=== PATIENT | female | born 1995 | race Caucasian/White ===

== ENCOUNTER 2017-11-12 21:55 | Emergency (ER) | payer OTHER, SELFPAY ==
--- NOTE | 2017-11-12 00:10 | DI.RAD_ITS ---
SYMPTOM/DIAGNOSIS: CHEST PRESSURE, CHEST PAIN PORTABLE AP CHEST: The heart is normal in size. The lungs are clear. The mediastinal structures and pleura appear intact. CONCLUSION: Normal chest.
[2017-11-12 22:01] VITALS: BP 168/101; PULSE 98; RESP 18; TEMP 36.7; O2SAT 98
[2017-11-12] MEDS: Normal Saline 1,000 ML 1000 ML IV (22:09)
[2017-11-12 22:27] LABS: Abs Immature Grans 0.07 k/cumm (0.0-0.09); Absolute Basophil Count 0.05 k/cumm (0.0-0.2); Absolute Lymphocyte Count 2.74 k/cumm (1.2-3.4); Absolute Monocyte Count 0.53 k/cumm (0.11-0.7); Absolute Neutrophil Count 4.97 k/cumm (1.2-6.7); Basophils % 0.5; Eosinophils % 9.7; HCT 37.1 % (36.0-46.0); HGB 11.4 g/dL (12.0-15.5); Immature Grans % 0.8; Lymphocytes % 29.6; Mean Corp. HGB Concentration 30.7 g/dL (32.0-36.0); Mean Corpuscular Hemoglobin 24.7 pg (27.0-33.0); Mean Corpuscular Volume 80.5 fL (80-95); Mean Platelet Volume 11.5 fL (8.0-11.0); Monocytes % 5.7; Neutrophils % 53.7; Platelet Count 212 x1000/uL (130-400); RBC 4.61 m/cumm (4.00-5.20); RBC Distribution Width 17.7 % (11.7-14.6); White Blood Cell Count 9.26 k/cumm (4.4-10.8)
[2017-11-12 23:21] LABS: ALT 30 U/L (12-78); AST 29 U/L (15-37); Albumin 3.5 g/dL (3.4-5.0); Alkaline Phosphatase 71 U/L (46-116); Anion Gap 10.9 mmol/L (3-11); BUN 13 mg/dL (7-18); Bilirubin, Total 0.2 mg/dL (0.2-1.0); CO2 26.1 mmol/L (21.0-32.0); CREATININE 0.96 mg/dL (0.55-1.02); Calcium 8.7 mg/dL (8.5-10.1); Chloride 101 mmol/L (98-107); Glucose 88 mg/dL (70-100); Potassium 3.9 mmol/L (3.5-5.1); Sodium 138 mmol/L (136-145); Total Protein 7.6 g/dL (6.4-8.2)
[2017-11-12 23:23] LABS: Troponin I < 0.02 ng/mL (0.00-0.06)
[2017-11-12 23:45] LABS: D-Dimer 302 ng/mlFEU (<500)
--- NOTE | 2017-11-12 23:47 | W.ED.GENAD ---
Discharge Plan Disposition Patient Disposition: HOME Condition: Good Discharge Details Chief Complaint: Chest Pain Clinical Impression: Chest pain Primary Care Provider: Radha Etienne ED Provider: Sanjay Felix Home Meds and New Rx's Prescriptions: No Action albuterol sulfate 8.5 GM HFA aerosol inhaler 1 - 2 puff Inhalation Q4H PRN Qty: 1 RF: 1 ibuprofen 800 MG tablet 400 - 800 mg PO TID PRNQty: 40 RF: 0 fluticasone-salmeterol [Advair Diskus] 1 EACH blister with device 1 puff Inhalation BID Qty: 1 RF: 12 ranitidine HCl 150 MG capsule 150 mg PO HS Qty: 90 RF: 3 drospirenone-ethinyl estradiol [Ros (28)] 1 EACH tablet 1 tab-cap PO DAILY Qty: 3 RF: 3 Discharge Instructions Instructions: Chest Pain (ED) Additional Instructions: Please take Tylenol and Motrin for any pain. Please follow-up with your transit mechanic as soon as possible for reassessment. If you notice any worsening of your symptoms, or any new symptoms such as vomiting, diarrhea, fever, chills, shortness of breath, chest pain, numbness, weakness, or fainting , please return immediately to the emergency department for reevaluation. Please follow up with your primary care provider as soon as possible for reassessment and reevaluation. As always, it was a pleasure participating in your medical care today. Referrals: Radha Etienne, SOFTWARE ENGINEER MOBILE [Primary Care Provider] - Medical Decision Making This is a 22-year-old female with a past medical history of supraventricular tachycardia, and cardiac ablation, who presents today for a heaviness on her chest. It improves when she sits upright, it worsens when she lays down flat. She has no associated cough, fever or chills. She denies any pleuritic chest pain. Vital signs are normal. Differential includes potential pulmonary etiology, pulmonary embolism, musculoskeletal etiology. Pericarditis is high in the differential with her symptomatology. Laboratory workup demonstrates no elevated WBC. Normal d-dimer level, normal electrolytes, normal troponin. TSH is also normal. EKG shows no acute abnormality. We are pending chest x-ray results at this time. We have given the patient Toradol, 1 L of normal saline, and will reassess. Differential at this time is highest for pericarditis versus musculoskeletal etiology. EKG 22: 03 Rate 87, intervals normal, sinus rhythm, no ST elevations or depressions. Inverted T wave in lead III. Questionable Q wave in lead III. No broad terminal S wave in lead I.no signs of right heart strain on EKG 12:43 AM chest x-ray has returned negative per virtual radiology. Laboratory workup is benign. Symptoms are improved with Toradol. Feel her symptoms most likely musculoskeletal in origin and etiology. Recommended home NSAID use, and close follow-up with her PCP. We discussed red flags for which to return I have extensively reviewed the treatment plan and discharge instructions with the patient. I have addressed all patient concerns at this time. The patient was made aware of what symptoms to monitor for that would warrant a return to the emergency department. Discussed the plan with the patient, they demonstrate verbal understanding and agreement with our assessment and plan at this time. HPI General Date/Time Provider Initiated Documentation: 11/12/17 22:08. HPI Narrative: This is a 22-year-old female with past medical history of SVT with cardiac ablation 4 years ago, asthma, and oral contraceptive. She presents today with complaint of 2 days of heaviness on her chest. She states that she feels like there is a heavy weight on her chest, there is no pleuritic chest pain, she does not have any pain that radiates to her arms or neck. She states that the symptoms are slightly improved when she sits upright and leans forward, worsened when she lays back. She has not had symptoms like this before. She does admit to a sensation of occasional palpitations, but no persistent palpitations. She denies any new foods, trauma to her chest, cough, wheezes, fevers tearing sensation in her chest, or chills. Denies PE risk factors such as recent long car rides, immobilization, recent surgery, prior history of DVT or PE, family history of PE or DVT, morbid obesity, exogenous estrogen and smoking, hemoptysis, history of cancer. She denies any IV or illicit drug use. She denies any pertinent family history. Related Data Home Medications Medication Instructions Recorded Confirmed albuterol sulfate 1 - 2 puff INHALATION Q4H PRN #1 03/10/14 11/12/17 inhaler ibuprofen 400 - 800 mg PO TID PRN #40 tab-cap 12/06/15 11/12/17 fluticasone-salmeterol [Advair 1 puff INHALATION BID #1 disk 05/16/17 11/12/17 Diskus] ranitidine HCl 150 mg PO HS #90 tab-cap 05/16/17 11/12/17 drospirenone-ethinyl estradiol 1 tab-cap PO DAILY #3 pack 08/28/17 11/12/17 [Ros (28)] Previous Rx's Medication Instructions Recorded fluticasone-salmeterol [Advair 1 puff INHALATION BID #1 disk 05/16/17 Diskus] ranitidine HCl 150 mg PO HS #90 tab-cap 05/16/17 drospirenone-ethinyl estradiol 1 tab-cap PO DAILY #3 pack 08/28/17 [Ros (28)] Allergies Allergy/AdvReac Type Severity Reaction Status Date / Time amoxicillin [Amoxicillin] Allergy Unknown Unverified 11/12/17 22:46 blueberry [Blueberry] Allergy urticaria Unverified 11/12/17 22:46 codeine phosphate AdvReac Severe vomiting Unverified 11/12/17 22:46 [From Tylenol-Codeine #3] shellfish food Allergy Unknown vomiting Uncoded 11/12/17 22:46 General Stated Complaint: Chest Pain LONA: 3 Review of Systems Review of Systems 10 point review of systems was performed, pertinent positives and negatives are noted in the history of present illness. PFSH Family History Brother Crohn's disease Mother No problems noted. Father No problems noted. 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 3.ENT: Atraumatic external nose and ears. Moist MM. Neck: Symmetric, trachea midline, No thyromegaly. 4.CVS: +S1/S2, No murmurs or gallops. Peripheral pulses 2+ and equal in all extremities. Brisk capillary refill in all extremities. 5.RESP: Unlabored respiratory effort. Clear to auscultation bilaterally. No wheezes rales or rhonchi 6.GI: Soft, Nontender/Nondistended, No hepatosplenomegaly. No guarding or rebound. 7.MSK: Normocephalic/Atraumatic, Extremities w/o deformity or ttp No cyanosis or clubbing, Normal movement of all extremities 8.Skin: Warm, Dry. No rashes or lesions. 9.Neuro: department administrator II-XII grossly intact. Sensation grossly intact, no focal neurologic deficits. 10.Psych: (AAO) x3. Appropriate mood and affect Course Vital Signs Temperature 36.7 C 11/12/17 22:01 Pulse 98 H 11/12/17 22:01 Respiratory Rate 18 11/12/17 22:01 Blood Pressure 168/101 H 11/12/17 22:01 Pulse Oximetry 98 11/12/17 22:01 Temperature 36.7 C 11/12/17 22:01 Temperature Source Temporal Artery Scan 11/12/17 22:01 Pulse 98 H 11/12/17 22:01 Respiratory Rate 18 11/12/17 22:01 Respiratory Effort 11/12/17 22:45 Respiratory Depth Normal 11/12/17 22:45 Respiratory Pattern Normal 11/12/17 22:45 Blood Pressure 168/101 H 11/12/17 22:01 Blood Pressure Position Sitting 11/12/17 22:01 Pulse Oximetry 98 11/12/17 22:01 Oxygen Delivery Method Room Air 11/12/17 22:01 Oxygen Flow Rate 0 11/12/17 22:01 Lab/Test Results Lab/Test Results: Laboratory Tests Range/Units 11/12/17 11/12/17 11/12/17 22:23 22:23 22:23 WBC (4.4-10.8) k/cumm 9.26 RBC (4.00-5.20) m/cumm 4.61 Hgb (12.0-15.5) g/dL 11.4 L Hct (36.0-46.0) % 37.1 MCV (80-95) fL 80.5 MCH (27.0-33.0) pg 24.7 L MCHC (32.0-36.0) g/dL 30.7 L RDW (11.7-14.6) % 17.7 H Plt Count (130-400) x1000/uL 212 MPV (8.0-11.0) fL 11.5 H Immature Gran % 0.8 Neutrophils % 53.7 Lymphocytes % 29.6 Monocytes % 5.7 Eosinophils % 9.7 Basophils % 0.5 Absolute Neutrophils (1.2-6.7) k/cumm 4.97 Absolute Lymphocytes (1.2-3.4) k/cumm 2.74 Absolute Monocytes (0.11-0.7) k/cumm 0.53 Absolute Eosinophils (0.0-0.7) k/cumm 0.90 H Absolute Basophils (0.0-0.2) k/cumm 0.05 D-Dimer Cancelled Sodium Cancelled Potassium Cancelled Chloride Cancelled Carbon Dioxide Cancelled Anion Gap Cancelled BUN Cancelled Creatinine Cancelled Estimated GFR/1.73 m2 Cancelled Glucose Cancelled Calcium Cancelled Total Bilirubin Cancelled AST Cancelled ALT Cancelled Alkaline Phosphatase Cancelled Troponin I Cancelled Total Protein Cancelled Albumin Cancelled TSH Cancelled Range/Units 11/12/17 11/12/17 22:50 22:50 WBC (4.4-10.8) k/cumm RBC (4.00-5.20) m/cumm Hgb (12.0-15.5) g/dL Hct (36.0-46.0) % MCV (80-95) fL MCH (27.0-33.0) pg MCHC (32.0-36.0) g/dL RDW (11.7-14.6) % Plt Count (130-400) x1000/uL MPV (8.0-11.0) fL Immature Gran % Neutrophils % Lymphocytes % Monocytes % Eosinophils % Basophils % Absolute Neutrophils (1.2-6.7) k/cumm Absolute Lymphocytes (1.2-3.4) k/cumm Absolute Monocytes (0.11-0.7) k/cumm Absolute Eosinophils (0.0-0.7) k/cumm Absolute Basophils (0.0-0.2) k/cumm D-Dimer 302 Sodium 138 Potassium 3.9 Chloride 101 Carbon Dioxide 26.1 Anion Gap 10.9 BUN 13 Creatinine 0.96 Estimated GFR/1.73 m2 >= 60.00 Glucose 88 Calcium 8.7 Total Bilirubin 0.2 AST 29 ALT 30 Alkaline Phosphatase 71 Troponin I < 0.02 Total Protein 7.6 Albumin 3.5 TSH 2.30 POC- Test(urine) Negative
--- NOTE | 2017-11-13 00:02 | ED.GENADUL_ITS ---
Discharge Plan Disposition Patient Disposition: HOME Condition: Good Discharge Details Chief Complaint: Chest Pain Clinical Impression: Chest pain Primary Care Provider: Radha Etienne ED Provider: Sanjay Felix Home Meds and New Rx's Prescriptions: No Action albuterol sulfate 8.5 GM HFA aerosol inhaler 1 - 2 puff Inhalation Q4H PRN Qty: 1 RF: 1 ibuprofen 800 MG tablet 400 - 800 mg PO TID PRNQty: 40 RF: 0 fluticasone-salmeterol [Advair Diskus] 1 EACH blister with device 1 puff Inhalation BID Qty: 1 RF: 12 ranitidine HCl 150 MG capsule 150 mg PO HS Qty: 90 RF: 3 drospirenone-ethinyl estradiol [Ros (28)] 1 EACH tablet 1 tab-cap PO DAILY Qty: 3 RF: 3 Discharge Instructions Instructions: Chest Pain (ED) Additional Instructions: Please take Tylenol and Motrin for any pain. Please follow-up with your powerhouse engineer as soon as possible for reassessment. If you notice any worsening of your symptoms, or any new symptoms such as vomiting, diarrhea, fever, chills , shortness of breath, chest pain, numbness, weakness, or fainting , please return immediately to the emergency department for reevaluation. Please follow up with your primary care provider as soon as possible for reassessment and reevaluation. As always, it was a pleasure participating in your medical care today. Referrals: Radha Etienne, WHEELCHAIR RENTAL CLERK [Primary Care Provider] - Medical Decision Making This is a 22-year-old female with a past medical history of supraventricular tachycardia, and cardiac ablation, who presents today for a heaviness on her chest. It improves when she sits upright, it worsens when she lays down flat. She has no associated cough, fever or chills. She denies any pleuritic chest pain. Vital signs are normal. Differential includes potential pulmonary etiology, pulmonary embolism, musculoskeletal etiology. Pericarditis is high in the differential with her symptomatology. Laboratory workup demonstrates no elevated WBC. Normal d-dimer level, normal electrolytes, normal troponin. TSH is also normal. EKG shows no acute abnormality. We are pending chest x-ray results at this time. We have given the patient Toradol, 1 L of normal saline, and will reassess. Differential at this time is highest for pericarditis versus musculoskeletal etiology. EKG 22: 03 Rate 87, intervals normal, sinus rhythm, no ST elevations or depressions. Inverted T wave in lead III. Questionable Q wave in lead III. No broad terminal S wave in lead I.no signs of right heart strain on EKG 12:43 AM chest x-ray has returned negative per virtual radiology. Laboratory workup is benign. Symptoms are improved with Toradol. Feel her symptoms most likely musculoskeletal in origin and etiology. Recommended home NSAID use, and close follow-up with her PCP. We discussed red flags for which to return I have extensively reviewed the treatment plan and discharge instructions with the patient. I have addressed all patient concerns at this time. The patient was made aware of what symptoms to monitor for that would warrant a return to the emergency department. Discussed the plan with the patient, they demonstrate verbal understanding and agreement with our assessment and plan at this time. HPI General Date/Time Provider Initiated Documentation: 11/12/17 22:08 . HPI Narrative: This is a 22-year-old female with past medical history of SVT with cardiac ablation 4 years ago, asthma, and oral contraceptive. She presents today with complaint of 2 days of heaviness on her chest. She states that she feels like there is a heavy weight on her chest, there is no pleuritic chest pain, she does not have any pain that radiates to her arms or neck. She states that the symptoms are slightly improved when she sits upright and leans forward, worsened when she lays back. She has not had symptoms like this before. She does admit to a sensation of occasional palpitations, but no persistent palpitations. She denies any new foods, trauma to her chest, cough, wheezes, fevers tearing sensation in her chest, or chills. Denies PE risk factors such as recent long car rides, immobilization, recent surgery, prior history of DVT or PE, family history of PE or DVT, morbid obesity, exogenous estrogen and smoking, hemoptysis, history of cancer. She denies any IV or illicit drug use. She denies any pertinent family history. Related Data Home Medications Medication Instructions Recorded Confirmed albuterol sulfate 1 - 2 puff INHALATION Q4H PRN #1 03/10/14 11/12/17 inhaler ibuprofen 400 - 800 mg PO TID PRN #40 tab-cap 12/06/15 11/12/17 fluticasone-salmeterol [Advair 1 puff INHALATION BID #1 disk 05/16/17 11/12/17 Diskus] ranitidine HCl 150 mg PO HS #90 tab-cap 05/16/17 11/12/17 drospirenone-ethinyl estradiol 1 tab-cap PO DAILY #3 pack 08/28/17 11/12/17 [Ros (28)] Previous Rx's Medication Instructions Recorded fluticasone-salmeterol [Advair 1 puff INHALATION BID #1 disk 05/16/17 Diskus] ranitidine HCl 150 mg PO HS #90 tab-cap 05/16/17 drospirenone-ethinyl estradiol 1 tab-cap PO DAILY #3 pack 08/28/17 [Ros (28)] Allergies Allergy/AdvReac Type Severity Reaction Status Date / Time amoxicillin [Amoxicillin] Allergy Unknown Unverified 11/12/17 22:46 blueberry [Blueberry] Allergy urticaria Unverified 11/12/17 22:46 codeine phosphate AdvReac Severe vomiting Unverified 11/12/17 22:46 [From Tylenol-Codeine #3] shellfish food Allergy Unknown vomiting Uncoded 11/12/17 22:46 General Stated Complaint: Chest Pain LONA: 3 Review of Systems Review of Systems 10 point review of systems was performed, pertinent positives and negatives are noted in the history of present illness. PFSH Family History Brother Crohn's disease Mother No problems noted. Father No problems noted. 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 3.ENT: Atraumatic external nose and ears. Moist MM. Neck: Symmetric, trachea midline, No thyromegaly. 4.CVS: +S1/S2, No murmurs or gallops. Peripheral pulses 2+ and equal in all extremities. Brisk capillary refill in all extremities. 5.RESP: Unlabored respiratory effort. Clear to auscultation bilaterally. No wheezes rales or rhonchi 6.GI: Soft, Nontender/Nondistended, No hepatosplenomegaly. No guarding or rebound. 7.MSK: Normocephalic/Atraumatic, Extremities w/o deformity or ttp No cyanosis or clubbing, Normal movement of all extremities 8.Skin: Warm, Dry. No rashes or lesions. 9.Neuro: healthcare corporate account director II-XII grossly intact. Sensation grossly intact, no focal neurologic deficits. 10.Psych: (AAO) x3. Appropriate mood and affect Course Vital Signs Temperature 36.7 C 11/12/17 22:01 Pulse 98 H 11/12/17 22:01 Respiratory Rate 18 11/12/17 22:01 Blood Pressure 168/101 H 11/12/17 22:01 Pulse Oximetry 98 11/12/17 22:01 Temperature 36.7 C 11/12/17 22:01 Temperature Source Temporal Artery Scan 11/12/17 22:01 Pulse 98 H 11/12/17 22:01 Respiratory Rate 18 11/12/17 22:01 Respiratory Effort 11/12/17 22:45 Respiratory Depth Normal 11/12/17 22:45 Respiratory Pattern Normal 11/12/17 22:45 Blood Pressure 168/101 H 11/12/17 22:01 Blood Pressure Position Sitting 11/12/17 22:01 Pulse Oximetry 98 11/12/17 22:01 Oxygen Delivery Method Room Air 11/12/17 22:01 Oxygen Flow Rate 0 11/12/17 22:01 Lab/Test Results Lab/Test Results: Laboratory Tests Range/Units 11/12/17 11/12/17 11/12/17 22:23 22:23 22:23 WBC (4.4-10.8) k/cumm 9.26 RBC (4.00-5.20) m/cumm 4.61 Hgb (12.0-15.5) g/dL 11.4 L Hct (36.0-46.0) % 37.1 MCV (80-95) fL 80.5 MCH (27.0-33.0) pg 24.7 L MCHC (32.0-36.0) g/dL 30.7 L RDW (11.7-14.6) % 17.7 H Plt Count (130-400) x1000/uL 212 MPV (8.0-11.0) fL 11.5 H Immature Gran % 0.8 Neutrophils % 53.7 Lymphocytes % 29.6 Monocytes % 5.7 Eosinophils % 9.7 Basophils % 0.5 Absolute Neutrophils (1.2-6.7) k/cumm 4.97 Absolute Lymphocytes (1.2-3.4) k/cumm 2.74 Absolute Monocytes (0.11-0.7) k/cumm 0.53 Absolute Eosinophils (0.0-0.7) k/cumm 0.90 H Absolute Basophils (0.0-0.2) k/cumm 0.05 D-Dimer Cancelled Sodium Cancelled Potassium Cancelled Chloride Cancelled Carbon Dioxide Cancelled Anion Gap Cancelled BUN Cancelled Creatinine Cancelled Estimated GFR/1.73 m2 Cancelled Glucose Cancelled Calcium Cancelled Total Bilirubin Cancelled AST Cancelled ALT Cancelled Alkaline Phosphatase Cancelled Troponin I Cancelled Total Protein Cancelled Albumin Cancelled TSH Cancelled Range/Units 11/12/17 11/12/17 22:50 22:50 WBC (4.4-10.8) k/cumm RBC (4.00-5.20) m/cumm Hgb (12.0-15.5) g/dL Hct (36.0-46.0) % MCV (80-95) fL MCH (27.0-33.0) pg MCHC (32.0-36.0) g/dL RDW (11.7-14.6) % Plt Count (130-400) x1000/uL MPV (8.0-11.0) fL Immature Gran % Neutrophils % Lymphocytes % Monocytes % Eosinophils % Basophils % Absolute Neutrophils (1.2-6.7) k/cumm Absolute Lymphocytes (1.2-3.4) k/cumm Absolute Monocytes (0.11-0.7) k/cumm Absolute Eosinophils (0.0-0.7) k/cumm Absolute Basophils (0.0-0.2) k/cumm D-Dimer 302 Sodium 138 Potassium 3.9 Chloride 101 Carbon Dioxide 26.1 Anion Gap 10.9 BUN 13 Creatinine 0.96 Estimated GFR/1.73 m2 >= 60.00 Glucose 88 Calcium 8.7 Total Bilirubin 0.2 AST 29 ALT 30 Alkaline Phosphatase 71 Troponin I < 0.02 Total Protein 7.6 Albumin 3.5 TSH 2.30 POC- Test(urine) Negative
[2017-11-13] MEDS: Ketorolac 30 MG/ML VIAL 15 MG IM (00:04)
--- NOTE | 2017-11-13 00:26 | DI.VRAD_ITS ---
EXAM: XR Chest, 1 View CLINICAL HISTORY: 22 years old, female; Pain; Chest pain; Type not specified; Patient HX: Chest pain and pressure TECHNIQUE: Frontal view of the chest. COMPARISON: No relevant prior studies available. FINDINGS: Lungs: Unremarkable. No consolidation. Pleural space: Unremarkable. No pneumothorax. Heart: Unremarkable. No cardiomegaly. Mediastinum: Unremarkable. Bones/joints: Unremarkable. IMPRESSION: Normal chest x-ray. Dictated and Authenticated by: Gregg Collazo MD. Ordering:MERE MATA MD
== END 2017-11-13 01:09 | disposition home or self-care (01) ==
PROVIDERS: Emergency Provider Student in an Organized Health Care Education/Training Program; PCP Nurse Practitioner Adult Health
DX: R07.89 Other chest pain (principal); Z79.3 Long term (current) use of hormonal contraceptives; Z86.79 Personal history of other diseases of the circulatory system
CPT/HCPCS: 80053; 81025; 93005; 96360; 96361; 96372; 99285; 71045; 84443; 84484; 85025; 85379; 93010; J1885

== ENCOUNTER 2017-11-13 15:43 | Outpatient (REF) | payer OTHER, SELFPAY ==
--- NOTE | 2017-11-13 14:30 | CER_PTH ---
PATIENT: Gerri Talley LOC: [facility] U#:[id number] AGE/SX: 22/F ROOM: RE11/13/[address]: Desirae Kaur MD : [id number] BED: DIS: 11/13/2017 SPEC #: [id number] RECD: 11/13/17 17:47 STATUS: BALAJI REQ #: [id number] ETHAN: 11/13/17 14:[address]: Desirae Kaur DEPT: Surgical Specimen RECD BY: Katarzyna Garcia ENTERED: 11/13/17 17:48 SP TYPE: VI ARAIZA DR: Radha Etienne APRN Tissues: 1 - CERVICAL BIOPSY 2 - CERVICAL BIOPSY 3 - ENDOCERVICAL BX/CURRETTE Procedures: GROSS AND MICRO LEVEL 4 P16 IPEX Comments: [id number]
== END 2017-11-13 16:03 ==
LOC: LBN 15:43
PROVIDERS: PCP Nurse Practitioner Adult Health; Referring Provider Obstetrics & Gynecology; Visit Provider Obstetrics & Gynecology
DX: N87.1 Moderate cervical dysplasia (principal); R87.613 High grade squamous intraepithelial lesion on cytologic smear of cervix (HGSIL)
CPT/HCPCS: 88305; 88342

== ENCOUNTER 2017-11-22 13:15 | Outpatient (CLI) | payer OTHER, SELFPAY ==
--- NOTE | 2017-11-22 14:02 | MERGE_ITS ---
*[facility]* *[facility]* [address] [place] [address] Date of study: 11/22/2017 Transthoracic Echocardiography M-mode, complete 2D, complete spectral Doppler, and color Doppler *STUDY CONCLUSIONS* Summary: 1. Left ventricle: The cavity size was normal. Wall thickness was at the upper limits of normal. Systolic function was normal. The estimated ejection fraction was 55-60%. Wall motion was normal; there were no regional wall motion abnormalities. 2. Aortic valve: There was trivial regurgitation. 3. Right ventricle: The cavity size was normal. Wall thickness was normal. Systolic function was normal. *PATIENT PRESENTATION* Height: 175.3cm ((69in) ) S/D Pressure: 127 / 81 Weight: 111.1kg ((244.5lb) ) BSA: 2.37m^2 Test start time: 02:10 PM. Test stop time: 03:10 PM. PERFORMING Unknown PERFORMING [facility] PHYSICAL SCIENCES PROFESSOR Merry Alaniz RT (R)(CT), [facility] ORDERING Jessica Bhakta REFERRING Jessica Bhakta *PROCEDURE DATA* Procedure information: The patient was identified by two identifiers. This study was interpreted by [facility]. Pertinent images and digital data are archived for permanent storage and are available for subsequent review. Comparison was made to the study of 03/23/2014. Study status: Routine. Transthoracic echocardiography. M-mode, complete 2D, complete spectral Doppler, and color Doppler. A Transthoracic Echocardiogram was performed. Scanning was performed from the parasternal, apical, subcostal, and suprasternal notch acoustic windows. Images were obtained using an [id number] cardiac ultrasound machine. Image quality was adequate. Study completion: The patient tolerated the procedure well. History: PMH: Chest pressure discomfort. *CARDIAC ANATOMY* Left ventricle: The cavity size was normal. Wall thickness was at the upper limits of normal. Systolic function was normal. The estimated ejection fraction was 55-60%. Wall motion was normal; there were no regional wall motion abnormalities. Aortic valve: Trileaflet; normal thickness leaflets. Mobility was not restricted. Doppler: Transvalvular velocity was within the normal range. There was no stenosis. There was trivial regurgitation. VTI ratio of LVOT to aortic valve: 0.76. Valve area (VTI): 2.4cm^2. Indexed valve area (VTI): 1cm^2/m^2. Peak velocity ratio of LVOT to aortic valve: 0.75. Valve area (Vmax): 2.4cm^2. Indexed valve area (Vmax): 1cm^2/m^2. Mean velocity ratio of LVOT to aortic valve: 0.78. Valve area (Vmean): 2.5cm^2. Indexed valve area (Vmean): 1.1cm^2/m^2. Mean gradient (S): 5.6mm Hg. Peak gradient (S): 9.1mm Hg. Aorta: Aortic root: The aortic root was normal in size. Ascending aorta: The ascending aorta was normal in size. Aortic arch: The aortic arch was normal in size. Mitral valve: Mildly thickened leaflets. Mobility was not restricted. Doppler: Transvalvular velocity was within the normal range. There was no evidence for stenosis. There was trivial regurgitation. Valve area by pressure half-time: 3.9cm^2. Indexed valve area by pressure half-time: 1.6cm^2/m^2. Peak gradient (D): 3.1mm Hg. Left atrium: The atrium was normal in size. Right ventricle: The cavity size was normal. Wall thickness was normal. Systolic function was normal. Pulmonic valve: Doppler: Transvalvular velocity was within the normal range. There was no evidence for stenosis. There was mild regurgitation. Peak gradient (S): 3mm Hg. Tricuspid valve: Structurally normal valve. Doppler: Transvalvular velocity was within the normal range. There was no evidence for stenosis. There was mild regurgitation. Pulmonary artery: The main pulmonary artery was normal-sized. Pulmonary systolic pressure was within the normal range. Main pulmonary artery: Mid diameter: 2.5cm. Right atrium: The atrium was normal in size. Pericardium: There was no pericardial effusion. Systemic veins: Inferior vena cava: Well visualized. The vessel was patent and normal in size. The respirophasic diameter changes were in the normal range (greater than or equal to 50%), consistent with normal central venous pressure. Baseline ECG: Normal sinus rhythm. Measurements Main pulmonary artery Value Reference ID, mid 2.5 cm Left ventricle Value Reference LV ID, ED, PLAX 4.9 cm 3.5 - 6.0 LV ID, ES, PLAX 3.5 cm 2.1 - 4.0 LV PW thickness, ED, PLAX 1.0 cm LV end-diastolic volume, 1-p A2C 98 ml LV ejection fraction, 1-p A2C 57 % LV end-diastolic volume, 1-p A4C 107 ml LV ejection fraction, 1-p A4C 54 % LV e', lateral 0.149 m/sec LV E/e', lateral 6 LV e', medial 0.13 m/sec LV E/e', medial 7 LV e', average 0.14 m/sec LV E/e', average 6 Ventricular septum Value Reference IVS thickness, ED, PLAX 1.1 cm LVOT Value Reference LVOT ID, A-P 2.0 cm LVOT area 3.2 cm^2 LVOT peak velocity, S 1.14 m/sec LVOT mean velocity, S 0.89 m/sec LVOT VTI, S 22.1 cm LVOT peak gradient, S 5.2 mm Hg LVOT mean gradient, S 3.4 mm Hg Stroke volume (SV), LVOT DP 70 ml Stroke index (SV/bsa), LVOT DP 30 ml/m^2 Aortic valve Value Reference Aortic valve peak velocity, S 1.5 m/sec Aortic valve mean velocity, S 1.14 m/sec Aortic valve VTI, S 29.0 cm Aortic mean gradient, S 5.6 mm Hg Aortic peak gradient, S 9.1 mm Hg VTI ratio, LVOT/AV 0.76 Aortic valve area, VTI 2.4 cm^2 Velocity ratio, peak, LVOT/AV 0.75 Aortic valve area, peak velocity 2.4 cm^2 Velocity ratio, mean, LVOT/AV 0.78 Aortic valve area, mean velocity 2.5 cm^2 Aortic valve area/bsa, mean velocity 1.1 cm^2/m^2 Aortic regurg velocity, ED 3.99 m/sec Aortic regurg gradient, ED 63.8 mm Hg Aorta Value Reference Aortic root ID, ED 2.6 cm Ascending aorta ID, A-P, S 2.7 cm Aortic arch ID, innominate-LCCA 2.6 cm 2.0 - 3.6 Aortic arch ID, LCCA-LSCA 2.2 cm RVOT Value Reference RVOT VTI, S 16.3 cm Left atrium Value Reference LA ID, A-P, ES 3.4 cm LA ID/bsa, A-P 1.4 cm/m^2 <=2.2 LA area, ES, A4C 15.7 cm^2 8.8 - 23.4 LA area, ES, A2C 13 cm^2 LA volume/bsa, ES, 1-p A4C 18 ml/m^2 LA volume, ES, 2-p 38 ml LA volume/bsa, ES, 2-p 16 ml/m^2 LA/aortic root ratio 1.3 Mitral valve Value Reference Mitral E-wave peak velocity 0.89 m/sec Mitral A-wave peak velocity 0.51 m/sec Mitral deceleration time 196 ms 150 - 230 Mitral pressure half-time 57 ms Mitral peak gradient, D 3.1 mm Hg Mitral E/A ratio, peak 1.73 Mitral valve area, PHT, DP 3.9 cm^2 Pulmonary veins Value Reference Pulmonary vein peak velocity, S 0.47 m/sec Pulmonary vein peak velocity, D 0.68 m/sec Pulmonary vein velocity ratio, peak, 0.69 S/D Pulmonary arteries Value Reference PA pressure, S, DP 20 mm Hg <=30 Tricuspid valve Value Reference Tricuspid regurg peak velocity 1.8 m/sec Tricuspid peak RV-RA gradient 13.3 mm Hg Right atrium Value Reference RA area, ES, A4C 10.5 cm^2 8.3 - 19.5 Systemic veins Value Reference Estimated CVP 10 mm Hg Right ventricle Value Reference RV pressure, S, DP 23 mm Hg <=30 Pulmonic valve Value Reference Pulmonic peak gradient, S 3 mm Hg Pulmonic regurg velocity, ED 0.87 m/sec Legend: (L) and (H) norm values outside specified reference range. I have personally reviewed the images and have reviewed and edited the reported findings. Electronically signed by Paul Patrick 11/26/2017 10:43
== END 2017-11-22 13:35 ==
PROVIDERS: PCP Nurse Practitioner; Visit Provider Nurse Practitioner
DX: R07.89 Other chest pain (principal); I35.1 Nonrheumatic aortic (valve) insufficiency
CPT/HCPCS: 93306

== ENCOUNTER 2018-11-19 20:18 | Emergency (ER) | payer OTHER, SELFPAY ==
--- NOTE | 2018-11-19 20:23 | NUR.NOTE ---
Nursing Note: pt states that she has had a sinus infection for the past 3 days that progresses to a 8/10 headache described as sinus pressure today. PT is here because it has affected her ability to sleep and work
[2018-11-19 20:24] VITALS: BP 136/89; PULSE 89; RESP 16; TEMP 36.7; O2SAT 100
--- NOTE | 2018-11-19 20:41 | ED.GENADUL_ITS ---
Discharge Plan Disposition Patient Disposition: HOME Discharge Details Chief Complaint: Headache Clinical Impression: Sinusitis, acute Primary Care Provider: Jessica Bhakta ED Provider: Juan Rico Home Meds and New Rx's Prescriptions: New doxycycline hyclate 100 mg tablet 100 mg PO BID Qty: 19 RF: 0 Continued trazodone 50 mg tablet 50 mg PO QHS PRNRF: 0 fluticasone propionate 50 mcg/actuation spray,suspension 2 spray SUSHIL DAILY Qty: 16 RF: 12 fluticasone propion-salmeterol [Advair Diskus] 250-50 mcg/dose blister with device 1 inh IH BID Qty: 60 RF: 0 fluticasone propion-salmeterol [Advair Diskus] 100-50 mcg/dose blister with device 1 puff Inhalation BID PRN (Reason: asthma) Qty: 1 RF: 12 albuterol sulfate 90 mcg/actuation HFA aerosol inhaler 1 - 2 puff Inhalation Q4H PRN Qty: 18 RF: 12 cetirizine [Zyrtec] 10 mg tablet 10 mg PO DAILY Qty: 30 RF: 3 ibuprofen 800 MG tablet 400 - 800 mg PO TID PRNQty: 40 RF: 0 ranitidine HCl 150 MG capsule 150 mg PO HS Qty: 90 RF: 3 drospirenone-ethinyl estradiol [Ros (28)] 1 EACH tablet 1 tab-cap PO DAILY Qty: 3 RF: 3 Discharge Instructions Instructions: Sinusitis (ED) Additional Instructions: Please take ibuprofen over the counter. Take 600mg by mouth every 6 hours as needed for pain. Please take acetaminophen (tylenol) - 650mg every 6 hours by mouth as needed for pain. Please take the full course of antibiotic as prescribed. Please contact your primary care physician to arrange follow-up. Return to the ER for any worsening or new concerning symptoms. Referrals: Jessica Bhakta NP [Primary Care Provider] - Medical Decision Making 23-year-old female here with sinusitis worsening over the past 3 days and now severe. Consider bacterial etiology given severity today. Patient has no fevers. Discussed potential treatment options and patient elects antibiotics. She has unknown amoxicillin allergy. Plan to treat with doxycycline. Patient was advised to use ibuprofen regularly and drink plenty of fluids to stay hydrated. Usual and customary discharge instructions were provided. HPI General Mode of arrival: ambulatory . Date/Time Provider Initiated Documentation: 11/19/18 20:20 . Limitations to Documentation: no limitations . Information obtained by: patient . HPI Narrative: 23-year-old female presents with chief complaint of sinus pain. Patient notes that for the past 3 days she has had worsening maxillary sinus pain bilaterally. Pain severe today. No modifiers. She has tried Sudafed and DayQuil without relief. No associated fever.\ Patient has had sinusitis in remote past but never this severe. Related Data Home Medications Medication Instructions Recorded Confirmed ibuprofen 400 - 800 mg PO TID PRN #40 tab-cap 12/06/15 11/19/18 ranitidine HCl 150 mg PO HS #90 tab-cap 05/16/17 11/19/18 drospirenone-ethinyl estradiol 1 tab-cap PO DAILY #3 pack 08/28/17 11/19/18 [Ros (28)] albuterol sulfate 90 mcg/actuation 1 - 2 puff INHALATION Q4H PRN #18 04/02/18 11/19/18 aerosol inhaler gm fluticasone 100 mcg-salmeterol 50 1 puff INHALATION BID PRN #1 unit 04/02/18 11/19/18 mcg/dose blistr powdr for inhalation fluticasone propionate 50 2 spray SUSHIL DAILY #16 gm 06/11/18 11/19/18 mcg/actuation nasal spray,suspension trazodone 50 mg tablet 50 mg PO QHS PRN 06/11/18 11/19/18 fluticasone 250 mcg-salmeterol 50 1 inh IH BID #60 each 06/20/18 11/19/18 mcg/dose blistr powdr for inhalation cetirizine 10 mg tablet 10 mg PO DAILY #30 tab 06/28/18 11/19/18 doxycycline hyclate 100 mg PO BID #19 tab 11/19/18 Previous Rx's Medication Instructions Recorded ranitidine HCl 150 mg PO HS #90 tab-cap 05/16/17 drospirenone-ethinyl estradiol 1 tab-cap PO DAILY #3 pack 08/28/17 [Ros (28)] albuterol sulfate 90 mcg/actuation 1 - 2 puff INHALATION Q4H PRN #18 02/12/19 aerosol inhaler gm fluticasone 100 mcg-salmeterol 50 1 puff INHALATION BID PRN #1 unit 04/02/18 mcg/dose blistr powdr for inhalation fluticasone propionate 50 2 spray SUSHIL DAILY #16 gm 06/11/18 mcg/actuation nasal spray,suspension fluticasone 250 mcg-salmeterol 50 1 inh IH BID #60 each 06/20/18 mcg/dose blistr powdr for inhalation cetirizine 10 mg tablet 10 mg PO DAILY #30 tab 06/28/18 doxycycline hyclate 100 mg PO BID #19 tab 11/19/18 Allergies Allergy/AdvReac Type Severity Reaction Status Date / Time blueberry [Blueberry] Allergy Intermediate urticaria Verified 11/19/18 20:26 amoxicillin [Amoxicillin] Allergy Unknown Verified 11/19/18 20:26 codeine phosphate AdvReac Severe vomiting Verified 11/19/18 20:26 [From Tylenol-Codeine #3] shellfish food Allergy Unknown vomiting Uncoded 11/19/18 20:26 General Stated Complaint: Headache LONA: 3 Review of Systems Constitutional Constitutional: Denies fever(s) ENT Ears, Nose, Mouth, and Throat: Reports as per HPI Respiratory Respiratory: Reports cough (She attributes to postnasal drip) COUNTS INCLUDE 234 BEDS AT THE [facility] Medical History Asthma 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) cardiac SVT (supraventricular tachycardia) s/p ablation 2013 Family History Brother Crohn's disease Mother Hypertension Father Hypertension Paternal Grandfather Myocardial infarct Social History Smoking/Tobacco Use Status: Never Alcohol Intake: current Alcohol Intake frequency: a few times a week Drug use: Never Substance use type: does not use Adopted: No Foster care: No Housing: apartment current occupation: [employer] Duration: 45-60 minutes/day Frequency: 5-6 times per week Seatbelt use: always Working smoke detector in home: Yes Fire extinguisher in home: Yes Do you feel safe at home: Yes Do you feel safe in your relationship?: Yes History History 0 Para Hx # Term Pregnancies Multiple births Hx # Pregnancies Ectopic pregnancies AB induced Hx Number of Living Children AB spontaneous Exam Const General: cooperative and no acute distress HENMT Head: normocephalic and atraumatic Ears: EAC's normal, no periauricular adenopathy and TM abnormal bulging bilaterally; not with effusion, not erythematous and with no fluid behind the TM General nose exam: external nose normal Face and sinus: no erythema and sinus tenderness maxillary Mouth: moist mucous membranes Throat: posterior oropharynx normal Eyes Conjunctivae: normal conjunctivae Sclera: normal sclerae Neck Neck: trachea midline and supple Resp Auscultation: clear to auscultation bilaterally, no rales, no rhonchi and no wheezes Cardio Jugular venous pressure: no JVD Rate: regular rate and not tachycardic Rhythm: regular rhythm Skin General skin exam: no rashes or lesions noted Neuro General: alert, awake and oriented x3 Course Vital Signs Vital signs: Vital Signs Temperature 36.7 C 11/19/18 20:24 Pulse 89 11/19/18 20:24 Respiratory Rate 16 11/19/18 20:24 Blood Pressure 136/89 11/19/18 20:24 Pulse Oximetry 100 11/19/18 20:24 Temperature 36.7 C 11/19/18 20:24 Temperature Source Skin 11/19/18 20:24 Pulse 89 11/19/18 20:24 Respiratory Rate 16 11/19/18 20:24 Respiratory Effort 11/19/18 20:26 Blood Pressure 136/89 11/19/18 20:24 Blood Pressure Position Sitting 11/19/18 20:24 Pulse Oximetry 100 11/19/18 20:24 Oxygen Delivery Method Room Air 11/19/18 20:24 Oxygen Flow Rate 0 11/19/18 20:24 Pain Level 8 11/19/18 20:24
[2018-11-19] MEDS: Doxycycline Hyclate 100 MG CAP PO ×2 (20:53→20:55)
[2018-11-19] MEDS: Ibuprofen 600 MG TAB PO (20:53)
[2018-11-19 20:56] VITALS: BP 136/89; PULSE 89; RESP 16; TEMP 36.7; O2SAT 100
== END 2018-11-19 20:55 | disposition home or self-care (01) ==
LOC: ER 20:57
PROVIDERS: Emergency Provider Student in an Organized Health Care Education/Training Program; PCP Nurse Practitioner
DX: J01.90 Acute sinusitis, unspecified (principal)
CPT/HCPCS: 99283

== ENCOUNTER 2018-12-12 15:41 | Outpatient (CLI) | payer OTHER, SELFPAY ==
--- NOTE | 2018-12-12 15:15 | DI.RAD_ITS ---
EXAM: XR HIP LT COMPLETE AP PELVIS CLINICAL HISTORY: persistent left hip pain s/p fall; assess bones TECHNIQUE: COMPARISON: No exams were available for comparison FINDINGS: Three views were obtained. There is no evidence of fracture or other significant bony abnormality. If there is a high clinical suspicion of occult fracture or other pathology additional evaluation wit h MRI may be considered. IMPRESSION:
== END 2018-12-12 16:01 ==
PROVIDERS: PCP Nurse Practitioner; Visit Provider Nurse Practitioner Adult Health
DX: M25.552 Pain in left hip (principal)
CPT/HCPCS: 73502

== ENCOUNTER 2019-09-10 13:36 | Outpatient (REF) | payer OTHER, SELFPAY ==
[2019-09-10 13:49] LABS: Abs Immature Grans 0.02 k/cumm (0.0-0.09); Absolute Basophil Count 0.04 k/cumm (0.0-0.2); Absolute Lymphocyte Count 2.64 k/cumm (1.2-3.4); Absolute Monocyte Count 0.36 k/cumm (0.11-0.7); Absolute Neutrophil Count 7.53 k/cumm (1.2-6.7); Basophils % 0.4; Eosinophils % 0.9; HCT 32.8 % (36.0-46.0); HGB 9.8 g/dL (12.0-15.5); Immature Grans % 0.2 %; Lymphocytes % 24.7; Mean Corp. HGB Concentration 29.9 g/dL (32.0-36.0); Mean Corpuscular Hemoglobin 22.1 pg (27.0-33.0); Mean Platelet Volume 10.8 fL (8.0-11.0); Monocytes % 3.4; Neutrophils % 70.4; Platelet Count 477 x1000/uL (130-400); RBC 4.43 m/cumm (4.00-5.20); RBC Distribution Width 18.6 % (11.7-14.6); White Blood Cell Count 10.69 k/cumm (4.4-10.8)
[2019-09-10 14:16] LABS: Anisocytosis 1+; Diff Comment RBC Morph Reviewed; Hypochromasia 1+; Microcytosis 1+; Polychromasia Present
[2019-09-10 14:24] LABS: ALT 22 U/L (14-59); AST 19 U/L (15-37); Albumin 3.6 g/dL (3.4-5.0); Alkaline Phosphatase 77 U/L (46-116); BUN 10 mg/dL (7-18); Bilirubin, Total 0.2 mg/dL (0.2-1.0); CREATININE 0.92 mg/dL (0.55-1.02); Calcium 9.1 mg/dL (8.5-10.1); Chloride 103 mmol/L (98-107); Glucose 112 mg/dL (74-106); Magnesium 1.9 mg/dL (1.8-2.4); Potassium 3.9 mmol/L (3.5-5.1); Sodium 139 mmol/L (136-145); TSH (W/Ref FT4) 1.66 uIU/mL (0.36-3.74); Total Protein 8.1 g/dL (6.4-8.2); Vitamin B12 665 pg/mL (193-986)
[2019-09-10 17:50] LABS: Iron 28 ug/dL (50-170); Total Iron Binding Capacity 476 ug/dL (250-450)
[2019-09-10 18:00] LABS: Reticulocyte 1.8 % (0.5-2.4)
[2019-09-10 18:03] LABS: Ferritin 2 ng/mL (8-252)
== END 2019-09-10 13:56 ==
LOC: LBN 13:36
PROVIDERS: PCP Nurse Practitioner; Visit Provider Nurse Practitioner Adult Health
DX: F41.9 Anxiety disorder, unspecified (principal); R00.2 Palpitations; R45.0 Nervousness; R53.83 Other fatigue; D50.9 Iron deficiency anemia, unspecified
CPT/HCPCS: 80053; 82607; 82728; 83540; 83550; 83735; 84443; 85025; 85045

== ENCOUNTER 2019-10-16 13:31 | Outpatient (REF) | payer OTHER, SELFPAY ==
[2019-10-16 14:12] LABS: HGB 11.5 g/dL (11.2-15.7); MCH 25.2 pg (27.0-33.0); MCHC 31.1 % (32.0-36.0); MCV 81.1 fL (80-95); MPV 11.3 fL (8.0-11.0); Platelet Count 394 10^3/uL (130-400); RBC 4.56 10^6/uL (3.93-5.22); RDW 23.9 % (11.7-14.6); RDW-SD 67.8 fL; WBC 9.01 10^3/uL (4.4-10.8)
[2019-10-16 14:27] LABS: Iron 41 ug/dL (50-170); Total Iron Binding Capacity 383 ug/dL (250-450)
[2019-10-16 14:39] LABS: Ferritin 25 ng/mL (8-252)
== END 2019-10-16 13:51 ==
LOC: LBN 13:31
PROVIDERS: PCP Nurse Practitioner; Visit Provider Nurse Practitioner Adult Health
DX: D59.0 Drug-induced autoimmune hemolytic anemia (principal); E61.1 Iron deficiency; R79.0 Abnormal level of blood mineral
CPT/HCPCS: 85027; 82728; 83540; 83550

== ENCOUNTER 2019-10-29 01:09 | Outpatient (CLI) | payer OTHER, SELFPAY ==
--- NOTE | 2019-10-29 07:00 | DI.US_ITS ---
EXAM: US PELVIS TRANSVAGINAL CLINICAL HISTORY: Heavy periods on OCPS , anemic,N92.0,MENORRHAGIA TECHNIQUE: Transabdominal and transvaginal imaging was performed using standard protocol. COMPARISON: No exams were available for comparison FINDINGS: KIDNEYS: Kidneys are symmetric in size. No evidence of renal calculi. No evidence of hydronephrosis. No renal mass or cyst identified. UTERUS: Anteverted. 7.2 x 2.2 x 3.8 cm. Endometrium: 1 millimeters single wall thickness. A small amount of fluid is seen within the endomet rial canal. No focal abnormality is identified. Myometrium: Unremarkable. Cervix: Unremarkable. OVARIES: Transabdominally. Right: Cyst or mass: None. Left: Cyst or mass: None. DOPPLER: Color: Symmetric and uniform flow to both ovaries. No hyperemia. Duplex: Normal ovarian arterial waveforms visualized. CUL-DE-SAC: Free fluid: None. IMPRESSION: 1. Normal-appearing uterus. Small amount of fluid within the endometrial cavity.. 2. Unremarkable bilateral ovaries. DATA REPOSITORY:
== END 2019-10-29 01:29 ==
PROVIDERS: PCP Nurse Practitioner; Visit Provider Nurse Practitioner Family
DX: N92.0 Excessive and frequent menstruation with regular cycle (principal)
CPT/HCPCS: 76830; 76856

== ENCOUNTER 2019-11-04 17:50 | Outpatient (REF) | payer OTHER, SELFPAY ==
--- NOTE | 2019-11-04 14:45 | CER_PTH ---
PATIENT: Gerri Talley N LOC: [facility] U#:[id number] AGE/SX: 24/F ROOM: RE11/04/[address]: Cristina Hall DO : 1995 BED: DIS: 11/04/2019 SPEC #: [id number] RECD: 11/04/19 17:54 STATUS: BALAJI REQ #: [id number] ETHAN: 11/04/19 14:[address]: Cristina Hall DEPT: Surgical Specimen RECD BY: Katarzyna Garcia ENTERED: 11/04/19 17:55 SP TYPE: CER OTHR DR: Jessica Bhakta APRN Tissues: 1 - CERVICAL BIOPSY 2 - ENDOCERVICAL BX/CURRETTE Procedures: GROSS AND MICRO LEVEL 4 Comments: [id number]
== END 2019-11-04 18:10 ==
LOC: LBN 17:50
PROVIDERS: PCP Nurse Practitioner; Visit Provider Obstetrics & Gynecology
DX: R87.618 Other abnormal cytological findings on specimens from cervix uteri (principal); Z86.001 Personal history of in-situ neoplasm of cervix uteri; R87.610 Atypical squamous cells of undetermined significance on cytologic smear of cervix (ASC-US)
CPT/HCPCS: 88305

== ENCOUNTER 2020-01-26 20:45 | Outpatient (REF) | payer OTHER, SELFPAY | END 2020-01-26 21:05 | LOC: LBN 20:45 | PROVIDERS: PCP Nurse Practitioner; Visit Provider Nurse Practitioner Gerontology | DX: R10.2 Pelvic and perineal pain (principal) | CPT/HCPCS: 87086 ==

== ENCOUNTER 2020-02-11 00:33 | Outpatient (CLI) | payer SELFPAY ==
--- OUTSIDE RECORDS SUMMARY | 2020-02-11 00:36 | XMS_ITS ---
:1995 Author Care Team Providers Name Role Phone Micah Holland Primary Care Provider Unavailable Allergies Code Code System Name Reaction Severity Status Onset 723 RxNorm Amoxicillin ? ? Active ? 8717034 RxNorm Blueberry ? ? Active ? 2670 RxNorm Codeine ? ? Active ? Shellfish ? ? Active ? Derived Medications Name Status Start Date Stop Date ? ? Advair Diskus 100 mcg-50 mcg/dose Active ? Not available powder for inhalation Advair Diskus 250 mcg-50 mcg/dose Active ? Not available powder for inhalation azithromycin 250 mg tablet Completed ? 08/01 ciprofloxacin 500 mg tablet Completed ? 07/20 fluticasone propionate 50 mcg/actuation Active ? Not available nasal spray,suspension methylprednisolone 4 mg tablets in a Completed ? 08/01/2018 dose pack metronidazole 250 mg tablet Completed ? 07/20 phenazopyridine 200 mg tablet Active ? No t available prednisone 20 mg tablet Completed ? 08/02/19 19 Proventil HFA 90 mcg/actuation aerosol Active ? Not available inhaler Ros (28) 3 mg-0.03 mg tablet Active ? Not available Take 1 tablet every day by oral route. Problems No Known Problems Procedures Date Name Performed by ? 05/20/2014 Cardiac Ablation Using Fluoroscopy Infor mation not available Guidance 06/14/2000 Remove Tonsils and Adenoids Information not available Results Lab Results Date Name Specimen Result Interpretation Description Value Range Status Address ? 08/05/2019 Pap Test, MISC ? Pap see ? [facility] [place] [facility], report [facility] (Interna l): [address] ? ? MISC ? Report (see ? Final [place] [facility] below) [facility] ([facility]) : [address] Past Encounters 08/05/2019 Gynecologic Examination; Cervical Intrae pithelial Neoplasia Grade 2; Surveillance of Oral Contraception Jennifer Palmer CNM: [address] [place] [address], Ph. Social History Tobacco Smoking Status Never Smoker Vaccine List None recorded. Plan of Care Reminders Provider Appointments None ? ? recorded. Lab None ? ? recorded. Referral None ? ? recorded. Procedures None ? ? recorded. Surgeries None ? ? recorded. Imaging None ? ? recorded. Vitals 08/05/2019 11:10AM HME 30 Weight Blood Pressure 115.58 kg 134/72 mm[Hg] 08/01/2018 10:30AM New Patient 30 Height Weight BMI Blood Pressure 171.45 cm 110.22 kg 37.5 kg/m2 136/78 mm[Hg]
--- NOTE | 2020-02-11 06:45 | DI.US_ITS ---
EXAM: US PELVIS TRANSVAGINAL CLINICAL HISTORY: lt sided pelvic pain,r10.2. TECHNIQUE: Transabdominal and transvaginal pelvic ultrasound was performed using standard protocol. COMPARISON: US US PELVIS TRANSVAGINAL from 10/29/2019 FINDINGS: KIDNEYS: Kidneys are symmetric in size. No evidence of renal calculi. No evidence of hydronephrosis. No renal mass or cyst identified. UTERUS: Position: Anteverted. Size: 6.8 long by 3.0 AP by 4.3 transverse cm Endometrium: 0.9 cm. Normal for patient's menstrual status. Myometrium: Unremarkable. Cervix: Unremarkable. OVARIES: The ovaries were not well visualized transabdominally or transvaginally. The right ovary ca nnot be seen at all sonographically. There is questionable visualization of the left ovary measuring 1.3 cm which is within normal limits. No suspicious adnexal masses. CUL-DE-SAC: Free fluid: Trace amount of free fluid in the cul-de-sac. Other: None. IMPRESSION: 1. Normal sonographic appearance of the kidneys. 2. Normal-appearing uterus with endometrial stripe within normal limits. 3. No definitive images of the ovaries were obtained. No definite adnexal mass is seen. DATA REPOSITORY:
== END 2020-02-11 00:53 ==
PROVIDERS: PCP Nurse Practitioner; Visit Provider Nurse Practitioner Women's Health
DX: R10.2 Pelvic and perineal pain (principal)
CPT/HCPCS: 76830; 76856

== ENCOUNTER 2020-02-24 17:00 | Outpatient (REF) | payer OTHER, SELFPAY ==
[2020-02-27 15:33] LABS: Chlamydia Result Negative (Negative); GC Result Negative (Negative)
== END 2020-02-24 17:20 ==
LOC: LBN 17:00
PROVIDERS: PCP Nurse Practitioner; Visit Provider Nurse Practitioner Women's Health
DX: Z11.3 Encounter for screening for infections with a predominantly sexual mode of transmission (principal)
CPT/HCPCS: 87491; 87591

== ENCOUNTER 2020-03-26 01:45 | Outpatient (REF) | payer OTHER, SELFPAY ==
[2020-03-26 22:34] LABS: COVID-19 RT-PCR UVMMC Result Negative (Negative)
== END 2020-03-26 01:46 | disposition home or self-care (01) ==
LOC: LBO 01:45
PROVIDERS: PCP Nurse Practitioner; Visit Provider Nurse Practitioner Family
DX: Z20.822 Contact with and (suspected) exposure to COVID-19 (principal)
CPT/HCPCS: U0003

== ENCOUNTER 2020-07-11 01:59 | Emergency (ER) | payer OTHER, SELFPAY ==
[2020-07-11] VITALS (15 sets, daily range): BP systolic 119–139; BP diastolic 70–91; PULSE 75–92; RESP 14–19; TEMP 36.5; O2SAT 97–99
--- NOTE | 2020-07-11 02:00 | RT.EKG_ITS ---
APPROVED REPORT Exam: Resting ECG Reason for Exam: chest pain Patient Location: E HR:93 bpm ECG Measurements Heart Rate 93 AXIS RI 143 P 38 QRSd 99 QRS 20 QT 371 T -27 QTc 462 Conclusion Sinus rhythm...normal P axis, V-rate 60- 99 Borderline T abnormalities, diffuse leads...T flat/neg Physician: Rate 93, sinus rhythm, RI 143, QTc 462, no significant ST elevations or depressions, T wav e inversion is present in lead III and aVF, no evidence of STEMI. Inversions were present on previou s EKG from 09/08/2019. No acute change.
[2020-07-11 02:38] LABS: Abs Immature Grans 0.05 10^3/uL (0.0-0.06); Absolute Basophil Count 0.08 10^3/uL (0.0-0.2); Absolute Eosinophil Count 0.25 10^3/uL (0.0-0.7); Absolute Lymphocyte Count 3.79 10^3/uL (1.2-3.4); Absolute Monocyte Count 0.69 10^3/uL (0.1-0.8); Absolute Neutrophil Count 6.07 10^3/uL (1.2-6.7); Basophils % 0.7; Eosinophils % 2.3; HCT 37.3 % (36.0-46.0); HGB 12.2 g/dL (11.2-15.7); Immature Grans % 0.5; Lymphocytes % 34.7; MCHC 32.7 % (32.0-36.0); MCV 91.6 fL (80-95); MPV 10.5 fL (8.0-11.0); Monocytes % 6.3; Neutrophils % 55.5; Nucleated RBC 0 %; Platelet Count 347 10^3/uL (130-400); RBC 4.07 10^6/uL (3.93-5.22); RDW 14.6 % (11.7-14.6); RDW-SD 49.5 fL; WBC 10.93 10^3/uL (4.4-10.8)
[2020-07-11] MEDS: Normal Saline 1,000 ML 1000 ML IV (02:44)
--- NOTE | 2020-07-11 02:49 | ED.GENADUL_ITS ---
Discharge Plan Disposition Patient Disposition: HOME Condition: Good Discharge Details Clinical Impression: Nausea & vomiting, Heart palpitations Primary Care Provider: Jessica Bhakta ED Provider: Sanjay Felix Home Meds and New Rx's Prescriptions: Continued fluticasone propionate 50 mcg/actuation spray,suspension 2 spray SUSHIL DAILY Qty: 16 RF: 12 cetirizine [Zyrtec] 10 mg tablet 10 mg PO DAILY Qty: 30 RF: 3 melatonin 5 mg capsule 5 mg PO HS RF: 0 Mirena 20 mcg/24 hours (6 yrs) 52 mg intrauterine device 1 device intrauterine ONCE RF: 0 fluticasone propion-salmeterol [Advair Diskus] 100-50 mcg/dose blister with device 1 ea Inhalation BID PRN (Reason: asthma) Qty: 1 RF: 10 albuterol sulfate 90 mcg/actuation HFA aerosol inhaler 1 - 2 puff Inhalation Q4H PRN Qty: 18 RF: 2 ibuprofen 800 MG tablet 400 - 800 mg PO TID PRNQty: 40 RF: 0 Discharge Instructions Instructions: Heart Palpitations (ED), Acute Nausea and Vomiting (ED) Additional Instructions: At this time your work-up has returned and is very reassuring. Your electrolyte are stable. I suspect the palpitations and nausea are likely combination of mild dehydration and a small amount of alcohol that you had. Please drink plenty of fluids throughout the day. Recommend 10 to 12 cups of water. Please continue to avoid caffeine, alcohol, chocolate, or anything else that may predispose you to increase or return of your palpitations. If you notice any worsening of your symptoms, or any new symptoms such as vomiting, diarrhea, fever, chills, shortness of breath, chest pain, numbness, weakness, or fainting , please return immediately to the emergency department for reevaluation. Please follow up with your primary care provider as soon as possible for reassessment and reevaluation. As always, it was a pleasure participating in your medical care today. Referrals: Jessica Bhakta, [facility] [Primary Care Provider] - Medical Decision Making This is a pleasant 25-year-old female with a past medical history of SVT in the past, who had a cardiac ablation in 2014 at the [facility] who presents today for evaluation of brief palpitations and vomiting. Patient states that this evening she was at a friend's bachelorette constitution party, she had 1 beer, she went to bed, and felt fine however at 1 AM she awoke and was nauseous, felt palpitations and that her heart rate was in the 130s. She vomited, had a feeling of flushness and came to the ER for further evaluation. On her way driving to the ER though her palpitations resolved. Since then she is feeling much better, she denies any current abdominal pain, chest pain or shortness of breath. She had no chest pain or shortness of breath when the event occurred. She denies any IV or illicit drug use. She is not in any blood pressure or heart rate medications. She denies any history of PE or blood clots. She denies any pleuritic chest pain or shortness of breath. No other complaints at this time. She does note that she feels that the palpitations are notably less severe than the episodes she had in the past with her SVT. She does admit to not drinking much fluids throughout the day today. Vital signs stable, physical exam unremarkable aside for dry mucous membranes. Suspect a combination of mild alcohol, mild dehydration, and mild gastritis brought about the patient's symptoms this evening, however because of her history we will evaluate for concerning electrolyte abnormality, dysrhythmia or other pathology. Will rehydrate, monitor closely and reassess. 3:40 AM Laboratory work-up is returned, notably reassuring. No signs of heart strain, BNP is normal. No evidence of heart failure. Electrolytes unremarkable aside from minimally low potassium at 1.7, thyroid function is a little high for TSH of 4.96, otherwise unremarkable. Patient feels well, and would like to go home. Suspect her symptoms are combination of mild alcohol, mild dehydration mild gastritis. Patient feels well otherwise. She does decline a Holter monitor referral at this time. Recommend continued fluid hydration at home, discussed red flags which to return. I have extensively reviewed the treatment plan and discharge instructions with the patient. I have addressed all patient concerns at this time. The patient was made aware of what symptoms to monitor for that would warrant a return to the emergency department. Discussed the plan with the patient, they demonstrate verbal understanding and agreement with our assessment and plan at this time. The documentation in this chart was dictated using [employer] dictation software. Please excuse any dictation errors. EKG 2: 09 Rate 93, sinus rhythm, FL 143, QTc 462, no significant ST elevations or depressions, T wave inversion is present in lead III and aVF, no evidence of STEMI. Inversions were present on previous EKG from 09/08/2019. No acute change. HPI General Date/Time Provider Initiated Documentation: 07/11/20 02:07 . HPI Narrative: This is a pleasant 25-year-old female with a past medical history of SVT in the past, who had a cardiac ablation in 2014 at the [facility] who presents today for evaluation of brief palpitations and vomiting. Patient states that this evening she was at a friend's [employer] constitution party, she had 1 beer, she went to bed, and felt fine however at 1 AM she awoke and was nauseous, felt palpitations and that her heart rate was in the 130s. She vomited, had a feeling of flushness and came to the ER for further evaluation. On her way driving to the ER though her palpitations resolved. Since then she is feeling much better, she denies any current abdominal pain, chest pain or shortness of breath. She had no chest pain or shortness of breath when the event occurred. She denies any IV or illicit drug use. She is not in any blood pressure or heart rate medications. She denies any history of PE or blood clots. She denies any pleuritic chest pain or shortness of breath. No other complaints at this time. She does note that she feels that the palpitations are notably less severe than the episodes she had in the past with her SVT. She does admit to not drinking much fluids throughout the day today. Related Data Home Medications Medication Instructions Recorded Confirmed ibuprofen 400 - 800 mg PO TID PRN #40 tab-cap 12/06/15 07/11/20 fluticasone propionate 50 2 spray SUSHIL DAILY #16 gm 06/11/18 07/11/20 mcg/actuation nasal spray,suspension cetirizine 10 mg tablet 10 mg PO DAILY #30 tab 06/28/18 07/11/20 albuterol sulfate 90 mcg/actuation 1 - 2 puff INHALATION Q4H PRN #18 03/19/20 07/11/20 aerosol inhaler gm fluticasone 100 mcg-salmeterol 50 1 ea INHALATION BID PRN #1 unit 03/19/20 07/11/20 mcg/dose blistr powdr for inhalation levonorgestrel 20 mcg/24 hours (6 1 device INTRAUTERINE ONCE 03/19/20 07/11/20 yrs) 52 mg intrauterine device melatonin 5 mg capsule 5 mg PO HS cap 03/19/20 07/11/20 Previous Rx's Medication Instructions Recorded fluticasone propionate 50 2 spray SUSHIL DAILY #16 gm 06/11/18 mcg/actuation nasal spray,suspension cetirizine 10 mg tablet 10 mg PO DAILY #30 tab 06/28/18 albuterol sulfate 90 mcg/actuation 1 - 2 puff INHALATION Q4H PRN #18 03/19/20 aerosol inhaler gm fluticasone 100 mcg-salmeterol 50 1 ea INHALATION BID PRN #1 unit 03/19/20 mcg/dose blistr powdr for inhalation Allergies Allergy/AdvReac Type Severity Reaction Status Date / Time blueberry [Blueberry] Allergy Intermediate urticaria Verified 07/11/20 02:15 codeine phosphate AdvReac Severe vomiting Verified 07/11/20 02:15 [From Tylenol-Codeine #3] shellfish food Allergy Unknown vomiting Uncoded 07/11/20 02:15 General Stated Complaint: Palpitatns LONA: 3 Review of Systems All systems reviewed & are unremarkable except as noted in HPI and below PFSH Medical History Asthma Atypical squamous cells of undetermined significance (ASCUS) on Papanicolaou smear of cervix Cannot rule out high-grade lesion ELIZABETH II (cervical intraepithelial neoplasia II) Dysfunctional uterine bleeding (08/01/11) OCPs manage Dysfunctional uterine bleeding Heart murmur, systolic (02/20/14) s/p ablation for SVT 2014 ([facility]) Hypochromic microcytic anemia Insomnia (05/16/17) Trazodone; day-shift helped Iron deficiency anemia IUD surveillance (02/24/20) Mirena SVT (supraventricular tachycardia) s/p ablation 2014 Surgical History History of cardiac radiofrequency ablation 2014 History of tonsillectomy and adenoidectomy Family History Brother Crohn's disease Mother Hypertension Father Hypertension Paternal Grandfather Myocardial infarct Social History Smoking/Tobacco Use Status: Never Smoking risk assessment performed?: Yes Alcohol Intake: current Alcohol Intake frequency: a few times a week Drug use: Never Substance use type: does not use Adopted: No Foster care: No Housing: apartment current occupation: [employer] Duration: 45-60 minutes/day Frequency: 5-6 times per week Seatbelt use: always Working smoke detector in home: Yes Fire extinguisher in home: Yes Do you feel safe at home: Yes Do you feel safe in your relationship?: Yes History History 0 Para Hx # Term Pregnancies Multiple births Hx # Pregnancies Ectopic pregnancies AB induced Hx Number of Living Children AB spontaneous Exam Narrative Exam Narrative: 1.Const: Well-nourished, Well-developed, appearing stated age 2.Eyes: PERRL, no conjunctival injection, and symmetrical lids. 3.ENT: Atraumatic external nose and ears. Notably dry MM. Neck: Symmetric, trachea midline, No thyromegaly. 4.CVS: +S1/S2, No murmurs or gallops. Peripheral pulses 2+ and equal in all extremities. Brisk capillary refill in all extremities. 5.RESP: Unlabored respiratory effort. Clear to auscultation bilaterally. No wheezes rales or rhonchi 6.GI: Soft, Nontender/Nondistended, No hepatosplenomegaly. No guarding or rebound. 7.MSK: Normocephalic/Atraumatic, Extremities w/o deformity or ttp No cyanosis or clubbing, Normal movement of all extremities 8.Skin: Warm, Dry. No rashes or lesions. 9.Neuro: accountant systems II-XII grossly intact. Sensation grossly intact, no focal neurologic deficits. 10.Psych: (AAO) x3. Appropriate mood and affect Course Vital Signs Vital signs: Vital Signs Temperature 36.5 C 07/11/20 02:02 Pulse 92 H 07/11/20 02:02 Respiratory Rate 16 07/11/20 02:02 Blood Pressure 134/91 H 07/11/20 02:02 Pulse Oximetry 99 07/11/20 02:02 Temperature 36.5 C 07/11/20 02:02 Temperature Source Skin 07/11/20 02:02 Pulse 92 H 07/11/20 02:02 Respiratory Rate 16 07/11/20 02:02 Respiratory Effort Non-Labored 07/11/20 02:17 Blood Pressure 134/91 H 07/11/20 02:02 Pulse Oximetry 99 07/11/20 02:02 Pain Level 0 07/11/20 02:02 Lab/Test Results Lab/Test Results: Laboratory Tests Range/Units 07/11/20 02:30 WBC (4.4-10.8) 10^3/uL 10.93 H RBC (3.93-5.22) 10^6/uL 4.07 Hgb (11.2-15.7) g/dL 12.2 Hct (36.0-46.0) % 37.3 MCV (80-95) fL 91.6 MCH (27.0-33.0) pg 30.0 MCHC (32.0-36.0) % 32.7 RDW (11.7-14.6) % 14.6 Plt Count (130-400) 10^3/uL 347 MPV (8.0-11.0) fL 10.5 Immature Gran % 0.5 Neutrophils % 55.5 Lymphocytes % 34.7 Monocytes % 6.3 Eosinophils % 2.3 Basophils % 0.7 Nucleated RBC % % 0 Absolute Neutrophils (1.2-6.7) 10^3/uL 6.07 Absolute Lymphocytes (1.2-3.4) 10^3/uL 3.79 H Absolute Monocytes (0.1-0.8) 10^3/uL 0.69 Absolute Eosinophils (0.0-0.7) 10^3/uL 0.25 Absolute Basophils (0.0-0.2) 10^3/uL 0.08
[2020-07-11 03:03] LABS: ALT 22 U/L (14-59); AST 16 U/L (15-37); Albumin 3.8 g/dL (3.4-5.0); Alkaline Phosphatase 85 U/L (46-116); Anion Gap 9.9 mmol/L (3-11); BUN 15 mg/dL (7-18); Bilirubin, Total 0.3 mg/dL (0.2-1.0); CO2 27.1 mmol/L (21.0-32.0); CREATININE 0.9 mg/dL (0.55-1.02); Calcium 8.7 mg/dL (8.5-10.1); Chloride 106 mmol/L (98-107); Glucose 94 mg/dL (74-106); Lipase 68 U/L (73-393); Magnesium 1.7 mg/dL (1.8-2.4); NT-proBNP 32 pg/mL (<300); Potassium 3.9 mmol/L (3.5-5.1); Sodium 143 mmol/L (136-145); TSH (W/Ref FT4) 4.96 uIU/mL (0.36-3.74); Total Protein 7.8 g/dL (6.4-8.2)
[2020-07-11 03:04] LABS: Troponin I < 0.05 ng/mL (<0.06)
[2020-07-11 03:45] LABS: FREE T4 0.71 ng/dL (0.76-1.46)
== END 2020-07-11 04:00 | disposition home or self-care (01) ==
PROVIDERS: Emergency Provider Student in an Organized Health Care Education/Training Program; PCP Nurse Practitioner
DX: R00.2 Palpitations (principal); R11.2 Nausea with vomiting, unspecified; E86.0 Dehydration
CPT/HCPCS: 36415; 80053; 83690; 93005; 96360; 99284; 83735; 83880; 84439; 84443; 84484; 85025; 93010; 99285

== ENCOUNTER 2020-07-16 15:15 | Outpatient (REF) | payer OTHER, SELFPAY ==
[2020-07-16 17:51] LABS: TSH (W/Ref FT4) 1.19 uIU/mL (0.36-3.74)
== END 2020-07-16 15:16 | disposition home or self-care (01) ==
LOC: LBN 15:15
PROVIDERS: PCP Nurse Practitioner Adult Health; Visit Provider Nurse Practitioner Adult Health
DX: R94.6 Abnormal results of thyroid function studies (principal)
CPT/HCPCS: 84443

== ENCOUNTER 2020-11-15 14:56 | Outpatient (REF) | payer OTHER, SELFPAY ==
--- NOTE | 2020-11-15 14:30 | PAPFT_PTH ---
PATIENT: Gerri Talley LOC: [facility] U#:[id number] AGE/SX: 25/F ROOM: RE11/15/[address]: PALOMA Saldaña : 1995 BED: DIS: 11/15/2020 SPEC #: [id number] RECD: 11/15/20 18:38 STATUS: BALAJI REChepe #: [id number] ETHAN: 11/15/20 14:[address]: Umu Burns DEPT: [facility] Cytology RECD BY: Katarzyna Garcia ENTERED: 11/15/20 18:38 SP TYPE: PAPFT JOSE G DR: Radha Etienne APRN Tissues: 1 - CX/ENDOCX FOR PAP SMEARS Procedures: PAP THIN PREP/UVM Screening Comments: [id number]
== END 2020-11-15 14:57 | disposition home or self-care (01) ==
LOC: LBN 14:56
PROVIDERS: PCP Nurse Practitioner Adult Health; Visit Provider Nurse Practitioner Family
DX: Z12.4 Encounter for screening for malignant neoplasm of cervix (principal); Z87.410 Personal history of cervical dysplasia
CPT/HCPCS: 88142

== ENCOUNTER 2020-12-01 14:13 | Outpatient (REF) | payer OTHER, SELFPAY ==
--- NOTE | 2020-12-01 14:00 | CER_PTH ---
PATIENT: Gerri Talley N LOC: [facility] U#:[id number] AGE/SX: 25/F ROOM: RE12/01/[address]: Cristina Hall DO : 1995 BED: DIS: 12/01/2020 SPEC #: [id number] RECD: 12/01/20 15:45 STATUS: BALAJI REQ #: [id number] ETHAN: 12/01/20 14:[address]: Cristina Hall DEPT: Surgical Specimen RECD BY: Katarzyna Garcia ENTERED: 12/01/20 15:46 SP TYPE: CER JOSE G DR: Radha Etienne APRN Tissues: 1 - CERVICAL BIOPSY 2 - ENDOCERVICAL BX/CURRETTE Procedures: GROSS AND MICRO LEVEL 4 Comments: [id number]
== END 2020-12-01 14:14 | disposition home or self-care (01) ==
LOC: LBN 14:13
PROVIDERS: PCP Nurse Practitioner Adult Health; Visit Provider Obstetrics & Gynecology
DX: R87.613 High grade squamous intraepithelial lesion on cytologic smear of cervix (HGSIL) (principal); R87.610 Atypical squamous cells of undetermined significance on cytologic smear of cervix (ASC-US)
CPT/HCPCS: 88305

== ENCOUNTER 2021-01-19 10:43 | Outpatient (REF) | payer OTHER, SELFPAY ==
[2021-01-19 11:05] LABS: TSH (W/Ref FT4) 1.99 uIU/mL (0.36-3.74)
== END 2021-01-19 10:44 | disposition home or self-care (01) ==
LOC: LBN 10:43
PROVIDERS: PCP Nurse Practitioner Adult Health; Visit Provider Nurse Practitioner Adult Health
DX: R79.89 Other specified abnormal findings of blood chemistry (principal)
CPT/HCPCS: 84443

== ENCOUNTER 2021-02-21 01:27 | Outpatient (CLI) | payer OTHER, SELFPAY ==
[2021-02-21 10:23] LABS: Source Nasal/Nares
[2021-02-21 10:39] LABS: Abs Immature Grans 0.03 10^3/uL (0.0-0.06); Absolute Basophil Count 0.07 10^3/uL (0.0-0.2); Absolute Lymphocyte Count 3.26 10^3/uL (1.2-3.4); Absolute Monocyte Count 0.51 10^3/uL (0.1-0.8); Absolute Neutrophil Count 4.74 10^3/uL (1.2-6.7); Basophils % 0.8; Eosinophils % 2.3; HCT 41.3 % (36.0-46.0); Immature Grans % 0.3; MCH 29.6 pg (27.0-33.0); MCHC 31.5 % (32.0-36.0); MCV 94.1 fL (80-95); Monocytes % 5.8; Neutrophils % 53.8; Nucleated RBC 0 %; Platelet Count 352 10^3/uL (130-400); RBC 4.39 10^6/uL (3.93-5.22); RDW 13.9 % (11.7-14.6); RDW-SD 48.5 fL; WBC 8.81 10^3/uL (4.4-10.8)
[2021-02-21 14:01] LABS: COVID-19 PCR Negative (Negative)
== END 2021-02-21 01:28 | disposition home or self-care (01) ==
LOC: LBO 01:27
PROVIDERS: PCP Nurse Practitioner Adult Health; Visit Provider Obstetrics & Gynecology
DX: Z01.818 Encounter for other preprocedural examination (principal); Z20.822 Contact with and (suspected) exposure to COVID-19
CPT/HCPCS: 87635; 85025

== ENCOUNTER 2021-02-22 03:27 | Outpatient (CLI) | payer OTHER, SELFPAY | END 2021-02-22 03:28 | disposition home or self-care (01) | LOC: LBO 03:27 | PROVIDERS: PCP Nurse Practitioner Adult Health; Visit Provider Obstetrics & Gynecology | DX: Z01.818 Encounter for other preprocedural examination (principal) | CPT/HCPCS: 36415; 86850; 86900; 86901 ==

== ENCOUNTER 2021-02-23 06:19 | Day surgery (SDC) | payer OTHER, SELFPAY ==
[2021-02-23] VITALS (7 sets, daily range): BP systolic 115–140; BP diastolic 58–92; PULSE 70–88; RESP 15–20; TEMP 35.8–36.1; O2SAT 91–99; BMI 41.4
[2021-02-23] MEDS: Lactated Ringers 1,000 ML 125 ML IV (06:51)
--- NOTE | 2021-02-23 07:01 | W.ANESPRE ---
General Info Date of Service Date Performed: 02/23/21 Height: 5 ft 9 in Weight: 127.2 kg Body Mass Index (BMI): 41.4 Surgical Procedure: Operation Date: 02/23/21 07:40 Proposed Procedures Side Surgeon p Cold Knife Biopsy Cristina Hall DO Actual Procedures Side Surgeon p Cold Knife Biopsy Cristina Hall, Pre-Op Diagnosis Post-Op Diagnosis cervical intraepithelial neoplasia II Meds Allergies and Home Medications Allergies Allergy/AdvReac Type Severity Reaction Status Date / Time blueberry [Blueberry] Allergy Intermediate urticaria Verified 02/23/21 06:33 codeine phosphate AdvReac Severe vomiting Verified 02/23/21 06:33 [From Tylenol-Codeine #3] trazodone AdvReac Intermediate Night Verified 02/23/21 06:33 terrors shellfish food Allergy Unknown vomiting Uncoded 02/23/21 06:33 Home Medication Medication Instructions Recorded ibuprofen 400 - 800 mg PO TID PRN #40 tab-cap 12/06/15 levonorgestrel 20 mcg/24 hours (7 1 device INTRAUTERINE ONCE 03/19/20 yrs) 52 mg intrauterine device melatonin 5 mg capsule 5 mg PO HS PRN cap 12/13/20 albuterol sulfate 90 mcg/actuation 1 - 2 puff INHALATION Q4H PRN #18 01/21/21 aerosol inhaler gm fluticasone 100 mcg-salmeterol 50 1 ea INHALATION BID PRN #1 unit 01/21/21 mcg/dose blistr powdr for inhalation cetirizine 10 mg tablet 10 mg PO DAILY PRN tab 02/17/21 fluticasone propionate 50 2 spray SUSHIL DAILY PRN gm 02/17/21 mcg/actuation nasal spray,suspension Current Visit Medications: Current Medications Generic Name Dose Route Start Last Admin Trade Name Freq PRN Reason Stop Dose Admin Ringer's Solution 1,000 mls @ 125 mls/hr 02/23/21 06:00 IV 03/24/21 23:59 INFUSION ANDIE IV Miscellaneous Supplies 1 each 02/23/21 06:00 Iv Access IV 03/24/21 23:59 DIRECTED ANDIE Sodium Chloride 0 ml 02/23/21 06:00 Normal Saline Flush 10 Ml Syr IV 03/24/21 23:59 PRN PRN Sodium Chloride 0 ml 02/23/21 06:00 Normal Saline 10 Ml Vial IJ 03/24/21 23:59 DIRECTED PRN Sterile Water 0 ml 02/23/21 06:00 Water,Injection,Sterile 10 Ml Vial IJ 03/24/21 23:59 DIRECTED PRN PFSH Active Problems Active Problems: Problem Status Onset Code GERD (gastroesophageal reflux disease) 02/20/14 K21.9 Back pain 08/01/11 M54.9 Atypical squamous cells of undetermined significance (ASCUS) on Papanicolaou smear of cervix R87.610 ELIZABETH II (cervical intraepithelial neoplasia II) N87.1 Dysfunctional uterine bleeding N93.8 IUD surveillance 02/24/20 Z30.431 Medical History Medical History Dysfunctional uterine bleeding (08/01/11) OCPs manage Elevated TSH Heart murmur, systolic (02/20/14) s/p ablation for SVT 2014 ([facility]) Heart palpitations Insomnia (05/16/17) Trazodone; day-shift helped Iron deficiency anemia Mirena IUD SVT (supraventricular tachycardia) s/p ablation 2013 Surgical History Surgical History History of cardiac radiofrequency ablation 2014-Pt. states has needed to f/u and has no reoccuring symptoms History of tonsillectomy and adenoidectomy Tobacco Smoking/Tobacco Use Status: Never Passive smoking exposure: No Alcohol Alcohol Intake: current Alcohol intake frequency: a few times a month Substance Use Substance use: Never Substance use type: does not use Prental History History 0 Para Hx # Term Pregnancies Multiple births Hx # Pregnancies Ectopic pregnancies AB induced Hx Number of Living Children AB spontaneous Vital Signs and Lab Results Vital Signs Most Recent Vital Signs in EMR: Most Recent Vital Signs Temp Pulse Resp BP Pulse Ox 36 C L 88 16 140/92 H 98 02/23/21 06:15 02/23/21 06:15 02/23/21 06:15 02/23/21 06:15 02/23/21 06:15 Point of Care Results Point of Care Results: POC- Test(urine) Negative 02/23/21 06:52 Lab Results Blood Type / Crossmatch: Patient ABO/Rh O Positive 02/22/21 11:47 02/22/21 Antibody Screen NEGATIVE 02/22/21 11:47 02/22/21 Complete Blood Count: White Blood Count 8.81 10^3/uL (4.4-10.8) 02/21/21 08:15 02/21/21 Red Blood Count 4.39 10^6/uL (3.93-5.22) 02/21/21 08:15 02/21/21 Hemoglobin 13.0 g/dL (11.2-15.7) 02/21/21 08:15 02/21/21 Hematocrit 41.3 % (36.0-46.0) 02/21/21 08:15 02/21/21 Platelet Count 352 10^3/uL (130-400) 02/21/21 08:15 02/21/21 Complete Metabolic Panel: No Data to Display Liver Function Panel: No Data to Display Coagulation Panel: No Data to Display Cardiac Panel: No Data to Display Arterial Blood Gas: No Data to Display Venous Blood Gas: No Data to Display Pancreas Panel: No Data to Display Thyroid Panel: No Data to Display Infectious Disease: Coronavirus (COVID-19)(PCR) Negative (Negative) 02/21/21 08:15 02/21/21 Coronavirus 2019 Source Nasal/Nares 02/21/21 08:15 02/21/21 Blood Cultures: No Data to Display Toxicology Panel: No Data to Display Panel: No Data to Display Imaging and Studies Imaging and Studies Study information below may be from another EMR and interpreted by another provider. Please see original notes in EMR for more complete details. EKG Summary: Conclusion Sinus rhythm...normal P axis, V-rate 60- 99 Borderline T abnormalities, diffuse leads...T flat/neg 07/11/20 Echocardiogram Summary: Summary: 1. Left ventricle: The cavity size was normal. Wall thickness was at the upper limits of normal. Systolic function was normal. The estimated ejection fraction was 55-60%. Wall motion was normal; there were no regional wall motion abnormalities. 2. Aortic valve: There was trivial regurgitation. 3. Right ventricle: The cavity size was normal. Wall thickness was normal. Systolic function was normal. 11/22/17 Anesthesia Assessment and Plan Anesthesia History Personal History: No History of Anesthesia Complications Family History: No Family History of Anesthesia Complications Exercise Tolerance Exercise Tolerance: Metabolic Equivalents>4 Pertinent Negatives Pertinent Negatives: No Symptoms of GERD (None if triggering foods avoided), No Major Cardiovascular Symptoms or Complaints, No Major Pulmonary Symptoms or Complaints and No History of CVA/TIA Cardiac & Pulmonary Exam Cardiac Exam: Normal S1/S2 Heart Sounds Pulmonary Exam: Clear Bilateral Breath Sounds Cardiac and Pulmonary Comment:: Asthma is only exercise or URI induced, no daily inhaler use Implantable Cardiac Device Does patient have a Pacemaker or an ICD?: No Airway Exam Known Difficult Airway: No Mallampati Class: 2 Mouth Opening: Normal (> 3cm) Thyromental Distance: Less than 3 cm Neck Range of Motion: Full ROM Neck Circumference: Thick Teeth Condition: Normal Dentition ASA Classification ASA Score: ASA 3 Emergency Case?: No NPO Status NPO Status: NPO Clears >2 hours, Solids >8 hours Status Status: Negative HCG Anesthesia Plan Resuscitation Status: Full Code Anesthesia Technique: General Anesthesia Airway Planned: Natural Airway Monitors Used: Standard Monitors
--- NOTE | 2021-02-23 08:19 | CER_PTH ---
PATIENT: Gerri Talley N LOC: [facility] U#:[id number] AGE/SX: 26/F ROOM: RE02/23/[address]: Cristina Hall DO : 1995 BED: DIS: 02/23/2021 SPEC #: [id number] RECD: 02/23/21 12:53 STATUS: BALAJI CANALES #: [id number] ETHAN: 02/23/21 08:[address]: Cristina Hall DEPT: Surgical Specimen RECD BY: Katarzyna Garcia ENTERED: 02/23/21 12:54 SP TYPE: CER OTHR DR: Radha Etienne APRN Tissues: 1 - CERVICAL CONE BX Procedures: GROSS AND MICRO LEVEL 5 Comments: [id number]
--- NOTE | 2021-02-23 08:37 | ROE_ITS ---
Date of service: 02/23/21 Time of Service: 08:37 Operative Note Operative Note DATE OF PROCEDURE: 02/23/21 PRE-OP DIAGNOSIS: Atypical endocervical cells POST-OP DIAGNOSIS: same PROCEDURE: Removal of intrauterine device and cold knife conization of the cervix ANESTHESIA TYPE: Local By Surgeon and General:No Airway Refer to Anesthesia Record ESTIMATED BLOOD LOSS: 100 PATHOLOGY: other (Cervical conization specimen with a suture at the 12 o'clock position of the ectocervix) COMPLICATIONS: None Patient's condition: stable Indications: Atypical endocervical cells Findings: Normal-appearing cervix Procedure Description: Patient was taken the operating room with IV running where she is placed in dorsal supine position. Anesthesia administered via monitored anesthesia care. She was then placed in the modified dorsolithotomy position in yellowfin stirrups and prepped and draped in usual sterile fashion. Exam under anesthesia revealed a uterus that is midline and mobile and well supported. Multiple speculums were needed in order to visualize the cervix appropriately. A weighted speculum and lighted Burchard were used for good visualization. The IUD device string was noted at the cervical os and gently removed. At this point stay sutures were placed at the 5 and 7 position with #1 Vicryl to assist in visualization and hemostasis. The face of the cervix was infiltrated with 1% lidocaine with epinephrine. In a circumferential fashion the transformation zone was completely excised. A suture was placed at the 12 o'clock position with Vicryl at the ectocervix. The base of the conization specimen was cauterized with electrocautery and Monsel solution placed within. Stay sutures were tied in the midline. Excellent hemostasis was noted. The patient was then returned to the dorsal supine position and awoke from anesthesia with ease. Finding:normal-appearing cervix EBL: 100 mL Complications: None apparent Pathology: Cervical conization with suture at 12 o'clock position of the ectocervix for examination.
--- NOTE | 2021-02-23 08:49 | W.ANESPOSTOP ---
Postoperative Evaluation Date, Time and Location Date Performed: 02/23/21 Time Performed: 08:50 Patient Location: PACU Vital Signs Most Recent Imported Vital Signs: Most Recent Vital Signs Temp Pulse Resp BP Pulse Ox 36 C L 81 16 119/74 91 L 02/23/21 08:47 02/23/21 08:47 02/23/21 08:47 02/23/21 08:47 02/23/21 08:47 Pain Score Most Recent Pain Score: Temp Pulse Resp BP Pulse Ox 36 C L 81 16 119/74 91 L 02/23/21 08:47 02/23/21 08:47 02/23/21 08:47 02/23/21 08:47 02/23/21 08:47 Assessment Mental Status: Awake (Alert & Oriented to Patient Baseline) Airway and Respiratory Function: Patent airway with normal (patient baseline) respiratory exam Cardiovascular Function: Hemodynamically Stable Hydration Status: Adequately Hydrated Nausea & Vomiting: No Nausea or Vomiting Pain: Pain is tolerable per patient (10) Peripheral Nerve Block: Patient did not receive a nerve block
== END 2021-02-23 10:00 | disposition home or self-care (01) ==
PROVIDERS: PCP Nurse Practitioner Adult Health; Visit Provider Obstetrics & Gynecology
PROC: 0UB97ZZ Excision of Uterus, Via Natural or Artificial Opening (ICD-10-PCS; CPT 57520; principal; 2021-02-23 07:30)
DX: N93.9 Abnormal uterine and vaginal bleeding, unspecified (principal); N87.1 Moderate cervical dysplasia; Z30.432 Encounter for removal of intrauterine contraceptive device; D50.9 Iron deficiency anemia, unspecified; K21.9 Gastro-esophageal reflux disease without esophagitis; M54.9 Dorsalgia, unspecified; Z98.890 Other specified postprocedural states
CPT/HCPCS: 57520; 58301; 81025; 88307; J1100; J1885; J2001; J2250; J2405

== ENCOUNTER 2021-03-30 15:57 | Outpatient (REF) | payer OTHER, SELFPAY ==
[2021-03-31 21:20] LABS: COVID-19 RT-PCR UVMMC Result Negative (Negative)
== END 2021-03-30 15:58 | disposition home or self-care (01) ==
LOC: LBN 15:57
PROVIDERS: PCP Nurse Practitioner Adult Health; Visit Provider Obstetrics & Gynecology
DX: Z20.822 Contact with and (suspected) exposure to COVID-19 (principal)
CPT/HCPCS: U0003

== ENCOUNTER 2021-04-25 13:18 | Outpatient (REF) | payer OTHER, SELFPAY ==
[2021-04-26 13:09] LABS: COVID-19 RT-PCR UVMMC Result Negative (Negative)
== END 2021-04-25 13:19 | disposition home or self-care (01) ==
LOC: LBN 13:18
PROVIDERS: PCP Nurse Practitioner Adult Health; Visit Provider Obstetrics & Gynecology
DX: Z20.822 Contact with and (suspected) exposure to COVID-19 (principal)
CPT/HCPCS: U0003

== ENCOUNTER 2021-06-15 19:54 | Outpatient (REF) | payer OTHER, SELFPAY ==
[2021-06-16 02:22] LABS: COVID-19 RT-PCR UVMMC Result Positive (Negative)
== END 2021-06-15 19:55 | disposition home or self-care (01) ==
LOC: LBN 19:54
PROVIDERS: PCP Nurse Practitioner Adult Health; Visit Provider Obstetrics & Gynecology
DX: Z20.822 Contact with and (suspected) exposure to COVID-19 (principal)
CPT/HCPCS: U0003

== ENCOUNTER 2021-08-02 14:11 | Outpatient (REF) | payer OTHER, SELFPAY ==
--- NOTE | 2021-08-02 14:00 | PAPFT_PTH ---
PATIENT: Gerri Talley LOC: N U#:[id number] AGE/SX: 26/F ROOM: RE08/02/[address]: PALOMA Saldaña : 1995 BED: DIS: 08/02/2021 SPEC #: [id number] RECD: 08/02/21 17:21 STATUS: BALAJI CANALES #: [id number] ETHAN: 08/02/21 14:[address]: Umu Burns DEPT: [facility] Cytology RECD BY: Katarzyna Garcia ENTERED: 08/02/21 17:22 SP TYPE: PAPFT JOSE G DR: Radha Etienne, STAR Tissues: 1 - CX/ENDOCX FOR PAP SMEARS Procedures: PAP THIN PREP/UVM Screening Comments: [id number]
== END 2021-08-02 14:12 | disposition home or self-care (01) ==
LOC: LBN 14:11
PROVIDERS: PCP Nurse Practitioner Adult Health; Visit Provider Nurse Practitioner Family
DX: Z12.4 Encounter for screening for malignant neoplasm of cervix (principal)
CPT/HCPCS: 88142

== ENCOUNTER 2021-08-13 01:06 | Emergency (ER) | payer OTHER, SELFPAY ==
[2021-08-13] VITALS (14 sets, daily range): BP systolic 123–144; BP diastolic 63–92; PULSE 73–87; RESP 9–20; TEMP 36.8; O2SAT 97–99
--- NOTE | 2021-08-13 01:00 | RT.EKG_ITS ---
APPROVED REPORT Exam: Resting ECG Reason for Exam: chest pain Patient Location: E HR:85 bpm ECG Measurements Heart Rate 85 AXIS SC 160 P 23 QRSd 98 QRS 20 QT 414 T -20 QTc 495 Conclusion Sinus rhythm...normal P axis, V-rate 60- 99
--- NOTE | 2021-08-13 01:27 | ED.GENADUL_ITS ---
Discharge Plan Disposition Patient Disposition: HOME Condition: Stable Discharge Details Clinical Impression: Palpitations Primary Care Provider: Radha Etienne ED Provider: Benedicto Marquez Home Meds and New Rx's Prescriptions: Continued albuterol sulfate 90 mcg/actuation HFA aerosol inhaler 1 - 2 puff Inhalation Q4H PRN Qty: 18 2RF Rx Instructions: USE WITH SPACER PRN COUGH OR WHEEZE loratadine 10 mg capsule 10 mg PO DAILY PRN sertraline 25 mg tablet 25 mg PO DAILY Qty: 90 3RF Discharge Instructions Instructions: Heart Palpitations (ED) Additional Instructions: Follow up with your primary care provider within 1 week. You should have your thyroid levels rechecked if you feel more ill, have severe pain, or difficulty breathing return to the emergency department Medical Decision Making 26 yo female who states she had an ablation for svt 4 years ago, asthma, some anxiety comes in with complaints of having a warm fuzzy sensation in her chest when she woke from sleep about an hour ago, checked her pulse oximeter and her heart rate said 140 so she came here and states her symptoms resolved in the waiting room. She denies chest pressure, radiation of pain, n/v, diaphoresis, fevers, chills, abdominal pain. She has stable vitals, normal HR, ekg unremarkable. She has clear lungs no murmurs, on bedside u/s has normal EF and no pericardial effusion and normal lung sliding bilaterally, no rv dilation either. She denies alcohol or drug use. Unclear etiology, could have been in svt, will keep on tele and obtain cbc, troponin and cmp along with tsh. She has no tearing back pain to suggest dissection and has no hypoxia or evidence of dvt or pleuritic chest pain so doubt PE. labs without emergent findings, tsh mildly high, free t4 just barely outside lower limit, has mild leukocytosis of 12 but no infectious symptoms. She has had normal tele, and is stable now. Discussed with pt and she will f/u with pcp and return precautions given Differential Diagnosis Differential Diagnosis: svt, anxiety, tachycardia, anemia, thyroid disorder Lab Data Lab results reviewed: Yes I reviewed the patient's lab results. ECG Data Attestation: I personally reviewed and interpreted this ECG (s) as follows: Prior ECG tracings: available for review Interpretation: sinus rhythm, rate of 85, no acute st t wave ischemic findings HPI General Mode of arrival: ambulatory . Date/Time Provider Initiated Documentation: 08/13/21 01:08 . Limitations to Documentation: no limitations . Information obtained by: patient . History of Present Illness 26 year old F presents to the emergency department with the chief complaint of felt heart racing, described as moderate, Patient started experiencing this hour(s) (1) and it has been now resolved. No relieving factors improve symptom(s), No exacerbating factors reported . Patient did receive the following treatments prior to arrival, none Related Data Home Medications Medication Instructions Recorded Confirmed albuterol sulfate 90 mcg/actuation 1 - 2 puff inhalation Q4H PRN #18 01/21/21 08/13/21 aerosol inhaler grams loratadine 10 mg capsule 10 mg PO DAILY PRN 06/29/21 08/13/21 sertraline 25 mg tablet 25 mg PO DAILY #90 tabs 06/29/21 08/13/21 Previous Rx's Medication Instructions Recorded albuterol sulfate 90 mcg/actuation 1 - 2 puff inhalation Q4H PRN #18 01/21/21 aerosol inhaler grams sertraline 25 mg tablet 25 mg PO DAILY #90 tabs 06/29/21 Allergies Allergy/AdvReac Type Severity Reaction Status Date / Time blueberry [Blueberry] Allergy Intermediate urticaria Verified 08/13/21 01:16 codeine phosphate AdvReac Severe vomiting Verified 08/13/21 01:16 [From Tylenol-Codeine #3] trazodone AdvReac Intermediate Night Verified 08/13/21 01:16 terrors shellfish food Allergy Unknown vomiting Uncoded 08/13/21 01:16 General Stated Complaint: Palpitatns LONA: 3 Review of Systems All systems reviewed & are unremarkable except as noted in HPI and below Constitutional Constitutional: Denies chills, Denies fever(s) and Denies weakness Cardiovascular Cardiovascular: Denies chest pain and Denies dyspnea Respiratory Respiratory: Denies cough and Denies dyspnea Gastrointestinal Gastrointestinal: Denies abdominal pain, Denies nausea and Denies vomiting Genitourinary Genitourinary: Denies dysuria Integumentary/Breasts Skin/Breast: Denies rash Neurologic Neurologic: Denies weakness PFSH All Active Problems (Updated 08/13/21 @ 02:41 by Benedicto Marquez MD) Palpitations (Acute) SARS-CoV-2 positive (Acute 05/2021) Adjustment disorder (Chronic) Asthma (Chronic) Mild intermittent Atypical squamous cells of undetermined significance (ASCUS) on Papanicolaou smear of cervix (Acute) Cannot rule out high-grade lesion ELIZABETH II (cervical intraepithelial neoplasia II) (Acute) Cold Knife Cone done 02/2021. Negative Margins. Pap q 6 months Medical History Back pain (08/01/11) Intermittent (lumbar) Dysfunctional uterine bleeding (08/01/11) OCPs manage Dysfunctional uterine bleeding IUD Elevated TSH GERD (gastroesophageal reflux disease) (02/20/14) Heart murmur, systolic (02/20/14) s/p ablation for SVT 2013 ([facility]) Heart palpitations Insomnia (05/16/17) Trazodone; day-shift helped Iron deficiency anemia Mirena IUD IUD surveillance (02/24/20) Mirena SVT (supraventricular tachycardia) s/p ablation 2013 Surgical History History of cardiac radiofrequency ablation 2014-Pt. states has needed to f/u and has no reoccuring symptoms History of tonsillectomy and adenoidectomy Postoperative state (~02/23/21) Cold knife conization of the cervix 02/23/2021 Family History Brother Crohn's disease Mother Hypertension Father Hypertension Paternal Grandfather Myocardial infarct Maternal Grandfather Thyroid cancer Social History Smoking/Tobacco Use Status: Never Smoking risk assessment performed?: Yes Alcohol Intake: current Alcohol Intake frequency: a few times a month Drug use: Never Substance use type: does not use Adopted: No Foster care: No Housing: apartment current occupation: [employer] Duration: 45-60 minutes/day Frequency: 5-6 times per week Seatbelt use: always Working smoke detector in home: Yes Fire extinguisher in home: Yes Do you feel safe at home: Yes Do you feel safe in your relationship?: Yes History History 0 Para Hx # Term Pregnancies Multiple births Hx # Pregnancies Ectopic pregnancies AB induced Hx Number of Living Children AB spontaneous Exam Const General: no acute distress Orientation: alert HENMT Head: normal to inspection Ears: external ears normal General nose exam: external nose normal Mouth: moist mucous membranes Eyes General: appearance normal, both eyes and all related structures Neck Neck: normal visual inspection Resp Effort & Inspection: normal respiratory effort and able to speak in complete sentences Cardio Rate: regular rate GI Palpation: soft and nontender Skin General skin exam: no rashes or lesions noted Neuro General: patient alert and patient oriented x3 Extrem General: normal to inspection Psych Mental Status: mental status grossly normal Course Vital Signs Vital signs: Vital Signs Temperature 36.8 C 08/13/21 01:16 Pulse 86 08/13/21 01:16 Respiratory Rate 16 08/13/21 01:16 Blood Pressure 141/89 H 08/13/21 01:16 Pulse Oximetry 99 08/13/21 01:16 Temperature 36.8 C 08/13/21 01:16 Temperature Source Oral 08/13/21 01:16 Pulse 86 08/13/21 01:16 Respiratory Rate 16 08/13/21 01:16 Respiratory Effort 08/13/21 01:21 Blood Pressure 141/89 H 08/13/21 01:16 Blood Pressure Position Sitting 08/13/21 01:16 Pulse Oximetry 99 08/13/21 01:16 Oxygen Delivery Method Room Air 08/13/21 01:16 Oxygen Flow Rate 0 08/13/21 01:16 Pain Level 0 08/13/21 01:16
[2021-08-13 01:33] LABS: Abs Immature Grans 0.03 10^3/uL (0.0-0.06); Absolute Basophil Count 0.07 10^3/uL (0.0-0.2); Absolute Eosinophil Count 0.31 10^3/uL (0.0-0.7); Absolute Lymphocyte Count 4.97 10^3/uL (1.2-3.4); Absolute Monocyte Count 0.69 10^3/uL (0.1-0.8); Absolute Neutrophil Count 6.18 10^3/uL (1.2-6.7); Basophils % 0.6; Eosinophils % 2.5; HCT 38.8 % (36.0-46.0); HGB 12.3 g/dL (11.2-15.7); Immature Grans % 0.2; Lymphocytes % 40.6; MCH 29.1 pg (27.0-33.0); MCHC 31.7 % (32.0-36.0); MCV 92 fL (80-95); MPV 10.9 fL (8.0-11.0); Monocytes % 5.6; Neutrophils % 50.5; Platelet Count 342 10^3/uL (130-400); RBC 4.22 10^6/uL (3.93-5.22); RDW 14.1 % (11.7-14.6); WBC 12.24 10^3/uL (4.4-10.8)
[2021-08-13 01:57] LABS: ALT 28 U/L (14-59); AST 29 U/L (15-37); Albumin 3.9 g/dL (3.4-5.0); Alkaline Phosphatase 73 U/L (46-116); Anion Gap 9.8 mmol/L (3-11); BUN 12 mg/dL (7-18); Bilirubin, Total 0.3 mg/dL (0.2-1.0); CO2 27.2 mmol/L (21.0-32.0); CREATININE 0.9 mg/dL (0.55-1.02); Calcium 8.8 mg/dL (8.5-10.1); Chloride 102 mmol/L (98-107); Glucose 102 mg/dL (74-106); Potassium 4.2 mmol/L (3.5-5.1); Sodium 139 mmol/L (136-145); Troponin I < 50 ng/L (<or=60)
[2021-08-13 02:01] LABS: TSH (W/Ref FT4) 5.33 uIU/mL (0.36-3.74)
[2021-08-13 02:17] LABS: FREE T4 0.72 ng/dL (0.76-1.46)
== END 2021-08-13 02:53 | disposition home or self-care (01) ==
PROVIDERS: Emergency Provider Emergency Medicine; PCP Nurse Practitioner Adult Health
DX: R00.2 Palpitations (principal); D72.829 Elevated white blood cell count, unspecified; R07.9 Chest pain, unspecified; J45.909 Unspecified asthma, uncomplicated; G47.00 Insomnia, unspecified; Z32.02 Encounter for pregnancy test, result negative
CPT/HCPCS: 80053; 81025; 93005; 99283; 83735; 84439; 84443; 84484; 85025; 93010; 99282

== ENCOUNTER 2021-08-17 11:40 | Outpatient (CLI) | payer OTHER, SELFPAY ==
--- NOTE | 2021-09-12 09:40 | W.CARDEVENT ---
Date of service: 09/12/21 Time of Service: 09:40 Cardiac Event Recorder Referring Provider:: Radha Etienne Indications:: Palpitations Cardiac Event Note: This is a 14-day alarm security or surveillance monitor ordered for palpitations Predominant rhythm was sinus with an average heart rate of 70. Minimum was 43, maximum 149 There were no supraventricular dysrhythmias. Specifically there was no supraventricular tachycardia, no atrial fibrillation, no atrial premature beats A total of 8 isolated premature ventricular contractions were seen There was no high-grade AV block, no pauses greater than 3 seconds Patient symptoms were reported. These generally corresponded to sinus rhythm in the 60s and 70s, once to an isolated PVC
== END 2021-08-17 11:41 | disposition home or self-care (01) ==
LOC: RT 11:40
PROVIDERS: PCP Nurse Practitioner Adult Health; Visit Provider Nurse Practitioner Adult Health
DX: Z86.79 Personal history of other diseases of the circulatory system (principal)
CPT/HCPCS: 93246

== ENCOUNTER 2021-08-23 12:03 | Outpatient (REF) | payer OTHER, SELFPAY ==
[2021-08-23 13:19] LABS: Abs Immature Grans 0.02 10^3/uL (0.0-0.06); Absolute Basophil Count 0.05 10^3/uL (0.0-0.2); Absolute Eosinophil Count 0.19 10^3/uL (0.0-0.7); Absolute Lymphocyte Count 2.25 10^3/uL (1.2-3.4); Absolute Monocyte Count 0.41 10^3/uL (0.1-0.8); Absolute Neutrophil Count 4.63 10^3/uL (1.2-6.7); Basophils % 0.7; Eosinophils % 2.5; HCT 39.5 % (36.0-46.0); HGB 12.3 g/dL (11.2-15.7); Immature Grans % 0.3; Lymphocytes % 29.8; MCH 29.1 pg (27.0-33.0); MCHC 31.1 % (32.0-36.0); MCV 93 fL (80-95); MPV 11.1 fL (8.0-11.0); Monocytes % 5.4; Neutrophils % 61.3; Platelet Count 322 10^3/uL (130-400); RBC 4.23 10^6/uL (3.93-5.22); RDW 14.1 % (11.7-14.6); RDW-SD 48.6 fL; WBC 7.55 10^3/uL (4.4-10.8)
[2021-08-23 13:40] LABS: FREE T4 0.78 ng/dL (0.76-1.46); Hemoglobin A1C 5.4 % (<5.7); TSH (W/Ref FT4) 1.44 uIU/mL (0.36-3.74)
== END 2021-08-23 12:04 | disposition home or self-care (01) ==
LOC: LBN 12:03
PROVIDERS: PCP Nurse Practitioner Adult Health; Visit Provider Nurse Practitioner Adult Health
DX: R53.83 Other fatigue (principal); R79.89 Other specified abnormal findings of blood chemistry; D72.829 Elevated white blood cell count, unspecified; Z83.3 Family history of diabetes mellitus
CPT/HCPCS: 83036; 84439; 84443; 85025

== ENCOUNTER 2021-09-17 18:51 | Outpatient (REF) | payer OTHER, SELFPAY | END 2021-09-17 18:52 | disposition home or self-care (01) | LOC: LBN 18:51 | PROVIDERS: PCP Nurse Practitioner Adult Health; Visit Provider Physician Assistant | DX: J02.9 Acute pharyngitis, unspecified (principal) | CPT/HCPCS: 87070 ==

== ENCOUNTER → 2021-12-29 12:23 | Outpatient (CLI) | payer OTHER, SELFPAY ==
--- NOTE | 2021-12-29 11:30 | DI.RAD_ITS ---
Exam(s) XR WRIST LT COMPLETE EXAM: XR WRIST LT COMPLETE CLINICAL HISTORY: pain worst on the ulnar side; no known trauma, acute wrist pain, M25.539. TECHNIQUE: 2D digital imaging was performed of the left wrist. Three images were obtained. PA, obl ique and lateral views were obtained. COMPARISON: No exams were available for comparison FINDINGS: BONES: No acute fracture is present. No bony destructive lesion is seen. There is a ulna minus varian ce. JOINTS: The carpal bones are normally aligned. SOFT TISSUE: Normal. IMPRESSION: No acute abnormality. DATA REPOSITORY: RADIATION DOSE DELIVERED:
== END ==
PROVIDERS: PCP Nurse Practitioner Adult Health; Visit Provider Nurse Practitioner Adult Health
DX: M25.532 Pain in left wrist (principal)
CPT/HCPCS: 73110

== ENCOUNTER → 2022-01-23 03:23 | Outpatient (CLI) | payer OTHER, SELFPAY ==
--- NOTE | 2022-01-23 06:45 | DI.MRI_ITS ---
Exam(s) MR UPPER JOINT LT WO EXAM: MR UPPER JOINT LT WO CLINICAL HISTORY: L WRIST PAIN,ULNAR SIDE, DRUG SPRAIN,M25.539,S63.599A. TECHNIQUE: Multiplanar multisequence MRI was performed. COMPARISON: None. FINDINGS: Bones: There is no fracture or contusion. The radiocarpal, intercarpal and carpometacarpal joint spac es are preserved. There are no erosive changes seen. Mild cystic changes are noted in the capitate. There is no appreciable joint effusion. Ligaments: The TFCC is intact. Both the scapholunate and lunotriquetral ligaments are intact. Musculoskeletal Structures: There is thickening and intermediate to high signal within in the extenso r carpi ulnaris tendon with surrounding edema. No focal tear is visible. Remaining tendons appear i ntact. There is no muscle atrophy. There are no muscular strains seen. The visualized median nerve appears to be within normal limits and is normally located within the car pal tunnel. IMPRESSION: Tendinitis of the extensor carpi ulnaris tendon. DATA REPOSITORY:
== END ==
PROVIDERS: PCP Nurse Practitioner Adult Health; Visit Provider Student in an Organized Health Care Education/Training Program
DX: M25.532 Pain in left wrist; S63.592A Other specified sprain of left wrist, initial encounter; M67.834 Other specified disorders of tendon, left wrist
CPT/HCPCS: 73221

== ENCOUNTER 2022-02-27 10:00 | Outpatient (REF) | payer OTHER, SELFPAY ==
--- NOTE | 2022-02-27 09:00 | PAPFT_PTH ---
PATIENT: Gerri Talley LOC: [facility] U#:[id number] AGE/SX: 27/F ROOM: RE02/27/[address]: Darcy Marquez NP : 1995 BED: DIS: 02/27/2022 SPEC #: [id number] RECD: 02/27/22 12:59 STATUS: BALAJI REChepe #: [id number] ETHAN: 02/27/22 09:[address]: Darcy Marquez NP DEPT: ON LICENSE OF [facility] Cytology RECD BY: Katarzyna Garcia ENTERED: 02/27/22 13:00 SP TYPE: PAPFT JOSE G DR: Radha Etienne APRN Tissues: 1 - CX/ENDOCX FOR PAP SMEARS Procedures: PAP THIN PREP/[facility] Screening Comments: [id number]
== END 2022-02-27 10:01 | disposition home or self-care (01) ==
LOC: LBN 10:00
PROVIDERS: PCP Nurse Practitioner Adult Health; Visit Provider Nurse Practitioner Women's Health
DX: Z12.4 Encounter for screening for malignant neoplasm of cervix (principal)
CPT/HCPCS: 88142

== ENCOUNTER 2022-04-26 10:13 | Outpatient (REF) | payer OTHER, SELFPAY ==
[2022-04-26 10:41] LABS: Source Nasal/Nares
[2022-04-26 11:31] LABS: COVID-19 PCR Negative (Negative)
== END 2022-04-26 10:14 | disposition home or self-care (01) ==
LOC: LBN 10:13
PROVIDERS: PCP Nurse Practitioner Adult Health; Visit Provider Obstetrics & Gynecology
DX: Z20.822 Contact with and (suspected) exposure to COVID-19 (principal)
CPT/HCPCS: 87635

== ENCOUNTER 2022-07-06 08:50 | Outpatient (REF) | payer OTHER, SELFPAY ==
[2022-07-06 09:20] LABS: TSH (W/Ref FT4) 1.34 uIU/mL (0.36-3.74)
== END 2022-07-06 08:51 | disposition home or self-care (01) ==
LOC: LBN 08:50
PROVIDERS: PCP Nurse Practitioner Adult Health; Visit Provider Nurse Practitioner Adult Health
DX: R79.89 Other specified abnormal findings of blood chemistry (principal); R94.6 Abnormal results of thyroid function studies
CPT/HCPCS: 84443

== ENCOUNTER → 2022-10-13 15:47 | Outpatient (CLI) | payer OTHER, SELFPAY ==
--- NOTE | 2022-10-13 11:00 | DI.RAD_ITS ---
Exam(s) XR THUMB LT EXAM: XR THUMB LT EXAM DATE/TIME: CLINICAL HISTORY: New onset thumb pain M18.10 OSTEOARTHRITIS. TECHNIQUE: 2D digital imaging was performed of the left finger. Three views were obtained. PA/AP, oblique, and lateral views were obtained. COMPARISON: None. FINDINGS: BONES: No acute fracture is present. No bony destructive lesion is seen. JOINTS: No dislocation is present. The joint spaces are well maintained. SOFT TISSUE: Nonspecific soft tissue calcification is seen adjacent to the 1st MCP joint. IMPRESSION: No evidence of acute fracture or dislocation. DATA REPOSITORY: RADIATION DOSE DELIVERED:
== END ==
PROVIDERS: PCP Nurse Practitioner Adult Health; Visit Provider Family Medicine
DX: M18.12 Unilateral primary osteoarthritis of first carpometacarpal joint, left hand (principal)
CPT/HCPCS: 73140

== ENCOUNTER 2022-11-22 10:47 | Outpatient (REF) | payer OTHER, SELFPAY ==
[2022-11-25 12:05] LABS: HSV 1 PCR Negative (Negative); HSV 2 PCR Positive (Negative); Specimen Source VULVAR LESION
== END 2022-11-22 10:48 | disposition home or self-care (01) ==
LOC: LBN 10:47
PROVIDERS: PCP Nurse Practitioner Adult Health; Visit Provider Nurse Practitioner Women's Health
DX: N90.89 Other specified noninflammatory disorders of vulva and perineum (principal)
CPT/HCPCS: 87529

== ENCOUNTER 2022-12-04 15:19 | Outpatient (REF) | payer OTHER, SELFPAY ==
[2022-12-04 10:32] LABS: Source Nasal/Nares
[2022-12-04 11:06] LABS: COVID-19 PCR Negative (Negative)
== END 2022-12-04 15:20 | disposition home or self-care (01) ==
LOC: LBN 15:19
PROVIDERS: PCP Nurse Practitioner Adult Health; Visit Provider Obstetrics & Gynecology
DX: Z11.52 Encounter for screening for COVID-19 (principal)
CPT/HCPCS: 87635

== ENCOUNTER → 2023-02-27 17:21 | Outpatient (CLI) | payer OTHER, SELFPAY ==
--- NOTE | 2023-02-27 15:30 | DI.RAD_ITS ---
Exam(s) XR CHEST 2V PA LATERAL EXAM: XR CHEST 2V PA LATERAL CLINICAL HISTORY: decreased air sounds, rt; Hx bronchitis, r/o PNA, COUGH, R05.9. TECHNIQUE: 2D digital imaging was performed. COMPARISON: No exams were available for comparison FINDINGS: 2 views: Heart size is normal. The mediastinum is not widened. Lungs are clear. No infiltrates nor pleural effusions. IMPRESSION: No acute pulmonary findings. DATA REPOSITORY: RADIATION DOSE DELIVERED:
== END ==
PROVIDERS: PCP Nurse Practitioner Adult Health; Visit Provider Student in an Organized Health Care Education/Training Program
DX: R05.9 Cough, unspecified (principal)
CPT/HCPCS: 71046

== ENCOUNTER 2023-03-16 02:51 | Outpatient (CLI) | payer OTHER, SELFPAY ==
[2023-03-16] MEDS: Inhaler, Assist Device 1 EACH MC (09:00)
[2023-03-16] MEDS: Levalbuterol HFA 15 GM INH 4 PUFF IH (09:00)
--- NOTE | 2023-03-16 15:57 | W.PFT ---
Date of service: 03/16/23 Time of Service: 08:02 Pulmonary Function Test Result Indications: Asthma Interpretation Spirometry: There is no airflow limitation. No bronchodilator response. Lung Volumes: There is hyperinflation. Diffusion Capacity: Normal diffusion. Airway Pressure: Normal airways resistance Impression No airflow obstruction. There is hyperinflation which can be seen in asthma. Clinical Correlation therefore is recommended.
== END 2023-03-16 02:52 | disposition home or self-care (01) ==
LOC: RT 02:51
PROVIDERS: PCP Nurse Practitioner Adult Health; Visit Provider Physician Assistant Surgical
DX: J45.909 Unspecified asthma, uncomplicated (principal)
CPT/HCPCS: 94060; 94726; 94729

== ENCOUNTER 2023-03-29 12:08 | Outpatient (REF) | payer OTHER, SELFPAY ==
[2023-03-29 13:05] LABS: HCG Quant, Pregnancy 85 mIU/mL (1-3)
== END 2023-03-29 12:09 | disposition home or self-care (01) ==
LOC: LBN 12:08
PROVIDERS: PCP Nurse Practitioner Adult Health; Visit Provider Obstetrics & Gynecology Gynecology
DX: Z32.01 Encounter for pregnancy test, result positive (principal)
CPT/HCPCS: 84702

== ENCOUNTER 2023-04-02 08:48 | Outpatient (REF) | payer OTHER, SELFPAY ==
[2023-04-02 13:36] LABS: HCG Quant, Pregnancy 508 mIU/mL (1-3)
== END 2023-04-02 08:49 | disposition home or self-care (01) ==
LOC: LBN 08:48
PROVIDERS: PCP Nurse Practitioner Adult Health; Visit Provider Obstetrics & Gynecology Gynecology
DX: Z32.01 Encounter for pregnancy test, result positive (principal)
CPT/HCPCS: 84702

== ENCOUNTER 2023-05-29 04:43 | Outpatient (CLI) | payer OTHER, SELFPAY ==
[2023-05-29 16:36] LABS: Panorama Kit Sent via Fed Ex
[2023-05-29 16:41] LABS: Glucose,1 Hr (Glucola) 100 mg/dL (80-140)
[2023-05-29 17:04] LABS: Abs Immature Grans 0.03 10^3/uL (0.0-0.06); Absolute Basophil Count 0.05 10^3/uL (0.0-0.2); Absolute Eosinophil Count 0.09 10^3/uL (0.0-0.7); Absolute Lymphocyte Count 2.62 10^3/uL (1.2-3.4); Absolute Monocyte Count 0.46 10^3/uL (0.1-0.8); Absolute Neutrophil Count 6.42 10^3/uL (1.2-6.7); Basophils % 0.5; Eosinophils % 0.9; HCT 35.9 % (36.0-46.0); HGB 11.9 g/dL (11.2-15.7); Immature Grans % 0.3; Lymphocytes % 27.1; MCH 31.1 pg (27.0-33.0); MCHC 33.1 % (32.0-36.0); MCV 94 fL (80-95); MPV 10.7 fL (8.0-11.0); Monocytes % 4.8; Neutrophils % 66.4; Platelet Count 322 10^3/uL (130-400); RBC 3.83 10^6/uL (3.93-5.22); RDW 13.8 % (11.7-14.6); RDW-SD 47.4 fL; WBC 9.67 10^3/uL (4.4-10.8)
[2023-05-29 20:23] LABS: ALT 31 U/L (14-59); AST 20 U/L (15-37); Albumin 3.8 g/dL (3.4-5.0); Alkaline Phosphatase 59 U/L (46-116); Anion Gap 10.9 mmol/L (3-11); BUN 8 mg/dL (7-18); Bilirubin, Total 0.3 mg/dL (0.2-1.0); CO2 26.1 mmol/L (21.0-32.0); CREATININE 0.6 mg/dL (0.55-1.02); Calcium 9.3 mg/dL (8.5-10.1); Chloride 103 mmol/L (98-107); Estimated GFR 123.76 (mL/min/1.73m2); Glucose 90 mg/dL (74-106); Potassium 3.8 mmol/L (3.5-5.1); Sodium 140 mmol/L (136-145); TSH (W/Ref FT4) 1.15 uIU/mL (0.36-3.74); Total Protein 7.7 g/dL (6.4-8.2)
[2023-05-31 09:07] LABS: Hepatitis B Surface Ag Negative (Negative)
[2023-05-31 09:10] LABS: Varicella IgG Antibody Positive (See Note)
[2023-05-31 09:14] LABS: Rubella IgG Ab (UVM) Negative (See Note)
[2023-05-31 09:49] LABS: Hepatitis C Ab w Rflx HCV PCR Negative (Negative)
[2023-05-31 10:13] LABS: HIV-1/2 Ag & Ab Screen Negative (Negative)
[2023-06-01 18:58] LABS: Syphilis IgG w/Reflex Nonreactive (Nonreactive)
== END 2023-05-29 04:44 | disposition home or self-care (01) ==
LOC: LBO 04:44
PROVIDERS: Advanced Practice Midwife; PCP Nurse Practitioner Adult Health; Visit Provider Advanced Practice Midwife
DX: Z34.91 Encounter for supervision of normal pregnancy, unspecified, first trimester
CPT/HCPCS: 36415; 80053; 82950; 86787; 86803; 86850; 86900; 86901; 87340; 87389; 84443; 85025; 86762; 86780

== ENCOUNTER 2023-05-29 15:03 | Outpatient (REF) | payer OTHER, SELFPAY ==
--- NOTE | 2023-05-29 15:35 | PAPFT_PTH ---
PATIENT: Gerri Talley LOC: [facility] U#:[id number] AGE/SX: 28/F ROOM: RE05/29/[address]: Juyd Trujillo CNM : 1995 BED: DIS: 05/29/2023 SPEC #: [id number] RECD: 05/29/23 17:30 STATUS: BALAJI REChepe #: [id number] ETHAN: 05/29/23 15:[address]: Judy Trujillo DEPT: [facility] Cytology RECD BY: Katarzyna Garcia ENTERED: 05/29/23 17:31 SP TYPE: PAPFT OTHR DR: Radha Etienne APRN Tissues: 1 - CX/ENDOCX FOR PAP SMEARS Procedures: PAP THIN PREP/[facility] Screening HPV DNA PROBE Comments: [id number] (CHLAMYDIA/GC)
[2023-05-30 14:25] LABS: Chlamydia Result Negative (Negative); GC Result Negative (Negative)
== END 2023-05-29 15:04 | disposition home or self-care (01) ==
LOC: LBN 15:03
PROVIDERS: PCP Nurse Practitioner Adult Health; Visit Provider Advanced Practice Midwife
DX: Z34.91 Encounter for supervision of normal pregnancy, unspecified, first trimester (principal)
CPT/HCPCS: 87491; 87591; 88142; 87086; 87624

== ENCOUNTER 2023-09-24 03:22 | Outpatient (CLI) | payer OTHER, SELFPAY ==
[2023-09-24 10:02] LABS: Abs Immature Grans 0.19 10^3/uL (0.0-0.06); Absolute Basophil Count 0.03 10^3/uL (0.0-0.2); Absolute Eosinophil Count 0.05 10^3/uL (0.0-0.7); Absolute Lymphocyte Count 1.72 10^3/uL (1.2-3.4); Absolute Monocyte Count 0.43 10^3/uL (0.1-0.8); Absolute Neutrophil Count 8.06 10^3/uL (1.2-6.7); Basophils % 0.3 %; Eosinophils % 0.5 %; HCT 33.9 % (36.0-46.0); HGB 11.5 g/dL (11.2-15.7); Immature Grans % 1.8 %; Lymphocytes % 16.4 %; MCH 31.5 pg (27.0-33.0); MCHC 33.9 % (32.0-36.0); MCV 93 fL (80-95); MPV 9.8 fL (8.0-11.0); Monocytes % 4.1 %; Neutrophils % 76.9 %; Platelet Count 281 10^3/uL (130-400); RBC 3.65 10^6/uL (3.93-5.22); RDW-SD 51.1 fL; WBC 10.48 10^3/uL (4.4-10.8)
[2023-09-24 10:20] LABS: Glucose,1 Hr (Glucola) 129 mg/dL (80-140)
[2023-09-24 10:30] LABS: COMMENT (LAB VIEW ONLY) 136.73 mg/dL; PROTEIN 29.2 mg/dL; Prot/Crea Ur Ratio 0.21
[2023-09-24 17:27] LABS: IgE 10 IU/mL (<158)
== END 2023-09-24 03:23 | disposition home or self-care (01) ==
LOC: LBO 03:22
PROVIDERS: Advanced Practice Midwife; Physician Assistant Surgical; PCP Nurse Practitioner Adult Health; Visit Provider Obstetrics & Gynecology
DX: Z34.93 Encounter for supervision of normal pregnancy, unspecified, third trimester (principal); R03.0 Elevated blood-pressure reading, without diagnosis of hypertension; J45.909 Unspecified asthma, uncomplicated
CPT/HCPCS: 36415; 82950; 82565; 82785; 84156; 85025

== ENCOUNTER 2023-10-26 16:41 | Outpatient (CLI) | payer OTHER, SELFPAY ==
[2023-10-26 16:50] VITALS: BP 132/75; PULSE 81
[2023-10-26 16:58] VITALS: BP 132/75; PULSE 81; TEMP 37
[2023-10-26 17:19] LABS: HCT 34.8 % (36.0-46.0); HGB 11.5 g/dL (11.2-15.7); MCH 30.9 pg (27.0-33.0); MCV 94 fL (80-95); MPV 10.5 fL (8.0-11.0); Platelet Count 232 10^3/uL (130-400); RBC 3.72 10^6/uL (3.93-5.22); RDW 15.1 % (11.7-14.6); WBC 10.53 10^3/uL (4.4-10.8)
[2023-10-26 17:25] VITALS: BP 132/75; PULSE 81; TEMP 37
[2023-10-26 17:34] LABS: ALT 261 U/L (14-59); AST 120 U/L (15-37); Albumin 2.7 g/dL (3.4-5.0); Alkaline Phosphatase 128 U/L (46-116); Anion Gap 8.9 mmol/L (3-11); BUN 5 mg/dL (7-18); Bilirubin, Total 0.35 mg/dL (0.2-1.0); CO2 24.1 mmol/L (21.0-32.0); CREATININE 0.7 mg/dL (0.55-1.02); Calcium 9.3 mg/dL (8.5-10.1); Chloride 102 mmol/L (98-107); Estimated GFR 119.24 (mL/min/1.73m2); Glucose 84 mg/dL (74-106); Potassium 3.9 mmol/L (3.5-5.1); Sodium 135 mmol/L (136-145); Total Protein 7.1 g/dL (6.4-8.2)
--- NOTE | 2023-10-26 18:05 | W.OBNST ---
Date of service: 10/26/23 Time of Service: 17:00 NST Evaluation Reason for NST Reasons for Nonstress Test: OTHER, SEE COMMENT Reason for NST Other: Rule out pre-term labor Gestational Age Gestational Age in Weeks and Days: 33 Weeks and 3Days Test and Monitor Explained Test/Monitor Explained: Test Explained, Monitor Explained and Patient Verbalized Understanding Vital Signs Blood Pressure: 132/75 Pulse: 81 Temperature: 98.6 F NST Information Date on Monitor: 10/26/23 Time on Monitor: 16:48 Date off Monitor: 10/26/23 Time off Monitor: 17:21 Total Time on Monitor: 33 NST Interventions: PO Hydration Contraction Frequency: 0 NST Evaluation Patient States Movement: Present FHR Baseline: 130 Variability: Moderate 6-25 bpm Accelerations: 15x15 Decelerations: None NST Results: Reactive Note Ultrasound Done: N/A. NST Note Note: Tightening had improved by the time she was put on the monitor. No e/o ctxs. LFTs elevated. Will plan to start Ursodiol and return for NST early next week. She is aware to call over the weekend with any concerns. NST Reviewed and Verified by: Koki Johns
[2023-10-26 18:16] VITALS: BP 132/75; PULSE 81; TEMP 37
[2023-10-30 14:04] LABS: Bile Acids, Total 7 mcmol/L (<=10)
== END 2023-10-26 17:26 ==
LOC: BCD 16:42 → OBS 16:45
PROVIDERS: PCP Nurse Practitioner Adult Health; Visit Provider Obstetrics & Gynecology
DX: O47.03 False labor before 37 completed weeks of gestation, third trimester (principal); Z3A.33 33 weeks gestation of pregnancy
CPT/HCPCS: 59025; 80053; 85027; 86850; 86900; 86901; 82239

== ENCOUNTER 2023-10-29 08:20 | Outpatient (CLI) | payer OTHER, SELFPAY ==
[2023-10-29 08:23] VITALS: BP 124/73; PULSE 85; TEMP 36.9
[2023-10-29 08:39] VITALS: BP 124/73; PULSE 85
[2023-10-29 08:50] VITALS: BP 137/79; PULSE 85
--- NOTE | 2023-10-29 09:41 | W.OBNST ---
Date of service: 10/29/23 Time of Service: 09:41 NST Evaluation Reason for NST Reasons for Nonstress Test: OTHER, SEE COMMENT Reason for NST Other: Cholestasis Gestational Age Gestational Age in Weeks and Days: 33 Weeks and 6Days Test and Monitor Explained Test/Monitor Explained: Test Explained, Monitor Explained and Patient Verbalized Understanding Vital Signs Blood Pressure: 124/73 Pulse: 85 Temperature: 98.4 F NST Information Date on Monitor: 10/29/23 Time on Monitor: 08:18 Date off Monitor: 10/29/23 Time off Monitor: 09:17 Total Time on Monitor: 59 NST Interventions: PO Hydration Contraction Frequency: 0 NST Evaluation Patient States Movement: Present FHR Baseline: 130 Variability: Moderate 6-25 bpm Accelerations: 15x15 Decelerations: None NST Results: Reactive Note Ultrasound Done: N/A. NST Note Note: Patient had NST today due to her diagnosis of intrahepatic cholestasis. We are still waiting bile acids. Overall she is feeling reasonably well. Her itching is slightly improved. She does have minimal nausea with no vomiting. Her NST is reactive. Blood pressure is stable. She will have a repeat nonstress test on with laboratory studies at that time. All questions were answered NST Reviewed and Verified by: Cristina Hall
[2023-10-29 09:42] VITALS: BP 124/73; PULSE 85; TEMP 36.9
== END 2023-10-29 09:37 ==
LOC: BCD 08:21 → OBS 08:22
PROVIDERS: PCP Nurse Practitioner Adult Health; Visit Provider Obstetrics & Gynecology
DX: O26.613 Liver and biliary tract disorders in pregnancy, third trimester (principal); Z3A.33 33 weeks gestation of pregnancy
CPT/HCPCS: 59025

== ENCOUNTER 2023-10-31 10:20 | Outpatient (CLI) | payer OTHER, SELFPAY ==
[2023-10-31 14:29] VITALS: BP 139/81; PULSE 86; TEMP 36.8
--- NOTE | 2023-10-31 15:55 | W.OBNST ---
Date of service: 10/31/23 Time of Service: 14:00 NST Evaluation Reason for NST Reasons for Nonstress Test: OTHER, SEE COMMENT Reason for NST Other: Elevated liver enzymes Gestational Age Gestational Age in Weeks and Days: 34 Weeks and 1Days Test and Monitor Explained Test/Monitor Explained: Test Explained, Monitor Explained and Patient Verbalized Understanding Vital Signs Blood Pressure: 139/81 Pulse: 86 Temperature: 98.2 F Urine Results Urine Protein: Negative Urine Ketones: Negative Urine Glucose: Negative Urine Blood: Negative NST Information Date on Monitor: 10/31/23 Time on Monitor: 13:40 Date off Monitor: 10/31/23 Time off Monitor: 14:25 Total Time on Monitor: 45 NST Interventions: PO Hydration NST Evaluation Patient States Movement: Present FHR Baseline: 135 Accelerations: 15x15 Decelerations: None NST Results: Non-Reactive Note Ultrasound Done: N/A. NST Note NST Reviewed and Verified by: Koki Johns
[2023-10-31 15:57] VITALS: BP 139/81; PULSE 86; TEMP 36.8
== END 2023-10-31 14:28 ==
LOC: BCD 10:21 → OBS 13:53
PROVIDERS: PCP Nurse Practitioner Adult Health; Visit Provider Obstetrics & Gynecology
DX: O26.613 Liver and biliary tract disorders in pregnancy, third trimester; R94.5 Abnormal results of liver function studies; Z3A.34 34 weeks gestation of pregnancy
CPT/HCPCS: 59025

== ENCOUNTER 2023-10-31 11:05 | Outpatient (CLI) | payer OTHER, SELFPAY ==
[2023-10-31 11:33] LABS: Abs Immature Grans 0.13 10^3/uL (0.0-0.06); Absolute Basophil Count 0.03 10^3/uL (0.0-0.2); Absolute Eosinophil Count 0.12 10^3/uL (0.0-0.7); Absolute Lymphocyte Count 2.01 10^3/uL (1.2-3.4); Absolute Monocyte Count 0.56 10^3/uL (0.1-0.8); Absolute Neutrophil Count 7.57 10^3/uL (1.2-6.7); Basophils % 0.3 %; Eosinophils % 1.2 %; HCT 34.8 % (36.0-46.0); HGB 11.5 g/dL (11.2-15.7); Immature Grans % 1.2 %; Lymphocytes % 19.3 %; MCH 31.1 pg (27.0-33.0); MCV 94 fL (80-95); MPV 10.7 fL (8.0-11.0); Monocytes % 5.4 %; Neutrophils % 72.6 %; Platelet Count 226 10^3/uL (130-400); RDW-SD 51.9 fL; WBC 10.42 10^3/uL (4.4-10.8)
[2023-10-31 11:51] LABS: INR 0.9 (0.9-1.1); PTT Activated 24.6 sec (23.6-32.8); Prothrombin Time 9.5 sec (9.1-11.1)
[2023-10-31 12:44] LABS: ALT 156 U/L (14-59); AST 64 U/L (15-37); Albumin 2.9 g/dL (3.4-5.0); Alkaline Phosphatase 140 U/L (46-116); BUN 6 mg/dL (7-18); Bilirubin, Direct 0.1 mg/dL (0.0-0.2); Bilirubin, Total 0.22 mg/dL (0.2-1.0); CREATININE 0.6 mg/dL (0.55-1.02); Calcium 9.8 mg/dL (8.5-10.1); Chloride 104 mmol/L (98-107); Estimated GFR 123.76 (mL/min/1.73m2); Glucose 88 mg/dL (74-106); LDH 166 U/L (81-234); Potassium 4.1 mmol/L (3.5-5.1); Sodium 138 mmol/L (136-145); Total Protein 6.6 g/dL (6.4-8.2)
[2023-10-31 18:37] LABS: HBs Antibody, Quant <3.1 mIU/mL (See Note); Hepatitis B Surface Ab Negative (See Note)
[2023-10-31 18:47] LABS: Hepatitis B Surface Ag Negative (Negative)
[2023-10-31 19:31] LABS: Hep A Total Ab w Rflx IgM Negative (Negative); Hep B Core Antibody Negative (Negative)
[2023-11-01 12:29] LABS: ANA Interpretation Negative (Negative)
[2023-11-01 19:39] LABS: HBc IgM Ab, S Negative (Negative)
[2023-11-02 10:46] LABS: HSV Type 1 Ab, IgG Positive (Negative); HSV Type 2 Ab, IgG Positive (Negative)
[2023-11-02 14:00] LABS: CMV DNA Detect/Quant, P Undetected IU/mL (Undetected)
[2023-11-02 16:26] LABS: Total Bile Acids 9.48 nmol/mL (<=19.00); Total Chenodeoxycholic acid 1.75 nmol/mL (<=6.00); Total Cholic acid 1.66 nmol/mL (<=5.00); Total Deoxycholic acid 0.34 nmol/mL (<=6.00); Total Ursodeoxycholic acid 5.73 nmol/mL (<=2.00)
[2023-11-02 17:57] LABS: EBV DNA Detect/Quant, P Undetected IU/mL (Undetected)
== END 2023-10-31 11:06 | disposition home or self-care (01) ==
LOC: LBO 11:05
PROVIDERS: PCP Nurse Practitioner Adult Health; Visit Provider Obstetrics & Gynecology
DX: R79.89 Other specified abnormal findings of blood chemistry (principal)
CPT/HCPCS: 36415; 80053; 86704; 86706; 86709; 87340; 87529; 87799; 82248; 83615; 83789; 85025; 85610; 85730; 86038; 86695; 86696; 86705; 87497

== ENCOUNTER 2023-10-31 13:55 | Outpatient (REF) | payer OTHER, SELFPAY ==
[2023-10-31 15:25] LABS: COMMENT (LAB VIEW ONLY) 55.99 mg/dL; PROTEIN 14.1 mg/dL; Prot/Crea Ur Ratio 0.25
== END 2023-10-31 13:56 | disposition home or self-care (01) ==
LOC: LBN 13:55
PROVIDERS: PCP Nurse Practitioner Adult Health; Visit Provider Obstetrics & Gynecology
DX: R03.0 Elevated blood-pressure reading, without diagnosis of hypertension (principal)
CPT/HCPCS: 82565; 84156

== ENCOUNTER 2023-11-06 18:39 | Outpatient (CLI) | payer OTHER, SELFPAY ==
[2023-11-06 17:06] LABS: ALT 52 U/L (14-59); AST 33 U/L (15-37); Albumin 2.7 g/dL (3.4-5.0); Alkaline Phosphatase 125 U/L (46-116); Anion Gap 11.4 mmol/L (3-11); BUN 8 mg/dL (7-18); Bilirubin, Total 0.25 mg/dL (0.2-1.0); CO2 21.6 mmol/L (21.0-32.0); CREATININE 0.8 mg/dL (0.55-1.02); Calcium 9.5 mg/dL (8.5-10.1); Chloride 104 mmol/L (98-107); Estimated GFR 101.59 (mL/min/1.73m2); Glucose 116 mg/dL (74-106); Potassium 3.9 mmol/L (3.5-5.1); Sodium 137 mmol/L (136-145); Total Protein 7.1 g/dL (6.4-8.2)
[2023-11-08 20:45] LABS: Bile Acids, Total 9 mcmol/L (<=10)
== END 2023-11-06 18:40 | disposition home or self-care (01) ==
LOC: LBO 18:40
PROVIDERS: PCP Nurse Practitioner Adult Health; Visit Provider Obstetrics & Gynecology Gynecology
DX: R79.89 Other specified abnormal findings of blood chemistry (principal); O26.643 Intrahepatic cholestasis of pregnancy, third trimester
CPT/HCPCS: 36415; 80053; 82239

== ENCOUNTER 2023-11-09 15:42 | Outpatient (CLI) | payer OTHER, SELFPAY ==
[2023-11-09 16:22] VITALS: BP 133/81; PULSE 88; TEMP 37
[2023-11-09 16:25] VITALS: BP 133/81; PULSE 88
[2023-11-09 16:29] LABS: HCT 34.6 % (36.0-46.0); HGB 11.4 g/dL (11.2-15.7); MCH 30.8 pg (27.0-33.0); MCHC 32.9 % (32.0-36.0); MCV 94 fL (80-95); MPV 10.9 fL (8.0-11.0); Platelet Count 203 10^3/uL (130-400); RDW-SD 51.3 fL; WBC 11.41 10^3/uL (4.4-10.8)
[2023-11-09 16:46] LABS: ALT 41 U/L (14-59); AST 32 U/L (15-37); Albumin 2.7 g/dL (3.4-5.0); Alkaline Phosphatase 118 U/L (46-116); Anion Gap 12.5 mmol/L (3-11); BUN 8 mg/dL (7-18); CO2 21.5 mmol/L (21.0-32.0); CREATININE 0.7 mg/dL (0.55-1.02); Calcium 9.6 mg/dL (8.5-10.1); Chloride 104 mmol/L (98-107); Estimated GFR 119.24 (mL/min/1.73m2); Glucose 107 mg/dL (74-106); Potassium 3.7 mmol/L (3.5-5.1); Sodium 138 mmol/L (136-145); Total Protein 6.9 g/dL (6.4-8.2)
--- NOTE | 2023-11-09 18:17 | W.OBNST ---
Date of service: 11/09/23 Time of Service: 18:17 NST Evaluation Reason for NST Reasons for Nonstress Test: OTHER, SEE COMMENT Reason for NST Other: Increased bile acid Gestational Age Gestational Age in Weeks and Days: 35 Weeks and 3Days Test and Monitor Explained Test/Monitor Explained: Test Explained, Monitor Explained and Patient Verbalized Understanding Vital Signs Blood Pressure: 133/81 Pulse: 88 Temperature: 98.6 F Urine Results Urine Protein: Positive Urine Ketones: Negative Urine Glucose: Negative Urine Blood: Negative NST Information Date on Monitor: 11/09/23 Time on Monitor: 15:54 Date off Monitor: 11/09/23 Time off Monitor: 16:49 Total Time on Monitor: 55 NST Interventions: None Contraction Frequency: None NST Evaluation Patient States Movement: Present FHR Baseline: 135 Variability: Moderate 6-25 bpm Accelerations: 15x15 Decelerations: None NST Results: Reactive Note Ultrasound Done: N/A. NST Note Note: Labs repeated. All normal. Bile acids pending. Pt feeling well. Will return for twice weekly NSTs. NST Reviewed and Verified by: Koki Johns
[2023-11-09 18:18] VITALS: BP 133/81; PULSE 88; TEMP 37
[2023-11-12 17:46] LABS: Bile Acids, Total 8 mcmol/L (<=10)
== END 2023-11-09 17:07 ==
LOC: BCD 15:44 → OBS 15:50
PROVIDERS: PCP Nurse Practitioner Adult Health; Visit Provider Obstetrics & Gynecology
DX: O26.643 Intrahepatic cholestasis of pregnancy, third trimester (principal); Z3A.35 35 weeks gestation of pregnancy
CPT/HCPCS: 59025; 36415; 80053; 85027; 82239

== ENCOUNTER 2023-11-13 08:43 | Outpatient (CLI) | payer OTHER, SELFPAY ==
[2023-11-13 15:40] VITALS: BP 140/96; PULSE 83; TEMP 36.5
[2023-11-13 15:50] VITALS: BP 140/96; PULSE 83
[2023-11-13 16:07] VITALS: BP 154/87; PULSE 81
[2023-11-13 16:28] VITALS: BP 133/82; PULSE 82
--- NOTE | 2023-11-13 16:49 | W.OBNST ---
Date of service: 11/13/23 Time of Service: 16:49 NST Evaluation Reason for NST Reasons for Nonstress Test: OTHER, SEE COMMENT Reason for NST Other: Cholestatsis Gestational Age Gestational Age in Weeks and Days: 36 Weeks and 0Days Test and Monitor Explained Test/Monitor Explained: Test Explained and Monitor Explained Vital Signs Blood Pressure: 140/96 Pulse: 83 Temperature: 97.7 F Urine Results Urine Protein: Negative Urine Ketones: Negative Urine Glucose: Negative Urine Blood: Negative NST Information Date on Monitor: 11/13/23 Time on Monitor: 15:45 Date off Monitor: 11/13/23 Time off Monitor: 16:25 Total Time on Monitor: 40 NST Interventions: None NST Evaluation Patient States Movement: Present FHR Baseline: 130 Variability: Moderate 6-25 bpm Accelerations: 15x15 Decelerations: None NST Results: Reactive Note Ultrasound Done: N/A. NST Note Note: Pt reports some period-like cramping and spotting only with wiping for the last 2hrs. No other changes. NST Reviewed and Verified by: Koki Johns
[2023-11-13 16:50] VITALS: BP 140/96; PULSE 83; TEMP 36.5
== END 2023-11-13 16:35 ==
LOC: BCD 08:43 → OBS 15:39
PROVIDERS: PCP Nurse Practitioner Adult Health; Visit Provider Obstetrics & Gynecology
DX: O26.643 Intrahepatic cholestasis of pregnancy, third trimester (principal); Z3A.36 36 weeks gestation of pregnancy
CPT/HCPCS: 59025

== ENCOUNTER 2023-11-13 10:00 | Outpatient (REF) | payer OTHER, SELFPAY | END 2023-11-13 10:01 | disposition home or self-care (01) | LOC: LBN 10:00 | PROVIDERS: PCP Nurse Practitioner Adult Health; Visit Provider Obstetrics & Gynecology | DX: Z34.93 Encounter for supervision of normal pregnancy, unspecified, third trimester (principal); Z3A.36 36 weeks gestation of pregnancy | CPT/HCPCS: 87081 ==

== ENCOUNTER 2023-11-16 07:19 | Outpatient (CLI) | payer OTHER, SELFPAY ==
[2023-11-16 08:30] VITALS: BP 147/78; PULSE 87; TEMP 36.9
[2023-11-16 09:26] LABS: Abs Immature Grans 0.16 10^3/uL (0.0-0.06); Absolute Basophil Count 0.04 10^3/uL (0.0-0.2); Absolute Eosinophil Count 0.11 10^3/uL (0.0-0.7); Absolute Lymphocyte Count 1.63 10^3/uL (1.2-3.4); Absolute Monocyte Count 0.35 10^3/uL (0.1-0.8); Absolute Neutrophil Count 7.29 10^3/uL (1.2-6.7); Basophils % 0.4 %; Eosinophils % 1.1 %; HCT 35.2 % (36.0-46.0); HGB 11.7 g/dL (11.2-15.7); Immature Grans % 1.7 %; MCH 30.5 pg (27.0-33.0); MCHC 33.2 % (32.0-36.0); MCV 92 fL (80-95); Monocytes % 3.7 %; Neutrophils % 76.1 %; Platelet Count 203 10^3/uL (130-400); RBC 3.83 10^6/uL (3.93-5.22); RDW 15.4 % (11.7-14.6); RDW-SD 50.6 fL; WBC 9.58 10^3/uL (4.4-10.8)
[2023-11-16 09:45] LABS: ALT 42 U/L (14-59); AST 33 U/L (15-37); Albumin 2.6 g/dL (3.4-5.0); Alkaline Phosphatase 133 U/L (46-116); Anion Gap 11.9 mmol/L (3-11); BUN 9 mg/dL (7-18); Bilirubin, Total 0.33 mg/dL (0.2-1.0); CO2 21.1 mmol/L (21.0-32.0); CREATININE 0.8 mg/dL (0.55-1.02); Calcium 9.5 mg/dL (8.5-10.1); Chloride 103 mmol/L (98-107); Estimated GFR 101.59 (mL/min/1.73m2); Glucose 147 mg/dL (74-106); Potassium 3.7 mmol/L (3.5-5.1); Sodium 136 mmol/L (136-145)
[2023-11-16 09:56] VITALS: BP 147/78; PULSE 87; TEMP 36.9
--- NOTE | 2023-11-16 09:56 | W.OBNST ---
Date of service: 11/16/23 Time of Service: 09:56 NST Evaluation Reason for NST Reasons for Nonstress Test: OTHER, SEE COMMENT Reason for NST Other: cholestatsis Gestational Age Gestational Age in Weeks and Days: 36 Weeks and 3Days Test and Monitor Explained Test/Monitor Explained: Test Explained, Monitor Explained and Patient Verbalized Understanding Vital Signs Blood Pressure: 147/78 Pulse: 87 Temperature: 98.4 F NST Information Date on Monitor: 11/16/23 Time on Monitor: 08:38 Date off Monitor: 11/16/23 Time off Monitor: 09:23 Total Time on Monitor: 45 NST Interventions: PO Hydration Contraction Frequency: 0 NST Evaluation Patient States Movement: Present FHR Baseline: 130 Variability: Moderate 6-25 bpm Accelerations: 15x15 Decelerations: None NST Results: Reactive Note Ultrasound Done: N/A. NST Note Note: Category 1, reactive NST. Labs drawn. NST Reviewed and Verified by: Cristina Hall
[2023-11-18 12:57] LABS: Bile Acids, Total 13 mcmol/L (<=10)
== END 2023-11-16 09:30 ==
LOC: BCD 07:20 → OBS 08:28
PROVIDERS: PCP Nurse Practitioner Adult Health; Visit Provider Obstetrics & Gynecology
DX: O26.643 Intrahepatic cholestasis of pregnancy, third trimester (principal); Z3A.36 36 weeks gestation of pregnancy
CPT/HCPCS: 59025; 80053; 82239; 85025

== ENCOUNTER 2023-11-19 02:29 | Outpatient (CLI) | payer OTHER, SELFPAY ==
--- NOTE | 2023-11-19 06:30 | DI.US_ITS ---
Exam(s) US OB HARRISON WEIGHT EXAM: US OB HARRISON WEIGHT CLINICAL HISTORY: growth,elevated bp,cholestasis,R03.0. TECHNIQUE: Transabdominal obstetrical ultrasound performed. COMPARISON: US POCUS EXAM from 05/29/2023 FINDINGS:: Number of fetuses: 1 position: BREECH Placental location: ANTERIOR, grade 2. No evidence of previa. BIOMETRIC DATA: BPD: 9.56cm, 39weeks HC: 36.42cm, above normal range AC: 36.6cm, 40weeks 4days FL: 7.16cm, 36weeks 5days EFW: 3,910.83g, 8lb 10.67oz, 97% Composite Age: 38weeks 5days JELANI: 11/28/2023 Heart Rate: 129bpm Amniotic fluid index: 14.94cm. Visually, amount of fluid is within normal limits. IMPRESSION: size and weight are above expected range by approximately 2 weeks. DATA REPOSITORY:
== END 2023-11-19 02:49 ==
LOC: DI 02:29
PROVIDERS: PCP Nurse Practitioner Adult Health; Visit Provider Obstetrics & Gynecology
DX: O26.643 Intrahepatic cholestasis of pregnancy, third trimester; Z3A.39 39 weeks gestation of pregnancy
CPT/HCPCS: 76816

== ENCOUNTER 2023-11-20 07:20 | Outpatient (CLI) | payer OTHER, SELFPAY ==
[2023-11-20 14:47] VITALS: BP 139/78; PULSE 78; TEMP 37
[2023-11-20 15:17] LABS: Abs Immature Grans 0.21 10^3/uL (0.0-0.06); HCT 35.7 % (36.0-46.0); HGB 11.8 g/dL (11.2-15.7); MCH 31.1 pg (27.0-33.0); MCHC 33.1 % (32.0-36.0); MCV 94 fL (80-95); MPV 11.3 fL (8.0-11.0); Platelet Count 184 10^3/uL (130-400); RDW-SD 51.1 fL
[2023-11-20 15:23] VITALS: BP 157/89; PULSE 82
[2023-11-20 15:32] LABS: ALT 52 U/L (14-59); AST 44 U/L (15-37); Albumin 2.7 g/dL (3.4-5.0); Alkaline Phosphatase 137 U/L (46-116); Anion Gap 10.7 mmol/L (3-11); BUN 8 mg/dL (7-18); Bilirubin, Total 0.26 mg/dL (0.2-1.0); CO2 22.3 mmol/L (21.0-32.0); CREATININE 0.8 mg/dL (0.55-1.02); Calcium 9.7 mg/dL (8.5-10.1); Chloride 102 mmol/L (98-107); Estimated GFR 101.59 (mL/min/1.73m2); Glucose 68 mg/dL (74-106); Potassium 4.1 mmol/L (3.5-5.1); Sodium 135 mmol/L (136-145); Total Protein 7.1 g/dL (6.4-8.2)
[2023-11-20 15:34] LABS: Absolute Lymphocyte Count 3.44 10^3/uL (1.2-3.4); Absolute Monocyte Count 0.22 10^3/uL (0.1-0.8); Atypical Lymphocytes % 4 %; Bands % 0 %
[2023-11-20 15:35] VITALS: BP 139/78; PULSE 78
[2023-11-20 15:35] LABS: Absolute Basophil Count 0.11 10^3/uL (0.0-0.2); Myelocytes % 1
[2023-11-20 15:36] LABS: Other Cells % 1
--- NOTE | 2023-11-20 15:41 | W.OBNST ---
Date of service: 11/20/23 Time of Service: 15:41 NST Evaluation Reason for NST Reasons for Nonstress Test: OTHER, SEE COMMENT Reason for NST Other: Cholestatsis Gestational Age Gestational Age in Weeks and Days: 37 Weeks and 0Days Test and Monitor Explained Test/Monitor Explained: Test Explained, Monitor Explained and Patient Verbalized Understanding Urine Results Urine Protein: Negative Urine Ketones: Negative Urine Glucose: Negative Urine Blood: Negative NST Information Date on Monitor: 11/20/23 NST Interventions: PO Hydration
[2023-11-20 16:03] LABS: PROTEIN 10.6 mg/dL; Prot/Crea Ur Ratio 0.28
--- NOTE | 2023-11-21 08:48 | W.OBNST ---
Date of service: 11/21/23 Time of Service: 08:48 NST Evaluation Reason for NST Reasons for Nonstress Test: OTHER, SEE COMMENT Reason for NST Other: Cholestatsis Gestational Age Gestational Age in Weeks and Days: 36 Weeks and 3Days Test and Monitor Explained Test/Monitor Explained: Test Explained, Monitor Explained and Patient Verbalized Understanding Vital Signs Blood Pressure: 139/78 Pulse: 78 Temperature: 98.6 F Urine Results Urine Protein: Negative Urine Ketones: Negative Urine Glucose: Negative Urine Blood: Negative NST Information Date on Monitor: 11/20/23 Time on Monitor: 14:58 Date off Monitor: 11/20/23 Time off Monitor: 15:24 Total Time on Monitor: 26 NST Interventions: PO Hydration Contraction Frequency: 0 Note Ultrasound Done: N/A. NST Note Note: Patient had nonstress testing today. She also had baseline laboratory studies repeated. She did have a slightly elevated blood pressure which resolved after rest. She is category 1, reactive nonstress test. Her follow-up will be close and her primary scheduled at this point on 11/28/2023. Precautions were given NST Reviewed and Verified by: Cristina Hall
[2023-11-21 08:49] VITALS: BP 139/78; PULSE 78; TEMP 37
[2023-11-22 15:32] LABS: Bile Acids, Total 10 mcmol/L (<=10)
== END 2023-11-20 15:45 ==
LOC: BCD 07:20 → OBS 14:46
PROVIDERS: PCP Nurse Practitioner Adult Health; Visit Provider Obstetrics & Gynecology
DX: O26.643 Intrahepatic cholestasis of pregnancy, third trimester (principal); Z3A.37 37 weeks gestation of pregnancy; O36.63X0 Maternal care for excessive fetal growth, third trimester, not applicable or unspecified; R03.0 Elevated blood-pressure reading, without diagnosis of hypertension
CPT/HCPCS: 59025; 36415; 80053; 82239; 82565; 84156; 85025

== ENCOUNTER 2023-11-21 09:16 | Inpatient (IN) | payer OTHER, SELFPAY ==
[2023-11-21] VITALS (34 sets, daily range): BP systolic 72–173; BP diastolic 44–114; PULSE 70–90; RESP 16–18; TEMP 36.4–36.8; O2SAT 92–100; BMI 46.5
[2023-11-21] MEDS: NIFEdipine 10 MG CAP (09:35)
--- NOTE | 2023-11-21 09:38 | W.PM.OBHPL1 ---
Date of service: 11/21/23 Time of Service: 09:39 Assessment and Plan Assessment and plan (1) : Status: Acute Assessment and plan: Patient is a G1, P0 at 37 weeks and 1 day. She has known intrahepatic cholestasis of . She has a known breech presentation. She is scheduled for primary section at 38 weeks and 1 day, however she had severe range diastolic blood pressures today. This will advance her surgical date today. The risk, benefits, and alternatives have been previously explained to the patient in full informed consent was obtained. She will have a CBC and type and screen performed today. She will receive antihypertensives as needed. Will continue to monitor her care closely. (2) Cholestasis during in third trimester: Status: Acute (3) Elevated LFTs: Status: Acute (4) Intrahepatic cholestasis of : Status: Acute (5) Preeclampsia: Status: Acute OB-HPI Labor/Delivery History of Present Illness Reason for Visit: NST Chief Complaint: Other (Elevated blood pressure). JELANI Calculator Estimated Delivery Date Method Current WG Current Estimate 12/11/23 LMP (Certain) 37w 1d Other Estimates 12/11/23 Ultrasound #1 37w 1d Comments: Patient seen on the center today for blood pressure check and NST. She is noted to be having diastolic blood pressures in the severe range maximum of 114. She is scheduled for a primary section for breech at 38 weeks and 1 day. Perform her section today at 37 weeks and 1 day due to severe range blood pressures. She also has a history of intrahepatic cholestasis of and a known breech presentation. Her previously signed consent form will be appropriate for today. Laboratory studies performed yesterday were essentially normal with the exception of a slight bump in liver enzymes, not as high as previous. She also had a slight elevation in urine protein creatinine ratio at 0.28. For these reasons, she was requested to have further testing on the center and was noted to have elevation in blood pressures. She has no cephalgia, visual changes, epigastric pain. Will proceed to the OR today for her scheduled procedure. All questions were answered. History of Present Expected Delivery Route/Plan - FOB/ - Marcelino Radha non-immune, offer MMR Specific Issues/Plan 1. Obesity, BMI 40. Early [id number] 2. HTN white coat, initial CMP nml, Pro/Creat ratio 0.21 3. Hx genital HSV2. 4. Brother had coarctation; MFM/Level II US ordered 5. cfDNA no gender ID, considering CF /SMA 6. ELIZABETH 2, s/p cold knife cone biopsy in 2021 7. Itchy hands/feet at night - 10/26/23: elevated LFTs - start Ursodiol - 10/31/23: normal bile acids. More labs/liver sono ordered. - 11/09/23: LFTs normalized. Repeat bile acids 8 Informed Consent Informed Consent: Section Delivery Review of Systems Narrative: Some poor sleep patterns through the night and feeling of general discomfort Constitutional Constitutional: Reports system reviewed and no additional complaints, except as documented Eyes Eyes: Reports system reviewed and no additional complaints, except as documented ENT Ears, Nose, Mouth, and Throat: Reports system reviewed and no additional complaints, except as documented Cardiovascular Cardiovascular: Reports system reviewed and no additional complaints, except as documented Respiratory Respiratory: Reports system reviewed and no additional complaints, except as documented Gastrointestinal Gastrointestinal: Reports system reviewed and no additional complaints, except as documented Genitourinary Genitourinary: Reports as per HPI Neurologic Neurologic: Reports system reviewed and no additional complaints, except as documented PFSH All Active Problems (Updated 11/21/23 @ 09:43 by Cristina Hall DO) Preeclampsia (Acute) Intrahepatic cholestasis of (Acute) Cholestasis during in third trimester (Acute) Elevated LFTs (Acute) Rubella non-immune status, antepartum (Acute) Obesity, morbid, BMI 40.0-49.9 (Acute) (Acute) Elevated BP without diagnosis of hypertension (Acute) HSV-2 (herpes simplex virus 2) infection (Acute) Genital. Valtrex for suppression. Hidradenitis suppurativa (Acute) [facility] [place] Note 10/16/22 Extensor carpi ulnaris tendinitis (Acute ~02/2022) LEFT Depo-Medrol Injection: 03/10/22 Periorbital dermatitis (Acute ~06/2021) Pain of ulnar side of wrist (Acute ~12/2021) Adjustment disorder (Chronic ~04/2021) Asthma (Chronic) Mild intermittent Medical History (Updated 11/21/23 @ 09:43 by Cristina Hall DO) Family history of congenital heart defect History of supraventricular tachycardia (~2013) Elevated TSH (~2020) 2020 & 2021 ELIZABETH II (cervical intraepithelial neoplasia II) Cold Knife Cone done 02/2021. Negative Margins. Pap q 6 months Atypical squamous cells of undetermined significance (ASCUS) on Papanicolaou smear of cervix Cannot rule out high-grade lesion Chest congestion SARS-CoV-2 positive (05/2021) Iron deficiency anemia Mirena IUD Back pain (08/01/11) Intermittent (lumbar) Insomnia (05/16/17) Trazodone; day-shift helped Heart murmur, systolic (02/20/14) s/p ablation for SVT 2013 (Patrick) GERD (gastroesophageal reflux disease) (02/20/14) SVT (supraventricular tachycardia) (~2013) s/p ablation 2013 Surgical History (Updated 10/31/23 @ 09:30 by Koki Johns MD) Hx of cone biopsy of cervix Postoperative state (~02/23/21) Cold knife conization of the cervix 02/23/2021 History of cardiac radiofrequency ablation (~2013) History of tonsillectomy and adenoidectomy Family History Brother Crohn's disease Coarctation of aorta open heart surgery at 2 weeks of age at [facility] Mother Hypertension Asthma Allergies Father Hypertension Paternal Grandfather Myocardial infarct Maternal Grandfather Thyroid cancer Lung disease Paternal Grandmother Heart disease Diabetes Maternal Grandmother Autoimmune disease Diabetes Social History Smoking/Tobacco Use Status: Never Smoking risk assessment performed?: Yes Alcohol Intake: current Alcohol Intake frequency: a few times a month Drug use: Never Substance use type: does not use Adopted: No Foster care: No Housing: apartment 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[employer] [facility] [place] Duration: 45-60 minutes/day Frequency: 5-6 times per week Seatbelt use: always Working smoke detector in home: Yes Fire extinguisher in home: Yes Do you feel safe at home: Yes Do you feel safe in your relationship?: Yes Female Reproductive History Menstrual control method: progestin IUCD History History 1 Para Hx # Term Pregnancies Multiple births Hx # Pregnancies Ectopic pregnancies AB induced Hx Number of Living Children AB spontaneous Meds Allergies and Home Medications Allergies Allergy/AdvReac Type Severity Reaction Status Date / Time codeine phosphate (From AdvReac Severe vomiting Verified 11/13/23 09:01 Tylenol-Codeine #3) trazodone AdvReac Intermediate Night Verified 11/13/23 09:01 terrors shellfish food Allergy Unknown vomiting Uncoded 11/13/23 09:01 Home Medications ?Medication ?Instructions ?Recorded ?Confirmed ?Type loratadine 10 mg capsule 10 mg PO DAILY PRN 06/29/21 11/20/23 History hydrocortisone 2.5 % topical cream 1 applic topical TID PRN skin 08/15/21 11/20/23 Rx irritation #20 grams Lactobacillus rhamnosus GG 20 cell PO DAILY PRN 10/13/22 11/20/23 History billion cell capsule (Probiotic Digestive Care) tacrolimus 0.1 % topical ointment 1 applic topical BID PRN 10/18/22 11/20/23 History albuterol 90 mcg-budesonide 80 2 inh inhalation ONCE #10.7 grams 03/07/23 11/20/23 Rx mcg/actuation HFA aerosol inhaler (Airsupra) vitamins no.121-iron 28 tab PO 05/29/23 11/20/23 History mg-folic acid 800 mcg tablet sertraline 25 mg tablet 25 mg PO DAILY #90 tabs 06/25/23 11/20/23 Rx aspirin 81 mg tablet,delayed 162 mg PO DAILY 06/26/23 11/20/23 History release ascorbic acid (vitamin C) 500 mg 500 mg PO DAILY 07/30/23 11/20/23 History tablet ferrous sulfate 325 mg (65 mg 325 mg PO DAILY 07/30/23 11/20/23 History iron) tablet fluticasone propionate 115 2 puff inhalation BID #12 grams 08/20/23 11/20/23 Rx mcg-salmeterol 21 mcg/actuation HFA inhaler (Advair HFA) clindamycin phosphate 1 % lotion 1 applic topical QHS PRN axillary 08/27/23 11/20/23 Rx rash (?BULLOCK) #60 mL ursodiol 300 mg capsule 300 mg PO BID #60 caps 11/08/23 11/20/23 Rx valacyclovir 1 gram tablet 1,000 mg PO DAILY #90 tabs 11/14/23 11/20/23 Rx (Valtrex) Exam Physical Exam Vital Signs Reviewed: Yes Notable Details: Elevated diastolic blood pressure in the severe range. Antihypertensives a Constitutional Constitutional: no acute distress Detailed Labor and Delivery Exam Connell Score: Cervical Points Exam 0 1 2 3 Dilation Closed 1-2cm 3-4 cm 5-6cm Effacement 0-30% 40-50% 60-70% 80% Consistency Firm Medium Soft Station -3 -2 -1,0 +1,+2 Position Posterior Mid Anterior HEENT Exam HEENT Exam: Normal Neck Exam Neck Exam: Normal Respiratory Exam Respiratory Exam: Normal Cardiovascular Exam Cardiovascular Exam: Normal Risk Assessment Risk for Shoulder Dystocia Historical/Initial OB: POSITIVE FOR: Pre- BMI>30; NEGATIVE FOR: Pelvic Abnormality, Previous Shoulder Dystocia or Previous Macrosomia Risk for Pre-Eclampsia Yes, if one or more: NEGATIVE FOR: Hx Pre-E/Gest HTN, Chronic HTN, Multiple Gestation, Pre-gestational DM, Renal Disease, Systemic Lupus or APA Syndrome Yes, if 2 or more: POSITIVE FOR: Nulliparity and BMI>30 Risk for Post- Hemorrhage Initial: NEGATIVE FOR: Multiple Gestation, Previous PPH, Known Clotting Deficiency, Grand Multiparity or Anticoagulation Counseled re: Active Management: Yes (discussed and agrees; reports Mother had PPH after vacuum delivery of herse) Risks Reviewed Risks Reviewed Upon Admission: Yes
[2023-11-21 09:39] LABS: HCT 36.6 % (36.0-46.0); MCH 30.7 pg (27.0-33.0); MCHC 32.8 % (32.0-36.0); MCV 94 fL (80-95); MPV 11.4 fL (8.0-11.0); Platelet Count 184 10^3/uL (130-400); RBC 3.91 10^6/uL (3.93-5.22); RDW 15.2 % (11.7-14.6); RDW-SD 51.8 fL; WBC 10.34 10^3/uL (4.4-10.8)
--- NOTE | 2023-11-21 09:58 | ANES.PREOP_ITS ---
General Info Date of Service Date Performed: 11/21/23 Height: 5 ft 9 in Weight: 142.88 kg Body Mass Index (BMI): 46.5 Surgical Procedure: Operation Date: 11/21/23 10:40 Proposed Procedure Side Surgeon p Section Cristina Hall DO Meds Allergies and Home Medications Allergies Allergy/AdvReac Type Severity Reaction Status Date / Time codeine phosphate (From AdvReac Severe vomiting Verified 11/21/23 09:45 Tylenol-Codeine #3) trazodone AdvReac Intermediate Night Verified 11/21/23 09:45 terrors shellfish food Allergy Unknown vomiting Uncoded 11/21/23 09:45 Home Medication ?Medication ?Instructions ?Recorded loratadine 10 mg capsule 10 mg PO DAILY PRN 06/29/21 hydrocortisone 2.5 % topical cream 1 applic topical TID PRN skin 08/15/21 irritation #20 grams Lactobacillus rhamnosus GG 20 1 cell PO DAILY PRN 10/13/22 billion cell capsule (Probiotic Digestive Care) tacrolimus 0.1 % topical ointment 1 applic topical BID PRN 10/18/22 albuterol 90 mcg-budesonide 80 2 inh inhalation ONCE #10.7 grams 03/07/23 mcg/actuation HFA aerosol inhaler (Airsupra) vitamins no.121-iron 28 1 tab PO DAILY 05/29/23 mg-folic acid 800 mcg tablet sertraline 25 mg tablet 25 mg PO DAILY #90 tabs 06/25/23 aspirin 81 mg tablet,delayed 162 mg PO DAILY 06/26/23 release ascorbic acid (vitamin C) 500 mg 500 mg PO DAILY 07/30/23 tablet ferrous sulfate 325 mg (65 mg 325 mg PO DAILY 07/30/23 iron) tablet fluticasone propionate 115 2 puff inhalation BID #12 grams 08/20/23 mcg-salmeterol 21 mcg/actuation HFA inhaler (Advair HFA) clindamycin phosphate 1 % lotion 1 applic topical QHS PRN axillary 08/27/23 rash (?BULLOCK) #60 mL ursodiol 300 mg capsule 300 mg PO BID #60 caps 11/08/23 valacyclovir 1 gram tablet 1,000 mg PO DAILY #90 tabs 11/14/23 (Valtrex) Current Visit Medications: Current Medications Generic Name Dose Route Start Last Admin Trade Name Freq PRN Reason Stop Dose Admin Citric Acid/Sodium Citrate 30 ml 11/21/23 10:00 Sodium Citrate 30 Ml Cup PO PREOP ANDIE Cefazolin Sodium/Dextrose 2 gm in 50 mls @ 100 mls/hr 11/21/23 09:45 Ancef Duplex IVPB PREOP ANDIE Azithromycin 500 mg/ Sodium 250 mls @ 250 mls/hr 11/21/23 09:45 Chloride IVPB PREOP [facility] Ringer's Solution 1,000 mls @ 200 mls/hr 11/21/23 09:45 IV INFUSION ANDIE IV Miscellaneous Supplies 1 each 11/21/23 09:45 Iv Access IV DIRECTED ANDIE Sodium Chloride 0 ml 11/21/23 09:40 Normal Saline Flush 10 Ml Syr IVP PRN PRN Sodium Chloride 0 ml 11/21/23 20:00 Normal Saline Flush 10 Ml Syr IVP BID ANDIE Sodium Chloride 0 ml 11/21/23 09:40 Normal Saline 10 Ml Vial IJ DIRECTED PRN PFSH Active Problems Active Problems: Problem Status Onset Code Preeclampsia Acute O14.90 Intrahepatic cholestasis of Acute O26.649 Cholestasis during in third trimester Acute O26.643 Elevated LFTs Acute R79.89 Rubella non-immune status, antepartum Acute O09.l, Z28.39 Obesity, morbid, BMI 40.0-49.9 Acute E66.01 Acute Z34.90 Elevated BP without diagnosis of hypertension Acute R03.0 HSV-2 (herpes simplex virus 2) infection Acute B00.9 Hidradenitis suppurativa Acute L73.2 Extensor carpi ulnaris tendinitis Acute ~02/2022 M77.8 Periorbital dermatitis Acute ~06/2021 L30.9 Pain of ulnar side of wrist Acute ~12/2021 M25.539 Adjustment disorder Chronic ~04/2021 F43.20 Asthma Chronic Medical History Medical History (Updated 11/21/23 @ 09:43 by Cristina Hall DO) Family history of congenital heart defect History of supraventricular tachycardia (~2013) Elevated TSH (~2020) 2020 & 2021 ELIZABETH II (cervical intraepithelial neoplasia II) Cold Knife Cone done 02/2021. Negative Margins. Pap q 6 months Atypical squamous cells of undetermined significance (ASCUS) on Papanicolaou smear of cervix Cannot rule out high-grade lesion Chest congestion SARS-CoV-2 positive (05/2021) Iron deficiency anemia Mirena IUD Back pain (08/01/11) Intermittent (lumbar) Insomnia (05/16/17) Trazodone; day-shift helped Heart murmur, systolic (02/20/14) s/p ablation for SVT 2013 ([facility]) GERD (gastroesophageal reflux disease) (02/20/14) SVT (supraventricular tachycardia) (~2013) s/p ablation 2013 Surgical History Surgical History (Updated 10/31/23 @ 09:30 by Koki Johns MD) Hx of cone biopsy of cervix Postoperative state (~02/23/21) Cold knife conization of the cervix 02/23/2021 History of cardiac radiofrequency ablation (~2013) History of tonsillectomy and adenoidectomy Tobacco Smoking/Tobacco Use Status: Never Passive smoking exposure: No Alcohol Alcohol Intake: current Alcohol intake frequency: a few times a month Substance Use Substance use: Never Substance use type: does not use Prental History History 2 1 Para Hx # Term Pregnancies Multiple births Hx # Pregnancies Ectopic pregnancies AB induced Hx Number of Living Children AB spontaneous Vital Signs and Lab Results Lab Results 11/21/23 09:30 Blood Type / Crossmatch: 2 Antibody Screen NEGATIVE 10/26/23 Complete Blood Count: 2 White Blood Count 10.34 10^3/uL (4.4-10.8) 11/21/23 09:30 Red Blood Count 3.91 10^6/uL (3.93-5.22) L 11/21/23 09:30 Hemoglobin 12.0 g/dL (11.2-15.7) 11/21/23 09:30 Hematocrit 36.6 % (36.0-46.0) 11/21/23 09:30 Platelet Count 184 10^3/uL (130-400) 11/21/23 09:30 Complete Metabolic Panel: 2 Sodium 135 mmol/L (136-145) L 11/20/23 15:10 Potassium 4.1 mmol/L (3.5-5.1) 11/20/23 15:10 Chloride 102 mmol/L (98-107) 11/20/23 15:10 Carbon Dioxide 22.3 mmol/L (21.0-32.0) 11/20/23 15:10 BUN 8 mg/dL (7-18) 11/20/23 15:10 Creatinine 0.8 mg/dL (0.55-1.02) 11/20/23 15:10 Est GFR (CKD-EPI 2020) 101.59 (mL/min/1.73m2) 11/20/23 15:10 Calcium 9.7 mg/dL (8.5-10.1) 11/20/23 15:10 Albumin 2.7 g/dL (3.4-5.0) L 11/20/23 15:10 Glucose 68 mg/dL (74-106) L 11/20/23 15:10 Liver Function Panel: 2 Alanine Aminotransferase (ALT/SGPT) 52 U/L (14-59) 11/20/23 15: 10 Aspartate Amino Transf (AST/SGOT) 44 U/L (15-37) H 11/20/23 15: 10 Coagulation Panel: 2 INR International Normalized Ratio 0.9 (0.9-1.1) 10/31/23 11:2 3 Prothrombin Time 9.5 sec (9.1-11.1) 10/31/23 11:23 Activated Partial Thromboplast Time 24.6 sec (23.6-32.8) 11:23 Cardiac Panel: 2 No Data to Display Arterial Blood Gas: 2 No Data to Display Venous Blood Gas: 2 No Data to Display Pancreas Panel: 2 No Data to Display Thyroid Panel: 2 No Data to Display Infectious Disease: 2 Hepatitis B Surface Antigen Negative (Negative) 10/31/23 11:23 Blood Cultures: 2 No Data to Display Toxicology Panel: 2 No Data to Display Panel: 2 No Data to Display Imaging and Studies Imaging and Studies Study information below may be from another EMR and interpreted by another provider. Please see original notes in EMR for more complete details. EKG Summary: 08/13/21 Sinus rhythm...normal P axis, V-rate 60- 99 I have reviewed and I agree with the emergency room physician's ECG interpretation. Echocardiogram Summary: Summary: 1. Left ventricle: The cavity size was normal. Wall thickness was at the upper limits of normal. Systolic function was normal. The estimated ejection fraction was 55-60%. Wall motion was normal; there were no regional wall motion abnormalities. 2. Aortic valve: There was trivial regurgitation. 3. Right ventricle: The cavity size was normal. Wall thickness was normal. Systolic function was normal. 11/22/17 Anesthesia Assessment and Plan Anesthesia History Personal History: No History of Anesthesia Complications Family History: No Family History of Anesthesia Complications Exercise Tolerance Exercise Tolerance: Metabolic Equivalents>4 Pertinent Negatives Pertinent Negatives: No Symptoms of GERD, No Major Cardiovascular Symptoms or Complaints (Hx of SVT - ablation 2013, HTN diastolic > 100 on DOS ), No Major Pulmonary Symptoms or Complaints (Asthma, well controlled - last used rescue inhaler years ago ) and No History of CVA/TIA Cardiac & Pulmonary Exam Cardiac Exam: Normal S1/S2 Heart Sounds Pulmonary Exam: Clear Bilateral Breath Sounds Implantable Cardiac Device Does patient have a Pacemaker or an ICD?: No Airway Exam Known Difficult Airway: No Mallampati Class: 2 Mouth Opening: Normal (> 3cm) Thyromental Distance: Less than 3 cm Neck Range of Motion: Full ROM Neck Circumference: Thick Teeth Condition: Normal Dentition ASA Classification ASA Score: ASA 3 Emergency Case?: No NPO Status NPO Status: NPO Clears >2 hours, Solids >8 hours Status Status: Confirmed and Positive HCG Anesthesia Plan Resuscitation Status: Full Code Anesthesia Technique: Spinal Anesthesia Airway Planned: Natural Airway Pain Management: Intrathecal Analgesia Monitors Used: Standard Monitors
[2023-11-21] MEDS: Labetalol 100 MG/20 ML VIAL ×2 (10:28→13:47)
[2023-11-21] MEDS: AZITHROMYCIN 500 MG in Normal Saline 250 ML 250 MG IVPB (10:31)
[2023-11-21] MEDS: Sodium Citrate 30 ML CUP PO (10:45)
[2023-11-21] MEDS: ceFAZolin 2 GM/50 ML BAG IVPB (11:03)
[2023-11-21] MEDS: Bupivacaine 0.25% Pres-Free 30 ML VIAL (11:11)
--- NOTE | 2023-11-21 11:26 | PLAC_PTH ---
PATIENT: Gerri Talely LOC: OBS U#:[id number] AGE/SX: 28/F ROOM: OBS.303 RE11/21/[address]: Jeimy Garcia : 1995 BED: A DIS: 11/22/2023 SPEC #: [id number] RECD: 11/21/23 12:43 STATUS: SOUJazmine REQ #: [id number] ETHAN: 11/21/23 11:[address]: Cristina Hall DEPT: Surgical Specimen RECD BY: Katarzyna Garcia ENTERED: 11/21/23 12:44 SP TYPE: PLAC OTHR DR: STAR Mays Anne Tissues: 1 - PLACENTA (3RD TRIMESTER) Procedures: GROSS AND MICRO LEVEL 5 Comments: [id number]
--- NOTE | 2023-11-21 12:10 | W.PM.OBCSECT ---
Date of service: 11/21/23 Time of Service: 12:10 Operative Note Operative Note Delivery Method: Unscheduled STAT: No and Primary NTSV>37 Weeks: No DATE OF PROCEDURE: 11/21/23 PRE-OP DIAGNOSES: at 37 and 1/7, intrahepatic cholestasis, severe preeclampsia, alisha POST-OP DIAGNOSES: same Breech presentation PROCEDURE: Primary low-transverse section SURGEON: Cristina Hall Assisting Surgeon: Jeimy Garcia Estimated blood loss (mL): 800 Pathology: other (Placenta) Complications: None Patient was transported to: floor Patient's condition: stable Indications: at 37 and 1 sevenths weeks. Intrahepatic cholestasis. Breech presentation. Declines version. Preeclampsia with severe features Findings: Delivery of a viable male from the footling breech presentation. Normal tubes, ovaries, uterus Procedure Description: After full informed consent was obtained, patient taken the operating suite with an IV running. She is placed in the seated position and spinal anesthesia administered. She was placed in dorsal supine position with leftward tilt and her anesthesia was tested and found to be adequate. A timeout was held. She received pneumatic compression stockings for DVT prophylaxis and 2 g of Ancef along with 500 mg of Zithromax for surgical site infection prophylaxis. She had a vaginal preparation and Mogran catheter placed. Her abdomen was prepped and draped in the usual sterile fashion. The anterior abdominal wall was infiltrated with quarter percent Marcaine and the location of her Pfannenstiel incision. A Pfannenstiel skin incision was made and carried down to the underlying fascia. The fascia was incised in the midline and the fascial incision extended laterally. The rectus muscles were identified in the midline and . The peritoneum was identified tented up and entered sharply and the peritoneal incision was then extended superiorly and inferiorly. At this point the bladder blade was inserted. The vesicouterine peritoneum was identified tented up and entered sharply and the bladder flap was created. A low transverse uterine incision was made with a scalpel and extended bluntly laterally. The breech were delivered through the incision. The baby was delivered to the point that his scapulas were noted and weaned. The right arm was swept around the body followed by the left arm. There was evidence of nuchal cord which was delivered through. With vertex in the flexed position the vertex was delivered through the incision. A three-vessel cord was noted and clamped after the appropriate delayed cord clamping. The baby was then handed off to the waiting any commodity buyer. At this point a cord blood sample was obtained. The placenta was manually expressed from the uterus and the uterus exteriorized. It was cleared of all clot and debris. The placenta was sent for pathology. The uterine incision was then closed in a 2 layer closure of 0 Monocryl suture with the first layer being running locked and the second being imbricating. The uterus was then returned to the abdomen. Abdomen irrigated with copious amounts of normal saline. The uterine incision inspected and noted to be hemostatic. Fascial incision was then closed using 0 Vicryl suture in a running fashion. Subcu tissue was irrigated with copious months of normal saline and hemostasis achieved. 3-0 Vicryl was used to reapproximate the subcu space. The skin edge was reapproximated with 4-0 undyed Monocryl in a subcuticular fashion and Steri-Strips and sterile dressing were placed. Findings were delivery of a viable male infant from the footling breech presentation. Normal tubes, ovaries, uterus. No evidence of intrauterine pathology noted. Pathology: Placenta for examination Fluids: Crystalloid per anesthesia EBL: 800 mL Complications:none apparent
[2023-11-21] MEDS: Ketorolac 30 MG/ML VIAL IVP ×2 (13:13→19:45)
--- NOTE | 2023-11-21 14:35 | W.ANESPOSTOP ---
Postoperative Evaluation Date, Time and Location Date Performed: 11/21/23 Time Performed: 14:35 Patient Location: Obstetrics Vital Signs Most Recent Imported Vital Signs: Most Recent Vital Signs Temp Pulse Resp BP 36.8 C 90 18 153/91 H 11/21/23 08:56 11/21/23 08:56 11/21/23 14:00 11/21/23 10:35 Assessment Mental Status: Awake (Alert & Oriented to Patient Baseline) Airway and Respiratory Function: Patent airway with normal (patient baseline) respiratory exam Cardiovascular Function: Hemodynamically Stable Hydration Status: Adequately Hydrated Nausea & Vomiting: No Nausea or Vomiting Pain: Pain is tolerable per patient Peripheral Nerve Block: Patient did not receive a nerve block Teaching Patient Teaching: Discussed Safe Use of Pain Medication Given Recent Anesthesia
[2023-11-21] MEDS: Labetalol 100 MG TAB 200 MG PO (19:44)
[2023-11-21] MEDS: Normal Saline Flush 10 ML SYR IVP (19:45)
--- NOTE | 2023-11-21 20:16 | W.PM.OBPNV1 ---
Date of service: 11/21/23 Time of Service: 20:16 Assessment and Plan Assessment and plan (1) Preeclampsia: Status: Acute Assessment and plan: Will adjust Labetalol dose in am depending upon BPs during the night. (2) History of low transverse section: Status: Acute (3) Breech presentation delivered: Status: Acute Exam Physical Exam Vital signs: Temp Pulse Resp BP Pulse Ox 98.2 F 73 18 137/85 100 11/21/23 08:56 11/21/23 18:15 11/21/23 18:15 11/21/23 18:15 11/21/23 18:15 Vital Signs Reviewed: Yes Notable Details: DBP 169/108. Pt was in pain and moving at the time. Narrative: POD 0 pLTCS for evolving preeclampsia in the setting of cholestasis of . BP eleveation in postop period was treated with 200mg PO Labetalol x1. BP returned to 137/85 shortly after administration of Labetalol. Pt reports feeling lightheaded earlier with BP elevated but now no dizziness and no H/A. Constitutional Constitutional: no acute distress Comments: laying on mother's chest - skin to skin. Respiratory Exam Respiratory Exam: Normal Abdominal Exam Comments: deferred. Extremities Exam Extremity Exam: Normal (SCDs in place.) Results Hemoglobin/Hematocrit: Hgb 12.0 g/dL (11.2-15.7) 11/21/23 09:30 Hct 36.6 % (36.0-46.0) 11/21/23 09:30 Abnormal Lab Findings: Abnormal Labs 11/21/23 09:30 RBC 3.91 L RDW 15.2 H MPV 11.4 H
[2023-11-22] VITALS (11 sets, daily range): BP systolic 114–133; BP diastolic 63–90; PULSE 14–87; RESP 14–20; TEMP 36.4–36.7; O2SAT 96–100
[2023-11-22] MEDS: Acetaminophen 325 MG TAB 650 MG PO ×3 (01:28→18:21)
[2023-11-22] MEDS: Docusate Sodium 100 MG CAP PO ×2 (01:28→08:07)
[2023-11-22] MEDS: Normal Saline Flush 10 ML SYR IVP (01:30)
[2023-11-22] MEDS: Ketorolac 30 MG/ML VIAL IVP ×2 (01:31→08:03)
[2023-11-22 06:48] LABS: Abs Immature Grans 0.19 10^3/uL (0.0-0.06); Absolute Basophil Count 0.05 10^3/uL (0.0-0.2); Absolute Eosinophil Count 0.07 10^3/uL (0.0-0.7); Absolute Lymphocyte Count 3.94 10^3/uL (1.2-3.4); Basophils % 0.3 %; Eosinophils % 0.4 %; HCT 28.3 % (36.0-46.0); HGB 9.3 g/dL (11.2-15.7); Lymphocytes % 21.6 %; MCH 31.2 pg (27.0-33.0); MCHC 32.9 % (32.0-36.0); MCV 95 fL (80-95); MPV 11.7 fL (8.0-11.0); Monocytes % 5.3 %; Neutrophils % 71.4 %; Platelet Count 209 10^3/uL (130-400); RBC 2.98 10^6/uL (3.93-5.22); RDW 15.6 % (11.7-14.6); RDW-SD 52.8 fL; WBC 18.26 10^3/uL (4.4-10.8)
[2023-11-22 06:52] LABS: Absolute Monocyte Count 0.97 10^3/uL (0.1-0.8); Absolute Neutrophil Count 13.04 10^3/uL (1.2-6.7)
[2023-11-22] MEDS: Labetalol 100 MG TAB 200 MG PO (08:07)
--- NOTE | 2023-11-22 08:14 | W.PM.OBPNV1 ---
Date of service: 11/22/23 Time of Service: 08:14 Assessment and Plan Assessment and plan (1) Status post primary low transverse section: Status: Acute Assessment and plan: Postop day 1 status post primary low-transverse section for breech presentation. Overall doing well. Pain is well-controlled. Blood pressures remain stable on labetalol, 200 mg twice daily. Will resume her Valtrex. Ambulate today. Monitor vitals and urine output. All questions answered Subjective Subjective Interval history: Patient seen and examined this morning. Overall doing well. No signs or symptoms of preeclampsia. Has been started on labetalol, 200 mg twice daily. Will monitor her urine output. Anticipate diuresis today. Labs reviewed. [place] baby status: Strong Bonding Observed and Other (Baby on CPAP, does best skin to skin.) Exam Physical Exam Vital signs: Temp Pulse Resp BP Pulse Ox 97.7 F 80 16 123/74 98 11/22/23 03:00 11/22/23 03:00 11/22/23 04:00 11/22/23 03:00 11/22/23 03:00 Vital Signs Reviewed: Yes Constitutional Constitutional: no acute distress HEENT Exam HEENT Exam: Normal Neck Exam Neck Exam: Normal Respiratory Exam Respiratory Exam: Normal Cardiovascular Exam Cardiovascular Exam: Normal Abdominal Exam Abdomen: Tender Fundal Exam Fundus: Below Umbilicus and Firm Extremities Exam Extremity Exam: Normal; negative Calf Tenderness Neurological Exam Neurological Exam: Normal Psychiatric Exam Psychiatric Exam: Normal Results Hemoglobin/Hematocrit: Hgb 9.3 g/dL (11.2-15.7) L D 11/22/23 06:30 Hct 28.3 % (36.0-46.0) L 11/22/23 06:30 Abnormal Lab Findings: Abnormal Labs 11/21/23 11/22/23 09:30 06:30 WBC 18.26 H RBC 3.91 L 2.98 L Hgb 9.3 L D Hct 28.3 L RDW 15.2 H 15.6 H MPV 11.4 H 11.7 H Absolute Neutrophils 13.04 H Absolute Lymphocytes 3.94 H Absolute Monocytes 0.97 H
[2023-11-22] MEDS: valACYclovir 1,000 MG TAB 1000 MG PO (09:02)
--- NOTE | 2023-11-22 09:22 | W.PM.OBPNV1 ---
Date of service: 11/22/23 Time of Service: 09:23 Subjective Subjective Interval history: Updated the patient, baby will be transferred to [facility] for transient tachypnea. Arrangements made for transfer of the patient to the service of maternal- medicine via ambulance today. Contacted Dr. Allison Gordillo who was the send accepting physician. Vital signs remained stable. All questions answered Exam Physical Exam Vital signs: Temp Pulse Resp BP Pulse Ox 97.5 F L 14 L 14 133/90 97 11/22/23 09:09 11/22/23 09:09 11/22/23 09:09 11/22/23 09:09 11/22/23 09:09 Results Hemoglobin/Hematocrit: Hgb 9.3 g/dL (11.2-15.7) L D 11/22/23 06:30 Hct 28.3 % (36.0-46.0) L 11/22/23 06:30 Abnormal Lab Findings: Abnormal Labs 11/21/23 11/22/23 09:30 06:30 WBC 18.26 H RBC 3.91 L 2.98 L Hgb 9.3 L D Hct 28.3 L RDW 15.2 H 15.6 H MPV 11.4 H 11.7 H Absolute Neutrophils 13.04 H Absolute Lymphocytes 3.94 H Absolute Monocytes 0.97 H
--- NOTE | 2023-11-22 09:26 | W.PM.OBDISCH ---
Date of service: 12/26/23 Time of Service: 09:26 DS: Diagnosis Discharge Diagnosis (1) Status post primary low transverse section: Status: Acute Asessment and Plan: Patient is postoperative day #1 status post primary low-transverse section for breech presentation at 37 weeks and 1 day with complicated by preeclampsia with severe features and intrahepatic cholestasis. Her baby was transferred to the intensive care unit at [facility]. For this reason, patient will also be transferred for ongoing care. (2) Breech presentation delivered: Status: Acute (3) Preeclampsia: Status: Acute Asessment and Plan: Blood pressures remain stable vital signs remained stable. She will continue labetalol 200 mg p.o. twice daily. Await brisk diuresis. (4) Intrahepatic cholestasis of : Status: Acute Discharge Plan Disposition Patient Disposition: Transfer-Acute Inpatient Care Specific Acute Inpt Facility: [facility] Condition: Good Discharge Details Reason For Visit: Hypertension in Admit Date/Time: 11/21/23 09:16 Admit Provider: Jeimy Garcia Attending Provider: Jeimy Garcia Primary Care Provider: Radha Etienne Hospital Course Hospital Course: Patient was admitted to the hospital at 37 weeks and 1 day with elevated blood pressures. She had a known history of intrahepatic cholestasis of . She had severe range blood pressures on presentation. She received antihypertensives including Procardia x 1 and labetalol x 2. She had known breech presentation and declined external cephalic version. She underwent a primary low-transverse section at 37 weeks and 1 day for breech presentation and the above findings. To this point, her postoperative care has been uncomplicated. She was transitioned postoperatively onto labetalol, 200 mg orally twice daily. She has a stable hemoglobin at 9.3. She has no other signs or symptoms of preeclampsia. Her urine output is adequate, though not diuresing at this point. As of note, her will be transferred to the intensive care unit at [facility] and for this reason patient will also be transferred for ongoing maternal care and proximity to her baby. All of her questions were answered. Home Meds and New Rx's Prescriptions: No Action Probiotic Digestive Care 20 billion cell capsule 1 cell PO DAILY PRN ferrous sulfate 325 mg (65 mg iron) tablet 325 mg PO DAILY ascorbic acid (vitamin C) 500 mg tablet 500 mg PO DAILY clindamycin phosphate 1 % lotion 1 applic topical QHS PRN (Reason: axillary rash (?BULLOCK)) Qty: 60 0RF Rx Instructions: Apply to skin bilateral armpits bedtime PRN outbreaks loratadine 10 mg capsule 10 mg PO DAILY PRN hydrocortisone 2.5 % cream 1 applic topical TID PRN (Reason: skin irritation) Qty: 20 1RF Rx Instructions: Apply thin layer to keon-orbital skin irritation up to 3x/d PRN for no more than 2 consecutive weeks. Airsupra 90-80 mcg/actuation HFA aerosol inhaler 2 inh inhalation ONCE Qty: 10.7 12RF Rx Instructions: as a single dose; may repeat up to 6 doses per day (12 inhalations) PNV [id number] acid 28 mg iron- 800 mcg tablet 1 tab PO DAILY aspirin 81 mg tablet,delayed release (DR/EC) 162 mg PO DAILY tacrolimus 0.1 % ointment 1 applic topical BID PRN Rx Instructions: Apply twice daily to the affected areas on the eyelids as needed when flaring-[facility] [place] Derm Note 10/16/22 sertraline 25 mg tablet 25 mg PO DAILY Qty: 90 3RF fluticasone propion-salmeterol [Advair HFA] 115-21 mcg/actuation HFA aerosol inhaler 2 puff inhalation BID Qty: 12 12RF Rx Instructions: administer with spacer ursodiol 300 mg capsule 300 mg PO BID Qty: 60 1RF valacyclovir [Valtrex] 1 gram tablet 1,000 mg PO DAILY Qty: 90 4RF Discharge Instructions Activity:: Activity as Tolerated Equipment/Supplies:: No Equipment Needed Diet:: As Tolerated Discharge Orders Discharge Orders: Discharge Order (Routine); Ordered 11/22/23 Ordered By: Cristina Hall OB:EVELYN Summary Contraception Discussed Contraception Discussed: Yes Contraceptive Plan: Undecided, Gender-Baby A: Male weight: 8 lb 0.397 oz Status at Discharge Functional status at discharge: independent ambulation Overall status at discharge: patient is progressing back to baseline Mental Status: mental status grossly normal Speech and Movement: speech and movement normal Mood: congruent mood Affect: normal affect Quality:SDOH Health Related Social Needs: No Data to Display Exam Physical Exam Vital signs: Temp Pulse Resp BP Pulse Ox 97.5 F L 14 L 14 133/90 97 11/22/23 09:09 11/22/23 09:09 11/22/23 09:09 11/22/23 09:09 11/22/23 09:09 [facility] All Active Problems (Updated 11/21/23 @ 20:23 by Jeimy Garcia MD) Status post primary low transverse section (Acute) Primary low-transverse section 11/21/2023 at 37 weeks and 1 day due to preeclampsia with severe features, intrahepatic cholestasis, breech presentation. Male infant. 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 Valtrex for suppression. Hidradenitis suppurativa (Acute) [facility] [place] Derm Note 10/16/22 Extensor carpi ulnaris tendinitis (Acute ~02/2022) LEFT Depo-Medrol Injection: 03/10/22 Periorbital dermatitis (Acute ~06/2021) Pain of ulnar side of wrist (Acute ~12/2021) Adjustment disorder (Chronic ~04/2021) Asthma (Chronic) Mild intermittent Medical History (Updated 11/21/23 @ 20:23 by Jeimy Garcia MD) Family history of congenital heart defect History of supraventricular tachycardia (~2013) Elevated TSH (~2020) 2020 & 2021 ELIZABETH II (cervical intraepithelial neoplasia II) Cold Knife Cone done 02/2021. Negative Margins. Pap q 6 months Atypical squamous cells of undetermined significance (ASCUS) on Papanicolaou smear of cervix Cannot rule out high-grade lesion Chest congestion SARS-CoV-2 positive (05/2021) Iron deficiency anemia Mirena IUD Back pain (08/01/11) Intermittent (lumbar) Insomnia (05/16/17) Trazodone; day-shift helped Heart murmur, systolic (02/20/14) s/p ablation for SVT 2013 (Patrick) GERD (gastroesophageal reflux disease) (02/20/14) SVT (supraventricular tachycardia) (~2013) s/p ablation 2013 Surgical History (Updated 11/22/23 @ 08:19 by Cristina Hall DO) Hx of cone biopsy of cervix Postoperative state (~02/23/21) Cold knife conization of the cervix 02/23/2021 History of cardiac radiofrequency ablation (~2013) History of tonsillectomy and adenoidectomy Family History Brother Crohn's disease Coarctation of aorta open heart surgery at 2 weeks of age at [facility] Mother Hypertension Asthma Allergies Father Hypertension Paternal Grandfather Myocardial infarct Maternal Grandfather Thyroid cancer Lung disease Paternal Grandmother Heart disease Diabetes Maternal Grandmother Autoimmune disease Diabetes Social History Smoking/Tobacco Use Status: Never Smoking risk assessment performed?: Yes Alcohol Intake: current Alcohol Intake frequency: a few times a month Drug use: Never Substance use type: does not use Adopted: No Foster care: No Housing: house current occupation: [employer] Duration: 45-60 minutes/day Frequency: 5-6 times per week Seatbelt use: always Working smoke detector in home: Yes Fire extinguisher in home: Yes Do you feel safe at home: Yes Do you feel safe in your relationship?: Yes Female Reproductive History Menstrual control method: progestin IUCD History History 1 Para 0 Hx # Term Pregnancies Multiple births Hx # Pregnancies Ectopic pregnancies AB induced Hx Number of Living Children AB spontaneous DS: Data Vitals/I&O Vitals and I&O: Vital Signs Temperature 97.5 F L 11/22/23 09:09 Temperature 98.2 F 11/21/23 13:42 Temperature Source Oral 11/22/23 09:09 Pulse 14 L 11/22/23 09:09 Pulse 90 11/21/23 13:42 Pulse Rhythm Regular 11/22/23 09:09 Respiratory Rate 14 11/22/23 09:09 Blood Pressure 133/90 11/22/23 09:09 Blood Pressure 140/97 11/21/23 13:42 Blood Pressure Mean 104 11/22/23 09:09 Pulse Oximetry 97 11/22/23 09:09 Oxygen Delivery Method Room Air 10/02/24 09:47 Oxygen Flow Rate 0 11/21/23 09:47 Pain Level 5 11/22/23 08:03 Comment Pt was feeling woozy after standing/changing beds, BP taken and SpO2 back on continuous 11/21/23 18:06 Intake & Output 11/21/23 11/21/23 11/22/23 11:59 23:59 11:59 Intake Total 300 / 300 Output Total 200 / 200 100 / 100 Balance 100 / 100 -100 / -100 Weight 314 lb 15.943 oz Intake: IV 300 / 300 Output: Urine 200 / 200 100 / 100 Other: Urine Color Yellow Yellow Yellow Urine Appearance Clear Data Completed and Pending Labs on day of discharge: Labs from last 24 hours 11/22/23 11/21/23 06:30 09:30 WBC 18.26 H 10.34 RBC 2.98 L 3.91 L Hgb 9.3 L D 12.0 Hct 28.3 L 36.6 MCV 95 94 MCH 31.2 30.7 MCHC 32.9 32.8 RDW 15.6 H 15.2 H Plt Count 209 184 MPV 11.7 H 11.4 H Immature Gran % 1.0 Neutrophils % 71.4 Lymphocytes % 21.6 Monocytes % 5.3 Eosinophils % 0.4 Basophils % 0.3 Nucleated RBC % 0.0 Absolute Neutrophils 13.04 H Absolute Lymphocytes 3.94 H Absolute Monocytes 0.97 H Absolute Eosinophils 0.07 Absolute Basophils 0.05 ABO/Rh O Positive Antibody Screen NEGATIVE
[2023-11-22] MEDS: Sertraline 25 MG TAB PO (10:02)
[2023-11-22] MEDS: Ibuprofen 600 MG TAB PO (14:27)
== END 2023-11-22 18:52 | disposition short-term general hospital (02) | DRG 787 ==
LOC: OBS 10:20 → BCD 10:23 → OBS 10:24
PROVIDERS: Obstetrics & Gynecology; Admitting Provider Obstetrics & Gynecology Gynecology; PCP Nurse Practitioner Adult Health; Visit Provider Obstetrics & Gynecology Gynecology
PROC: 10D00Z1 Extraction of Products of Conception, Low, Open Approach (ICD-10-PCS; CPT 59514; principal; 2023-11-21 10:30)
DX: O14.14 Severe pre-eclampsia complicating childbirth; O98.32 Other infections with a predominantly sexual mode of transmission complicating childbirth; O32.1XX0 Maternal care for breech presentation, not applicable or unspecified; O26.62 Liver and biliary tract disorders in childbirth; Z37.0 Single live birth; Z3A.37 37 weeks gestation of pregnancy; O69.81X0 Labor and delivery complicated by cord around neck, without compression, not applicable or unspecified; O99.214 Obesity complicating childbirth; A60.00 Herpesviral infection of urogenital system, unspecified; O99.52 Diseases of the respiratory system complicating childbirth; O99.344 Other mental disorders complicating childbirth; F43.20 Adjustment disorder, unspecified; E66.01 Morbid (severe) obesity due to excess calories; J45.20 Mild intermittent asthma, uncomplicated; L73.2 Hidradenitis suppurativa; O99.72 Diseases of the skin and subcutaneous tissue complicating childbirth; Z82.79 Family history of other congenital malformations, deformations and chromosomal abnormalities; K21.9 Gastro-esophageal reflux disease without esophagitis; D50.9 Iron deficiency anemia, unspecified; G47.00 Insomnia, unspecified; O99.62 Diseases of the digestive system complicating childbirth; O99.02 Anemia complicating childbirth; O34.211 Maternal care for low transverse scar from previous cesarean delivery
CPT/HCPCS: 59514; 36415; 85027; 86850; 86900; 86901; 59025; 85025; 88307; G0378; J0456; J0665; J0690; J1100; J1885; J1920; J2274; J2371; J2405; J3010

== ENCOUNTER 2024-04-11 15:02 | Emergency (ER) | payer OTHER, SELFPAY ==
--- NOTE | 2024-04-11 15:00 | RT.EKG_ITS ---
APPROVED REPORT Exam: Resting ECG Reason for Exam: SOB Patient Location: E HR:84 bpm ECG Measurements Heart Rate 84 AXIS AZ 140 P 38 QRSd 91 QRS 32 QT 350 T 38 QTc 414 Conclusion Sinus rhythm...normal P axis, V-rate 60- 99 No STEMI
[2024-04-11 15:04] VITALS: BP 145/87; PULSE 86; RESP 14; TEMP 36.6; O2SAT 95
--- NOTE | 2024-04-11 15:12 | ED.GENADUL_ITS ---
Discharge Plan Disposition Patient Disposition: Home Condition: Stable Discharge Details Clinical Impression: Pneumonia Primary Care Provider: Radha Etienne ED Provider: Sanjay Marcelino Home Meds and New Rx's Prescriptions: New amoxicillin-pot clavulanate 875-125 mg tablet 1 tab PO BID 5 Days Qty: 10 0RF Continued clindamycin phosphate 1 % lotion 1 applic topical QHS PRN (Reason: axillary rash (?BULLOCK)) Qty: 60 0RF Rx Instructions: Apply to skin bilateral armpits bedtime PRN outbreaks Mirena 21 mcg/24hr (up to 8 yrs) 52 mg intrauterine device 1 device intrauterine ONCE Qty: 1 0RF Rx Instructions: as a single dose albuterol sulfate 2.5 mg /3 mL (0.083 %) solution for nebulization 2.5 mg inhalation QID PRN (Reason: shortness of breath or wheezing) Qty: 180 12RF loratadine 10 mg capsule 10 mg PO DAILY PRN hydrocortisone 2.5 % cream 1 applic topical TID PRN (Reason: skin irritation) Qty: 20 1RF Rx Instructions: Apply thin layer to keon-orbital skin irritation up to 3x/d PRN for no more than 2 consecutive weeks. PNV no.[id number] acid 28 mg iron- 800 mcg tablet 1 tab PO DAILY tacrolimus 0.1 % ointment 1 applic topical BID PRN Rx Instructions: Apply twice daily to the affected areas on the eyelids as needed when flaring-[facility] Derm Note 10/16/22 sertraline 25 mg tablet 25 mg PO DAILY Qty: 90 3RF fluticasone propion-salmeterol [Advair HFA] 115-21 mcg/actuation HFA aerosol inhaler 2 puff inhalation BID Qty: 12 12RF Rx Instructions: administer with spacer valacyclovir [Valtrex] 1 gram tablet 1,000 mg PO DAILY Qty: 90 4RF nystatin 100,000 unit/gram powder 1 applic topical QID Qty: 15 1RF Airsupra 90-80 mcg/actuation HFA aerosol inhaler 2 inh inhalation ONCE Qty: 10.7 0RF Rx Instructions: as a single dose; may repeat up to 6 doses per day (12 inhalations) prednisone 10 mg tablet 10 mg PO DAILY Qty: 34 0RF Rx Instructions: Take 40mg (4 tablets) one a day for 4 days, 30mg (3 tablets) once a day for 3 days, 20mg (2 tablets) once a day for 3 days , 10mg (1 tablet) for 2 days, 5mg (0.5 tablets) for 2 days azithromycin 250 mg tablet See Rx Instructions PO .COMPLEX Qty: 6 0RF Rx Instructions: For 250 mg dose pack: take 500 mg today (day 1), then 250 mg for 4 days (days 2-5) PO Discharge Instructions Instructions: Amoxicillin and Clavulanate, Pneumonia, Adult ED Additional Instructions: You were seen in the emergency department for your left lung infiltrate, I question a pneumonia that is not being covered by your azithromycin. Please continue taking azithromycin and finish this prescription but start the Augmentin sent to the [facility] pharmacy. Please use therapeutic dosing of Tylenol (acetamenophen) & Advil (ibuprofen) in an alternating fashion as follows: Take 1000mg of Tylenol every 6 hours without missing doses- that is 4 times per day. [place] in between the Tylenol dosings, take 400-600mg of Advil also on a 6 hour schedule, that is also 4 times per day. The daily maximum dosing of Tylenol is 4000mg, and the daily maximum dosing of Advil is 2400mg. This is safe to do for weeks. Please note that some common cold medications & prescription pain medications may contain acetamenophen and you need to read OTC drug labels and factor that in to maximum daily dosings. Use your at home inhaler as needed, please return for any respiratory distress or severe increase in discomfort or emergent concerns Referrals: Radha Etienne NP [Primary Care Provider] - Discharge Data Discharge Date/Time-TO BE ENTERED AT DEPARTURE: 04/11/24 17:10 HPI General Date/Time Provider Initiated Documentation: 04/11/24 15:11 . HPI Narrative: 29 year-old female presents to ED today by POV/ambulating with a chief complaint of cough, fever, chills, body aches, shortness of breath with onset 3 days ago. Quality described as generalized cold symptoms, no radiation to profound respiratory distress, chest pain, nausea/vomiting, inability to tolerate PO intake. Severity is described as moderate. Palliating factors include nothing specific attempted. Provoking factors include nothing specific. Patient not anticoagulated. Related Data Home Medications ?Medication ?Instructions ?Recorded ?Confirmed loratadine 10 mg capsule 10 mg PO DAILY PRN 06/29/21 04/11/24 hydrocortisone 2.5 % topical cream 1 applic topical TID PRN skin 08/15/21 04/11/24 irritation #20 grams tacrolimus 0.1 % topical ointment 1 applic topical BID PRN 10/18/22 04/11/24 vitamins no.121-iron 28 1 tab PO DAILY 05/29/23 04/11/24 mg-folic acid 800 mcg tablet sertraline 25 mg tablet 25 mg PO DAILY #90 tabs 06/25/23 04/11/24 fluticasone propionate 115 2 puff inhalation BID #12 grams 08/20/23 04/11/24 mcg-salmeterol 21 mcg/actuation HFA inhaler (Advair HFA) clindamycin phosphate 1 % lotion 1 applic topical QHS PRN axillary 08/27/23 04/11/24 rash (?BULLOCK) #60 mL valacyclovir 1 gram tablet 1,000 mg PO DAILY #90 tabs 11/14/23 04/11/24 (Valtrex) nystatin 100,000 unit/gram topical 1 applic topical QID #15 grams 02/08/24 04/11/24 powder levonorgestrel 21 mcg/24 hr (up to 1 device intrauterine ONCE #1 ea 03/03/24 04/11/24 8 years) 52 mg intrauterine device (Mirena) albuterol 90 mcg-budesonide 80 2 inh inhalation ONCE #10.7 grams 03/20/24 04/11/24 mcg/actuation HFA aerosol inhaler (Airsupra) albuterol sulfate 2.5 mg/3 mL 2.5 mg (3 mL) inhalation QID PRN 03/27/24 04/11/24 (0.083 %) solution for nebulization shortness of breath or wheezing #180 mL azithromycin 250 mg tablet See Rx Instructions PO .COMPLEX #6 04/09/24 04/11/24 tabs prednisone 10 mg tablet 10 mg PO DAILY #34 tabs 04/09/24 04/11/24 amoxicillin 875 mg-potassium 1 tab PO BID Pneumonia 5 days #10 04/11/24 clavulanate 125 mg tablet tabs Previous Rx's ?Medication ?Instructions ?Recorded hydrocortisone 2.5 % topical cream 1 applic topical TID PRN skin 08/15/21 irritation #20 grams sertraline 25 mg tablet 25 mg PO DAILY #90 tabs 06/25/23 fluticasone propionate 115 2 puff inhalation BID #12 grams 08/20/23 mcg-salmeterol 21 mcg/actuation HFA inhaler (Advair HFA) clindamycin phosphate 1 % lotion 1 applic topical QHS PRN axillary 08/27/23 rash (?BULLOCK) #60 mL valacyclovir 1 gram tablet 1,000 mg PO DAILY #90 tabs 11/14/23 (Valtrex) nystatin 100,000 unit/gram topical 1 applic topical QID #15 grams 02/08/24 powder levonorgestrel 21 mcg/24 hr (up to 1 device intrauterine ONCE #1 ea 03/03/24 8 years) 52 mg intrauterine device (Mirena) albuterol 90 mcg-budesonide 80 2 inh inhalation ONCE #10.7 grams 03/20/24 mcg/actuation HFA aerosol inhaler (Airsupra) albuterol sulfate 2.5 mg/3 mL 2.5 mg (3 mL) inhalation QID PRN 03/27/24 (0.083 %) solution for nebulization shortness of breath or wheezing #180 mL azithromycin 250 mg tablet See Rx Instructions PO .COMPLEX #6 04/09/24 tabs prednisone 10 mg tablet 10 mg PO DAILY #34 tabs 04/09/24 amoxicillin 875 mg-potassium 1 tab PO BID Pneumonia 5 days #10 04/11/24 clavulanate 125 mg tablet tabs Allergies Allergy/AdvReac Type Severity Reaction Status Date / Time codeine phosphate (From AdvReac Severe vomiting Verified 04/11/24 15:09 Tylenol-Codeine #3) trazodone AdvReac Intermediate Night Verified 04/11/24 15:09 terrors shellfish food Allergy Unknown vomiting Uncoded 04/11/24 15:09 General Stated Complaint: RespSymp LONA: 3 Review of Systems All systems reviewed & are unremarkable except as noted in HPI and below Exam Narrative Exam Narrative: GENERAL APPEARANCE: Well-nourished, non-toxic, awake and alert, atraumatic, no acute distress. SKIN: Warm, pink, dry, intact, without rashes/lesions/ulcerations. HEAD: Normocephalic, atraumatic, normal hair distribution for gender/age. EYES: Normal conjunctiva, no exudates on lids/lashes. ENT: Nares patent, no circumoral cyanosis, no facial swelling NECK: Supple, trachea midline, painless cervical ROM. LUNGS/CHEST: Lungs CTA bilaterally- no rhonchi/rales/wheezes diffusely, non- labored respirations, normal A/P diameter, symmetrical expansion, no chest wall deformity HEART (CV/PV): Regular rate and rhythm without murmur, no peripheral edema, no JVD. ABDOMEN: Soft, non-distended, no guarding. MSK: Normal ROM, no swelling/deformity to bilateral UEs or LEs, moving all extremities without weakness, no cyanosis, spine midline without tenderness, normal curvature. NEURO: Mental Status AAOx4 - alert to person, place, time, events No facial droop, no forehead involvement. Motor: No focal weakness - strength 5/5 in bilateral UEs and LEs, proximal and distal, symmetric. Sensory: sensation intact to light touch globally. Gait normal: patient ambulated without ataxia into ED room. PSYCH: euthymic, cooperative, pleasant, appropriate speech Course Vital Signs Vital signs: Vital Signs Temperature 36.6 C 04/11/24 15:04 Pulse 86 04/11/24 15:04 Respiratory Rate 14 04/11/24 15:04 Blood Pressure 145/87 H 04/11/24 15:04 Temperature 36.6 C 04/11/24 15:04 Temperature Source Oral 04/11/24 15:04 Pulse 86 04/11/24 15:04 Respiratory Rate 14 04/11/24 15:04 Blood Pressure 145/87 H 04/11/24 15:04 Blood Pressure Position Sitting 04/11/24 15:04 Oxygen Delivery Method Room Air 04/11/24 15:04 Oxygen Flow Rate 0 04/11/24 15:04 Pain Level 1 04/11/24 15:04 Medical Decision Making This dictation utilizes [id number] dictation software and may contain uned ited grammatical errors. 29 year-old female presents to ED today by POV/ambulating with a chief complaint of cough, fever, chills, body aches, shortness of breath with onset 3 days ago. Quality described as generalized cold symptoms, no radiation to profound respiratory distress, chest pain, nausea/vomiting, inability to tolerate PO intake. Severity is described as moderate. Palliating factors include nothing specific attempted. Provoking factors include nothing specific. Patients' medical history: Mild intermittent asthma. Family and social history: noncontributory. Pertinent exam findings / vital signs include no wheezes, no respiratory distress, nontoxic vitals. Differential / pathologies of concern include PNA, viral syndrome, not respiratory distress. Diagnostic studies of: -XR Chest - shows L lobe infiltrate. -POC covid/flu negative Interventions of: -Rx for Augmentin, patient recently had azithromycin, question failure to treat from old infection ED Course/Assessment/Plan: 29-year-old otherwise healthy female presents with respiratory infection, evidence of possible pneumonia on chest x-ray negative for COVID and flu, reasonable to add Augmentin to her antibiotic regimen to cover strep. Recommend continuation of at home asthma treatments for symptomatic shortness of breath as well as therapeutic dosing of Tylenol and ibuprofen with strict return criteria for any respiratory distress. Findings not consistent with respiratory distress, toxic illness. Disposition of Pneumonia. Patient verbalized understanding of the plan and return to ED criteria and engaged in shared decision making. Medical Records Medical records reviewed: Yes I reviewed the patient's medical records. Imaging Data Radiologic Study: Attestation: I personally reviewed and interpreted this imaging study as follows: Imaging: X-Ray Radiologist's impression: EXAM: XR CHEST 2V PA LATERAL CLINICAL HISTORY: cough. TECHNIQUE: 2D digital imaging was performed. COMPARISON: CR XR CHEST 2V PA LATERAL from 02/27/2023 FINDINGS: 2 views: Heart size is normal. The mediastinum is not widened. Right lung is clear. However, there is patchy infiltrate in the left lung which appears to be predominately left upper lobe and lingular segment. There are no pleural effusions. IMPRESSION: Patchy left lung infiltrate. No pleural effusions. Lab Data Lab results reviewed: Yes I reviewed the patient's lab results. Lab results narrative: POC Covid/Flu negative Quality:SDOH Health Related Social Needs: No Data to Display PFSH All Active Problems (Updated 04/11/24 @ 16:52 by LOUANN Jimenez) Pneumonia (Acute) Skin rash (Acute) IUD (intrauterine device) in place (Acute) 12/2023. Mirena inserted care following delivery (Acute) Status post primary low transverse section (Acute) Primary low-transverse section 11/21/2023 at 37 weeks and 1 day due to preeclampsia with severe features, intrahepatic cholestasis, breech presentation. Male . 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 Valtrex for suppression. Hidradenitis suppurativa (Acute) [facility] Derm Note 10/16/22 Extensor carpi ulnaris tendinitis (Acute ~02/2022) LEFT Depo-Medrol Injection: 03/10/22 Periorbital dermatitis (Acute ~06/2021) Pain of ulnar side of wrist (Acute ~12/2021) Adjustment disorder (Chronic ~04/2021) Asthma (Chronic) Mild intermittent Medical History (Updated 04/11/24 @ 16:52 by LOUANN Jimenez) Intrahepatic cholestasis of Preeclampsia Family history of congenital heart defect History of supraventricular tachycardia (~2013) Elevated TSH (~2020) 2020 & 2021 ELIZABETH II (cervical intraepithelial neoplasia II) Cold Knife Cone done 02/2021. Negative Margins. Pap q 6 months Atypical squamous cells of undetermined significance (ASCUS) on Papanicolaou smear of cervix Cannot rule out high-grade lesion Chest congestion SARS-CoV-2 positive (05/2021) Iron deficiency anemia Mirena IUD Back pain (08/01/11) Intermittent (lumbar) Insomnia (05/16/17) Trazodone; day-shift helped Heart murmur, systolic (02/20/14) s/p ablation for SVT 2013 (Patrick) GERD (gastroesophageal reflux disease) (02/20/14) SVT (supraventricular tachycardia) (~2013) s/p ablation 2013 Surgical History History of low transverse section Hx of cone biopsy of cervix Postoperative state (~02/23/21) Cold knife conization of the cervix 02/23/2021 History of cardiac radiofrequency ablation (~2013) History of tonsillectomy and adenoidectomy Family History Brother Crohn's disease Coarctation of aorta open heart surgery at 2 weeks of age at [facility] Mother Hypertension Asthma Allergies Father Hypertension Paternal Grandfather Myocardial infarct Maternal Grandfather Thyroid cancer Lung disease Paternal Grandmother Heart disease Diabetes Maternal Grandmother Autoimmune disease Diabetes Social History Smoking/Tobacco Use Status: Never Smoking risk assessment performed?: Yes Alcohol Intake: current Alcohol Intake frequency: a few times a month Drug use: Never Substance use type: does not use Adopted: No Foster care: No Housing: house current occupation: [employer] Duration: 45-60 minutes/day Frequency: 5-6 times per week Seatbelt use: always Working smoke detector in home: Yes Fire extinguisher in home: Yes Do you feel safe at home: Yes Do you feel safe in your relationship?: Yes Female Reproductive History Menstrual control method: progestin IUCD History History 1 Para 0 Hx # Term Pregnancies Multiple births Hx # Pregnancies Ectopic pregnancies AB induced Hx Number of Living Children AB spontaneous
--- NOTE | 2024-04-11 16:15 | DI.RAD_ITS ---
Exam(s) XR CHEST 2V PA LATERAL EXAM: XR CHEST 2V PA LATERAL CLINICAL HISTORY: cough. TECHNIQUE: 2D digital imaging was performed. COMPARISON: CR XR CHEST 2V PA LATERAL from 02/27/2023 FINDINGS: 2 views: Heart size is normal. The mediastinum is not widened. Right lung is clear. However, there is patchy infiltrate in the left lung which appears to be predom inately left upper lobe and lingular segment. There are no pleural effusions. IMPRESSION: Patchy left lung infiltrate. No pleural effusions. DATA REPOSITORY: RADIATION DOSE DELIVERED:
[2024-04-11 17:20] VITALS: BP 132/80; PULSE 88; RESP 18; O2SAT 95
== END 2024-04-11 17:10 | disposition home or self-care (01) ==
PROVIDERS: Emergency Provider Physician Assistant; PCP Nurse Practitioner Adult Health
DX: J18.9 Pneumonia, unspecified organism (principal)
CPT/HCPCS: 87426; 93005; 99284; 71046; 93010

== ENCOUNTER 2024-05-22 01:28 | Outpatient (CLI) | payer OTHER, SELFPAY ==
--- NOTE | 2024-05-22 08:15 | DI.RAD_ITS ---
Exam(s) XR CHEST 2V PA LATERAL EXAM: XR CHEST 2V PA LATERAL CLINICAL HISTORY: f/u pneumonia, j18.9 TECHNIQUE: 2D digital imaging was performed of the chest. Two images were obtained. PA and lateral views were obtained. COMPARISON: No exams were available for comparison FINDINGS: MEDIASTINUM: Normal. HEART: Normal. PULMONARY VASCULATURE: Normal. LUNGS: Clear. There has been complete resolution of the previously noted left pneumonia. PLEURAL SPACE: No pleural effusion or pneumothorax. BONE:Within normal limits for the patient's age. OTHER FINDINGS:Normal. IMPRESSION: No acute pulmonary findings. DATA REPOSITORY: RADIATION DOSE DELIVERED:
== END 2024-05-22 01:48 ==
LOC: DI 01:28
PROVIDERS: PCP Nurse Practitioner Adult Health; Visit Provider Nurse Practitioner Adult Health
DX: J18.9 Pneumonia, unspecified organism (principal)
CPT/HCPCS: 71046

== ENCOUNTER 2024-08-27 12:42 | Emergency (ER) | payer OTHER, SELFPAY ==
[2024-08-27 12:43] VITALS: BP 124/75; PULSE 81; RESP 18; TEMP 36.5; O2SAT 99
--- NOTE | 2024-08-27 12:45 | RT.EKG_ITS ---
APPROVED REPORT Exam: Resting ECG Reason for Exam: Chest pain Patient Location: E HR:66 bpm ECG Measurements Heart Rate 66 AXIS PA 161 P 8 QRSd 108 QRS -4 QT 409 T -17 QTc 427 Conclusion Sinus rhythm. 66 normal axis no stemi
[2024-08-27 13:47] LABS: Abs Immature Grans 0.03 10^3/uL (0.0-0.06); HCT 39.5 % (36.0-46.0); HGB 12.7 g/dL (11.2-15.7); Immature Grans % 0.4 %; MCH 30.5 pg (27.0-33.0); MCHC 32.2 % (32.0-36.0); MCV 95 fL (80-95); MPV 11.2 fL (8.0-11.0); Platelet Count 294 10^3/uL (130-400); RBC 4.17 10^6/uL (3.93-5.22); RDW 14.1 % (11.7-14.6); RDW-SD 48.9 fL; WBC 8.19 10^3/uL (4.4-10.8)
[2024-08-27 14:08] LABS: ALT 19 U/L (14-59); AST 25 U/L (15-37); Albumin 4.3 g/dL (3.4-5.0); Alkaline Phosphatase 70 U/L (46-116); Anion Gap 11.0 mmol/L (3-11); BUN 12 mg/dL (7-18); Bilirubin, Total 0.5 mg/dL (0.2-1.0); CO2 26.0 mmol/L (21.0-32.0); Calcium 9.6 mg/dL (8.5-10.1); Chloride 104 mmol/L (98-107); Estimated GFR 118.51 (mL/min/1.73m2); Glucose 92 mg/dL (74-106); Potassium 4.1 mmol/L (3.5-5.1); Sodium 141 mmol/L (136-145); Total Protein 8.4 g/dL (6.4-8.2); Troponin I 4 ng/L (<or=51)
--- NOTE | 2024-08-27 14:19 | ED.GENADUL_ITS ---
Discharge Plan Disposition Patient Disposition: Home Condition: Stable Discharge Details Clinical Impression: Chest pain Primary Care Provider: Radha Etienne ED Provider: Benedicto Marquez Home Meds and New Rx's Prescriptions: Continued clindamycin phosphate 1 % lotion 1 applic topical QHS PRN (Reason: axillary rash (?BULLOCK)) Qty: 60 0RF Rx Instructions: Apply to skin bilateral armpits bedtime PRN outbreaks Mirena 21 mcg/24hr (up to 8 yrs) 52 mg intrauterine device 1 device intrauterine ONCE Qty: 1 0RF Rx Instructions: as a single dose albuterol sulfate 2.5 mg /3 mL (0.083 %) solution for nebulization 2.5 mg inhalation QID PRN (Reason: shortness of breath or wheezing) Qty: 180 12RF loratadine 10 mg capsule 10 mg PO DAILY PRN hydrocortisone 2.5 % cream 1 applic topical TID PRN (Reason: skin irritation) Qty: 20 1RF Rx Instructions: Apply thin layer to keon-orbital skin irritation up to 3x/d PRN for no more than 2 consecutive weeks. PNV [id number] acid 28 mg iron- 800 mcg tablet 1 tab PO DAILY sertraline 50 mg tablet 50 mg PO DAILY Qty: 90 3RF tacrolimus 0.1 % ointment 1 applic topical BID PRN Rx Instructions: Apply twice daily to the affected areas on the eyelids as needed when f [facility] Derm Note 10/16/22 fluticasone propion-salmeterol [Advair HFA] 115-21 mcg/actuation HFA aerosol inhaler 2 puff inhalation BID Qty: 12 12RF Rx Instructions: administer with spacer valacyclovir [Valtrex] 1 gram tablet 1,000 mg PO DAILY Qty: 90 4RF nystatin 100,000 unit/gram powder 1 applic topical QID Qty: 15 1RF Airsupra 90-80 mcg/actuation HFA aerosol inhaler 2 inh inhalation ONCE Qty: 10.7 0RF Rx Instructions: as a single dose; may repeat up to 6 doses per day (12 inhalations) fluticasone propion-salmeterol [Advair HFA] 230-21 mcg/actuation HFA aerosol inhaler 2 puff inhalation BID Qty: 12 12RF Spiriva Respimat 2.5 mcg/actuation mist 2 puff inhalation DAILY Qty: 4 12RF montelukast 10 mg tablet 10 mg PO QHS Qty: 90 3RF Zepbound 7.5 mg/0.5 mL pen injector 7.5 mg subcut QWEEK Qty: 2 2RF Discharge Instructions Additional Instructions: Your lab work and x-ray did not show any concerning findings at this time. Follow-up with your primary care provider especially if your symptoms are continuing within a week. If you feel significantly more ill or have severe worsening pain return to the emergency department for reevaluation. HPI General Mode of arrival: ambulatory . Date/Time Provider Initiated Documentation: 08/27/24 13:37 . Limitations to Documentation: no limitations . Information obtained by: patient . History of Present Illness 29 year old F presents to the emergency department with the chief complaint of chest pain, described as moderate, Quality is described as aching and sharp, and is localized to the chest. Patient started experiencing this hour(s) (2) and it has been other (improving). No relieving factors improve symptom(s), No exacerbating factors reported . Patient notes nausea/vomiting and shortness of breath. Patient did receive the following treatments prior to arrival, none Related Data Home Medications ?Medication ?Instructions ?Recorded ?Confirmed loratadine 10 mg capsule 10 mg PO DAILY PRN 06/29/21 08/27/24 hydrocortisone 2.5 % topical cream 1 applic topical TI D PRN skin 08/15/21 08/27/24 irritation #20 grams tacrolimus 0.1 % topical ointment 1 applic topical BID PRN 10/18/22 08/27/24 vitamins no.121-iron 28 1 tab PO DAILY 08/27/24 mg-folic acid 800 mcg tablet fluticasone propionate 115 2 puff inhalation BID #12 g adis 08/20/23 08/27/24 mcg-salmeterol 21 mcg/actuation HFA inhaler (Advair HFA) clindamycin phosphate 1 % lotion 1 applic topical QHS PRN axillary 08/27/23 08/27/24 rash (?BULLOCK) #60 mL valacyclovir 1 gram tablet 1,000 mg PO DAILY #90 tabs 11/14/23 08/27/24 (Valtrex) nystatin 100,000 unit/gram topical 1 applic topical QI D #15 grams 02/08/24 08/27/24 powder levonorgestrel (Mirena) 1 device intrauterine ONCE # 1 ea 03/03/24 08/27/24 albuterol 90 mcg-budesonide 80 2 inh inhalation ONCE # 10.7 grams 03/20/24 08/27/24 mcg/actuation HFA aerosol inhaler (Airsupra) albuterol sulfate 2.5 mg/3 mL 2.5 mg (3 mL) inhalation QID PRN 03/27/24 08/27/24 (0.083 %) solution for nebulization shortness of breat h or wheezing #180 mL sertraline 50 mg tablet 50 mg PO DAILY #90 tabs 05/2008/27/24 fluticasone propionate 230 2 puff inhalation BID #12 g adis 07/21/24 08/27/24 mcg-salmeterol 21 mcg/actuation HFA inhaler (Advair HFA) montelukast 10 mg tablet 10 mg PO QHS #90 tabs 08/27/24 tiotropium bromide 2.5 2 puff inhalation DAILY #4 g adis 07/21/24 08/27/24 mcg/actuation mist for inhalation (Spiriva Respimat) tirzepatide (weight loss) 7.5 7.5 mg (0.5 mL) subcut Q WEEK #2 mL 07/24/24 08/27/24 mg/0.5 mL subcutaneous pen injector (Zepbound) Previous Rx's ?Medication ?Instructions ?Recorded hydrocortisone 2.5 % topical cream 1 applic topical TI D PRN skin 08/15/21 irritation #20 grams fluticasone propionate 115 2 puff inhalation BID #12 g adis 08/20/23 mcg-salmeterol 21 mcg/actuation HFA inhaler (Advair HFA) clindamycin phosphate 1 % lotion 1 applic topical QHS PRN axillary 08/27/23 rash (?BULLOCK) #60 mL valacyclovir 1 gram tablet 1,000 mg PO DAILY #90 tabs 11/14/23 (Valtrex) nystatin 100,000 unit/gram topical 1 applic topical QI D #15 grams 02/08/24 powder levonorgestrel (Mirena) 1 device intrauterine ONCE # 1 ea 03/03/24 albuterol 90 mcg-budesonide 80 2 inh inhalation ONCE # 10.7 grams 03/20/24 mcg/actuation HFA aerosol inhaler (Airsupra) albuterol sulfate 2.5 mg/3 mL 2.5 mg (3 mL) inhalation QID PRN 03/27/24 (0.083 %) solution for nebulization shortness of breat h or wheezing #180 mL sertraline 50 mg tablet 50 mg PO DAILY #90 tabs 05/20 08/13 fluticasone propionate 230 2 puff inhalation BID #12 g adis 07/21/24 mcg-salmeterol 21 mcg/actuation HFA inhaler (Advair HFA) montelukast 10 mg tablet 10 mg PO QHS #90 tabs tiotropium bromide 2.5 2 puff inhalation DAILY #4 g adis 07/21/24 mcg/actuation mist for inhalation (Spiriva Respimat) tirzepatide (weight loss) 7.5 7.5 mg (0.5 mL) subcut Q WEEK #2 mL 07/24/24 mg/0.5 mL subcutaneous pen injector (Zepbound) Allergies Allergy/AdvReac Type Severity Reaction Status Date / Time shellfish derived Allergy Intermediate vomiting Verified 08/27/24 12:51 codeine phosphate (From AdvReac Severe vomiting Verified 08/27/24 12:51 Tylenol-Codeine #3) trazodone AdvReac Intermediate Night Verified 08/27/24 12:51 terrors General Stated Complaint: Chest Pain LONA: 3 Review of Systems All systems reviewed & are unremarkable except as noted in HPI and below Constitutional Constitutional: Denies chills, Denies fever(s) and Denies weakness Cardiovascular Cardiovascular: Reports chest pain and Reports dyspnea Respiratory Respiratory: Denies cough and Reports dyspnea Gastrointestinal Gastrointestinal: Denies abdominal pain, Reports nausea and Reports vomiting Neurologic Neurologic: Denies weakness Exam Const General: no acute distress Orientation: alert [facility] Head: normal to inspection Ears: external ears normal General nose exam: external nose normal Mouth: moist mucous membranes Eyes General: appearance normal, both eyes and all related structures Neck Neck: normal visual inspection Resp Effort & Inspection: normal respiratory effort and able to speak in complete sentences Auscultation: clear to auscultation bilaterally Cardio Jugular venous pressure: no JVD Rate: regular rate Heart Sounds: no murmurs GI Palpation: soft and nontender Skin General skin exam: no rashes or lesions noted Neuro General: patient alert and patient oriented x3 Extrem General: normal to inspection Psych Mental Status: mental status grossly normal Course Vital Signs Vital signs: Vital Signs Temperature 36.5 C 08/27/24 12:43 Pulse 81 08/27/24 12:43 Respiratory Rate 18 08/27/24 12:43 Blood Pressure 124/75 08/27/24 12:43 Pulse Oximetry 99 08/27/24 12:43 Temperature 36.5 C 08/27/24 12:43 Temperature Source Oral 08/27/24 12:43 Pulse 81 08/27/24 12:43 Respiratory Rate 18 08/27/24 12:43 Blood Pressure 124/75 08/27/24 12:43 Blood Pressure Position Supine 08/27/24 12:43 Pulse Oximetry 99 08/27/24 12:43 Oxygen Delivery Method Room Air 08/27/24 12:43 Oxygen Flow Rate 0 08/27/24 12:43 Pain Level 8 08/27/24 12:43 Lab/Test Results Lab/Test Results: Laboratory Tests Range/Units 08/27/24 13:25 WBC (4.4-10.8) 10^3/uL 8.19 RBC (3.93-5.22) 10^6/uL 4.17 Hgb (11.2-15.7) g/dL 12.7 Hct (36.0-46.0) % 39.5 MCV (80-95) fL 95 MCH (27.0-33.0) pg 30.5 MCHC (32.0-36.0) % 32.2 RDW (11.7-14.6) % 14.1 Plt Count (130-400) 10^3/uL 294 MPV (8.0-11.0) fL 11.2 H Immature Gran % % 0.4 Neutrophils % % 59.7 Lymphocytes % % 34.1 Monocytes % % 4.0 Eosinophils % % 1.1 Basophils % % 0.7 Nucleated RBC % (0.0-0.3) % 0.0 Absolute Neutrophils (1.2-6.7) 10^3/uL 4.89 Absolute Lymphocytes (1.2-3.4) 10^3/uL 2.79 Absolute Monocytes (0.1-0.8) 10^3/uL 0.33 Absolute Eosinophils (0.0-0.7) 10^3/uL 0.09 Absolute Basophils (0.0-0.2) 10^3/uL 0.06 Sodium (136-145) mmol/L 141 Potassium (3.5-5.1) mmol/L 4.1 Chloride (98-107) mmol/L 104 Carbon Dioxide (21.0-32.0) mmol/L 26.0 Anion Gap (3-11) mmol/L 11.0 BUN (7-18) mg/dL 12 Creatinine (0.55-1.02) mg/dL 0.7 Est GFR (CKD-EPI 2020) (mL/min/1.73m2) 118.51 Glucose (74-106) mg/dL 92 Calcium (8.5-10.1) mg/dL 9.6 Total Bilirubin (0.2-1.0) mg/dL 0.5 AST (15-37) U/L 25 ALT (14-59) U/L 19 Alkaline Phosphatase (46-116) U/L 70 Troponin I (<or=51) ng/L 4 Total Protein (6.4-8.2) g/dL 8.4 H Albumin (3.4-5.0) g/dL 4.3 Medical Decision Making 29-year-old female with history of asthma, [place] n[place], who comes in with acute onset anterior sharp chest pain along with nausea vomiting. She also notes some shortness of breath. She says her symptoms are now improving. She denies any fevers, chills, IV drug use. She is in no distress on exam. She has no tachycardia or hypoxia. She is clear lung sounds, no JVD. Unclear etiology for her chest pain and nausea vomiting. Will check troponins to evaluate for ACS. She is no tearing back pain to suggest dissection. She has no tachycardia, hypoxia or evidence of DVT so I doubt PE. Will obtain a chest x-ray though my suspicion for entities such as pneumothorax is low. She has no abdominal tenderness at all so I doubt entities such as cholecystitis. Patient still feels well, labs including delta troponin negative. Chest x-ray unremarkable. Given reassuring workup I feel she is stable for discharge and to follow-up with her PCP, return precautions given Differential Diagnosis Differential Diagnosis: Pleurisy, ACS, chest wall pain Medical Records Medical records reviewed: Yes I reviewed the patient's medical records. Lab Data Lab results reviewed: Yes I reviewed the patient's lab results. ECG Data Attestation: I personally reviewed and interpreted this ECG (s) as follows: Prior ECG tracings: available for review Interpretation: Sinus rhythm, rate of 66, LA 161, no STEMI PFSH All Active Problems (Updated 08/27/24 @ 15:02 by Benedicto Marquez MD) Chest pain (Acute) Stress due to marital problems (Acute ~05/2024) Snores (Acute ~2024) IUD (intrauterine device) in place (Acute) 12/2023. Mirena inserted care following delivery (Acute) Status post primary low transverse section (Acute) Primary low-transverse section 11/21/2023 at 37 weeks and 1 day due to preeclampsia with severe features, intrahepatic cholestasis, breech presentation. Male infant. 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 Valtrex for suppression. Hidradenitis suppurativa (Acute) [facility] Derm Note 10/16/22 Extensor carpi ulnaris tendinitis (Acute ~02/2022) LEFT Depo-Medrol Injection: 03/10/22 Periorbital dermatitis (Acute ~06/2021) Pain of ulnar side of wrist (Acute ~12/2021) Adjustment disorder (Chronic ~04/2021) Asthma (Chronic) Mild intermittent Medical History Skin rash Intrahepatic cholestasis of Preeclampsia Family history of congenital heart defect History of supraventricular tachycardia (~2013) Elevated TSH (~2020) 2020 & 2021 ELIZABETH II (cervical intraepithelial neoplasia II) Cold Knife Cone done 02/2021. Negative Margins. Pap q 6 months Atypical squamous cells of undetermined significance (ASCUS) on Papanicolaou smear of cervix Cannot rule out high-grade lesion Chest congestion SARS-CoV-2 positive (05/2021) Iron deficiency anemia Mirena IUD Back pain (08/01/11) Intermittent (lumbar) Insomnia (05/16/17) Trazodone; day-shift helped Heart murmur, systolic (02/20/14) s/p ablation for SVT 2013 ([facility]) GERD (gastroesophageal reflux disease) (02/20/14) SVT (supraventricular tachycardia) (~2013) s/p ablation 2013 Surgical History History of low transverse section Hx of cone biopsy of cervix Postoperative state (~02/23/21) Cold knife conization of the cervix 02/23/2021 History of cardiac radiofrequency ablation (~2013) History of tonsillectomy and adenoidectomy Family History Brother Crohn's disease Coarctation of aorta open heart surgery at 2 weeks of age at [facility] Mother Hypertension Asthma Allergies Father Hypertension Paternal Grandfather Myocardial infarct Maternal Grandfather Thyroid cancer Lung disease Paternal Grandmother Heart disease Diabetes Maternal Grandmother Autoimmune disease Diabetes Social History Smoking/Tobacco Use Status: Never Smoking risk assessment performed?: Yes Alcohol Intake: current Alcohol Intake frequency: a few times a month Drug use: Never Substance use type: does not use Adopted: No Foster care: No Housing: house current occupation: [employer] Duration: 45-60 minutes/day Frequency: 5-6 times per week Seatbelt use: always Working smoke detector in home: Yes Fire extinguisher in home: Yes Do you feel safe at home: Yes Do you feel safe in your relationship?: Yes Female Reproductive History Menstrual control method: progestin IUCD History History 1 Para 0 Hx # Term Pregnancies Multiple births Hx # Pregnancies Ectopic pregnancies AB induced Hx Number of Living Children AB spontaneous
[2024-08-27 14:47] LABS: Troponin I 5 ng/L (<or=51)
--- NOTE | 2024-08-27 14:47 | DI.RAD_ITS ---
Exam(s) XR CHEST 2V PA LATERAL EXAM: XR CHEST 2V PA LATERAL CLINICAL HISTORY: chest pain TECHNIQUE: 2D digital imaging was performed. Two views. COMPARISON: No exams were available for comparison FINDINGS: HEART: Normal size. Aorta: Not dilated. PULMONARY VASCULATURE: Normal. MEDIASTINUM: Unremarkable. LUNGS: Clear. PLEURAL SPACE: No pleural effusion or pneumothorax. BONE:Unremarkable for age. SOFT TISSUES: Unremarkable. IMPRESSION: No acute abnormality. DATA REPOSITORY: RADIATION DOSE DELIVERED:
[2024-08-27 15:08] VITALS: RESP 16
[2024-08-27 15:17] VITALS: BP 133/79; PULSE 69; RESP 12; O2SAT 97
== END 2024-08-27 15:17 | disposition home or self-care (01) ==
PROVIDERS: Emergency Medicine; Emergency Provider Emergency Medicine; PCP Nurse Practitioner Adult Health
DX: R07.9 Chest pain, unspecified (principal); R01.1 Cardiac murmur, unspecified; Z79.899 Other long term (current) drug therapy
CPT/HCPCS: 80053; 93005; 99285; 71046; 84484; 85025; 93010; 99284

== ENCOUNTER 2024-08-27 17:55 | Inpatient (IN) | payer OTHER, SELFPAY ==
[2024-08-27] VITALS (54 sets, daily range): BP systolic 136–164; BP diastolic 72–109; PULSE 57–90; RESP 11–23; TEMP 36.4; O2SAT 94–99
--- NOTE | 2024-08-27 18:00 | RT.EKG_ITS ---
APPROVED REPORT Exam: Resting ECG Reason for Exam: epigastric pain Patient Location: E HR:75 bpm ECG Measurements Heart Rate 75 AXIS LA 161 P 33 QRSd 99 QRS 22 QT 405 T -17 QTc 454 Conclusion Sinus rhythm...normal P axis, V-rate 60- 99
--- NOTE | 2024-08-27 18:15 | ED.GENADUL_ITS ---
Discharge Plan Disposition Patient Disposition: Transfer-Acute Inpatient Care Specific Acute Inpt Facility: Other Condition: Stable Discharge Details Clinical Impression: Pancreatitis Primary Care Provider: Radha Etienne ED Provider: Yamilet Bo Home Meds and New Rx's Prescriptions: New morphine 15 mg tablet 15 mg PO Q6H PRNQty: 10 0RF ondansetron 4 mg tablet,disintegrating 4 mg PO Q8H PRNQty: 14 0RF Continued clindamycin phosphate 1 % lotion 1 applic topical QHS PRN (Reason: axillary rash (?BULLOCK)) Qty: 60 0RF Rx Instructions: Apply to skin bilateral armpits bedtime PRN outbreaks Mirena 21 mcg/24hr (up to 8 yrs) 52 mg intrauterine device 1 device intrauterine ONCE Qty: 1 0RF Rx Instructions: as a single dose albuterol sulfate 2.5 mg /3 mL (0.083 %) solution for nebulization 2.5 mg inhalation QID PRN (Reason: shortness of breath or wheezing) Qty: 180 12RF loratadine 10 mg capsule 10 mg PO DAILY PRN hydrocortisone 2.5 % cream 1 applic topical TID PRN (Reason: skin irritation) Qty: 20 1RF Rx Instructions: Apply thin layer to keon-orbital skin irritation up to 3x/d PRN for no more than 2 consecutive weeks. PNV [id number] acid 28 mg iron- 800 mcg tablet 1 tab PO DAILY sertraline 50 mg tablet 50 mg PO DAILY Qty: 90 3RF tacrolimus 0.1 % ointment 1 applic topical BID PRN Rx Instructions: Apply twice daily to the affected areas on the eyelids as needed when [place] [place]16[place]22 fluticasone propion-salmeterol [Advair HFA] 115-21 mcg/actuation HFA aerosol inhaler 2 puff inhalation BID Qty: 12 12RF Rx Instructions: administer with spacer valacyclovir [Valtrex] 1 gram tablet 1,000 mg PO DAILY Qty: 90 4RF nystatin 100,000 unit/gram powder 1 applic topical QID Qty: 15 1RF Airsupra 90-80 mcg/actuation HFA aerosol inhaler 2 inh inhalation ONCE Qty: 10.7 0RF Rx Instructions: as a single dose; may repeat up to 6 doses per day (12 inhalations) fluticasone propion-salmeterol [Advair HFA] 230-21 mcg/actuation HFA aerosol inhaler 2 puff inhalation BID Qty: 12 12RF Spiriva Respimat 2.5 mcg/actuation mist 2 puff inhalation DAILY Qty: 4 12RF montelukast 10 mg tablet 10 mg PO QHS Qty: 90 3RF Discontinued Zepbound 7.5 mg/0.5 mL pen injector 7.5 mg subcut QWEEK Qty: 2 2RF Discharge Instructions Instructions: Pancreatitis (DC) Additional Instructions: Please call your primary care provider first thing in the morning to schedule follow-up appointment. Cause of your pancreatitis is unclear, however may be related to Zepbound use. Commend that you stop taking this medication until you discussed with your primary care provider Stay well-hydrated, drinking plenty of fluids throughout the day. Follow a clear liquid diet for the first 1 to 2 days, then add in gentle small low-fat meals. You may use Tylenol for pain control. May use the morphine provided for severe pain only. You may take Zofran for nausea as needed. Return to emergency if develop fever/chills associated belly pain, severe abdominal pain not controlled by medications, are unable to hold down any fluids, have decreased urine output/dehydration, or if you are very worried and need to be rechecked again immediately Referrals: Radha Etienne NP [Primary Care Provider, Medicine] HPI General Date/Time Provider Initiated Documentation: 08/27/24 17:56 . HPI Narrative: Gerri is a 29-year-old female who presents to the emergency department this evening for evaluation of epigastric pain radiating to the left upper quadrant accompanied by nausea. Symptoms began at 1300 hours after a walk. Initially experienced sternal chest pain, thought to be heartburn after eating a bagel. Took Tums, symptoms worsened to nausea, dry heaving, and sweating. Evaluated in the emergency department, had a negative cardiac workup, no acute abnormalities noted. Patient felt better prior to discharge home.. Pain intensified at 1600 hours, moved to abdomen, radiated slightly to the left. Pain worsens with movement, no alleviating factors. No fevers, chills, recent illnesses, chest pain, breathing difficulties since initial episode, change in bowel or bladder function, blood in stool. No other medication apart from Tums, no alcohol in past few days. Has a 9-month-old child, no heavy lifting or changes in exercise routine recently. Past medical history : Asthma, SVT now resolved post ablation (8 years ago) PAST SURGICAL HISTORY: . Related Data Home Medications ?Medication ?Instructions ?Recorded ?Confirmed loratadine 10 mg capsule 10 mg PO DAILY PRN 06/29/21 08/27/24 hydrocortisone 2.5 % topical cream 1 applic topical TI D PRN skin 08/15/21 08/27/24 irritation #20 grams tacrolimus 0.1 % topical ointment 1 applic topical BID PRN 10/18/22 08/27/24 vitamins no.121-iron 28 1 tab PO DAILY 08/27/24 mg-folic acid 800 mcg tablet fluticasone propionate 115 2 puff inhalation BID #12 g adis 08/20/23 08/27/24 mcg-salmeterol 21 mcg/actuation HFA inhaler (Advair HFA) clindamycin phosphate 1 % lotion 1 applic topical QHS PRN axillary 08/27/23 08/27/24 rash (?BULLOCK) #60 mL valacyclovir 1 gram tablet 1,000 mg PO DAILY #90 tabs 11/14/23 08/27/24 (Valtrex) nystatin 100,000 unit/gram topical 1 applic topical QI D #15 grams 02/08/24 08/27/24 powder levonorgestrel (Mirena) 1 device intrauterine ONCE # 1 ea 03/03/24 08/27/24 albuterol 90 mcg-budesonide 80 2 inh inhalation ONCE # 10.7 grams 03/20/24 08/27/24 mcg/actuation HFA aerosol inhaler (Airsupra) albuterol sulfate 2.5 mg/3 mL 2.5 mg (3 mL) inhalation QID PRN 03/27/24 08/27/24 (0.083 %) solution for nebulization shortness of breat h or wheezing #180 mL sertraline 50 mg tablet 50 mg PO DAILY #90 tabs 05/2008/27/24 fluticasone propionate 230 2 puff inhalation BID #12 g adis 07/21/24 08/27/24 mcg-salmeterol 21 mcg/actuation HFA inhaler (Advair HFA) montelukast 10 mg tablet 10 mg PO QHS #90 tabs 08/27/24 tiotropium bromide 2.5 2 puff inhalation DAILY #4 g adis 07/21/24 08/27/24 mcg/actuation mist for inhalation (Spiriva Respimat) morphine 15 mg immediate release 15 mg PO Q6H PRN #10 tabs 08/27/24 tablet ondansetron 4 mg disintegrating 4 mg PO Q8H PRN #14 ta bs 08/27/24 tablet Previous Rx's ?Medication ?Instructions ?Recorded hydrocortisone 2.5 % topical cream 1 applic topical TI D PRN skin 08/15/21 irritation #20 grams fluticasone propionate 115 2 puff inhalation BID #12 g adis 08/20/23 mcg-salmeterol 21 mcg/actuation HFA inhaler (Advair HFA) clindamycin phosphate 1 % lotion 1 applic topical QHS PRN axillary 08/27/23 rash (?BULLOCK) #60 mL valacyclovir 1 gram tablet 1,000 mg PO DAILY #90 tabs 11/14/23 (Valtrex) nystatin 100,000 unit/gram topical 1 applic topical QI D #15 grams 02/08/24 powder levonorgestrel (Mirena) 1 device intrauterine ONCE # 1 ea 03/03/24 albuterol 90 mcg-budesonide 80 2 inh inhalation ONCE # 10.7 grams 03/20/24 mcg/actuation HFA aerosol inhaler (Airsupra) albuterol sulfate 2.5 mg/3 mL 2.5 mg (3 mL) inhalation QID PRN 03/27/24 (0.083 %) solution for nebulization shortness of breat h or wheezing #180 mL sertraline 50 mg tablet 50 mg PO DAILY #90 tabs 05/20 08/13 fluticasone propionate 230 2 puff inhalation BID #12 g adis 07/21/24 mcg-salmeterol 21 mcg/actuation HFA inhaler (Advair HFA) montelukast 10 mg tablet 10 mg PO QHS #90 tabs tiotropium bromide 2.5 2 puff inhalation DAILY #4 g adis 07/21/24 mcg/actuation mist for inhalation (Spiriva Respimat) morphine 15 mg immediate release 15 mg PO Q6H PRN #10 tabs 08/27/24 tablet ondansetron 4 mg disintegrating 4 mg PO Q8H PRN #14 ta bs 08/27/24 tablet Allergies Allergy/AdvReac Type Severity Reaction Status Date / Time shellfish derived Allergy Intermediate vomiting Verified 08/27/24 18:00 codeine phosphate (From AdvReac Severe vomiting Verified 08/27/24 18:00 Tylenol-Codeine #3) trazodone AdvReac Intermediate Night Verified 08/27/24 18:00 terrors General Stated Complaint: Abd Prob LONA: 3 Exam Narrative Exam Narrative: General Appearance: Uncomfortable. Vital signs: Hypertension noted, no tachycardia or fever. Respiratory: Clear breath sounds bilaterally. Easy work of breathing. Cardiovascular: Normal heart sounds, no murmurs. Rate and rhythm Gastrointestinal: Abdomen is soft, epigastric tenderness. Rigidity or guarding. Normal bowel sounds. Skin: Warm and dry, no rash. Psychiatric: Normal. Course Vital Signs Vital signs: Vital Signs Temperature 36.4 C 08/27/24 17:56 Pulse 90 08/27/24 17:56 Respiratory Rate 18 08/27/24 17:56 Blood Pressure 156/109 H 08/27/24 17:56 Pulse Oximetry 98 08/27/24 17:56 Temperature 36.4 C 08/27/24 17:56 Pulse 90 08/27/24 17:56 Respiratory Rate 18 08/27/24 17:56 Blood Pressure 156/109 H 08/27/24 17:56 Pulse Oximetry 98 08/27/24 17:56 Oxygen Delivery Method Room Air 08/27/24 17:56 Oxygen Flow Rate 0 08/27/24 17:56 Pain Level 8 08/27/24 17:56 Medical Decision Making Initial Assessment: 29-year-old female with epigastric pain, nausea, and diaphoresis. Symptoms worsened after Tums and lying down. No fever, chills, or recent illness. History of asthma and SVT with ablation 8 years ago. Differential Diagnosis includes but is not limited to: Gastritis, esophagitis, PUD, gallbladder dysfunction, pancreatitis, cholecystitis/choledocholithiasis. Low suspicion for cardiac etiology, as patient had reassuring cardiac workup earlier today. ED Course: - Administered famotidine, GI cocktail, and Zofran for treatment of likely gastric discomfort-no improvement of symptoms - Toradol given with temporary relief of symptoms, patient did have significant relief with morphine IV - Labs drawn - CT abdomen/pelvis performed I independently interpreted the following tests: CBC reassuring. CMP notable for elevated LFTs compared to previous earlier. Lipase very elevated at greater than 3000. VBG, lactate, magnesium, UA all unremarkable. CT abdomen/pelvis notable for acute mild distal pancreatitis and trace cul-de-sac free fluid, likely physiologic. Patient was able to p.o. challenge, however pain control was not able to be achieved with p.o. morphine or Dilaudid. Patient placed on n.p.o. status and plan for admission. Discussed case with Dr. Raines, [facility] hospitalist. Patient should be admitted, however we do not have any beds available. He recommends seeking out viral transfer. Patient consented to the use of [facility] Imaging Data Radiologic Study: Radiologist's impression: PROCEDURE INFORMATION: Exam: CT Abdomen And Pelvis With Contrast Exam date and time: 08/27/2024 7:28 PM Age: 29 years old Clinical indication: Abdominal pain; Epigastric/luq pain TECHNIQUE: Imaging protocol: Computed tomography of the abdomen and pelvis with contrast. Radiation optimization: All CT scans at this facility use at least one of these dose optimization techniques: automated exposure control; mA and/or kV adjustment per patient size (includes targeted exams where dose is matched to clinical indication); or iterative reconstruction. Contrast material: [id number]; Contrast volume: 100 ml; Contrast route: INTRAVENOUS (IV); COMPARISON: CR XR HIP LT COMPLETE AP PELVIS 12/12/2018 3:10 PM FINDINGS: Liver: No mass. Gallbladder and biliary ducts: No calcified stones. No gross ductal dilation. Pancreas: Mild inflammation of the distal pancreatic body and tail, mild edema of parenchyma, mild surrounding edema . No pancreatic ductal dilation. Spleen: No splenomegaly or suspicious lesions. Adrenal glands: No suspicious mass. Kidneys and ureters: No hydronephrosis. No masses. Stomach and bowel: No obstruction. No mucosal thickening. Appendix: No evidence of appendicitis. Intraperitoneal space: Trace free fluid in the pelvic cul-de-sac. No abscess or free air. No significant retroperitoneal fluid. Vasculature: No abdominal aortic aneurysm. Lymph nodes: No significantly enlarged lymph nodes. Urinary bladder: No gross wall thickening. Reproductive: IUD in the uterus in the expected position. Bon es/joints: No acute fracture or subluxation. Soft tissues: Prominent subcutaneous fat. Mild dependent subcutaneous edema. Tiny fat-containing umbilical hernia. Additional tiny epigastric fat containing ventral hernias. IMPRESSION: 1. Acute mild distal pancreatitis. 2. Trace cul-de-sac free fluid is likely physiologic. 3. Incidental findings as above. PFS All Active Problems (Updated 08/27/24 @ 21:59 by Yamilet Renee) Pancreatitis (Chronic) Chest pain (Acute) Stress due to marital problems (Acute ~05/2024) Snores (Acute ~2024) IUD (intrauterine device) in place (Acute) 12/2023. Mirena inserted care following delivery (Acute) Status post primary low transverse section (Acute) Primary low-transverse section 11/21/2023 at 37 weeks and 1 day due to preeclampsia with severe features, intrahepatic cholestasis, breech presentation. Male infant. 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 Valtrex for suppression. Hidradenitis suppurativa (Acute) [facility] [place] Extensor carpi ulnaris tendinitis (Acute ~02/2022) LEFT Depo-Medrol Injection: 03/10/22 Periorbital dermatitis (Acute ~06/2021) Pain of ulnar side of wrist (Acute ~12/2021) Adjustment disorder (Chronic ~04/2021) Asthma (Chronic) Mild intermittent Medical History Skin rash Intrahepatic cholestasis of Preeclampsia Family history of congenital heart defect History of supraventricular tachycardia (~2013) Elevated TSH (~2020) 2020 & 2021 ELIZABETH II (cervical intraepithelial neoplasia II) Cold Knife Cone done 02/2021. Negative Margins. Pap q 6 months Atypical squamous cells of undetermined significance (ASCUS) on Papanicolaou smear of cervix Cannot rule out high-grade lesion Chest congestion SARS-CoV-2 positive (05/2021) Iron deficiency anemia Mirena IUD Back pain (08/01/11) Intermittent (lumbar) Insomnia (05/16/17) Trazodone; day-shift helped Heart murmur, systolic (02/20/14) s/p ablation for SVT 2013 ([facility]) GERD (gastroesophageal reflux disease) (02/20/14) SVT (supraventricular tachycardia) (~2013) s/p ablation 2013 Surgical History History of low transverse section Hx of cone biopsy of cervix Postoperative state (~02/23/21) Cold knife conization of the cervix 02/23/2021 History of cardiac radiofrequency ablation (~2013) History of tonsillectomy and adenoidectomy Family History Brother Crohn's disease Coarctation of aorta open heart surgery at 2 weeks of age at [facility] Mother Hypertension Asthma Allergies Father Hypertension Paternal Grandfather Myocardial infarct Maternal Grandfather Thyroid cancer Lung disease Paternal Grandmother Heart disease Diabetes Maternal Grandmother Autoimmune disease Diabetes Social History Smoking/Tobacco Use Status: Never Smoking risk assessment performed?: Yes Alcohol Intake: current Alcohol Intake frequency: a few times a month Drug use: Never Substance use type: does not use Adopted: No Foster care: No Housing: house current occupation: [employer] Duration: 45-60 minutes/day Frequency: 5-6 times per week Seatbelt use: always Working smoke detector in home: Yes Fire extinguisher in home: Yes Do you feel safe at home: Yes Do you feel safe in your relationship?: Yes Female Reproductive History Menstrual control method: progestin IUCD History History 1 Para 0 Hx # Term Pregnancies Multiple births Hx # Pregnancies Ectopic pregnancies AB induced Hx Number of Living Children AB spontaneous
[2024-08-27 18:36] LABS: Abs Immature Grans 0.03 10^3/uL (0.0-0.06); HCT 38.8 % (36.0-46.0); HGB 12.7 g/dL (11.2-15.7); Immature Grans % 0.3 %; MCH 30.7 pg (27.0-33.0); MCHC 32.7 % (32.0-36.0); MCV 94 fL (80-95); MPV 10.7 fL (8.0-11.0); Platelet Count 295 10^3/uL (130-400); RBC 4.14 10^6/uL (3.93-5.22); RDW 14.0 % (11.7-14.6); RDW-SD 48.1 fL; WBC 10.08 10^3/uL (4.4-10.8)
[2024-08-27] MEDS: Ondansetron O.D.T. 4 MG TABEF PO (18:45)
[2024-08-27] MEDS: Famotidine 20 MG/2 ML VIAL IVP (18:47)
[2024-08-27] MEDS: MYLANTA 30 ML, LIDOCAINE 2% VISCOUS UD 15 ML PO (18:47)
[2024-08-27 18:52] LABS: ALT 233 U/L (14-59); AST 379 U/L (15-37); Albumin 4.4 g/dL (3.4-5.0); Alkaline Phosphatase 106 U/L (46-116); Anion Gap 9.6 mmol/L (3-11); BUN 12 mg/dL (7-18); Bilirubin, Total 1.1 mg/dL (0.2-1.0); CO2 27.4 mmol/L (21.0-32.0); Calcium 9.7 mg/dL (8.5-10.1); Chloride 102 mmol/L (98-107); Estimated GFR 100.96 (mL/min/1.73m2); Glucose 107 mg/dL (74-106); Magnesium 2.1 mg/dL (1.8-2.4); Potassium 3.7 mmol/L (3.5-5.1); Sodium 139 mmol/L (136-145); Total Protein 8.3 g/dL (6.4-8.2)
--- NOTE | 2024-08-27 19:00 | DI.CT_ITS ---
Exam(s) CT ABDOMEN PELVIS W EXAM: CT ABDOMEN PELVIS W CLINICAL HISTORY: epigastric/LUQ pain. TECHNIQUE: Imaging Protocol: Axial computed tomography images with coronal and sagittal reformatted images were created and reviewed CONTRAST MATERIAL: Intravenous: Omnipaque-350 100cc Oral: None COMPARISON: No exams were available for comparison FINDINGS: VISUALIZED LUNG BASES: No nodules nor pleural effusions evident. ABDOMEN: LIVER: There are no focal hepatic lesions evident. No dilated intrahepatic ducts. GALLBLADDER/BILIARY: No obvious gallbladder pathology. CBD is not dilated. PANCREAS: There is significant edema around the distal body and tail the pancreas consistent with acute pancreatitis. Pancreatic duct is not dilated. There are no pancreatic calcifications. No pancreatic mass evident. SPLEEN: Spleen is not enlarged. No obvious intrasplenic lesions. Splenic and portal veins are patent. There is no evidence of splenic vein thrombosis in this patient with acute pancreatitis. ADRENALS: There are no significant adrenal masses. KIDNEYS:No cysts evident. No solid renal masses. No calculi nor hydronephrosis.. ABDOMINAL AORTA: Abdominal aorta is not enlarged. LYMPH NODES:There is no retroperitoneal nor paraaortic adenopathy. ABDOMINAL WALL: There are few midline fat only containing anterior abdominal hernias. GI: There is no evidence of bowel obstruction, free air, nor abscess. PELVIS: GI: No evidence of appendicitis.No evidence of sigmoid diverticulitis. LYMPH NODES: There is no intrapelvic nor inguinal adenopathy. REPRODUCTIVE: Uterus is anteverted and contains a well-positioned IUD within the endometrial canal. No abnormal adnexal findings. Tiny amount of fluid in the cul-de-sac, probably female physiologic URINARY BLADDER: No calculi nor obvious masses evident OSSEOUS: No fractures and no significant osseous lesions. IMPRESSION: 1. Findings are consistent with acute pancreatitis. Pancreatic duct is not dilated. There are no pancreatic parenchymal calcifications and no evidence of pancreatic mass. There is no thrombosis of the adjacent splenic vein. 2. Other findings as above Preliminary virtual Radiology report was reviewed. RADIATION DOSE DELIVERED: 1,765.6mGy.cm Total DLP DATA REPOSITORY: All CT scans at this facility are submitted to the National Radiology Data Registry (NRDR) Dose Index Registry (DIR) with the [employer] (ACR). RADIATION OPTIMIZATION: All CT scans at this facility use at least one of these dose optimization techniques: automated exposure control; mA and/or kV adjustment per patient size (includes targeted exams where dose is matched to clinical indication); or iterative reconstruction.
[2024-08-27 19:24] LABS: Lipase > 3000 U/L (<78)
[2024-08-27] MEDS: Ketorolac 15 MG/ML VIAL IVP (19:25)
[2024-08-27] MEDS: Omnipaque 350 MG/ML 100 ML BTL IJ (19:33)
[2024-08-27] MEDS: Normal Saline - Diluent 50 ML VIAL IJ (19:34)
[2024-08-27] MEDS: MORPHine 4 MG/ML SYR IVP ×2 (19:58→23:52)
--- NOTE | 2024-08-27 20:13 | DI.VRAD_ITS ---
PROCEDURE INFORMATION: Exam: CT Abdomen And Pelvis With Contrast Exam date and time: 08/27/2024 7:28 PM Age: 29 years old Clinical indication: Abdominal pain; Epigastric/luq pain TECHNIQUE: Imaging protocol: Computed tomography of the abdomen and pelvis with contrast. Radiation optimization: All CT scans at this facility use at least one of these dose optimization techniques: automated exposure control; mA and/or kV adjustment per patient size (includes targeted exams where dose is matched to clinical indication); or iterative reconstruction. Contrast material: [id number]; Contrast volume: 100 ml; Contrast route: INTRAVENOUS (IV); COMPARISON: CR XR HIP LT COMPLETE AP PELVIS 12/12/2018 3:10 PM FINDINGS: Liver: No mass. Gallbladder and biliary ducts: No calcified stones. No gross ductal dilation. Pancreas: Mild inflammation of the distal pancreatic body and tail, mild edema of parenchyma, mild surrounding edema . No pancreatic ductal dilation. Spleen: No splenomegaly or suspicious lesions. Adrenal glands: No suspicious mass. Kidneys and ureters: No hydronephrosis. No masses. Stomach and bowel: No obstruction. No mucosal thickening. Appendix: No evidence of appendicitis. Intraperitoneal space: Trace free fluid in the pelvic cul-de-sac. No abscess or free air. No significant retroperitoneal fluid. Vasculature: No abdominal aortic aneurysm. Lymph nodes: No significantly enlarged lymph nodes. Urinary bladder: No gross wall thickening. Reproductive: IUD in the uterus in the expected position. Bones/joints: No acute fracture or subluxation. Soft tissues: Prominent subcutaneous fat. Mild dependent subcutaneous edema. Tiny fat-containing umbilical hernia. Additional tiny epigastric fat containing ventral hernias. IMPRESSION: 1. Acute mild distal pancreatitis. 2. Trace cul-de-sac free fluid is likely physiologic. 3. Incidental findings as above. Dictated and Authenticated by: Ashley Millan MD. Orderin Lucho Woodard MD
[2024-08-27 20:42] LABS: BE (Venous) 3 mmol/L (-2-3); HCO3 (Venous) 28 mmol/L (23-28); O2 Sat (Venous) 52 %; TCO2 (Venous) 26 mmol/L (24-29); pCO2 (Venous) 47 mmHg (41-51); pO2 (Venous) 29 mmHg
[2024-08-27 20:52] LABS: Glucose Negative (Negative)
[2024-08-27 21:01] LABS: C-Reactive Protein 0.91 mg/dL (<or=0.5)
[2024-08-27] MEDS: MORPHine IR 15 MG TAB PO (21:38)
[2024-08-27] MEDS: HYDROmorphone 2 MG TAB 1 MG PO (22:42)
[2024-08-28] VITALS (100 sets, daily range): BP systolic 102–154; BP diastolic 45–85; PULSE 55–92; RESP 9–26; TEMP 36–36.5; O2SAT 89–98
--- NOTE | 2024-08-28 00:03 | ED.PROG_ITS ---
Date of service: 08/28/24 Time of Service: 00:03 Medical Decision Making This patient was signed out to me. Please see previous notes for H&P and initial eval. In brief, 29yo F with acute pancreatitis requiring IV morphine for pain control. Labs reviewed with lipase >3000, elevated AST & ALT and slightly elevated bilirubin. Imaging reviewed, no clear biliary ductal dilation on CT scan. Pancreatitis may be 2/t GLP-1 agonist, however must also consider gallstone pancreatitis and no US available at [facility] overnight. D[facility] [facility] [place] and Dr. Vilma ROSA; no indication for emergent ERCP or transfer at this time, advised admission to [facility] for pain control with ultrasound in the morning. Would only consider ERCP in future if bilirubin rising, especially >4.0 by Sunday morning, and at that point would potentially be appropriate for [id number] transfer. Regrettably no beds available at [facility] at this time. Exploring options for lateral transfer. -[place]: declined -[place]: declined -[facility]: declined -[facility]: declined -[facility]: declined -[facility]: declined -[place]: declined Discussed with [facility] hospitalist Dr. Raines; pt accepted to medicine service. Awaiting admission orders; will board in the ED. Lab Data Lab results reviewed: Yes I reviewed the patient's lab results. Labs: Laboratory Tests Range/Units 08/27/24 08/27/24 08/27/24 18:30 20:40 20:45 WBC (4.4-10.8) 10^3/uL 10.08 RBC (3.93-5.22) 10^6/uL 4.14 Hgb (11.2-15.7) g/dL 12.7 Hct (36.0-46.0) % 38.8 MCV (80-95) fL 94 MCH (27.0-33.0) pg 30.7 MCHC (32.0-36.0) % 32.7 RDW (11.7-14.6) % 14.0 Plt Count (130-400) 10^3/uL 295 MPV (8.0-11.0) fL 10.7 Immature Gran % % 0.3 Neutrophils % % 77.9 Lymphocytes % % 17.3 Monocytes % % 3.8 Eosinophils % % 0.3 Basophils % % 0.4 Nucleated RBC % (0.0-0.3) % 0.0 Absolute Neutrophils (1.2-6.7) 10^3/uL 7.86 H Absolute Lymphocytes (1.2-3.4) 10^3/uL 1.74 Absolute Monocytes (0.1-0.8) 10^3/uL 0.38 Absolute Eosinophils (0.0-0.7) 10^3/uL 0.03 Absolute Basophils (0.0-0.2) 10^3/uL 0.04 VBG pH (7.31-7.41) 7.38 VBG pCO2 (41-51) mmHg 47 VBG pO2 mmHg 29 VBG HCO3 (23-28) mmol/L 28 VBG Total CO2 (24-29) mmol/L 26 VBG O2 Saturation % 52 VBG Base Excess (-2-3) mmol/L 3 VBG Lactate (<or=2.0) mmol/L 0.8 Sodium (136-145) mmol/L 139 Potassium (3.5-5.1) mmol/L 3.7 Chloride (98-107) mmol/L 102 Carbon Dioxide (21.0-32.0) mmol/L 27.4 Anion Gap (3-11) mmol/L 9.6 BUN (7-18) mg/dL 12 Creatinine (0.55-1.02) mg/dL 0.8 Est GFR (CKD-EPI 2020) (mL/min/1.73m2) 100.96 Glucose (74-106) mg/dL 107 H Calcium (8.5-10.1) mg/dL 9.7 Magnesium (1.8-2.4) mg/dL 2.1 Total Bilirubin (0.2-1.0) mg/dL 1.1 H AST (15-37) U/L 379 H ALT (14-59) U/L 233 H Alkaline Phosphatase (46-116) U/L 106 C-Reactive Protein (<or=0.5) mg/dL 0.91 H Total Protein (6.4-8.2) g/dL 8.3 H Albumin (3.4-5.0) g/dL 4.4 Lipase (<78) U/L > 3000 H Urine Color (Yellow) Yellow Urine Clarity (Clear) Clear Urine pH (5-8) 7.0 Ur Specific [place] (1.005-1.025) 1.010 Urine Protein (Neg-Trace) mg/dL Negative Urine Ketones (Negative) mg/dL Negative Urine Blood (Negative) Negative Urine Nitrite (Negative) Negative Urine Bilirubin (Negative) Negative Urine Urobilinogen (Up to 0.2) mg/dL 0.2 Ur Leukocyte Esterase (Negative) Negative Urine Glucose (Negative) mg/dL Negative Discharge Plan Disposition Patient Disposition: Admit to [facility] Condition: Stable Discharge Details Clinical Impression: Pancreatitis Primary Care Provider: Radha Etienne ED Provider: Coco Dejesus Home Meds and New Rx's Prescriptions: New morphine 15 mg tablet 15 mg PO Q6H PRNQty: 10 0RF ondansetron 4 mg tablet,disintegrating 4 mg PO Q8H PRNQty: 14 0RF Continued clindamycin phosphate 1 % lotion 1 applic topical QHS PRN (Reason: axillary rash (?BULLOCK)) Qty: 60 0RF Rx Instructions: Apply to skin bilateral armpits bedtime PRN outbreaks Mirena 21 mcg/24hr (up to 8 yrs) 52 mg intrauterine device 1 device intrauterine ONCE Qty: 1 0RF Rx Instructions: as a single dose albuterol sulfate 2.5 mg /3 mL (0.083 %) solution for nebulization 2.5 mg inhalation QID PRN (Reason: shortness of breath or wheezing) Qty: 180 12RF loratadine 10 mg capsule 10 mg PO DAILY PRN hydrocortisone 2.5 % cream 1 applic topical TID PRN (Reason: skin irritation) Qty: 20 1RF Rx Instructions: Apply thin layer to keon-orbital skin irritation up to 3x/d PRN for no more than 2 consecutive weeks. PNV no.021-hris-fthso acid 28 mg iron- 800 mcg tablet 1 tab PO DAILY sertraline 50 mg tablet 50 mg PO DAILY Qty: 90 3RF tacrolimus 0.1 % ointment 1 applic topical BID PRN Rx Instructions: Apply twice daily to the affected areas on the eyelids as needed when fl[place] [place] [place] 10/16/22 fluticasone propion-salmeterol [Advair HFA] 115-21 mcg/actuation HFA aerosol inhaler 2 puff inhalation BID Qty: 12 12RF Rx Instructions: administer with spacer valacyclovir [Valtrex] 1 gram tablet 1,000 mg PO DAILY Qty: 90 4RF nystatin 100,000 unit/gram powder 1 applic topical QID Qty: 15 1RF Airsupra 90-80 mcg/actuation HFA aerosol inhaler 2 inh inhalation ONCE Qty: 10.7 0RF Rx Instructions: as a single dose; may repeat up to 6 doses per day (12 inhalations) fluticasone propion-salmeterol [Advair HFA] 230-21 mcg/actuation HFA aerosol inhaler 2 puff inhalation BID Qty: 12 12RF Spiriva Respimat 2.5 mcg/actuation mist 2 puff inhalation DAILY Qty: 4 12RF montelukast 10 mg tablet 10 mg PO QHS Qty: 90 3RF Discontinued Zepbound 7.5 mg/0.5 mL pen injector 7.5 mg subcut QWEEK Qty: 2 2RF
[2024-08-28] MEDS: Lactated Ringers 1,000 ML 150 ML IV ×3 (00:49→19:38)
[2024-08-28] MEDS: Ketorolac 15 MG/ML VIAL IVP ×4 (02:37→20:04)
--- NOTE | 2024-08-28 02:43 | W.PM.HP.N ---
Date of service: 08/28/24 Time of Service: 02:44 Assessment and Plan Assessment and plan (1) Pancreatitis: Start date: 08/28/24 Status: Acute Assessment and plan: This is a 29-year-old lady who appears to have straightforward gallbladder pancreatitis with imaging on CT was normal except for pancreatitis. She also is on a GLP-1 agonist for weight loss and this could have complications of pancreatitis and gallbladder disease. This will be held. She is more comfortable with IV hydration, nothing by mouth and IV morphine for pain. She also has Zofran for nausea. She will continue symptomatic treatment with ultrasound the morning. If ultrasound is completely negative and there is no concern for gallstones, patient will be observed for resolution of her pancreatitis and then follow-up closely with her PCP holding GLP-1 agonist therapy. If positive ultrasound or recurrent symptoms or rising total bilirubin, patient should have MRCP. She is comfortable now with present treatment and IV hydration. She is a full code. (2) Obesity, morbid, BMI 40.0-49.9: Status: Chronic Assessment and plan: On GLP-1 agonist which will be held. He will continue diet measures. (3) Adjustment disorder: Status: Chronic Assessment and plan: Continue outpatient medical therapy. (4) Asthma: Status: Chronic Assessment and plan: Continue inhaler therapy. History of Present Illness History of Present Illness Chief Complaint: Sudden onset upper abdominal and lower chest pain. 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 She was evaluated for chest pain and released and even went for a walk while she was at work at [employer]. Her pain returned and was crampy as well as sharp and more in the right upper abdomen. She was evaluated in the ED and found to have acute pancreatitis with no common duct dilatation and a normal-appearing gallbladder but labs did reveal elevated liver function test and bilirubin. Patient also is on a GLP-1 agonist injection for obesity and this could cause pancreatitis and will be held. This still has a presentation with her age, gender and obesity for gallbladder pancreatitis. The ED provider did call [facility] about possible transfer for ERCP and they thought that this would not be necessary unless her bilirubin began to rise and there was evidence of common duct obstruction which could be ball valving. The patient did have good pain control with morphine and was admitted n.p.o. with IV hydration and awaiting ultrasound of the abdomen in the morning. If she had a positive ultrasound surgery could be consulted and if her labs being trended revealed elevation of the bilirubin trending up, she would have an MRCP to evaluate for common duct stones. She is a full code. Review of Systems Narrative: 13 point review of systems otherwise unrevealing or stable. Constitutional Comments: 13 point review of systems otherwise unrevealing or stable. REPLACED BY [facility] All Active Problems (Updated 08/28/24 @ 09:47 by Anderson Raines) Pancreatitis (Acute) Chest pain (Acute) Stress due to marital problems (Acute ~05/2024) Snores (Acute ~2024) IUD (intrauterine device) in place (Acute) 12/2023. Mirena inserted care following delivery (Acute) Status post primary low transverse section (Acute) Primary low-transverse section 11/21/2023 at 37 weeks and 1 day due to preeclampsia with severe features, intrahepatic cholestasis, breech presentation. Male . 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 Valtrex for suppression. Hidradenitis suppurativa (Acute) [facility] Derm Note 10/16/22 Extensor carpi ulnaris tendinitis (Acute ~02/2022) LEFT Depo-Medrol Injection: 03/10/22 Periorbital dermatitis (Acute ~06/2021) Pain of ulnar side of wrist (Acute ~12/2021) Adjustment disorder (Chronic ~04/2021) Asthma (Chronic) Mild intermittent Medical History Skin rash Intrahepatic cholestasis of Preeclampsia Family history of congenital heart defect History of supraventricular tachycardia (~2013) Elevated TSH (~2020) 2020 & 2021 ELIZABETH II (cervical intraepithelial neoplasia II) Cold Knife Cone done 02/2021. Negative Margins. Pap q 6 months Atypical squamous cells of undetermined significance (ASCUS) on Papanicolaou smear of cervix Cannot rule out high-grade lesion Chest congestion SARS-CoV-2 positive (05/2021) Iron deficiency anemia Mirena IUD Back pain (08/01/11) Intermittent (lumbar) Insomnia (05/16/17) Trazodone; day-shift helped Heart murmur, systolic (02/20/14) s/p ablation for SVT 2013 (Patrick) GERD (gastroesophageal reflux disease) (02/20/14) SVT (supraventricular tachycardia) (~2013) s/p ablation 2013 Surgical History History of low transverse section Hx of cone biopsy of cervix Postoperative state (~02/23/21) Cold knife conization of the cervix 02/23/2021 History of cardiac radiofrequency ablation (~2013) History of tonsillectomy and adenoidectomy Family History Brother Crohn's disease Coarctation of aorta open heart surgery at 2 weeks of age at [facility] Mother Hypertension Asthma Allergies Father Hypertension Paternal Grandfather Myocardial infarct Maternal Grandfather Thyroid cancer Lung disease Paternal Grandmother Heart disease Diabetes Maternal Grandmother Autoimmune disease Diabetes Social History Smoking/Tobacco Use Status: Never Smoking risk assessment performed?: Yes Alcohol Intake: current Alcohol Intake frequency: a few times a month Drug use: Never Substance use type: does not use Adopted: No Foster care: No Housing: house current occupation: [employer] Duration: 45-60 minutes/day Frequency: 5-6 times per week Seatbelt use: always Working smoke detector in home: Yes Fire extinguisher in home: Yes Do you feel safe at home: Yes Do you feel safe in your relationship?: Yes Female Reproductive History Menstrual control method: progestin IUCD History History 1 Para 0 Hx # Term Pregnancies Multiple births Hx # Pregnancies Ectopic pregnancies AB induced Hx Number of Living Children AB spontaneous Meds Allergies and Home Medications Allergies Allergy/AdvReac Type Severity Reaction Status Date / Time shellfish derived Allergy Intermediate vomiting Verified 08/27/24 18:00 codeine phosphate (From AdvReac Severe vomiting Verified 08/27/24 18:00 Tylenol-Codeine #3) trazodone AdvReac Intermediate Night Verified 08/27/24 18:00 terrors Home Medications ?Medication ?Instructions ?Recorded ?Confirmed ?Type loratadine 10 mg capsule 10 mg PO DAILY PRN 06/29/21 08/27/24 History hydrocortisone 2.5 % topical cream 1 applic topical TID PRN skin 08/15/21 08/27/24 Rx irritation #20 grams tacrolimus 0.1 % topical ointment 1 applic topical BID PRN 10/18/22 08/27/24 History vitamins no.121-iron 28 1 tab PO DAILY 05/29/23 08/27/24 History mg-folic acid 800 mcg tablet fluticasone propionate 115 2 puff inhalation BID #12 grams 08/20/23 08/27/24 Rx mcg-salmeterol 21 mcg/actuation HFA inhaler (Advair HFA) clindamycin phosphate 1 % lotion 1 applic topical QHS PRN axillary 08/27/23 08/27/24 Rx rash (?BULLOCK) #60 mL valacyclovir 1 gram tablet 1,000 mg PO DAILY #90 tabs 11/14/23 08/27/24 Rx (Valtrex) nystatin 100,000 unit/gram topical 1 applic topical QID #15 grams 02/08/24 08/27/24 Rx powder levonorgestrel (Mirena) 1 device intrauterine ONCE #1 ea 03/03/24 08/27/24 Rx albuterol 90 mcg-budesonide 80 2 inh inhalation ONCE #10.7 grams 03/20/24 08/27/24 Rx mcg/actuation HFA aerosol inhaler (Airsupra) albuterol sulfate 2.5 mg/3 mL 2.5 mg (3 mL) inhalation QID PRN 03/27/24 08/27/24 Rx (0.083 %) solution for nebulization shortness of breath or wheezing #180 mL sertraline 50 mg tablet 50 mg PO DAILY #90 tabs 06/04/24 08/27/24 Rx fluticasone propionate 230 2 puff inhalation BID #12 grams 07/21/24 08/27/24 Rx mcg-salmeterol 21 mcg/actuation HFA inhaler (Advair HFA) montelukast 10 mg tablet 10 mg PO QHS #90 tabs 07/21/24 08/27/24 Rx tiotropium bromide 2.5 2 puff inhalation DAILY #4 grams 07/21/24 08/27/24 Rx mcg/actuation mist for inhalation (Spiriva Respimat) morphine 15 mg immediate release 15 mg PO Q6H PRN #10 tabs 08/27/24 Rx tablet ondansetron 4 mg disintegrating 4 mg PO Q8H PRN #14 tabs 08/27/24 Rx tablet Exam Narrative Exam Narrative: General: Patient appears appropriate for age, moderately obese, alert and oriented x 3 and in no acute distress. Pain is well-controlled. HEENT: Normocephalic, eyes with pupils equal and reactive to light symmetrically, extraocular movement intact and sclera anicteric. Oropharynx with moist mucosa and good dentition. Neck: Supple without JVD. Back: Stooped posture without CVA tenderness. Lungs: Clear to auscultation percussion with no focalizing rales or rhonchi. No expiratory wheeze. Normal vesicular breath sounds throughout. Breast: Exam deferred. Abdomen: Obese contour, soft with slight tenderness in the upper abdomen but no guarding or rebound. No Killian sign. Bowel sounds positive in all quadrants. No palpable hepatosplenomegaly. Genitalia/rectal: Exam deferred. Extremities: Without clubbing, cyanosis or pitting edema. Peripheral pulses intact. Skin: Normal color, warm and dry. Neuro: Cranial nerves II through XII gross intact, no focalized motor deficits. No tremor. Psych: Normal affect and mood. No abnormal thought processes. Remote and recent memory intact. Results Imaging Imaging Studies: CT ABDOMEN PELVIS W Date of Exam: 08/27/24 EXAM: CT ABDOMEN PELVIS W CLINICAL HISTORY: epigastric/LUQ pain. TECHNIQUE: Imaging Protocol: Axial computed tomography images with coronal and sagittal reformatted images were created and reviewed CONTRAST MATERIAL: Intravenous: Omnipaque-350 100cc Oral: None COMPARISON: No exams were available for comparison FINDINGS: VISUALIZED LUNG BASES: No nodules nor pleural effusions evident. ABDOMEN: LIVER: There are no focal hepatic lesions evident. No dilated intrahepatic ducts. GALLBLADDER/BILIARY: No obvious gallbladder pathology. CBD is not dilated. PANCREAS: There is significant edema around the distal body and tail the pancreas consistent with acute pancreatitis. Pancreatic duct is not dilated. There are no pancreatic calcifications. No pancreatic mass evident. SPLEEN: Spleen is not enlarged. No obvious intrasplenic lesions. Splenic and portal veins are patent. There is no evidence of splenic vein thrombosis in this patient with acute pancreatitis. ADRENALS: There are no significant adrenal masses. KIDNEYS:No cysts evident. No solid renal masses. No calculi nor hydronephrosis.. ABDOMINAL AORTA: Abdominal aorta is not enlarged. LYMPH NODES:There is no retroperitoneal nor paraaortic adenopathy. ABDOMINAL WALL: There are few midline fat only containing anterior abdominal hernias. GI: There is no evidence of bowel obstruction, free air, nor abscess. PELVIS: GI: No evidence of appendicitis.No evidence of sigmoid diverticulitis. LYMPH NODES: There is no intrapelvic nor inguinal adenopathy. REPRODUCTIVE: Uterus is anteverted and contains a well-positioned IUD within the endometrial canal. No abnormal adnexal findings. Tiny amount of fluid in the cul-de-sac, probably female physiologic URINARY BLADDER: No calculi nor obvious masses evident OSSEOUS: No fractures and no significant osseous lesions. IMPRESSION: 1. Findings are consistent with acute pancreatitis. Pancreatic duct is not dilated. There are no pancreatic parenchymal calcifications and no evidence of pancreatic mass. There is no thrombosis of the adjacent splenic vein. 2. Other findings as above Labs 08/28/24 07:30 08/28/24 07:30 Labs: Laboratory Results - last 24 hr 08/27/24 08/27/24 08/27/24 18:30 20:40 20:45 WBC 10.08 RBC 4.14 Hgb 12.7 Hct 38.8 MCV 94 MCH 30.7 MCHC 32.7 RDW 14.0 Plt Count 295 MPV 10.7 Immature Gran % 0.3 Neutrophils % 77.9 Lymphocytes % 17.3 Monocytes % 3.8 Eosinophils % 0.3 Basophils % 0.4 Nucleated RBC % 0.0 Absolute Neutrophils 7.86 H Absolute Lymphocytes 1.74 Absolute Monocytes 0.38 Absolute Eosinophils 0.03 Absolute Basophils 0.04 VBG pH 7.38 VBG pCO2 47 VBG pO2 29 VBG HCO3 28 VBG Total CO2 26 VBG O2 Saturation 52 VBG Base Excess 3 VBG Lactate 0.8 Sodium 139 Potassium 3.7 Chloride 102 Carbon Dioxide 27.4 Anion Gap 9.6 BUN 12 Creatinine 0.8 Est GFR (CKD-EPI 2020) 100.96 Glucose 107 H Calcium 9.7 Magnesium 2.1 Total Bilirubin 1.1 H AST 379 H ALT 233 H Alkaline Phosphatase 106 C-Reactive Protein 0.91 H Total Protein 8.3 H Albumin 4.4 Lipase > 3000 H Urine Color Yellow Urine Clarity Clear Urine pH 7.0 Ur Specific [place] 1.010 Urine Protein Negative Urine Ketones Negative Urine Blood Negative Urine Nitrite Negative Urine Bilirubin Negative Urine Urobilinogen 0.2 Ur Leukocyte Esterase Negative Urine Glucose Negative Last Vital Signs Temp 36.4 C 08/27/24 21:59 Pulse 64 08/28/24 00:01 Resp 17 08/28/24 00:01 BP 151/85 H 08/28/24 00:01 Pulse Ox 97 08/28/24 00:01 Time Spent Time spent with Patient: 55-74 minutes Time was spent: preparing to see the patient(eg.review tests), obtaining and/or reviewing separately otained hiistory, ordering medications,tests, procedures, indepentently interpreting results, counseling the patient and care coordination
[2024-08-28] MEDS: MORPHine 4 MG/ML SYR IVP ×2 (05:58→12:07)
--- NOTE | 2024-08-28 07:00 | DI.US_ITS ---
Exam(s) US ABDOMEN LIMITED EXAM: US ABDOMEN LIMITED CLINICAL HISTORY: Acute pancreatitis with elevated LFTs TECHNIQUE: Ultrasound abdomen performed using standard protocol. COMPARISON: US US OB [facility] from 11/19/[address] ABDOMEN PELVIS W from 08/27/2024 FINDINGS: There is no ascites evident in the upper abdomen. LIVER: No focal hepatic lesions identified. GALLBLADDER/BILIARY: There are multiple tiny gallstones along the dependent wall the gallbladder. The common hepatic duct isnot dilated, measuring 2-3mm at the level of tamy hepatis. PANCREAS: Pancreatic head and neck appear unremarkable. Part of the body and tail are obscured by overlying bowel gas. RIGHT KIDNEY:No evidence of solid mass, calculus, nor hydronephrosis. No cortical cysts evident. IMPRESSION: 1. The part of the pancreas which is shown to be involve the pancreatitis on yesterday's CT scan is not visualized on today's ultrasound because of overlying bowel gas. The visualized pancreatic head and neck appear unremarkable on ultrasound. There are no peripancreatic fluid collections evident. 2. Tiny gallstones are noted on ultrasound. These are not visible on CT scan. There is no gallbladder wall edema. 3. No other significant right upper quadrant ultrasound findings. DATA REPOSITORY:
[2024-08-28 08:13] LABS: INR 1.0 (0.9-1.1); Prothrombin Time 10.4 sec (9.1-11.1)
[2024-08-28] MEDS: Heparin 5,000 UNITS/ML VIAL 5000 UNITS SC (08:14)
[2024-08-28] MEDS: valACYclovir 500 MG TAB 1000 MG PO (08:15)
[2024-08-28] MEDS: Sertraline 50 MG TAB PO (08:15)
[2024-08-28] MEDS: Prenatal Multivitamin w/CA,FE TAB 1 TAB PO (08:15)
[2024-08-28 08:17] LABS: ALT 380 U/L (14-59); AST 355 U/L (15-37); Albumin 3.7 g/dL (3.4-5.0); Alkaline Phosphatase 121 U/L (46-116); Anion Gap 7.4 mmol/L (3-11); BUN 12 mg/dL (7-18); Bilirubin, Total 1.1 mg/dL (0.2-1.0); CO2 28.6 mmol/L (21.0-32.0); Calcium 9.1 mg/dL (8.5-10.1); Chloride 104 mmol/L (98-107); Estimated GFR 100.96 (mL/min/1.73m2); Glucose 93 mg/dL (74-106); Magnesium 2.0 mg/dL (1.8-2.4); Potassium 3.7 mmol/L (3.5-5.1); Sodium 140 mmol/L (136-145); Total Protein 7.4 g/dL (6.4-8.2)
[2024-08-28 08:20] LABS: HCT 38.0 % (36.0-46.0); HGB 12.4 g/dL (11.2-15.7); MCH 31.1 pg (27.0-33.0); MCHC 32.6 % (32.0-36.0); MCV 95 fL (80-95); MPV 10.8 fL (8.0-11.0); Platelet Count 263 10^3/uL (130-400); RBC 3.99 10^6/uL (3.93-5.22); RDW 14.2 % (11.7-14.6); RDW-SD 49.8 fL; WBC 9.05 10^3/uL (4.4-10.8)
[2024-08-28] MEDS: Tiotropium Bromide-Respimat 10 PUFF INH 2 PUFF IH (08:39)
[2024-08-28] MEDS: Pantoprazole 40 MG VIAL IVP (08:40)
[2024-08-28 10:39] LABS: COVID-19 PCR Negative (Negative); RSV PCR Negative (Negative)
[2024-08-28] MEDS: Normal Saline 50 ML (10:51)
[2024-08-28] MEDS: Lactated Ringers 1,000 ML 1000 ML IV (10:56)
--- NOTE | 2024-08-28 11:37 | W.PC.ACHO ---
Registration Status: ADM IN Primary Language: Preferred Language: Telugu ED Information & Data Chief Complaint Abd Prob 08/27/24 18:24 Triage Note pt c/o epigastric and LUQ 08/27/24 17:56 pain pt c/o nausea seen here earlier today Medical / Surgical History (Last Reviewed 08/28/24 @ 02:44 by Anderson Raines) Skin rash Intrahepatic cholestasis of Preeclampsia Family history of congenital heart defect History of supraventricular tachycardia (~2013) Elevated TSH (~2020) ELIZABETH II (cervical intraepithelial neoplasia II) Atypical squamous cells of undetermined significance (ASCUS) on Papanicolaou smear of cervix Chest congestion SARS-CoV-2 positive (05/2021) Iron deficiency anemia Back pain (08/01/11) Insomnia (05/16/17) Heart murmur, systolic (02/20/14) GERD (gastroesophageal reflux disease) (02/20/14) SVT (supraventricular tachycardia) (~2013) (Last Reviewed 08/28/24 @ 02:44 by Anderson Raines) History of low transverse section Hx of cone biopsy of cervix Postoperative state (~02/23/21) History of cardiac radiofrequency ablation (~2013) History of tonsillectomy and adenoidectomy Most Recent Vital Signs Temperature 36.4 C 08/27/24 21:59 Pulse 72 08/28/24 09:37 Pulse 59 L 08/28/24 04:20 Respiratory Rate 20 08/28/24 09:37 Respiratory Effort Normal, Non-Labored 08/27/24 23:35 Respiratory Depth Normal 08/27/24 23:35 Respiratory Pattern Normal 08/27/24 23:35 Blood Pressure 127/81 08/28/24 09:37 Blood Pressure Mean 96 08/28/24 09:37 Blood Pressure Position Supine 08/27/24 23:35 Pulse Oximetry 98 08/28/24 09:37 Oxygen Delivery Method Room Air 08/28/24 09:37 Oxygen Flow Rate 0 08/28/24 09:37 Pain Level 7 08/27/24 23:52 Allergies shellfish derived Allergy (Intermediate, Verified 08/27/24 18:00) vomiting codeine phosphate (From Tylenol-Codeine #3) Adverse Reaction (Severe, Verified 08/27/24 18:00) vomiting trazodone Adverse Reaction (Intermediate, Verified 08/27/24 18:00) Night terrors Active Medications Generic Name Dose Route Start Last Admin Trade Name Maximusq PRN Reason Stop Dose Admin Heparin Sodium (Porcine) 5,000 units 08/28/24 08:00 08/28/24 08:14 Heparin 5,000 Units/Ml Vial SC 5,000 units Q8H ANDIE Administration Ringer's Solution 1,000 mls @ 1,000 mls/hr 08/28/24 10:51 08/28/24 10:56 IV 08/28/24 11:50 1,000 mls/hr BOLUS ONE Administration Ketorolac Tromethamine 15 mg 08/28/24 01:00 08/28/24 08:14 Ketorolac 15 Mg/Ml Vial IVP 09/02/24 00:59 15 mg Q6H ANDIE Administration Morphine Sulfate 4 mg 08/28/24 00:53 08/28/24 05:58 Morphine 4 Mg/Ml Syr IVP 4 mg Q2H PRN PRN Administration Nystatin 0 gm 08/28/24 08:30 08/28/24 10:51 Nystatin Powder 15 Gm Jar TP Not Given QID ANDIE Pantoprazole Sodium 40 mg 08/28/24 08:30 08/28/24 10:52 Pantoprazole 40 Mg Vial IVP Not Given DAILY ANDIE Multivitamins 1 tab 08/28/24 08:30 08/28/24 08:15 Multivitamin W/Ca,Fe Tab PO 1 tab DAILY ANDIE Administration Sertraline HCl 50 mg 08/28/24 08:30 08/28/24 08:15 Sertraline 50 Mg Tab PO 50 mg DAILY ANDIE Administration Tiotropium [place] 2 puff 08/28/24 08:30 08/28/24 08:39 Tiotropium [place]-Respimat 10 Puff Inh IH 2 puffs DAILY ANDIE Administration Valacyclovir HCl 1,000 mg 08/28/24 08:30 08/28/24 08:15 Valacyclovir 500 Mg Tab PO 1,000 mg DAILY ANDIE Administration IV IV Catheter Type [Right Diffusics Antecubital] Diet Orders Category Date Time Status DIET [Fat Restricted] [DIET] Nutrition 08/28/24 Breakfast Active Diagnostics 08/28/24 08/28/24 08/27/24 Range/Units 09:04 07:30 20:45 WBC 9.05 (4.4-10.8) 10^3/uL RBC 3.99 (3.93-5.22) 10^6/uL Hgb 12.4 (11.2-15.7) g/dL Hct 38.0 (36.0-46.0) % MCV 95 (80-95) fL MCH 31.1 (27.0-33.0) pg MCHC 32.6 (32.0-36.0) % RDW 14.2 (11.7-14.6) % Plt Count 263 (130-400) 10^3/uL MPV 10.8 (8.0-11.0) fL Immature Gran % % Neutrophils % % Lymphocytes % % Monocytes % % Eosinophils % % Basophils % % Nucleated RBC % (0.0-0.3) % Absolute Neutrophils (1.2-6.7) 10^3/uL Absolute Lymphocytes (1.2-3.4) 10^3/uL Absolute Monocytes (0.1-0.8) 10^3/uL Absolute Eosinophils (0.0-0.7) 10^3/uL Absolute Basophils (0.0-0.2) 10^3/uL PT 10.4 (9.1-11.1) sec INR 1.0 (0.9-1.1) VBG pH (7.31-7.41) VBG pCO2 (41-51) mmHg VBG pO2 mmHg VBG HCO3 (23-28) mmol/L VBG Total CO2 (24-29) mmol/L VBG O2 Saturation % VBG Base Excess (-2-3) mmol/L VBG Lactate (<or=2.0) mmol/L Sodium 140 (136-145) mmol/L Potassium 3.7 (3.5-5.1) mmol/L Chloride 104 (98-107) mmol/L Carbon Dioxide 28.6 (21.0-32.0) mmol/L Anion Gap 7.4 (3-11) mmol/L BUN 12 (7-18) mg/dL Creatinine 0.8 (0.55-1.02) mg/dL Est GFR (CKD-EPI 2020) 100.96 (mL/min/1.73m2) Glucose 93 (74-106) mg/dL Calcium 9.1 (8.5-10.1) mg/dL Magnesium 2.0 (1.8-2.4) mg/dL Total Bilirubin 1.1 H (0.2-1.0) mg/dL AST 355 H (15-37) U/L ALT 380 H (14-59) U/L Alkaline Phosphatase 121 H (46-116) U/L C-Reactive Protein (<or=0.5) mg/dL Total Protein 7.4 (6.4-8.2) g/dL Albumin 3.7 (3.4-5.0) g/dL Lipase (<78) U/L Urine Color Yellow (Yellow) Urine Clarity Clear (Clear) Urine pH 7.0 (5-8) Ur Specific [place] 1.010 (1.005-1.025) Urine Protein Negative (Neg-Trace) mg/dL Urine Ketones Negative (Negative) mg/dL Urine Blood Negative (Negative) Urine Nitrite Negative (Negative) Urine Bilirubin Negative (Negative) Urine Urobilinogen 0.2 (Up to 0.2) mg/dL Ur Leukocyte Esterase Negative (Negative) Urine Glucose Negative (Negative) mg/dL COVID-19 Source Nasopharynx SARS-CoV-2 (PCR) Negative (Negative) Influenza Type A (PCR) Negative (Negative) Influenza Type B (PCR) Negative (Negative) RSV (PCR) Negative (Negative) 08/27/24 08/27/24 Range/Units 20:40 18:30 WBC 10.08 (4.4-10.8) 10^3/uL RBC 4.14 (3.93-5.22) 10^6/uL Hgb 12.7 (11.2-15.7) g/dL Hct 38.8 (36.0-46.0) % MCV 94 (80-95) fL MCH 30.7 (27.0-33.0) pg MCHC 32.7 (32.0-36.0) % RDW 14.0 (11.7-14.6) % Plt Count 295 (130-400) 10^3/uL MPV 10.7 (8.0-11.0) fL Immature Gran % 0.3 % Neutrophils % 77.9 % Lymphocytes % 17.3 % Monocytes % 3.8 % Eosinophils % 0.3 % Basophils % 0.4 % Nucleated RBC % 0.0 (0.0-0.3) % Absolute Neutrophils 7.86 H (1.2-6.7) 10^3/uL Absolute Lymphocytes 1.74 (1.2-3.4) 10^3/uL Absolute Monocytes 0.38 (0.1-0.8) 10^3/uL Absolute Eosinophils 0.03 (0.0-0.7) 10^3/uL Absolute Basophils 0.04 (0.0-0.2) 10^3/uL PT (9.1-11.1) sec INR (0.9-1.1) VBG pH 7.38 (7.31-7.41) VBG pCO2 47 (41-51) mmHg VBG pO2 29 mmHg VBG HCO3 28 (23-28) mmol/L VBG Total CO2 26 (24-29) mmol/L VBG O2 Saturation 52 % VBG Base Excess 3 (-2-3) mmol/L VBG Lactate 0.8 (<or=2.0) mmol/L Sodium 139 (136-145) mmol/L Potassium 3.7 (3.5-5.1) mmol/L Chloride 102 (98-107) mmol/L Carbon Dioxide 27.4 (21.0-32.0) mmol/L Anion Gap 9.6 (3-11) mmol/L BUN 12 (7-18) mg/dL Creatinine 0.8 (0.55-1.02) mg/dL Est GFR (CKD-EPI 2020) 100.96 (mL/min/1.73m2) Glucose 107 H (74-106) mg/dL Calcium 9.7 (8.5-10.1) mg/dL Magnesium 2.1 (1.8-2.4) mg/dL Total Bilirubin 1.1 H (0.2-1.0) mg/dL AST 379 H (15-37) U/L ALT 233 H (14-59) U/L Alkaline Phosphatase 106 (46-116) U/L C-Reactive Protein 0.91 H (<or=0.5) mg/dL Total Protein 8.3 H (6.4-8.2) g/dL Albumin 4.4 (3.4-5.0) g/dL Lipase > 3000 H (<78) U/L Urine Color (Yellow) Urine Clarity (Clear) Urine pH (5-8) Ur Specific [place] (1.005-1.025) Urine Protein (Neg-Trace) mg/dL Urine Ketones (Negative) mg/dL Urine Blood (Negative) Urine Nitrite (Negative) Urine Bilirubin (Negative) Urine Urobilinogen (Up to 0.2) mg/dL Ur Leukocyte Esterase (Negative) Urine Glucose (Negative) mg/dL COVID-19 Source SARS-CoV-2 (PCR) (Negative) Influenza Type A (PCR) (Negative) Influenza Type B (PCR) (Negative) RSV (PCR) (Negative) Intake and Output - 24 Hour Total 08/27/24 17:55 thru 08/28/24 07:30 Intake Total 1000 Balance 1000 Weight 129.727 kg Intake: IV 1000 Falls Risk Assessment History of Falls No History 08/27/24 21:59 Contributing Factors No Factors 08/27/24 21:59 Ambulatory Aids Independent 08/27/24 21:59 Tubes/Lines None 08/27/24 21:59 Gait Evaluation No gait disturbance 08/27/24 21:59 Cognition No cognitive impairment 08/27/24 21:59 Fall Total Score 0 08/27/24 21:59 Level of Risk Standard/Low Risk 08/27/24 21:59 Problems (Last Reviewed 08/28/24 @ 02:44 by Anderson Raines) Pancreatitis (Acute) Obesity, morbid, BMI 40.0-49.9 (Chronic) Adjustment disorder (Chronic ~04/2021) Asthma (Chronic) v v v v v v v v v Sending and/or Receiving Nurses: Please use comment section below to note any information pertinent to the patient hand-off not included above. Information / Comments: AOx3, independent, VSS, c/o abdominal pain, however didnt required morphine since 6 am, toradol given at 8 with good effect. tolerates clear liquid well. other systems are unremarkable. Report received from: Byron
--- NOTE | 2024-08-28 16:39 | PGE_ITS ---
Date of Service Date of service: 08/28/24 Time of Service: 14:00 Assessment and Plan Assessment and plan (1) Pancreatitis: Start date: 08/28/24 Status: Acute Assessment and plan: Acute pancreatitis with lipase above measurable threshold Initially presented as chest pain, became abdominal Possible adverse reaction to tirzepatide, was on 0.75 dose Ultrasound to evaluate for gallbladder and biliary duct disease is pending, NPO at midnight for morning exam Pain control with oral meds Resume clears after ultrasound (2) Obesity, morbid, BMI 40.0-49.9: Status: Chronic Assessment and plan: 15 lb weight loss on tirzepatide She has mostly been eating convenience food; may have better pancreatic health with unprocessed foods Discussed nutrition adjustments Discussed potential to continue at a lower dose, or switch to GLP-1 She will review with PCP (3) Adjustment disorder: Status: Chronic Assessment and plan: Continue outpatient medical therapy. (4) Asthma: Status: Chronic Assessment and plan: Continue inhaler therapy. Subjective Subjective Interval history since last seen: Ms Talley is comfortable in bed. Pain well controlled on PRNs. Tolerating clears. Exam Narrative Exam Narrative: General: This is a very pleasant, obese woman in no distress HEENT: Normocephalic, atraumatic CV: RRR Resp: CTAB Abd: diffuse epigastric pain, +NBS MSK: voluntary motion x4 Neuro: Awake, alert, no focal deficits Objective Last Vital Signs Temp 36.4 C L 08/28/24 15:25 Pulse 75 08/28/24 15:25 Resp 16 08/28/24 15:25 BP 119/70 08/28/24 15:25 Pulse Ox 96 08/28/24 15:25 Laboratory Results - last 24 hr 08/27/24 08/27/24 08/27/24 18:30 20:40 20:45 WBC 10.08 RBC 4.14 Hgb 12.7 Hct 38.8 MCV 94 MCH 30.7 MCHC 32.7 RDW 14.0 Plt Count 295 MPV 10.7 Immature Gran % 0.3 Neutrophils % 77.9 Lymphocytes % 17.3 Monocytes % 3.8 Eosinophils % 0.3 Basophils % 0.4 Nucleated RBC % 0.0 Absolute Neutrophils 7.86 H Absolute Lymphocytes 1.74 Absolute Monocytes 0.38 Absolute Eosinophils 0.03 Absolute Basophils 0.04 PT INR VBG pH 7.38 VBG pCO2 47 VBG pO2 29 VBG HCO3 28 VBG Total CO2 26 VBG O2 Saturation 52 VBG Base Excess 3 VBG Lactate 0.8 Sodium 139 Potassium 3.7 Chloride 102 Carbon Dioxide 27.4 Anion Gap 9.6 BUN 12 Creatinine 0.8 Est GFR (CKD-EPI 2020) 100.96 Glucose 107 H Calcium 9.7 Magnesium 2.1 Total Bilirubin 1.1 H AST 379 H ALT 233 H Alkaline Phosphatase 106 C-Reactive Protein 0.91 H Total Protein 8.3 H Albumin 4.4 Lipase > 3000 H Urine Color Yellow Urine Clarity Clear Urine pH 7.0 Ur Specific [place] 1.010 Urine Protein Negative Urine Ketones Negative Urine Blood Negative Urine Nitrite Negative Urine Bilirubin Negative Urine Urobilinogen 0.2 Ur Leukocyte Esterase Negative Urine Glucose Negative COVID-19 Source SARS-CoV-2 (PCR) Influenza Type A (PCR) Influenza Type B (PCR) RSV (PCR) 08/28/24 08/28/24 07:30 09:04 WBC 9.05 RBC 3.99 Hgb 12.4 Hct 38.0 MCV 95 MCH 31.1 MCHC 32.6 RDW 14.2 Plt Count 263 MPV 10.8 Immature Gran % Neutrophils % Lymphocytes % Monocytes % Eosinophils % Basophils % Nucleated RBC % Absolute Neutrophils Absolute Lymphocytes Absolute Monocytes Absolute Eosinophils Absolute Basophils PT 10.4 INR 1.0 VBG pH VBG pCO2 VBG pO2 VBG HCO3 VBG Total CO2 VBG O2 Saturation VBG Base Excess VBG Lactate Sodium 140 Potassium 3.7 Chloride 104 Carbon Dioxide 28.6 Anion Gap 7.4 BUN 12 Creatinine 0.8 Est GFR (CKD-EPI 2020) 100.96 Glucose 93 Calcium 9.1 Magnesium 2.0 Total Bilirubin 1.1 H AST 355 H ALT 380 H Alkaline Phosphatase 121 H C-Reactive Protein Total Protein 7.4 Albumin 3.7 Lipase Urine Color Urine Clarity Urine pH Ur Specific [place] Urine Protein Urine Ketones Urine Blood Urine Nitrite Urine Bilirubin Urine Urobilinogen Ur Leukocyte Esterase Urine Glucose COVID-19 Source Nasopharynx SARS-CoV-2 (PCR) Negative Influenza Type A (PCR) Negative Influenza Type B (PCR) Negative RSV (PCR) Negative Time Spent with Patient Time Spent with Patient: 25-34 minutes Time was spent: preparing to see the patient(eg.review tests), obtaining and/or reviewing separately otained hiistory, ordering medications,tests, procedures, referring, communicating with other health hiv/aids care nurse, indepentently interpreting results, counseling the patient and care coordination
--- NOTE | 2024-08-28 18:09 | PDOC.CMIN ---
Date of service: 08/28/24 Time of Service: 18:09 Care Management Initial Assmt Initial Assessment Reason for Hospitalization: Pancreatitis Functional Status/Living Situation Patient Presentation: Gerri was sitting up in bed when CM met with her. She stated that she is feeling better today than when she arrived. She reported that she was in the ED overnight due to a shortage of M/S beds, which wasn't comfortable, but it was necessary for adequate pain control. Per report, she is on clear liquids, and tolerating sips well. She stated that she received an abdominal ultrasound but was still waiting on results at that time. Gerri lives in [place] with her , Cameron, and their 9 mo old son, Maykel. 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 She is independent at baseline. CM will continue to follow. Town of Residence: [place] Resides with: Child and Spouse Significant Other/Family: Local Natural Supports: , Cameron Mother, Lucy Employment Status: Employed Instrumental Activities of Daily Living (ADLs): Independent Medications Medication Management: No Issues/Barriers identified Physical Functioning/Mobility Assistive Device: none Advance Directives Advance Directives: Do you have an Advance Directive: N 08/27/23, 08:40 AD On File at [facility]: N 08/27/23, 08:40 Date Asked 08/27/24 08/27/24, 18:02 AD Date Reviewed COLST On File at [facility] No 04/11/24, 15:06 COLST Date Scanned Code Status Resuscitation Status Full Code Insurance Coverage/Financial Issues Insurance: Health Plans ([employer] [facility] only) Care Team Visit Care Team Role Provider Type Omar Garcia MD MD [employer] [facility] STAFF PHYSICIAN Radha Etienne NP Primary Care Provider NURSE PRACTITIONER Coco Dejesus MD Emergency Provider [employer] [facility] STAFF PHYSICIAN Anderson Raines Admit Provider NON-[employer] [facility] STAFF PHYSICIAN Attending Provider Discharge Potential Discharge Needs: PCP F/U Appt Anticipated Barriers to Discharge: None Identified Patient/Family Education Needs: Review discharge instructions, discuss Ask Me Three Transportation: Private vehicle Plan: Anticipate Gerri will return home with no new services. Her will drive her home via private vehicle. She will follow up with her PCP and discharge plan of care. CM will continue to follow. Social Determinants of Health Screening Will the Patient Participate in the Screening?: Declined to provide PFSH All Active Problems (Updated 08/28/24 @ 09:47 by Anderson Raines) Pancreatitis (Acute) Chest pain (Acute) Stress due to marital problems (Acute ~05/2024) Snores (Acute ~2024) IUD (intrauterine device) in place (Acute) 12/2023. Mirena inserted care following delivery (Acute) Status post primary low transverse section (Acute) Primary low-transverse section 11/21/2023 at 37 weeks and 1 day due to preeclampsia with severe features, intrahepatic cholestasis, breech presentation. Male infant. 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 Valtrex for suppression. Hidradenitis suppurativa (Acute) [facility] [place] Derm Note 10/16/22 Extensor carpi ulnaris tendinitis (Acute ~02/2022) LEFT Depo-Medrol Injection: 03/10/22 Periorbital dermatitis (Acute ~06/2021) Pain of ulnar side of wrist (Acute ~12/2021) Adjustment disorder (Chronic ~04/2021) Asthma (Chronic) Mild intermittent Medical History Skin rash Intrahepatic cholestasis of Preeclampsia Family history of congenital heart defect History of supraventricular tachycardia (~2013) Elevated TSH (~2020) 2020 & 2021 ELIZABETH II (cervical intraepithelial neoplasia II) Cold Knife Cone done 02/2021. Negative Margins. Pap q 6 months Atypical squamous cells of undetermined significance (ASCUS) on Papanicolaou smear of cervix Cannot rule out high-grade lesion Chest congestion SARS-CoV-2 positive (05/2021) Iron deficiency anemia Mirena IUD Back pain (08/01/11) Intermittent (lumbar) Insomnia (05/16/17) Trazodone; day-shift helped Heart murmur, systolic (02/20/14) s/p ablation for SVT 2013 ([facility]) GERD (gastroesophageal reflux disease) (02/20/14) SVT (supraventricular tachycardia) (~2013) s/p ablation 2013 Surgical History History of low transverse section Hx of cone biopsy of cervix Postoperative state (~01/05/22) Cold knife conization of the cervix 02/23/2021 History of cardiac radiofrequency ablation (~2013) History of tonsillectomy and adenoidectomy Family History Brother Crohn's disease Coarctation of aorta open heart surgery at 2 weeks of age at [facility] Mother Hypertension Asthma Allergies Father Hypertension Paternal Grandfather Myocardial infarct Maternal Grandfather Thyroid cancer Lung disease Paternal Grandmother Heart disease Diabetes Maternal Grandmother Autoimmune disease Diabetes Social History Smoking/Tobacco Use Status: Never Smoking risk assessment performed?: Yes Alcohol Intake: current Alcohol Intake frequency: a few times a month Drug use: Never Substance use type: does not use Adopted: No Foster care: No Housing: apartment current occupation: [employer] Duration: 45-60 minutes/day Frequency: 5-6 times per week Seatbelt use: always Working smoke detector in home: Yes Fire extinguisher in home: Yes Do you feel safe at home: Yes Do you feel safe in your relationship?: Yes Female Reproductive History Menstrual control method: progestin IUCD History History 1 Para 0 Hx # Term Pregnancies Multiple births Hx # Pregnancies Ectopic pregnancies AB induced Hx Number of Living Children AB spontaneous
--- NOTE | 2024-08-28 18:09 | W.PM.PROGNOT ---
Date of Service Date of service: 08/28/24 Time of Service: 16:00 Subjective Subjective Interval history since last seen: Ms Talley is comfortable in bed. Good pain control on PRNs. She is tolerating clears. Objective Last Vital Signs Temp 36.4 C L 08/28/24 15:25 Pulse 75 08/28/24 15:25 Resp 16 08/28/24 15:25 BP 119/70 08/28/24 15:25 Pulse Ox 96 08/28/24 15:25 Laboratory Results - last 24 hr 08/27/24 08/27/24 08/27/24 18:30 20:40 20:45 WBC 10.08 RBC 4.14 Hgb 12.7 Hct 38.8 MCV 94 MCH 30.7 MCHC 32.7 RDW 14.0 Plt Count 295 MPV 10.7 Immature Gran % 0.3 Neutrophils % 77.9 Lymphocytes % 17.3 Monocytes % 3.8 Eosinophils % 0.3 Basophils % 0.4 Nucleated RBC % 0.0 Absolute Neutrophils 7.86 H Absolute Lymphocytes 1.74 Absolute Monocytes 0.38 Absolute Eosinophils 0.03 Absolute Basophils 0.04 PT INR VBG pH 7.38 VBG pCO2 47 VBG pO2 29 VBG HCO3 28 VBG Total CO2 26 VBG O2 Saturation 52 VBG Base Excess 3 VBG Lactate 0.8 Sodium 139 Potassium 3.7 Chloride 102 Carbon Dioxide 27.4 Anion Gap 9.6 BUN 12 Creatinine 0.8 Est GFR (CKD-EPI 2020) 100.96 Glucose 107 H Calcium 9.7 Magnesium 2.1 Total Bilirubin 1.1 H AST 379 H ALT 233 H Alkaline Phosphatase 106 C-Reactive Protein 0.91 H Total Protein 8.3 H Albumin 4.4 Lipase > 3000 H Urine Color Yellow Urine Clarity Clear Urine pH 7.0 Ur Specific [place] 1.010 Urine Protein Negative Urine Ketones Negative Urine Blood Negative Urine Nitrite Negative Urine Bilirubin Negative Urine Urobilinogen 0.2 Ur Leukocyte Esterase Negative Urine Glucose Negative COVID-19 Source SARS-CoV-2 (PCR) Influenza Type A (PCR) Influenza Type B (PCR) RSV (PCR) 08/28/24 08/28/24 07:30 09:04 WBC 9.05 RBC 3.99 Hgb 12.4 Hct 38.0 MCV 95 MCH 31.1 MCHC 32.6 RDW 14.2 Plt Count 263 MPV 10.8 Immature Gran % Neutrophils % Lymphocytes % Monocytes % Eosinophils % Basophils % Nucleated RBC % Absolute Neutrophils Absolute Lymphocytes Absolute Monocytes Absolute Eosinophils Absolute Basophils PT 10.4 INR 1.0 VBG pH VBG pCO2 VBG pO2 VBG HCO3 VBG Total CO2 VBG O2 Saturation VBG Base Excess VBG Lactate Sodium 140 Potassium 3.7 Chloride 104 Carbon Dioxide 28.6 Anion Gap 7.4 BUN 12 Creatinine 0.8 Est GFR (CKD-EPI 2020) 100.96 Glucose 93 Calcium 9.1 Magnesium 2.0 Total Bilirubin 1.1 H AST 355 H ALT 380 H Alkaline Phosphatase 121 H C-Reactive Protein Total Protein 7.4 Albumin 3.7 Lipase Urine Color Urine Clarity Urine pH Ur Specific [place] Urine Protein Urine Ketones Urine Blood Urine Nitrite Urine Bilirubin Urine Urobilinogen Ur Leukocyte Esterase Urine Glucose COVID-19 Source Nasopharynx SARS-CoV-2 (PCR) Negative Influenza Type A (PCR) Negative Influenza Type B (PCR) Negative RSV (PCR) Negative
[2024-08-28] MEDS: Montelukast 10 MG TAB PO (20:05)
[2024-08-28] MEDS: Acetaminophen 325 MG TAB 650 MG PO (20:10)
[2024-08-29] MEDS: Ketorolac 15 MG/ML VIAL IVP ×3 (02:04→14:01)
[2024-08-29 07:25] VITALS: BP 123/71; PULSE 69; RESP 18; TEMP 36.5; O2SAT 98
[2024-08-29] MEDS: Pantoprazole 40 MG VIAL IVP (07:53)
[2024-08-29] MEDS: valACYclovir 1,000 MG TAB 1000 MG PO (07:54)
[2024-08-29] MEDS: Sertraline 50 MG TAB PO (07:54)
[2024-08-29] MEDS: Prenatal Multivitamin w/CA,FE TAB 1 TAB PO (07:54)
[2024-08-29] MEDS: Tiotropium Bromide-Respimat 10 PUFF INH 2 PUFF IH (09:27)
[2024-08-29 10:55] VITALS: BP 109/69; PULSE 78; RESP 18; TEMP 37; O2SAT 95
--- NOTE | 2024-08-29 13:40 | CMDISCH_ITS ---
Date of service: 08/29/24 Time of Service: 13:41 LACE Index Scoring Tool Questions: Length of Stay (in days): 1 Was the patient admitted via the E.D.?: Yes E.D. Visits: 2 Answers: Total Score: 6 Risk of Readmission: Low Risk Care Management Discharge Plan Reason for Hospitalization: pancreatitis Discharge Plan: Gerri will return home today with no new services. She will transport home via private vehicle by family. She will follow up with her PCP a nd discharge plan of care. She is happy to be going home. Patient/Family Education Needs: Review discharge instructions and limitations, discussion of self care needs including ask me three.
--- NOTE | 2024-08-29 14:13 | DSE_ITS ---
Date of service: 08/29/24 Time of Service: 13:00 DS: Diagnosis Discharge Diagnosis (1) Pancreatitis: Status: Resolved Asessment and Plan: Acute pancreatitis with lipase above measurable threshold Initially presented as chest pain, became abdominal Possible adverse reaction to tirzepatide, was on 0.75 dose No evidence on ultrasound to indicate gallbladder not biliary duct disease Patient is tolerating PO and wants to go home (2) Obesity, morbid, BMI 40.0-49.9: Status: Chronic Asessment and Plan: 15 lb weight loss on tirzepatide She has mostly been eating convenience food; may have better pancreatic health with unprocessed foods Discussed nutrition adjustments Discussed potential to continue at a lower dose, or switch to GLP-1 She will review with PCP (3) Adjustment disorder: Status: Chronic Asessment and Plan: Continue outpatient medical therapy. (4) Asthma: Status: Chronic Asessment and Plan: Continue inhaler therapy. Discharge Plan Disposition Patient Disposition: Home Condition: Improving Discharge Details Reason For Visit: Acute Pancreatitis with Elevated LFT'S Admit Date/Time: 08/28/24 02:57 Admit Provider: Anderson Raines Attending Provider: Anderson Raines Primary Care Provider: Radha Etienne Recommendations for Follow Up Recommended tests to be ordered by follow up provider: Ms. Talley is a 29 year old woman presenting August 28 with severe abdominal pain after being seen earlier for chest pain. She was found to have acute pancreatitis, in the setting of tirzepatide use. Imaging showed no evidence of biliary disease. She improved with fluids and pain medication, and is now tolerating PO. She will follow up with her PCP on plans for ongoing weight loss medication. Home Meds and New Rx's Prescriptions: New morphine 15 mg tablet 15 mg PO Q6H PRNQty: 10 0RF ondansetron 4 mg tablet,disintegrating 4 mg PO Q8H PRNQty: 14 0RF Continued clindamycin phosphate 1 % lotion 1 applic topical QHS PRN (Reason: axillary rash (?BULLOCK)) Qty: 60 0RF Rx Instructions: Apply to skin bilateral armpits bedtime PRN outbreaks Mirena 21 mcg/24hr (up to 8 yrs) 52 mg intrauterine device 1 device intrauterine ONCE Qty: 1 0RF Rx Instructions: as a single dose albuterol sulfate 2.5 mg /3 mL (0.083 %) solution for nebulization 2.5 mg inhalation QID PRN (Reason: shortness of breath or wheezing) Qty: 180 12RF loratadine 10 mg capsule 10 mg PO DAILY PRN hydrocortisone 2.5 % cream 1 applic topical TID PRN (Reason: skin irritation) Qty: 20 1RF Rx Instructions: Apply thin layer to keon-orbital skin irritation up to 3x/d PRN for no more than 2 consecutive weeks. PNV no.[id number] acid 28 mg iron- 800 mcg tablet 1 tab PO DAILY sertraline 50 mg tablet 50 mg PO DAILY Qty: 90 3RF tacrolimus 0.1 % ointment 1 applic topical BID PRN Rx Instructions: Apply twice daily to the affected areas on the eyelids as needed when flaring[place] [place] 10/16/22 valacyclovir [Valtrex] 1 gram tablet 1,000 mg PO DAILY Qty: 90 4RF nystatin 100,000 unit/gram powder 1 applic topical QID Qty: 15 1RF Airsupra 90-80 mcg/actuation HFA aerosol inhaler 2 inh inhalation ONCE Qty: 10.7 0RF Rx Instructions: as a single dose; may repeat up to 6 doses per day (12 inhalations) fluticasone propion-salmeterol [Advair HFA] 230-21 mcg/actuation HFA aerosol inhaler 2 puff inhalation BID Qty: 12 12RF Spiriva Respimat 2.5 mcg/actuation mist 2 puff inhalation DAILY Qty: 4 12RF montelukast 10 mg tablet 10 mg PO QHS Qty: 90 3RF Zepbound 7.5 mg/0.5 mL pen injector 7.5 mg SUBCUT Q7D Discontinued Zepbound 7.5 mg/0.5 mL pen injector 7.5 mg subcut QWEEK Qty: 2 2RF Discharge Instructions Instructions: Pancreatitis (DC) Additional Instructions: Please call your primary care provider first thing in the morning to schedule follow-up appointment. Cause of your pancreatitis is unclear, however may be related to Zepbound use. Commend that you stop taking this medication until you discussed with your primary care provider Stay well-hydrated, drinking plenty of fluids throughout the day. Follow a clear liquid diet for the first 1 to 2 days, then add in gentle small low-fat meals. You may use Tylenol for pain control. May use the morphine provided for severe pain only. You may take Zofran for nausea as needed. Return to emergency if develop fever/chills associated belly pain, severe abdom inal pain not controlled by medications, are unable to hold down any fluids, have decreased urine output/dehydration, or if you are very worried and need to be rechecked again immediately Stand Alone Forms: Nursing Discharge Form Referrals: Radha Etienne [facility] [Primary Care Provider, Medicine] Referral Note: I called your PCP office and left a voicemail to have them call you to set up a follow up appointment. Activity:: Activity as Tolerated Equipment/Supplies:: No Equipment Needed Diet:: As Tolerated Discharge Orders Discharge Orders: Discharge Order (Routine); Ordered 08/29/24 Ordered By: Omar Garcia Discharge Data Discharge Date/Time-TO BE ENTERED AT DEPARTURE: 08/29/24 15:03 DS: Summary Time Spent with Patient providing and/or coordinating discharge services: Less than 30 minutes Status at Discharge Functional status at discharge: independent ambulation Overall status at discharge: patient is progressing back to baseline Mental Status: mental status grossly normal Speech and Movement: speech and movement normal Mood: congruent mood Affect: normal affect Exam Narrative Exam Narrative: General: This is a very pleasant, obese woman in no distress HEENT: Normocephalic, atraumatic CV: RRR Resp: CTAB Abd: diffuse epigastric pain, +NBS MSK: voluntary motion x4 Neuro: Awake, alert, no focal deficits Psych Mental Status: mental status grossly normal Speech and Movement: speech and movement normal Mood: congruent mood Affect: normal affect DS: Data Vitals/I&O Vitals and I&O: Vital Signs Temperature 37.0 C 08/29/24 10:55 Temperature Source Tympanic 08/29/24 10:55 Pulse 78 08/29/24 10:55 Pulse Rhythm Regular 08/28/24 12:13 Pulse 70 08/28/24 11:31 Respiratory Rate 18 08/29/24 10:55 Respiratory Effort Normal, Non-Labored 08/28/24 12:13 Respiratory Depth Normal 08/28/24 12:13 Respiratory Pattern Normal 08/28/24 12:13 Blood Pressure 109/69 08/29/24 10:55 Blood Pressure Mean 82 08/29/24 10:55 Blood Pressure Position Supine 08/27/24 23:35 Pulse Oximetry 95 08/29/24 10:55 Oxygen Delivery Method Room Air 08/29/24 10:55 Oxygen Flow Rate 0 08/29/24 10:55 Pain Level 4 08/29/24 14:01 Comment patient wanted to sleep 08/29/24 03:58 Intake & Output 08/28/24 08/29/24 08/29/24 23:59 11:59 23:59 Intake Total 2450 / 3450 1000 / 1000 Output Total 250 / 250 Balance 2200 / 3200 1000 / 1000 Weight 130.635 kg Intake: IV 2000 / 3000 1000 / 1000 Oral 450 / 450 Output: Urine 250 / 250 Other: Urine Color Yellow Pale Yellow Urine Appearance Clear Clear Urine Odor None None Comment independent voided in toilet PFSH All Active Problems (Updated 09/01/24 @ 10:30 by Radha Etienne NP) Stress due to marital problems (Acute ~05/2024) Snores (Acute ~2024) IUD (intrauterine device) in place (Acute) 12/2023. Mirena inserted care following delivery (Acute) Status post primary low transverse section (Acute) Primary low-transverse section 11/21/2023 at 37 weeks and 1 day due to preeclampsia with severe features, intrahepatic cholestasis, breech presentation. Male . 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 Valtrex for suppression. Hidradenitis suppurativa (Acute) [facility] [place] [place] 10/16/22 Extensor carpi ulnaris tendinitis (Acute ~02/2022) LEFT Depo-Medrol Injection: 03/10/22 Periorbital dermatitis (Acute ~06/2021) Pain of ulnar side of wrist (Acute ~12/2021) Adjustment disorder (Chronic ~04/2021) Asthma (Chronic) Mild intermittent Medical History Skin rash Intrahepatic cholestasis of Preeclampsia Family history of congenital heart defect History of supraventricular tachycardia (~2013) Elevated TSH (~2020) 2020 & 2021 ELIZABETH II (cervical intraepithelial neoplasia II) Cold Knife Cone done 02/2021. Negative Margins. Pap q 6 months Atypical squamous cells of undetermined significance (ASCUS) on Papanicolaou smear of cervix Cannot rule out high-grade lesion Chest congestion SARS-CoV-2 positive (05/2021) Iron deficiency anemia Mirena IUD Back pain (08/01/11) Intermittent (lumbar) Insomnia (05/16/17) Trazodone; day-shift helped Heart murmur, systolic (02/20/14) s/p ablation for SVT 2013 ([facility]) GERD (gastroesophageal reflux disease) (02/20/14) SVT (supraventricular tachycardia) (~2013) s/p ablation 2013 Surgical History History of low transverse section Hx of cone biopsy of cervix Postoperative state (~02/23/21) Cold knife conization of the cervix 02/23/2021 History of cardiac radiofrequency ablation (~2013) History of tonsillectomy and adenoidectomy Family History Brother Crohn's disease Coarctation of aorta open heart surgery at 2 weeks of age at [facility] Mother Hypertension Asthma Allergies Father Hypertension Paternal Grandfather Myocardial infarct Maternal Grandfather Thyroid cancer Lung disease Paternal Grandmother Heart disease Diabetes Maternal Grandmother Autoimmune disease Diabetes Social History Smoking/Tobacco Use Status: Never Smoking risk assessment performed?: Yes Alcohol Intake: current Alcohol Intake frequency: a few times a month Drug use: Never Substance use type: does not use Adopted: No Foster care: No Housing: apartment current occupation: [employer] Duration: 45-60 minutes/day Frequency: 5-6 times per week Seatbelt use: always Working smoke detector in home: Yes Fire extinguisher in home: Yes Do you feel safe at home: Yes Do you feel safe in your relationship?: Yes Female Reproductive History Menstrual control method: progestin IUCD History History 1 Para 0 Hx # Term Pregnancies Multiple births Hx # Pregnancies Ectopic pregnancies AB induced Hx Number of Living Children AB spontaneous Time Spent with Patient Time Spent with Patient: <45 minutes Time was spent: preparing to see the patient(eg.review tests), obtaining and/or reviewing separately otained hiistory, ordering medications,tests, procedures, referring, communicating with other health care manager cna, indepentently interpreting results, counseling the patient and care coordination
== END 2024-08-29 15:03 | disposition home or self-care (01) | DRG 439 ==
LOC: ER 08-28 03:16 → EDHOLD 08-28 03:19 → MS 08-28 11:53
PROVIDERS: Nurse Practitioner Family; Admitting Provider Family Medicine; Emergency Provider Student in an Organized Health Care Education/Training Program; PCP Nurse Practitioner Adult Health; Responsible Provider Family Medicine; Visit Provider Family Medicine
DX: K85.10 Biliary acute pancreatitis without necrosis or infection (principal); Z68.41 Body mass index [BMI] 40.0-44.9, adult; E66.01 Morbid (severe) obesity due to excess calories; F43.23 Adjustment disorder with mixed anxiety and depressed mood; J45.909 Unspecified asthma, uncomplicated; Z79.899 Other long term (current) drug therapy; Z79.85 Long-term (current) use of injectable non-insulin antidiabetic drugs; L73.2 Hidradenitis suppurativa; D50.9 Iron deficiency anemia, unspecified; G47.00 Insomnia, unspecified; K21.9 Gastro-esophageal reflux disease without esophagitis
CPT/HCPCS: 00123; 36415; 80053; 82805; 83690; 85027; 87637; 93005; 94640; 96361; 96374; 96375; 96376; 99285; 74177; 76705; 81003; 83605; 83735; 85025; 85610; 86140; 93010; 94664; 99222; 99238; J1644; J1885; J2270; J2470; J3490

== ENCOUNTER 2024-09-04 12:58 | Outpatient (CLI) | payer OTHER, SELFPAY ==
[2024-09-04 16:11] LABS: Abs Immature Grans 0.03 10^3/uL (0.0-0.06); HCT 38.2 % (36.0-46.0); HGB 12.2 g/dL (11.2-15.7); Immature Grans % 0.4 %; MCH 30.1 pg (27.0-33.0); MCHC 31.9 % (32.0-36.0); MCV 94 fL (80-95); MPV 10.7 fL (8.0-11.0); Platelet Count 359 10^3/uL (130-400); RBC 4.05 10^6/uL (3.93-5.22); RDW 14.3 % (11.7-14.6); RDW-SD 49.5 fL; WBC 7.77 10^3/uL (4.4-10.8)
[2024-09-04 16:41] LABS: ALT 49 U/L (14-59); AST 17 U/L (15-37); Albumin 4.2 g/dL (3.4-5.0); Alkaline Phosphatase 69 U/L (46-116); Anion Gap 10.9 mmol/L (3-11); BUN 17 mg/dL (7-18); Bilirubin, Total 0.3 mg/dL (0.2-1.0); CO2 26.1 mmol/L (21.0-32.0); Calcium 9.5 mg/dL (8.5-10.1); Chloride 103 mmol/L (98-107); Estimated GFR 118.51 (mL/min/1.73m2); Glucose 78 mg/dL (74-106); Lipase 117 U/L (<78); Potassium 3.9 mmol/L (3.5-5.1); Sodium 140 mmol/L (136-145); Total Protein 8.1 g/dL (6.4-8.2)
== END 2024-09-04 12:59 | disposition home or self-care (01) ==
LOC: LBO 12:58
PROVIDERS: PCP Nurse Practitioner Adult Health; Visit Provider Nurse Practitioner Adult Health
DX: K85.90 Acute pancreatitis without necrosis or infection, unspecified (principal)
CPT/HCPCS: 36415; 80053; 83690; 85025

== ENCOUNTER 2024-09-05 18:40 | Observation (INO) | payer OTHER, SELFPAY ==
[2024-09-05] VITALS (14 sets, daily range): BP systolic 116–158; BP diastolic 73–97; PULSE 58–90; RESP 16–20; TEMP 36.1–36.6; O2SAT 90–100
[2024-09-05] MEDS: Ondansetron 4 MG/2 ML VIAL IVP (19:14)
[2024-09-05] MEDS: Normal Saline 1,000 ML 1000 ML IV (19:14)
[2024-09-05 19:20] LABS: Abs Immature Grans 0.01 10^3/uL (0.0-0.06); HCT 39.2 % (36.0-46.0); HGB 12.7 g/dL (11.2-15.7); Immature Grans % 0.1 %; MCH 30.3 pg (27.0-33.0); MCHC 32.4 % (32.0-36.0); MCV 94 fL (80-95); MPV 10.6 fL (8.0-11.0); Platelet Count 337 10^3/uL (130-400); RBC 4.19 10^6/uL (3.93-5.22); RDW 14.2 % (11.7-14.6); RDW-SD 48.2 fL; WBC 7.62 10^3/uL (4.4-10.8)
[2024-09-05] MEDS: MORPHine 4 MG/ML SYR IVP (19:27)
[2024-09-05 19:38] LABS: BUN 13 mg/dL (7-18); Calcium 9.5 mg/dL (8.5-10.1); Estimated GFR 100.96 (mL/min/1.73m2); Glucose 82 mg/dL (74-106); Total Protein 8.4 g/dL (6.4-8.2)
[2024-09-05 19:39] LABS: ALT 45 U/L (14-59); AST 24 U/L (15-37); Albumin 4.5 g/dL (3.4-5.0); Alkaline Phosphatase 75 U/L (46-116); Anion Gap 12.9 mmol/L (3-11); Bilirubin, Total 0.4 mg/dL (0.2-1.0); CO2 27.1 mmol/L (21.0-32.0); Chloride 102 mmol/L (98-107); Potassium 3.9 mmol/L (3.5-5.1); Sodium 142 mmol/L (136-145)
[2024-09-05 19:50] LABS: Lipase 2613 U/L (<78)
--- NOTE | 2024-09-05 21:01 | W.PM.HP.N ---
Date of service: 09/05/24 Time of Service: 21:01 Assessment and Plan Assessment and plan (1) Pancreatitis, acute: Start date: 09/05/24 Status: Acute Assessment and plan: This is a 29-year-old lady with recurrent pancreatitis over the last 2 weeks. She is now off her high-dose GLP-1 agonist therapy for obesity for least 2 weeks. She does have gallstones which are tiny and this presentation was acute onset but not associated with meals and not having as much pain in the right abdomen as mid abdomen and left. Her pancreas is mostly inflamed over the distal body and tail. There is no evidence of pancreatic mass or common bile duct dilatation. There is no dilatation of the pancreatic duct. She was treated with pain management and bowel rest with advancing diet before returning home. She may want to stay off GLP-1 agonist indefinitely and consider surgical consultation for her gallstones which may be passing causing intermittent pancreatitis. There is no evidence of significant common bile duct obstruction but retained stone in the common duct with ball valving is a consideration and MRCP may be entertained. Patient is a full code. (2) Cholelithiasis: Status: Chronic Assessment and plan: Consider surgical consultation for cholecystectomy. Consider MRCP. (3) Asthma: Status: Chronic Assessment and plan: Continue outpatient medical therapy. 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 (5) Iron deficiency anemia: Assessment and plan: Continue outpatient supplementation. (6) Depression: Status: Chronic Assessment and plan: Continue outpatient medical therapy. History of Present Illness History of Present Illness Chief Complaint: Acute onset upper abdominal discomfort the evening of presentation. Narrative: This is a 29-year-old female patient who had a recent hospitalization for acute pancreatitis about 1 week prior to this presentation. At that time it was out that she had acute pancreatitis secondary to a GLP-1 agonist therapy and she has been off this therapy for least 2 weeks. She did well for about 1 week at home and then had a sudden onset of upper abdominal pain which was not associated with her meal at 6 PM the evening of presentation. Evaluation did reveal no elevated liver function test as she had had with the first presentation when she was found to have a gallbladder with small stones. There is no evidence of common bile duct or pancreatic duct distention and patient's pancreas was inflamed over the distal body and tail with no evidence of pancreatic mass. She was treated with pain management and bowel rest with IV hydration in the ED will be admitted for observation. It is possible she is still passing stones from her gallbladder and it seems unusual that she is having recurrent pancreatitis off GLP-1 agonist therapy. Inflammation is mostly in the distal aspects of the pancreas and not the head. At the time I saw the patient she was more comfortable but not hungry. Patient gives history of having complications with her with her 9-month son at home having PPHN briefly after requiring transfer to [facility] with the patient who was also having cholestasis with her . She was preeclamptic just prior to . Both have recovered from these events without apparent sequela. The patient will be admitted for IV hydration, pain control and bowel rest with trending labs. She can return home once her pain is controlled with advancing meals. She may want to revisit with surgery to discuss possible cholecystectomy with her recurrent pancreatitis and having gallstones. She definitely should avoid high-dose GLP-1 agonist therapy which also may be contributing to her recurrent pancreatitis. She is a full code. Review of Systems Narrative: 13 point review of systems otherwise unrevealing or stable. PFSH All Active Problems Depression (Chronic) Cholelithiasis (Chronic) Pancreatitis, acute (Acute) Stress due to marital problems (Acute ~05/2024) Snores (Acute ~2024) IUD (intrauterine device) in place (Acute) 12/2023. Mirena inserted care following delivery (Acute) Status post primary low transverse section (Acute) Primary low-transverse section 11/21/2023 at 37 weeks and 1 day due to preeclampsia with severe features, intrahepatic cholestasis, breech presentation. Male . 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 Valtrex for suppression. Hidradenitis suppurativa (Acute) [facility] Derm Note 10/16/22 Extensor carpi ulnaris tendinitis (Acute ~02/2022) LEFT Depo-Medrol Injection: 03/10/22 Periorbital dermatitis (Acute ~06/2021) Pain of ulnar side of wrist (Acute ~12/2021) Adjustment disorder (Chronic ~04/2021) Asthma (Chronic) Mild intermittent Medical History Skin rash Intrahepatic cholestasis of Preeclampsia Family history of congenital heart defect History of supraventricular tachycardia (~2013) Elevated TSH (~2020) 2020 & 2021 ELIZABETH II (cervical intraepithelial neoplasia II) Cold Knife Cone done 02/2021. Negative Margins. Pap q 6 months Atypical squamous cells of undetermined significance (ASCUS) on Papanicolaou smear of cervix Cannot rule out high-grade lesion Chest congestion SARS-CoV-2 positive (05/2021) Iron deficiency anemia Mirena IUD Back pain (08/01/11) Intermittent (lumbar) Insomnia (05/16/17) Trazodone; day-shift helped Heart murmur, systolic (02/20/14) s/p ablation for SVT 2013 (Patrick) GERD (gastroesophageal reflux disease) (02/20/14) SVT (supraventricular tachycardia) (~2013) s/p ablation 2013 Surgical History History of low transverse section Hx of cone biopsy of cervix Postoperative state (~02/23/21) Cold knife conization of the cervix 02/23/2021 History of cardiac radiofrequency ablation (~2013) History of tonsillectomy and adenoidectomy Family History Brother Crohn's disease Coarctation of aorta open heart surgery at 2 weeks of age at [facility] Mother Hypertension Asthma Allergies Father Hypertension Paternal Grandfather Myocardial infarct Maternal Grandfather Thyroid cancer Lung disease Paternal Grandmother Heart disease Diabetes Maternal Grandmother Autoimmune disease Diabetes Social History Smoking/Tobacco Use Status: Never Smoking risk assessment performed?: Yes Alcohol Intake: current Alcohol Intake frequency: a few times a month Drug use: Never Substance use type: does not use Adopted: No Foster care: No Housing: house current occupation: [employer] formerly [employer] Duration: 45-60 minutes/day Frequency: 5-6 times per week Seatbelt use: always Working smoke detector in home: Yes Fire extinguisher in home: Yes Do you feel safe at home: Yes Do you feel safe in your relationship?: Yes Female Reproductive History Menstrual control method: progestin IUCD History History 1 Para 0 Hx # Term Pregnancies Multiple births Hx # Pregnancies Ectopic pregnancies AB induced Hx Number of Living Children AB spontaneous Meds Allergies and Home Medications Allergies Allergy/AdvReac Type Severity Reaction Status Date / Time shellfish derived Allergy Intermediate vomiting Verified 09/05/24 18:51 codeine phosphate (From AdvReac Severe vomiting Verified 09/05/24 18:51 Tylenol-Codeine #3) trazodone AdvReac Intermediate Night Verified 09/05/24 18:51 terrors Home Medications ?Medication ?Instructions ?Recorded ?Confirmed ?Type loratadine 10 mg capsule 10 mg PO DAILY PRN 06/29/21 09/05/24 History hydrocortisone 2.5 % topical cream 1 applic topical TID PRN skin 08/15/21 09/05/24 Rx irritation #20 grams tacrolimus 0.1 % topical ointment 1 applic topical BID PRN 10/18/22 09/05/24 History vitamins no.121-iron 28 1 tab PO DAILY 05/29/23 09/05/24 History mg-folic acid 800 mcg tablet clindamycin phosphate 1 % lotion 1 applic topical QHS PRN axillary 08/27/23 09/05/24 Rx rash (?BULLOCK) #60 mL valacyclovir 1 gram tablet 1,000 mg PO DAILY #90 tabs 11/14/23 09/05/24 Rx (Valtrex) nystatin 100,000 unit/gram topical 1 applic topical QID #15 grams 02/08/24 09/05/24 Rx powder levonorgestrel (Mirena) 1 device intrauterine ONCE #1 ea 03/03/24 09/05/24 Rx albuterol 90 mcg-budesonide 80 2 inh inhalation ONCE #10.7 grams 03/20/24 09/05/24 Rx mcg/actuation HFA aerosol inhaler (Airsupra) albuterol sulfate 2.5 mg/3 mL 2.5 mg (3 mL) inhalation QID PRN 03/27/24 09/05/24 Rx (0.083 %) solution for nebulization shortness of breath or wheezing #180 mL sertraline 50 mg tablet 50 mg PO DAILY #90 tabs 04/16/25 07/18/25 Rx fluticasone propionate 230 2 puff inhalation BID #12 grams 07/21/24 09/05/24 Rx mcg-salmeterol 21 mcg/actuation HFA inhaler (Advair HFA) montelukast 10 mg tablet 10 mg PO QHS #90 tabs 07/21/24 09/05/24 Rx tiotropium bromide 2.5 2 puff inhalation DAILY #4 grams 07/21/24 09/05/24 Rx mcg/actuation mist for inhalation (Spiriva Respimat) morphine 15 mg immediate release 15 mg PO Q6H PRN #10 tabs 08/27/24 09/05/24 Rx tablet ondansetron 4 mg disintegrating 4 mg PO Q8H PRN #14 tabs 08/27/24 09/05/24 Rx tablet tirzepatide (weight loss) 7.5 7.5 mg subcut Q7D 08/28/24 09/05/24 History mg/0.5 mL subcutaneous pen injector (Zepbound) Held on 09/01/24. Instructions: pancreatitis Exam Narrative Exam Narrative: General: Patient appears appropriate for age, moderately obese, alert and oriented x 3 and in no acute distress. Pain is well-controlled. HEENT: Normocephalic, eyes with pupils equal and reactive to light symmetrically, extraocular movement intact and sclera anicteric. Oropharynx with moist mucosa and good dentition. Neck: Supple without JVD. Back: Stooped posture without CVA tenderness. Lungs: Clear to auscultation percussion with no focalizing rales or rhonchi. No expiratory wheeze. Normal vesicular breath sounds throughout. Breast: Exam deferred. Heart: Regular rate and rhythm with no murmurs or gallops appreciated. Abdomen: Obese contour, soft with minimal tenderness in the upper abdomen to deep palpation but no guarding or rebound. No Killian sign. Bowel sounds positive in all quadrants. No palpable hepatosplenomegaly. Genitalia/rectal: Exam deferred. Extremities: Without clubbing, cyanosis or pitting edema. Peripheral pulses intact. Skin: Normal color, warm and dry. Neuro: Cranial nerves II through XII gross intact, no focalized motor deficits. No tremor. Psych: Normal affect and mood. No abnormal thought processes. Remote and recent memory intact. Results Imaging Imaging Studies: EXAM: US ABDOMEN LIMITED CLINICAL HISTORY: Acute pancreatitis with elevated LFTs TECHNIQUE: Ultrasound abdomen performed using standard protocol. COMPARISON: US US OB [facility] WEIGHT from 11/19/[address] ABDOMEN PELVIS W from 08/27/2024 FINDINGS: There is no ascites evident in the upper abdomen. LIVER: No focal hepatic lesions identified. GALLBLADDER/BILIARY: There are multiple tiny gallstones along the dependent wall the gallbladder. The common hepatic duct isnot dilated, measuring 2-3mm at the level of tamy hepatis. PANCREAS: Pancreatic head and neck appear unremarkable. Part of the body and tail are obscured by overlying bowel gas. RIGHT KIDNEY:No evidence of solid mass, calculus, nor hydronephrosis. No cortical cysts evident. IMPRESSION: 1. The part of the pancreas which is shown to be involve the pancreatitis on yesterday's CT scan is not visualized on today's ultrasound because of overlying bowel gas. The visualized pancreatic head and neck appear unremarkable on ultrasound. There are no peripancreatic fluid collections evident. 2. Tiny gallstones are noted on ultrasound. These are not visible on CT scan. There is no gallbladder wall edema. 3. No other significant right upper quadrant ultrasound findings. EXAM: CT ABDOMEN PELVIS W CLINICAL HISTORY: epigastric/LUQ pain. TECHNIQUE: Imaging Protocol: Axial computed tomography images with coronal and sagittal reformatted images were created and reviewed CONTRAST MATERIAL: Intravenous: Omnipaque-350 100cc Oral: None COMPARISON: No exams were available for comparison FINDINGS: VISUALIZED LUNG BASES: No nodules nor pleural effusions evident. ABDOMEN: LIVER: There are no focal hepatic lesions evident. No dilated intrahepatic ducts. GALLBLADDER/BILIARY: No obvious gallbladder pathology. CBD is not dilated. PANCREAS: There is significant edema around the distal body and tail the pancreas consistent with acute pancreatitis. Pancreatic duct is not dilated. There are no pancreatic calcifications. No pancreatic mass evident. SPLEEN: Spleen is not enlarged. No obvious intrasplenic lesions. Splenic and portal veins are patent. There is no evidence of splenic vein thrombosis in this patient with acute pancreatitis. ADRENALS: There are no significant adrenal masses. KIDNEYS:No cysts evident. No solid renal masses. No calculi nor hydronephrosis.. ABDOMINAL AORTA: Abdominal aorta is not enlarged. LYMPH NODES:There is no retroperitoneal nor paraaortic adenopathy. ABDOMINAL WALL: There are few midline fat only containing anterior abdominal hernias. GI: There is no evidence of bowel obstruction, free air, nor abscess. PELVIS: GI: No evidence of appendicitis.No evidence of sigmoid diverticulitis. LYMPH NODES: There is no intrapelvic nor inguinal adenopathy. REPRODUCTIVE: Uterus is anteverted and contains a well-positioned IUD within the endometrial canal. No abnormal adnexal findings. Tiny amount of fluid in the cul-de-sac, probably female physiologic URINARY BLADDER: No calculi nor obvious masses evident OSSEOUS: No fractures and no significant osseous lesions. IMPRESSION: 1. Findings are consistent with acute pancreatitis. Pancreatic duct is not dilated. There are no pancreatic parenchymal calcifications and no evidence of pancreatic mass. There is no thrombosis of the adjacent splenic vein. 2. Other findings as above Labs 09/06/24 06:35 09/06/24 06:35 Labs: Laboratory Results - last 24 hr 09/05/24 19:10 WBC 7.62 RBC 4.19 Hgb 12.7 Hct 39.2 MCV 94 MCH 30.3 MCHC 32.4 RDW 14.2 Plt Count 337 MPV 10.6 Immature Gran % 0.1 Neutrophils % 53.9 Lymphocytes % 39.2 Monocytes % 4.9 Eosinophils % 1.4 Basophils % 0.5 Nucleated RBC % 0.0 Absolute Neutrophils 4.10 Absolute Lymphocytes 2.99 Absolute Monocytes 0.37 Absolute Eosinophils 0.11 Absolute Basophils 0.04 Sodium 142 Potassium 3.9 Chloride 102 Carbon Dioxide 27.1 Anion Gap 12.9 H BUN 13 Creatinine 0.8 Est GFR (CKD-EPI 2020) 100.96 Glucose 82 Calcium 9.5 Total Bilirubin 0.4 AST 24 ALT 45 Alkaline Phosphatase 75 Total Protein 8.4 H Albumin 4.5 Lipase 2613 H Last Vital Signs Temp 36.6 C 09/05/24 18:55 Pulse 62 09/05/24 20:18 Resp 20 09/05/24 18:55 BP 141/85 H 09/05/24 20:18 Pulse Ox 98 09/05/24 20:18 Time Spent Time spent with Patient: 55-74 minutes Time was spent: preparing to see the patient(eg.review tests), obtaining and/or reviewing separately otained hiistory, ordering medications,tests, procedures, indepentently interpreting results, counseling the patient and care coordination
--- NOTE | 2024-09-05 21:38 | W.PC.ACHO ---
Registration Status: REG ER Primary Language: Preferred Language: Italian ED Information & Data Chief Complaint Abd Prob 09/05/24 18:55 Chief Complaint Abd Prob 09/05/24 18:48 Triage Note Pt arrives to ED c/o upper 09/05/24 18:48 abd pain. Pt endorses nausea , denies vomiting and diarrhea. Recently admitted and discharged from [facility] for pancreatitis. Medical / Surgical History (Last Reviewed 09/05/24 @ 21:02 by Anderson Raines) Skin rash Intrahepatic cholestasis of Preeclampsia Family history of congenital heart defect History of supraventricular tachycardia (~2013) Elevated TSH (~2020) ELIZABETH II (cervical intraepithelial neoplasia II) Atypical squamous cells of undetermined significance (ASCUS) on Papanicolaou smear of cervix Chest congestion SARS-CoV-2 positive (05/2021) Iron deficiency anemia Back pain (08/01/11) Insomnia (05/16/17) Heart murmur, systolic (02/20/14) GERD (gastroesophageal reflux disease) (02/20/14) SVT (supraventricular tachycardia) (~2013) (Last Reviewed 09/05/24 @ 21:02 by Anderson Raines) History of low transverse section Hx of cone biopsy of cervix Postoperative state (~02/23/21) History of cardiac radiofrequency ablation (~2013) History of tonsillectomy and adenoidectomy Most Recent Vital Signs Temperature 36.6 C 09/05/24 18:55 Temperature Source Oral 09/05/24 18:55 Pulse 62 09/05/24 20:18 Respiratory Rate 20 09/05/24 18:55 Blood Pressure 141/85 H 09/05/24 20:18 Blood Pressure Mean 101 09/05/24 20:18 Blood Pressure Position Sitting 09/05/24 18:55 Pulse Oximetry 98 09/05/24 20:18 Oxygen Delivery Method Room Air 09/05/24 18:55 Oxygen Flow Rate 0 09/05/24 18:55 Pain Level 8 09/05/24 18:55 Allergies shellfish derived Allergy (Intermediate, Verified 09/05/24 18:51) vomiting codeine phosphate (From Tylenol-Codeine #3) Adverse Reaction (Severe, Verified 09/05/24 18:51) vomiting trazodone Adverse Reaction (Intermediate, Verified 09/05/24 18:51) Night terrors Precautions Isolation Standard precaution 09/05/24 18:55 IV IV Catheter Type [Antecubital] Saline Lock IV Catheter Gauge [Antecubital 20 ] Diagnostics 09/05/24 Range/Units 19:10 WBC 7.62 (4.4-10.8) 10^3/uL RBC 4.19 (3.93-5.22) 10^6/uL Hgb 12.7 (11.2-15.7) g/dL Hct 39.2 (36.0-46.0) % MCV 94 (80-95) fL MCH 30.3 (27.0-33.0) pg MCHC 32.4 (32.0-36.0) % RDW 14.2 (11.7-14.6) % Plt Count 337 (130-400) 10^3/uL MPV 10.6 (8.0-11.0) fL Immature Gran % 0.1 % Neutrophils % 53.9 % Lymphocytes % 39.2 % Monocytes % 4.9 % Eosinophils % 1.4 % Basophils % 0.5 % Nucleated RBC % 0.0 (0.0-0.3) % Absolute Neutrophils 4.10 (1.2-6.7) 10^3/uL Absolute Lymphocytes 2.99 (1.2-3.4) 10^3/uL Absolute Monocytes 0.37 (0.1-0.8) 10^3/uL Absolute Eosinophils 0.11 (0.0-0.7) 10^3/uL Absolute Basophils 0.04 (0.0-0.2) 10^3/uL Sodium 142 (136-145) mmol/L Potassium 3.9 (3.5-5.1) mmol/L Chloride 102 (98-107) mmol/L Carbon Dioxide 27.1 (21.0-32.0) mmol/L Anion Gap 12.9 H (3-11) mmol/L BUN 13 (7-18) mg/dL Creatinine 0.8 (0.55-1.02) mg/dL Est GFR (CKD-EPI 2020) 100.96 (mL/min/1.73m2) Glucose 82 (74-106) mg/dL Calcium 9.5 (8.5-10.1) mg/dL Total Bilirubin 0.4 (0.2-1.0) mg/dL AST 24 (15-37) U/L ALT 45 (14-59) U/L Alkaline Phosphatase 75 (46-116) U/L Total Protein 8.4 H (6.4-8.2) g/dL Albumin 4.5 (3.4-5.0) g/dL Lipase 2613 H (<78) U/L Intake and Output - 24 Hour Total 09/05/24 18:40 thru 09/05/24 18:48 Weight 127.006 kg Falls Risk Assessment History of Falls No History 09/05/24 18:55 Contributing Factors No Factors 09/05/24 18:55 Ambulatory Aids Independent 09/05/24 18:55 Tubes/Lines W/no contributing factors 09/05/24 18:55 Gait Evaluation No gait disturbance 09/05/24 18:55 Cognition No cognitive impairment 09/05/24 18:55 Fall Total Score 10 09/05/24 18:55 Level of Risk Standard/Low Risk 09/05/24 18:55 Problems (Last Reviewed 09/05/24 @ 21:02 by Anderson Raines) Depression (Chronic) Cholelithiasis (Chronic) Pancreatitis, acute (Acute) HSV-2 (herpes simplex virus 2) infection (Chronic) Asthma (Chronic) v v v v v v v v v Sending and/or Receiving Nurses: Please use comment section below to note any information pertinent to the patient hand-off not included above. Information / Comments: report taken, All questions answered. Report received from: Report received from Karthik Lowery,RN @ 5000
[2024-09-05] MEDS: Normal Saline 1,000 ML 125 ML IV (22:13)
[2024-09-05] MEDS: Montelukast 10 MG TAB PO (22:25)
[2024-09-05 22:39] LABS: Glucose Negative (Negative)
[2024-09-05 22:41] LABS: C & S Indicated? No; WBC 0-2 HPF (0-5)
--- NOTE | 2024-09-05 23:18 | W.ED.GENAD ---
Discharge Plan Disposition Patient Disposition: Admit to [facility] Condition: Improving Discharge Details Clinical Impression: Pancreatitis, acute Admit Date/Time: 09/05/24 20:53 Admit Provider: Anderson Raines Attending Provider: Anderson Raines Primary Care Provider: Radha Etienne ED Provider: Flor Mayes [facility] General Date/Time Provider Initiated Documentation: 09/05/24 19:00. Limitations to Documentation: no limitations. Information obtained by: patient and old records reviewed. HPI Narrative: 29-year-old female without significant past medical history presents for evaluation of acute onset epigastric abdominal pain. She reports that symptoms started this afternoon. Pain is severe, associated with nausea. She has not had any vomiting, diarrhea or fever. She reports that she was recently admitted to the hospital for acute pancreatitis. She reports that after discharge her symptoms had completely resolved, she was eating fine, has not required any pain medication or nausea medication. She reports that last yesterday she had lab work done that showed almost normalization of her pancreatic enzyme. Related Data Home Medications ?Medication ?Instructions ?Recorded ?Confirmed loratadine 10 mg capsule 10 mg PO DAILY PRN 06/29/21 09/05/24 hydrocortisone 2.5 % topical cream 1 applic topical TID PRN skin 08/15/21 09/05/24 irritation #20 grams tacrolimus 0.1 % topical ointment 1 applic topical BID PRN 10/18/22 09/05/24 vitamins no.121-iron 28 1 tab PO DAILY 05/29/23 09/05/24 mg-folic acid 800 mcg tablet clindamycin phosphate 1 % lotion 1 applic topical QHS PRN axillary 08/27/23 09/05/24 rash (?BULLOCK) #60 mL valacyclovir 1 gram tablet 1,000 mg PO DAILY #90 tabs 11/14/23 09/05/24 (Valtrex) nystatin 100,000 unit/gram topical 1 applic topical QID #15 grams 02/08/24 09/05/24 powder levonorgestrel (Mirena) 1 device intrauterine ONCE #1 ea 03/03/24 09/05/24 albuterol 90 mcg-budesonide 80 2 inh inhalation ONCE #10.7 grams 03/20/24 09/05/24 mcg/actuation HFA aerosol inhaler (Airsupra) albuterol sulfate 2.5 mg/3 mL 2.5 mg (3 mL) inhalation QID PRN 03/27/24 09/05/24 (0.083 %) solution for nebulization shortness of breath or wheezing #180 mL sertraline 50 mg tablet 50 mg PO DAILY #90 tabs 06/04/24 09/05/24 fluticasone propionate 230 2 puff inhalation BID #12 grams 07/21/24 09/05/24 mcg-salmeterol 21 mcg/actuation HFA inhaler (Advair HFA) montelukast 10 mg tablet 10 mg PO QHS #90 tabs 07/21/24 09/05/24 tiotropium bromide 2.5 2 puff inhalation DAILY #4 grams 07/21/24 09/05/24 mcg/actuation mist for inhalation (Spiriva Respimat) morphine 15 mg immediate release 15 mg PO Q6H PRN #10 tabs 08/27/24 09/05/24 tablet ondansetron 4 mg disintegrating 4 mg PO Q8H PRN #14 tabs 08/27/24 09/05/24 tablet tirzepatide (weight loss) 7.5 7.5 mg subcut Q7D 08/28/24 09/05/24 mg/0.5 mL subcutaneous pen injector (Zepbound) Held on 09/01/24. Instructions: pancreatitis Previous Rx's ?Medication ?Instructions ?Recorded hydrocortisone 2.5 % topical cream 1 applic topical TID PRN skin 08/15/21 irritation #20 grams clindamycin phosphate 1 % lotion 1 applic topical QHS PRN axillary 08/27/23 rash (?BULLOCK) #60 mL valacyclovir 1 gram tablet 1,000 mg PO DAILY #90 tabs 11/14/23 (Valtrex) nystatin 100,000 unit/gram topical 1 applic topical QID #15 grams 02/08/24 powder levonorgestrel (Mirena) 1 device intrauterine ONCE #1 ea 03/03/24 albuterol 90 mcg-budesonide 80 2 inh inhalation ONCE #10.7 grams 03/20/24 mcg/actuation HFA aerosol inhaler (Airsupra) albuterol sulfate 2.5 mg/3 mL 2.5 mg (3 mL) inhalation QID PRN 03/27/24 (0.083 %) solution for nebulization shortness of breath or wheezing #180 mL sertraline 50 mg tablet 50 mg PO DAILY #90 tabs 06/04/24 fluticasone propionate 230 2 puff inhalation BID #12 grams 07/21/24 mcg-salmeterol 21 mcg/actuation HFA inhaler (Advair HFA) montelukast 10 mg tablet 10 mg PO QHS #90 tabs 07/21/24 tiotropium bromide 2.5 2 puff inhalation DAILY #4 grams 07/21/24 mcg/actuation mist for inhalation (Spiriva Respimat) morphine 15 mg immediate release 15 mg PO Q6H PRN #10 tabs 08/27/24 tablet ondansetron 4 mg disintegrating 4 mg PO Q8H PRN #14 tabs 08/27/24 tablet Allergies Allergy/AdvReac Type Severity Reaction Status Date / Time shellfish derived Allergy Intermediate vomiting Verified 09/05/24 18:51 codeine phosphate (From AdvReac Severe vomiting Verified 09/05/24 18:51 Tylenol-Codeine #3) trazodone AdvReac Intermediate Night Verified 09/05/24 18:51 terrors General Stated Complaint: Abd Prob LONA: 3 Exam Narrative Exam Narrative: Review of Systems: All systems reviewed & are unremarkable except as noted in HPI and below Well-developed, appears uncomfortable NCAT PERRL, normal conjunctiva RRR Unlabored respiratory effort Nondistended abdomen , epigastric abdominal pain, no right upper quadrant tenderness no focal neurologic deficits Appropriate mood and affect Course Vital Signs Vital signs: Vital Signs Temperature 36.6 C 09/05/24 18:48 Pulse 84 09/05/24 18:48 Respiratory Rate 20 09/05/24 18:48 Blood Pressure 158/97 H 09/05/24 18:48 Pulse Oximetry 95 09/05/24 18:48 Temperature 36.1 C L 09/05/24 23:09 Temperature Source Temporal Artery Scan 09/05/24 23:09 Pulse 58 L 09/05/24 23:09 Pulse Rhythm Regular 09/05/24 21:55 Respiratory Rate 16 09/05/24 23:09 Respiratory Effort Normal, Non-Labored 09/05/24 21:55 Respiratory Depth Normal 09/05/24 21:55 Respiratory Pattern Normal 09/05/24 21:55 Blood Pressure 116/73 09/05/24 23:09 Blood Pressure Mean 87 09/05/24 23:09 Blood Pressure Position Sitting 09/05/24 18:55 Pulse Oximetry 95 09/05/24 23:09 Oxygen Delivery Method Room Air 09/05/24 23:09 Oxygen Flow Rate 0 09/05/24 23:09 Pain Level 3 09/05/24 23:09 Lab/Test Results Lab/Test Results: Laboratory Tests Range/Units 09/05/24 19:10 WBC (4.4-10.8) 10^3/uL 7.62 RBC (3.93-5.22) 10^6/uL 4.19 Hgb (11.2-15.7) g/dL 12.7 Hct (36.0-46.0) % 39.2 MCV (80-95) fL 94 MCH (27.0-33.0) pg 30.3 MCHC (32.0-36.0) % 32.4 RDW (11.7-14.6) % 14.2 Plt Count (130-400) 10^3/uL 337 MPV (8.0-11.0) fL 10.6 Immature Gran % % 0.1 Neutrophils % % 53.9 Lymphocytes % % 39.2 Monocytes % % 4.9 Eosinophils % % 1.4 Basophils % % 0.5 Nucleated RBC % (0.0-0.3) % 0.0 Absolute Neutrophils (1.2-6.7) 10^3/uL 4.10 Absolute Lymphocytes (1.2-3.4) 10^3/uL 2.99 Absolute Monocytes (0.1-0.8) 10^3/uL 0.37 Absolute Eosinophils (0.0-0.7) 10^3/uL 0.11 Absolute Basophils (0.0-0.2) 10^3/uL 0.04 Sodium (136-145) mmol/L 142 Potassium (3.5-5.1) mmol/L 3.9 Chloride (98-107) mmol/L 102 Carbon Dioxide (21.0-32.0) mmol/L 27.1 Anion Gap (3-11) mmol/L 12.9 H BUN (7-18) mg/dL 13 Creatinine (0.55-1.02) mg/dL 0.8 Est GFR (CKD-EPI 2020) (mL/min/1.73m2) 100.96 Glucose (74-106) mg/dL 82 Calcium (8.5-10.1) mg/dL 9.5 Total Bilirubin (0.2-1.0) mg/dL 0.4 AST (15-37) U/L 24 ALT (14-59) U/L 45 Alkaline Phosphatase (46-116) U/L 75 Total Protein (6.4-8.2) g/dL 8.4 H Albumin (3.4-5.0) g/dL 4.5 Lipase (<78) U/L 2613 H Medical Decision Making Emergent evaluation of epigastric abdominal pain. Patient had a recent hospitalization for pancreatitis and has recurrence of her symptoms. She denies any alcohol use, no drugs or other supplements. Reports, but acute onset of pain not associated with food. She has not been having any vomiting. Patient was resuscitated with IV fluids and antiemetics which did improve her symptoms in addition to narcotic pain medication. Lab work was obtained. She has no elevation of white blood cell count, no anemia. Her LFTs are unremarkable. Her lipase has elevated up to 2613. This is a concerning elevation in the last 24 hours. I suspect she has recurrence of acute pancreatitis. I did review her prior workup during her hospitalization. On ultrasound she did have very tiny gallstones noted but unclear if this is the etiology of her severe pain and cause of pancreatitis. Based on her lab work, she does not seem to have concerning findings for obstructive etiology. The patient will be admitted for continued fluid resuscitation and pain control. Discussed with hospitalist who accepts for admission. [facility] All Active Problems (Updated 09/05/24 @ 23:22 by Flor Mayes MD) Depression (Chronic) Cholelithiasis (Chronic) Pancreatitis, acute (Acute) Stress due to marital problems (Acute ~05/2024) Snores (Acute ~2024) IUD (intrauterine device) in place (Acute) 12/2023. Mirena inserted care following delivery (Acute) Status post primary low transverse section (Acute) Primary low-transverse section 11/21/2023 at 37 weeks and 1 day due to preeclampsia with severe features, intrahepatic cholestasis, breech presentation. Male infant. 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 Valtrex for suppression. Hidradenitis suppurativa (Acute) [facility] Derm Note 10/16/22 Extensor carpi ulnaris tendinitis (Acute ~02/2022) LEFT Depo-Medrol Injection: 03/10/22 Periorbital dermatitis (Acute ~06/2021) Pain of ulnar side of wrist (Acute ~12/2021) Adjustment disorder (Chronic ~04/2021) Asthma (Chronic) Mild intermittent Medical History Skin rash Intrahepatic cholestasis of Preeclampsia Family history of congenital heart defect History of supraventricular tachycardia (~2013) Elevated TSH (~2020) 2020 & 2021 ELIZABETH II (cervical intraepithelial neoplasia II) Cold Knife Cone done 02/2021. Negative Margins. Pap q 6 months Atypical squamous cells of undetermined significance (ASCUS) on Papanicolaou smear of cervix Cannot rule out high-grade lesion Chest congestion SARS-CoV-2 positive (05/2021) Iron deficiency anemia Mirena IUD Back pain (08/01/11) Intermittent (lumbar) Insomnia (05/16/17) Trazodone; day-shift helped Heart murmur, systolic (02/20/14) s/p ablation for SVT 2013 (Patrick) GERD (gastroesophageal reflux disease) (02/20/14) SVT (supraventricular tachycardia) (~2013) s/p ablation 2013 Surgical History History of low transverse section Hx of cone biopsy of cervix Postoperative state (~02/23/21) Cold knife conization of the cervix 02/23/2021 History of cardiac radiofrequency ablation (~2013) History of tonsillectomy and adenoidectomy Family History Brother Crohn's disease Coarctation of aorta open heart surgery at 2 weeks of age at [facility] Mother Hypertension Asthma Allergies Father Hypertension Paternal Grandfather Myocardial infarct Maternal Grandfather Thyroid cancer Lung disease Paternal Grandmother Heart disease Diabetes Maternal Grandmother Autoimmune disease Diabetes Social History Smoking/Tobacco Use Status: Never Smoking risk assessment performed?: Yes Alcohol Intake: current Alcohol Intake frequency: a few times a month Drug use: Never Substance use type: does not use Adopted: No Foster care: No Housing: house current occupation: [employer] Duration: 45-60 minutes/day Frequency: 5-6 times per week Seatbelt use: always Working smoke detector in home: Yes Fire extinguisher in home: Yes Do you feel safe at home: Yes Do you feel safe in your relationship?: Yes Female Reproductive History Menstrual control method: progestin IUCD History History 1 Para 0 Hx # Term Pregnancies Multiple births Hx # Pregnancies Ectopic pregnancies AB induced Hx Number of Living Children AB spontaneous
[2024-09-06] MEDS: Acetaminophen 325 MG TAB 650 MG PO ×2 (00:55→06:43)
[2024-09-06 03:35] VITALS: BP 122/81; PULSE 56; RESP 16; TEMP 36.3; O2SAT 97
[2024-09-06] MEDS: Normal Saline 1,000 ML 125 ML IV (05:57)
[2024-09-06] MEDS: Ondansetron O.D.T. 4 MG TABEF PO (06:44)
[2024-09-06 06:57] LABS: HCT 34.7 % (36.0-46.0); HGB 11.1 g/dL (11.2-15.7); MCH 30.7 pg (27.0-33.0); MCHC 32.0 % (32.0-36.0); MCV 96 fL (80-95); MPV 10.9 fL (8.0-11.0); Platelet Count 292 10^3/uL (130-400); RBC 3.62 10^6/uL (3.93-5.22); RDW 14.3 % (11.7-14.6); RDW-SD 50.4 fL; WBC 6.89 10^3/uL (4.4-10.8)
[2024-09-06 07:23] LABS: ALT 43 U/L (14-59); AST 25 U/L (15-37); Albumin 3.5 g/dL (3.4-5.0); Alkaline Phosphatase 68 U/L (46-116); Anion Gap 7.5 mmol/L (3-11); BUN 11 mg/dL (7-18); Bilirubin, Total 0.3 mg/dL (0.2-1.0); CO2 28.5 mmol/L (21.0-32.0); Calcium 9.1 mg/dL (8.5-10.1); Chloride 106 mmol/L (98-107); Estimated GFR 118.51 (mL/min/1.73m2); Glucose 86 mg/dL (74-106); Magnesium 2.0 mg/dL (1.8-2.4); Potassium 3.8 mmol/L (3.5-5.1); Sodium 142 mmol/L (136-145); Total Protein 6.8 g/dL (6.4-8.2)
[2024-09-06 07:39] VITALS: BP 122/83; PULSE 58; RESP 18; TEMP 36.6; O2SAT 97
[2024-09-06] MEDS: Tiotropium Bromide-Respimat 10 PUFF INH 2 PUFF IH (09:26)
[2024-09-06] MEDS: Prenatal Multivitamin w/CA,FE TAB 1 TAB PO (09:53)
[2024-09-06] MEDS: Sertraline 50 MG TAB PO (09:53)
[2024-09-06] MEDS: valACYclovir 1,000 MG TAB 1000 MG PO (09:58)
[2024-09-06 11:07] VITALS: BP 142/82; PULSE 62; RESP 16; TEMP 36.4; O2SAT 95
[2024-09-06] MEDS: Normal Saline Flush 10 ML SYR IVP ×2 (11:11→20:38)
--- NOTE | 2024-09-06 13:00 | W.PM.PROGNOT ---
Date of Service Date of service: 09/06/24 Time of Service: 13:00 Assessment and Plan Assessment and plan (1) Pancreatitis, acute: Start date: 09/05/24 Status: Acute Assessment and plan: This is a 29-year-old lady with recurrent pancreatitis over the last 2 weeks. She is now off her high-dose GLP-1 agonist therapy for obesity for least 2 weeks. She does have gallstones which are tiny and this presentation was acute onset but not associated with meals and not having as much pain in the right abdomen as mid abdomen and left. Her pancreas is mostly inflamed over the distal body and tail. There is no evidence of pancreatic mass or common bile duct dilatation. There is no dilatation of the pancreatic duct. She was treated with pain management and bowel rest with advancing diet before returning home. She may want to stay off GLP-1 agonist indefinitely and consider surgical consultation for her gallstones which may be passing causing intermittent pancreatitis. There is no evidence of significant common bile duct obstruction but retained stone in the common duct with ball valving is a consideration and MRCP may be entertained. Patient is a full code. 09/06/24 Change IVF to LR@150. Pt can dc once her labs are improving/tolerating PO/pain controlled with PO meds (2) Cholelithiasis: Status: Chronic Assessment and plan: Consider surgical consultation for cholecystectomy. Consider MRCP. 09/06/24 Pt is improving, not sure of surgical intervention necessary at this time (3) Asthma: Status: Chronic Assessment and plan: Continue outpatient medical therapy. 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 (5) Iron deficiency anemia: Assessment and plan: Continue outpatient supplementation. (6) Depression: Status: Chronic Assessment and plan: Continue outpatient medical therapy. dvtp with lovenox Subjective Subjective Interval history since last seen: Pt seen and examined this pm. Pt states she feels better and is tolerating meals (clears) and is not requiring IV pain meds. Exam Narrative Exam Narrative: HEENT-NCAT MMM PULM-NO AMU SPEAKS IN COMPLETE SENTENCES ABD-NO TTP IN RUQ NO PERITONEAL SIGNS NO REFERRED PAIN Objective Last Vital Signs Temp 36.4 C L 09/06/24 11:07 Pulse 62 09/06/24 11:07 Resp 16 09/06/24 11:07 BP 142/82 H 09/06/24 11:07 Pulse Ox 95 09/06/24 11:07 Laboratory Results - last 24 hr 09/05/24 09/05/24 09/06/24 19:10 22:08 06:35 WBC 7.62 6.89 RBC 4.19 3.62 L Hgb 12.7 11.1 L Hct 39.2 34.7 L MCV 94 96 H MCH 30.3 30.7 MCHC 32.4 32.0 RDW 14.2 14.3 Plt Count 337 292 MPV 10.6 10.9 Immature Gran % 0.1 Neutrophils % 53.9 Lymphocytes % 39.2 Monocytes % 4.9 Eosinophils % 1.4 Basophils % 0.5 Nucleated RBC % 0.0 Absolute Neutrophils 4.10 Absolute Lymphocytes 2.99 Absolute Monocytes 0.37 Absolute Eosinophils 0.11 Absolute Basophils 0.04 Sodium 142 142 Potassium 3.9 3.8 Chloride 102 106 Carbon Dioxide 27.1 28.5 Anion Gap 12.9 H 7.5 BUN 13 11 Creatinine 0.8 0.7 Est GFR (CKD-EPI 2020) 100.96 118.51 Glucose 82 86 Calcium 9.5 9.1 Magnesium 2.0 Total Bilirubin 0.4 0.3 AST 24 25 ALT 45 43 Alkaline Phosphatase 75 68 Total Protein 8.4 H 6.8 Albumin 4.5 3.5 Lipase 2613 H Urine Color Yellow Urine Clarity Clear Urine pH 6.5 Ur Specific [place] 1.025 Urine Protein Negative Urine Ketones Negative Urine Blood Trace-intact H Urine Nitrite Negative Urine Bilirubin Negative Urine Urobilinogen 0.2 Ur Leukocyte Esterase Negative Urine RBC 3-5 H Urine WBC 0-2 Ur Epithelial Cells Moderate Urine Crystals Negative Urine Bacteria Few Urine Casts Negative Urine Mucus Moderate Ur Culture Indicated? No Urine Glucose Negative Time Spent with Patient Time Spent with Patient: <25 minutes Time was spent: preparing to see the patient(eg.review tests), obtaining and/or reviewing separately otained hiistory, ordering medications,tests, procedures, referring, communicating with other health home health care physician, indepentently interpreting results, counseling the patient and care coordination
[2024-09-06] MEDS: Lactated Ringers 1,000 ML 150 ML IV ×2 (13:46→23:00)
[2024-09-06 14:42] VITALS: BP 128/84; PULSE 52; RESP 16; TEMP 36.6; O2SAT 96
--- NOTE | 2024-09-06 16:04 | PDOC.CMIN ---
Date of service: 09/06/24 Time of Service: 17:02 Care Management Initial Assmt Initial Assessment Reason for Hospitalization: Pancreatitis Functional Status/Living Situation Patient Presentation: Gerri was sitting up in bed when CM met with her. Gerri was admitted 08/28/24 for pancreatitis to which she was treated medically. She presented to the ED yesterday for evaluation of acute onset epigastric abdominal pain. She stated that she is feeling better today than when she arrived. Gerri states that she had been doing good following discharge. She was not experiencing pain and was able to eat and drink. Per report, she was on clears this morning but her diet has now been advanced as tolerated. Gerri lives in [place] with her , Cameron, and their 9 mo old son, Maykel. 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 She is independent at baseline. CM will continue to follow. Town of Residence: [place] Resides with: Child and Spouse Significant Other/Family: Local Natural Supports: , Cameron Mother, Lucy Employment Status: Employed Instrumental Activities of Daily Living (ADLs): Independent Medications Medication Management: No Issues/Barriers identified Advance Directives Advance Directives: Do you have an Advance Directive: N 08/27/23, 08:40 AD On File at [facility]: N 08/27/23, 08:40 Date Asked 09/05/24 09/05/24, 18:45 AD Date Reviewed COLST On File at [facility] No 04/11/24, 15:06 COLST Date Scanned Code Status Resuscitation Status Full Code Portal Pt does not currently have a portal and education provided: Yes Insurance Coverage/Financial Issues Insurance: Health Plans ([facility] ONLY!) - [id number] Care Team Visit Care Team Role Provider Type Bj Wilkes MD MD [facility] STAFF PHYSICIAN Radha Etienne NP Primary Care Provider NURSE PRACTITIONER Flor Mayes MD Emergency Provider [facility] STAFF PHYSICIAN Anderson Raines Admit Provider NON-[facility] STAFF PHYSICIAN Attending Provider Discharge Potential Discharge Needs: PCP F/U Appt Anticipated Barriers to Discharge: None Identified Patient/Family Education Needs: Review discharge instructions, discuss Ask Me Three Transportation: Private vehicle Plan: Anticipate Gerri will return home with no new services. Her will drive her home via private vehicle. She will follow up with her PCP and discharge plan of care. CM will continue to follow. Social Determinants of Health Screening Will the Patient Participate in the Screening?: Declined to provide Do you worry about having a steady place to live?: choose not to answer PFSH All Active Problems Depression (Chronic) Cholelithiasis (Chronic) Pancreatitis, acute (Acute) Stress due to marital problems (Acute ~05/2024) Snores (Acute ~2024) IUD (intrauterine device) in place (Acute) 12/2023. Mirena inserted care following delivery (Acute) Status post primary low transverse section (Acute) Primary low-transverse section 11/21/2023 at 37 weeks and 1 day due to preeclampsia with severe features, intrahepatic cholestasis, breech presentation. Male . 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 Valtrex for suppression. Hidradenitis suppurativa (Acute) [facility] Derm Note 10/16/22 Extensor carpi ulnaris tendinitis (Acute ~02/2022) LEFT Depo-Medrol Injection: 03/10/22 Periorbital dermatitis (Acute ~06/2021) Pain of ulnar side of wrist (Acute ~12/2021) Adjustment disorder (Chronic ~04/2021) Asthma (Chronic) Mild intermittent Medical History Skin rash Intrahepatic cholestasis of Preeclampsia Family history of congenital heart defect History of supraventricular tachycardia (~2013) Elevated TSH (~2020) 2020 & 2021 ELIZABETH II (cervical intraepithelial neoplasia II) Cold Knife Cone done 02/2021. Negative Margins. Pap q 6 months Atypical squamous cells of undetermined significance (ASCUS) on Papanicolaou smear of cervix Cannot rule out high-grade lesion Chest congestion SARS-CoV-2 positive (05/2021) Iron deficiency anemia Mirena IUD Back pain (08/01/11) Intermittent (lumbar) Insomnia (05/16/17) Trazodone; day-shift helped Heart murmur, systolic (02/20/14) s/p ablation for SVT 2013 (Patrick) GERD (gastroesophageal reflux disease) (02/20/14) SVT (supraventricular tachycardia) (~2013) s/p ablation 2013 Surgical History History of low transverse section Hx of cone biopsy of cervix Postoperative state (~02/23/21) Cold knife conization of the cervix 02/23/2021 History of cardiac radiofrequency ablation (~2013) History of tonsillectomy and adenoidectomy Family History Brother Crohn's disease Coarctation of aorta open heart surgery at 2 weeks of age at [facility] Mother Hypertension Asthma Allergies Father Hypertension Paternal Grandfather Myocardial infarct Maternal Grandfather Thyroid cancer Lung disease Paternal Grandmother Heart disease Diabetes Maternal Grandmother Autoimmune disease Diabetes Social History Smoking/Tobacco Use Status: Never Smoking risk assessment performed?: Yes Alcohol Intake: current Alcohol Intake frequency: a few times a month Drug use: Never Substance use type: does not use Adopted: No Foster care: No Housing: house current occupation: [employer] Duration: 45-60 minutes/day Frequency: 5-6 times per week Seatbelt use: always Working smoke detector in home: Yes Fire extinguisher in home: Yes Do you feel safe at home: Yes Do you feel safe in your relationship?: Yes Female Reproductive History Menstrual control method: progestin IUCD History History 1 Para 0 Hx # Term Pregnancies Multiple births Hx # Pregnancies Ectopic pregnancies AB induced Hx Number of Living Children AB spontaneous Readmission Within the Past 30 Days Yes or No: Yes Date of First Admission Date of 1st Admission: 08/28/24 Date of this Admission Date of Admission: 09/05/24 This admission was: Through ED Office Visit Since 1st Admission Have you seen your PCP in the office since discharge?: No Had an appointment Been Scheduled?: Yes Date of Scheduled Appointment: 09/08/24 Speicalist Appointments Have you seen any other specialist since your 1st Admission?: No I. Interview patient and/or Family Difficulty reaching your doctor or getting an office appt?: No Have you had trouble purchasing/ or taking medication?: No Have you had trouble with getting meals at home?: No Did you feel ready for discharge when you left the last time: Yes Did you call your physician beore you came to the ED?: No Did your physician tell you to come in?: No How do you think you became sick enough to come back?: patient states she feels it was random. Nothing particular triggered this, possibly her gallstones. If the patient had a VNA ordered Did the patient have a VNA order?: No ED visits How many ED visits in the past 12 months: 4 Assessment for Readmission Summary of readmission circumstances, based upon interviews: Anticipate she represented to the ED after continuous pain which may be related to the 1st admission. She states she is not sure what happened.
[2024-09-06 20:07] VITALS: BP 130/77; PULSE 64; RESP 16; TEMP 36.3; O2SAT 96
[2024-09-06] MEDS: Montelukast 10 MG TAB PO (20:35)
[2024-09-06 22:59] VITALS: BP 125/70; PULSE 71; RESP 18; TEMP 36.1; O2SAT 97
[2024-09-07 04:40] VITALS: BP 136/82; PULSE 61; RESP 16; TEMP 36.1; O2SAT 96
[2024-09-07] MEDS: Lactated Ringers 1,000 ML 150 ML IV (06:00)
[2024-09-07 07:11] LABS: Abs Immature Grans 0.01 10^3/uL (0.0-0.06); HCT 35.8 % (36.0-46.0); HGB 11.5 g/dL (11.2-15.7); Immature Grans % 0.2 %; MCH 31.0 pg (27.0-33.0); MCHC 32.1 % (32.0-36.0); MCV 97 fL (80-95); MPV 11.0 fL (8.0-11.0); Platelet Count 269 10^3/uL (130-400); RBC 3.71 10^6/uL (3.93-5.22); RDW 14.4 % (11.7-14.6); RDW-SD 51.0 fL; WBC 5.87 10^3/uL (4.4-10.8)
[2024-09-07 07:25] LABS: ALT 35 U/L (14-59); AST 18 U/L (15-37); Albumin 3.4 g/dL (3.4-5.0); Alkaline Phosphatase 61 U/L (46-116); Anion Gap 8.7 mmol/L (3-11); BUN 5 mg/dL (7-18); Bilirubin, Total 0.4 mg/dL (0.2-1.0); CO2 28.3 mmol/L (21.0-32.0); Calcium 8.9 mg/dL (8.5-10.1); Chloride 104 mmol/L (98-107); Estimated GFR 118.51 (mL/min/1.73m2); Glucose 81 mg/dL (74-106); Lipase 63 U/L (<78); Magnesium 1.9 mg/dL (1.8-2.4); Potassium 3.8 mmol/L (3.5-5.1); Sodium 141 mmol/L (136-145); Total Protein 6.8 g/dL (6.4-8.2)
[2024-09-07 07:28] LABS: Iron 64 ug/dL (50-170); Total Iron Binding Capacity 212 ug/dL (250-450); Transferrin Sat 30 % (15-50)
[2024-09-07 07:51] VITALS: BP 133/82; PULSE 60; RESP 18; TEMP 36.5; O2SAT 96
[2024-09-07] MEDS: Tiotropium Bromide-Respimat 10 PUFF INH 2 PUFF IH (08:22)
[2024-09-07 08:26] LABS: Vitamin B12 738 pg/mL (193-986)
--- NOTE | 2024-09-07 08:26 | DSE_ITS ---
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 Her lipase level was 2600 on the it had completely resolved and is now 63. Patient is completely asymptomatic and asking to be discharged home. Patient does not want any pain meds progesterone antiemetics necessary. Patient is tolerating her diet. Threshold for discharge include improving laboratory values, pain control with oral meds only, and tolerating diet have been met. Consider outpatient follow-up with GI as this is her second episode of pancreatitis with no clear etiology. Home Meds and New Rx's Prescriptions: New ondansetron 4 mg tablet,disintegrating 4 mg PO TID PRN PRN (Reason: nausea and vomiting) Qty: 7 0RF Continued clindamycin phosphate 1 % lotion 1 applic topical QHS PRN (Reason: axillary rash (?BULLOCK)) Qty: 60 0RF Rx Instructions: Apply to skin bilateral armpits bedtime PRN outbreaks Mirena 21 mcg/24hr (up to 8 yrs) 52 mg intrauterine device 1 device intrauterine ONCE Qty: 1 0RF Rx Instructions: as a single dose albuterol sulfate 2.5 mg /3 mL (0.083 %) solution for nebulization 2.5 mg inhalation QID PRN (Reason: shortness of breath or wheezing) Qty: 180 12RF loratadine 10 mg capsule 10 mg PO DAILY PRN hydrocortisone 2.5 % cream 1 applic topical TID PRN (Reason: skin irritation) Qty: 20 1RF Rx Instructions: Apply thin layer to keon-orbital skin irritation up to 3x/d PRN for no more than 2 consecutive weeks. PNV [id number] acid 28 mg iron- 800 mcg tablet 1 tab PO DAILY sertraline 50 mg tablet 50 mg PO DAILY Qty: 90 3RF tacrolimus 0.1 % ointment 1 applic topical BID PRN Rx Instructions: Apply twice daily to the affected areas on the eyelids as needed when flaring-[facility] Derm Note 10/16/22 valacyclovir [Valtrex] 1 gram tablet 1,000 mg PO DAILY Qty: 90 4RF nystatin 100,000 unit/gram powder 1 applic topical QID Qty: 15 1RF Airsupra 90-80 mcg/actuation HFA aerosol inhaler 2 inh inhalation ONCE Qty: 10.7 0RF Rx Instructions: as a single dose; may repeat up to 6 doses per day (12 inhalations) fluticasone propion-salmeterol [Advair HFA] 230-21 mcg/actuation HFA aerosol inhaler 2 puff inhalation BID Qty: 12 12RF Spiriva Respimat 2.5 mcg/actuation mist 2 puff inhalation DAILY Qty: 4 12RF montelukast 10 mg tablet 10 mg PO QHS Qty: 90 3RF morphine 15 mg tablet 15 mg PO Q6H PRNQty: 10 0RF ondansetron 4 mg tablet,disintegrating 4 mg PO Q8H PRNQty: 14 0RF Discontinued Zepbound 7.5 mg/0.5 mL pen injector 7.5 mg SUBCUT Q7D Discharge Instructions Referrals: Radha Etienne REGULATED PROGRAM MANAGER [Primary Care Provider, Medicine] Referral Note: follow up in 5-7 days. Consider a GI consult 2/2 two episodes of pancreatitis Activity:: Activity as Tolerated Equipment/Supplies:: No Equipment Needed Diet:: As Tolerated Discharge Orders Discharge Orders: Discharge Order (Routine); Ordered 09/07/24 Ordered By: Bj Wilkes DS: Summary Time Spent with Patient providing and/or coordinating discharge services: Less than 30 minutes Status at Discharge Functional status at discharge: independent ambulation Overall status at discharge: patient is back to baseline Mental Status: mental status grossly normal Speech and Movement: speech and movement normal Mood: congruent mood Affect: normal affect Exam Narrative Exam Narrative: HEENT-NCAT MMM PULM-NO AMU SPEAKS IN COMPLETE SENTENCES ABD-NO TTP IN RUQ NO PERITONEAL SIGNS NO REFERRED PAIN Psych Mental Status: mental status grossly normal Speech and Movement: speech and movement normal Mood: congruent mood Affect: normal affect DS: Data Vitals/I&O Vitals and I&O: Vital Signs Temperature 36.5 C 09/07/24 07:51 Temperature Source Temporal Artery Scan 09/07/24 07:51 Pulse 60 09/07/24 07:51 Pulse Rhythm Regular 09/05/24 21:55 Respiratory Rate 18 09/07/24 07:51 Respiratory Effort Normal, Non-Labored 09/05/24 21:55 Respiratory Depth Normal 09/05/24 21:55 Respiratory Pattern Normal 09/05/24 21:55 Blood Pressure 133/82 09/07/24 07:51 Blood Pressure Mean 99 09/07/24 07:51 Blood Pressure Position Sitting 09/05/24 18:55 Pulse Oximetry 96 09/07/24 07:51 Oxygen Delivery Method Room Air 09/07/24 04:40 Oxygen Flow Rate 0 09/07/24 04:40 Pain Level 2 09/07/24 04:40 Intake & Output 09/06/24 09/06/24 09/07/24 11:59 23:59 11:59 Intake Total 966.667 / 2466.667 1500 / 2466.667 1000 / 1000 Balance 966.667 / 2466.667 1500 / 2466.667 1000 / 1000 Weight 127 kg 130.635 kg Intake: IV 966.667 / 2466.667 1500 / 2466.667 1000 / 1000 Other: Urine Color Yellow Pale Pale Yellow Yellow Urine Odor Normal Normal Normal Comment Pt voided pt voided Stool Size Moderate Stool Characteristics Formed Data Completed and Pending Labs on day of discharge: Labs from last 24 hours 09/07/24 06:05 WBC 5.87 RBC 3.71 L Hgb 11.5 Hct 35.8 L MCV 97 H MCH 31.0 MCHC 32.1 RDW 14.4 Plt Count 269 MPV 11.0 Immature Gran % 0.2 Neutrophils % 55.8 Lymphocytes % 35.8 Monocytes % 5.5 Eosinophils % 2.0 Basophils % 0.7 Nucleated RBC % 0.0 Absolute Neutrophils 3.28 Absolute Lymphocytes 2.10 Absolute Monocytes 0.32 Absolute Eosinophils 0.12 Absolute Basophils 0.04 Sodium 141 Potassium 3.8 Chloride 104 Carbon Dioxide 28.3 Anion Gap 8.7 BUN 5 L Creatinine 0.7 Est GFR (CKD-EPI 2020) 118.51 Glucose 81 Calcium 8.9 Magnesium 1.9 Iron 64 TIBC 212 L Transferrin % Sat 30 Total Bilirubin 0.4 AST 18 ALT 35 Alkaline Phosphatase 61 Total Protein 6.8 Albumin 3.4 Lipase 63 Vitamin B12 Pending Folate Pending [facility] All Active Problems Depression (Chronic) Cholelithiasis (Chronic) Pancreatitis, acute (Acute) Stress due to marital problems (Acute ~05/2024) Snores (Acute ~2024) IUD (intrauterine device) in place (Acute) 12/2023. Mirena inserted care following delivery (Acute) Status post primary low transverse section (Acute) Primary low-transverse section 11/21/2023 at 37 weeks and 1 day due to preeclampsia with severe features, intrahepatic cholestasis, breech presentation. Male infant. 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 Valtrex for suppression. Hidradenitis suppurativa (Acute) [facility] Derm Note 10/16/22 Extensor carpi ulnaris tendinitis (Acute ~02/2022) LEFT Depo-Medrol Injection: 03/10/22 Periorbital dermatitis (Acute ~06/2021) Pain of ulnar side of wrist (Acute ~12/2021) Adjustment disorder (Chronic ~04/2021) Asthma (Chronic) Mild intermittent Medical History Skin rash Intrahepatic cholestasis of Preeclampsia Family history of congenital heart defect History of supraventricular tachycardia (~2013) Elevated TSH (~2020) 2020 & 2021 ELIZABETH II (cervical intraepithelial neoplasia II) Cold Knife Cone done 02/2021. Negative Margins. Pap q 6 months Atypical squamous cells of undetermined significance (ASCUS) on Papanicolaou smear of cervix Cannot rule out high-grade lesion Chest congestion SARS-CoV-2 positive (05/2021) Iron deficiency anemia Mirena IUD Back pain (08/01/11) Intermittent (lumbar) Insomnia (05/16/17) Trazodone; day-shift helped Heart murmur, systolic (02/20/14) s/p ablation for SVT 2014 ([facility]) GERD (gastroesophageal reflux disease) (02/20/14) SVT (supraventricular tachycardia) (~2013) s/p ablation 2013 Surgical History History of low transverse section Hx of cone biopsy of cervix Postoperative state (~02/23/21) Cold knife conization of the cervix 02/23/2021 History of cardiac radiofrequency ablation (~2013) History of tonsillectomy and adenoidectomy Family History Brother Crohn's disease Coarctation of aorta open heart surgery at 2 weeks of age at [facility] Mother Hypertension Asthma Allergies Father Hypertension Paternal Grandfather Myocardial infarct Maternal Grandfather Thyroid cancer Lung disease Paternal Grandmother Heart disease Diabetes Maternal Grandmother Autoimmune disease Diabetes Social History Smoking/Tobacco Use Status: Never Smoking risk assessment performed?: Yes Alcohol Intake: current Alcohol Intake frequency: a few times a month Drug use: Never Substance use type: does not use Adopted: No Foster care: No Housing: house current occupation: [employer] Duration: 45-60 minutes/day Frequency: 5-6 times per week Seatbelt use: always Working smoke detector in home: Yes Fire extinguisher in home: Yes Do you feel safe at home: Yes Do you feel safe in your relationship?: Yes Female Reproductive History Menstrual control method: progestin IUCD History History 1 Para 0 Hx # Term Pregnancies Multiple births Hx # Pregnancies Ectopic pregnancies AB induced Hx Number of Living Children AB spontaneous Time Spent with Patient Time Spent with Patient: <45 minutes Time was spent: preparing to see the patient(eg.review tests), obtaining and/or reviewing separately otained hiistory, ordering medications,tests, procedures, referring, communicating with other health outdoor emergency care technician, indepentently interpreting results, counseling the patient and care coordination
[2024-09-07 08:28] LABS: Folate > 20.0 ng/mL (8.6-20.0)
--- NOTE | 2024-09-07 09:27 | CMDISCH_ITS ---
Date of service: 09/07/24 Time of Service: 11:31 LACE Index Scoring Tool Questions: Length of Stay (in days): 1 Was the patient admitted via the E.D.?: Yes E.D. Visits: 4 Answers: Total Score: 8 Risk of Readmission: Low Risk Care Management Discharge Plan Reason for Hospitalization: Pancreatitis Discharge Plan: Gerri will return home today with no new services. She will transport home via private vehicle by family. She will follow up with her PCP a nd discharge plan of care. She is happy to be going home. Patient/Family Education Needs: Review discharge instructions and limitations, discussion of self care needs including ask me three.
[2024-09-07] MEDS: valACYclovir 1,000 MG TAB 1000 MG PO (09:44)
[2024-09-07] MEDS: Sertraline 50 MG TAB PO (09:44)
[2024-09-07] MEDS: Prenatal Multivitamin w/CA,FE TAB 1 TAB PO (09:44)
[2024-09-07] MEDS: Normal Saline Flush 10 ML SYR IVP (09:45)
== END 2024-09-07 10:22 | disposition home or self-care (01) ==
LOC: ER 19:00 → MS 21:49
PROVIDERS: Admitting Provider Family Medicine; Emergency Provider Emergency Medicine; PCP Nurse Practitioner Adult Health; Responsible Provider Hospitalist; Visit Provider Family Medicine
DX: K85.80 Other acute pancreatitis without necrosis or infection (principal); K80.20 Calculus of gallbladder without cholecystitis without obstruction; D50.9 Iron deficiency anemia, unspecified; B00.9 Herpesviral infection, unspecified; F32.A Depression, unspecified; J45.909 Unspecified asthma, uncomplicated; E66.01 Morbid (severe) obesity due to excess calories; L73.2 Hidradenitis suppurativa; Z79.899 Other long term (current) drug therapy; K21.9 Gastro-esophageal reflux disease without esophagitis; G47.00 Insomnia, unspecified; Z68.41 Body mass index [BMI] 40.0-44.9, adult
CPT/HCPCS: 00123; 36415; 80053; 83690; 85027; 94640; 96361; 96374; 96375; 99285; 81003; 81015; 82607; 82746; 83540; 83550; 83735; 85025; 94664; 99222; 99231; 99238; G0378; J2270; J2405

== ENCOUNTER 2024-09-08 20:15 | Outpatient (REF) | payer OTHER, SELFPAY ==
[2024-09-08 19:17] LABS: Calculated LDL 81 mg/dL (<100); Cholesterol 136 mg/dL (<200); HDL Cholesterol 37 mg/dL (>or=50); Triglyceride 90 mg/dL (<150)
== END 2024-09-08 20:16 | disposition home or self-care (01) ==
LOC: LBN 20:15
PROVIDERS: PCP Nurse Practitioner Adult Health; Visit Provider Nurse Practitioner Adult Health
DX: K85.80 Other acute pancreatitis without necrosis or infection (principal); K80.20 Calculus of gallbladder without cholecystitis without obstruction
CPT/HCPCS: 80061

== ENCOUNTER 2024-09-14 04:29 | Observation (INO) | payer OTHER, SELFPAY ==
[2024-09-14] VITALS (27 sets, daily range): BP systolic 93–177; BP diastolic 57–121; PULSE 59–85; RESP 9–19; TEMP 36–36.9; O2SAT 92–100; BMI 42.6
--- NOTE | 2024-09-14 04:30 | DI.CT_ITS ---
Exam(s) CT ABDOMEN PELVIS W EXAM: CT ABDOMEN PELVIS W CLINICAL HISTORY: RUQ pain, gallstones. TECHNIQUE: Imaging Protocol: Axial computed tomography images with coronal and sagittal reformatted images were created and reviewed CONTRAST MATERIAL: Intravenous: Omnipaque 350 Contrast volume:100 ml Oral: no COMPARISON: CT CT ABDOMEN PELVIS W from 08/27/2024 US US ABDOMEN LIMITED from 08/28/2024 FINDINGS: ABDOMEN and PELVIS: Lung Bases: No acute findings. Liver: Normal density. No suspicious mass. Gallbladder and biliary tract: No radiodense calculus. No wall thickening or pericholecystic fluid. No biliary dilation. Pancreas: Normal density. No abnormal calcifications or inflammatory process. No evidence of mass. Previously noted inflammatory changes of the pancreas are no longer visible. Spleen: Normal. Kidneys: Normal size, contour and axis. No radiodense stones. No obstructive uropathy. No suspicious masses seen. Adrenal glands: No masses seen. Vasculature: Abdominal aorta non-dilated. Soft tissues: Small fatty containing hernias above the level of the umbilicus. Bladder: No gross wall thickening. No calculi.No focal mass. Bowel: No obstruction. No bowel wall thickening. Appendix normal. Peritoneal cavity: Trace fluid in the pelvis, physiologic.. No focal collection. No mesenteric inflammatory response. No free air. Bones: Unremarkable for age. Reproductive organs: Unremarkable. IUD in place. Lymph nodes: No pathologically enlarged lymph nodes. IMPRESSION:: No acute abnormality in the abdomen or pelvis. The preliminary [facility] report was reviewed. RADIATION DOSE DELIVERED: Total DLP DATA REPOSITORY: All CT scans at this facility are submitted to the National Radiology Data Registry (NRDR) Dose Index Registry (DIR) with the [employer] (A[employer]). RADIATION OPTIMIZATION: All CT scans at this facility use at least one of these dose optimization techniques: automated exposure control; mA and/or kV adjustment per patient size (includes targeted exams where dose is matched to clinical indication); or iterative reconstruction.
[2024-09-14 05:00] LABS: Abs Immature Grans 0.02 10^3/uL (0.0-0.06); HCT 39.9 % (36.0-46.0); HGB 12.9 g/dL (11.2-15.7); Immature Grans % 0.3 %; MCH 30.4 pg (27.0-33.0); MCHC 32.3 % (32.0-36.0); MCV 94 fL (80-95); MPV 11.0 fL (8.0-11.0); Platelet Count 301 10^3/uL (130-400); RBC 4.24 10^6/uL (3.93-5.22); RDW 14.6 % (11.7-14.6); RDW-SD 50.1 fL; WBC 7.81 10^3/uL (4.4-10.8)
[2024-09-14] MEDS: Ondansetron 4 MG/2 ML VIAL IVP ×2 (05:01→17:31)
[2024-09-14] MEDS: MORPHine 4 MG/ML SYR IVP (05:01)
[2024-09-14] MEDS: Lactated Ringers 1,000 ML 1000 ML IV (05:02)
[2024-09-14 05:15] LABS: ALT 23 U/L (14-59); AST 18 U/L (15-37); Albumin 4.3 g/dL (3.4-5.0); Alkaline Phosphatase 65 U/L (46-116); Anion Gap 11.7 mmol/L (3-11); BUN 16 mg/dL (7-18); Bilirubin, Direct 0.1 mg/dL (0.0-0.2); Bilirubin, Total 0.4 mg/dL (0.2-1.0); CO2 26.3 mmol/L (21.0-32.0); Calcium 9.1 mg/dL (8.5-10.1); Chloride 102 mmol/L (98-107); Estimated GFR 100.96 (mL/min/1.73m2); Glucose 102 mg/dL (74-106); Lipase 69 U/L (<78); Potassium 4.0 mmol/L (3.5-5.1); Sodium 140 mmol/L (136-145); Total Protein 8.2 g/dL (6.4-8.2)
--- NOTE | 2024-09-14 05:30 | W.ED.GENAD ---
Discharge Plan Disposition Patient Disposition: Admit to [facility] Condition: Good Discharge Details Clinical Impression: Acute cholecystitis Primary Care Provider: Radha Etienne ED Provider: Sanjay Felix Home Meds and New Rx's Prescriptions: No Action clindamycin phosphate 1 % lotion 1 applic topical QHS PRN (Reason: axillary rash (?BULLOCK)) Qty: 60 0RF Rx Instructions: Apply to skin bilateral armpits bedtime PRN outbreaks Mirena 21 mcg/24hr (up to 8 yrs) 52 mg intrauterine device 1 device intrauterine ONCE Qty: 1 0RF Rx Instructions: as a single dose albuterol sulfate 2.5 mg /3 mL (0.083 %) solution for nebulization 2.5 mg inhalation QID PRN (Reason: shortness of breath or wheezing) Qty: 180 12RF loratadine 10 mg capsule 10 mg PO DAILY PRN hydrocortisone 2.5 % cream 1 applic topical TID PRN (Reason: skin irritation) Qty: 20 1RF Rx Instructions: Apply thin layer to keon-orbital skin irritation up to 3x/d PRN for no more than 2 consecutive weeks. PNV no.[id number] acid 28 mg iron- 800 mcg tablet 1 tab PO DAILY sertraline 50 mg tablet 50 mg PO DAILY Qty: 90 3RF tacrolimus 0.1 % ointment 1 applic topical BID PRN Rx Instructions: Apply twice daily to the affected areas on the eyelids as needed when flaring[place] [facility] [place] 10[place]16/22 valacyclovir [Valtrex] 1 gram tablet 1,000 mg PO DAILY Qty: 90 4RF nystatin 100,000 unit/gram powder 1 applic topical QID Qty: 15 1RF Airsupra 90-80 mcg/actuation HFA aerosol inhaler 2 inh inhalation ONCE Qty: 10.7 0RF Rx Instructions: as a single dose; may repeat up to 6 doses per day (12 inhalations) fluticasone propion-salmeterol [Advair HFA] 230-21 mcg/actuation HFA aerosol inhaler 2 puff inhalation BID Qty: 12 12RF Spiriva Respimat 2.5 mcg/actuation mist 2 puff inhalation DAILY Qty: 4 12RF montelukast 10 mg tablet 10 mg PO QHS Qty: 90 3RF ondansetron 4 mg tablet,disintegrating 4 mg PO Q8H PRNQty: 14 0RF ondansetron 4 mg tablet,disintegrating 4 mg PO TID PRN PRN (Reason: nausea and vomiting) Qty: 7 0RF HPI General Date/Time Provider Initiated Documentation: 09/14/24 04:44. HPI Narrative: This is a 29-year-old female with past medical history of depression, recent pancreatitis with admission on 09/05/2024, who was noted to have some gallstones on ultrasound, past medical history of asthma, SVT with ablation, and previous , presents today for right upper quadrant pain. Patient states that she has been having a bland diet ever since her discharge, she was supposed to follow-up outpatient to discuss potential elective cholecystectomy in the future. She had been doing well at home until tonight when she had sudden severe right upper quadrant pain. Pain is stabbing in nature, it goes to the right back and flank. She denies fever or chills or vomiting. She does admit to nausea. She denies any urinary complaints. She did have a chicken wrap with some ranch dressing last night, but states that she has had this since her hospital discharge without problems. Patient denies any other complaints at this time. No other modifying factors. Related Data Home Medications ?Medication ?Instructions ?Recorded ?Confirmed loratadine 10 mg capsule 10 mg PO DAILY PRN 06/29/21 09/14/24 hydrocortisone 2.5 % topical cream 1 applic topical TID PRN skin 08/15/21 09/14/24 irritation #20 grams tacrolimus 0.1 % topical ointment 1 applic topical BID PRN 10/18/22 09/14/24 vitamins no.121-iron 28 1 tab PO DAILY 05/29/23 09/14/24 mg-folic acid 800 mcg tablet clindamycin phosphate 1 % lotion 1 applic topical QHS PRN axillary 08/27/23 09/14/24 rash (?BULLOCK) #60 mL valacyclovir 1 gram tablet 1,000 mg PO DAILY #90 tabs 11/14/23 09/14/24 (Valtrex) nystatin 100,000 unit/gram topical 1 applic topical QID #15 grams 02/08/24 09/14/24 powder levonorgestrel (Mirena) 1 device intrauterine ONCE #1 ea 03/03/24 09/14/24 albuterol 90 mcg-budesonide 80 2 inh inhalation ONCE #10.7 grams 03/20/24 09/14/24 mcg/actuation HFA aerosol inhaler (Airsupra) albuterol sulfate 2.5 mg/3 mL 2.5 mg (3 mL) inhalation QID PRN 03/27/24 09/14/24 (0.083 %) solution for nebulization shortness of breath or wheezing #180 mL sertraline 50 mg tablet 50 mg PO DAILY #90 tabs 06/04/24 09/14/24 fluticasone propionate 230 2 puff inhalation BID #12 grams 07/21/24 09/14/24 mcg-salmeterol 21 mcg/actuation HFA inhaler (Advair HFA) montelukast 10 mg tablet 10 mg PO QHS #90 tabs 07/21/24 09/14/24 tiotropium bromide 2.5 2 puff inhalation DAILY #4 grams 07/21/24 09/14/24 mcg/actuation mist for inhalation (Spiriva Respimat) ondansetron 4 mg disintegrating 4 mg PO Q8H PRN #14 tabs 08/27/24 09/14/24 tablet ondansetron 4 mg disintegrating 4 mg PO TID PRN PRN nausea and 09/07/24 09/14/24 tablet vomiting #7 tabs Previous Rx's ?Medication ?Instructions ?Recorded hydrocortisone 2.5 % topical cream 1 applic topical TID PRN skin 08/15/21 irritation #20 grams clindamycin phosphate 1 % lotion 1 applic topical QHS PRN axillary 08/27/23 rash (?BULLOCK) #60 mL valacyclovir 1 gram tablet 1,000 mg PO DAILY #90 tabs 11/14/23 (Valtrex) nystatin 100,000 unit/gram topical 1 applic topical QID #15 grams 02/08/24 powder levonorgestrel (Mirena) 1 device intrauterine ONCE #1 ea 03/03/24 albuterol 90 mcg-budesonide 80 2 inh inhalation ONCE #10.7 grams 03/20/24 mcg/actuation HFA aerosol inhaler (Airsupra) albuterol sulfate 2.5 mg/3 mL 2.5 mg (3 mL) inhalation QID PRN 03/27/24 (0.083 %) solution for nebulization shortness of breath or wheezing #180 mL sertraline 50 mg tablet 50 mg PO DAILY #90 tabs 06/04/24 fluticasone propionate 230 2 puff inhalation BID #12 grams 07/21/24 mcg-salmeterol 21 mcg/actuation HFA inhaler (Advair HFA) montelukast 10 mg tablet 10 mg PO QHS #90 tabs 07/21/24 tiotropium bromide 2.5 2 puff inhalation DAILY #4 grams 07/21/24 mcg/actuation mist for inhalation (Spiriva Respimat) ondansetron 4 mg disintegrating 4 mg PO Q8H PRN #14 tabs 08/27/24 tablet ondansetron 4 mg disintegrating 4 mg PO TID PRN PRN nausea and 09/07/24 tablet vomiting #7 tabs Allergies Allergy/AdvReac Type Severity Reaction Status Date / Time shellfish derived Allergy Intermediate vomiting Verified 09/14/24 04:43 codeine phosphate (From AdvReac Severe vomiting Verified 09/14/24 04:43 Tylenol-Codeine #3) trazodone AdvReac Intermediate Night Verified 09/14/24 04:43 terrors General Stated Complaint: Abd Prob LONA: 3 Exam Narrative Exam Narrative: 1.Const: Well-nourished, Well-developed, appearing stated age 2.Eyes: PERRL, no conjunctival injection, and symmetrical lids. 3.ENT: Atraumatic external nose and ears. Moist MM. Neck: Symmetric, trachea midline, No thyromegaly. 4.CVS: +S1/S2, Peripheral pulses 2+ and equal in all extremities. Brisk capillary refill in all extremities. 5.RESP: Unlabored respiratory effort. Clear to auscultation bilaterally. No wheezes rales or rhonchi 6.GI: Soft, nondistended, mild right upper quadrant tenderness. Positive Killian sign. No pain at McBurney's point. 7.MSK: Normocephalic/Atraumatic, Extremities w/o deformity or ttp No cyanosis or clubbing, Normal movement of all extremities 8.Skin: Warm, Dry. No rashes or lesions. 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 Sensation grossly intact, no focal neurologic deficits. 10.Psych: (AAO) x3. Appropriate mood and affect Course Vital Signs Vital signs: Vital Signs Temperature 36.7 C 09/14/24 04:40 Pulse 80 09/14/24 04:40 Respiratory Rate 18 09/14/24 04:40 Blood Pressure 177/93 H 09/14/24 04:40 Pulse Oximetry 100 09/14/24 04:40 Temperature 36.7 C 09/14/24 04:40 Temperature Source Skin 09/14/24 04:40 Pulse 80 09/14/24 04:40 Respiratory Rate 18 09/14/24 04:40 Blood Pressure 177/93 H 09/14/24 04:40 Blood Pressure Position Sitting 09/14/24 04:40 Pulse Oximetry 100 09/14/24 04:40 Oxygen Delivery Method Room Air 09/14/24 04:40 Oxygen Flow Rate 0 09/14/24 04:40 Lab/Test Results Lab/Test Results: Laboratory Tests Range/Units 09/14/24 04:50 WBC (4.4-10.8) 10^3/uL 7.81 RBC (3.93-5.22) 10^6/uL 4.24 Hgb (11.2-15.7) g/dL 12.9 Hct (36.0-46.0) % 39.9 MCV (80-95) fL 94 MCH (27.0-33.0) pg 30.4 MCHC (32.0-36.0) % 32.3 RDW (11.7-14.6) % 14.6 Plt Count (130-400) 10^3/uL 301 MPV (8.0-11.0) fL 11.0 Immature Gran % % 0.3 Neutrophils % % 65.6 Lymphocytes % % 26.4 Monocytes % % 4.9 Eosinophils % % 2.2 Basophils % % 0.6 Nucleated RBC % (0.0-0.3) % 0.0 Absolute Neutrophils (1.2-6.7) 10^3/uL 5.13 Absolute Lymphocytes (1.2-3.4) 10^3/uL 2.06 Absolute Monocytes (0.1-0.8) 10^3/uL 0.38 Absolute Eosinophils (0.0-0.7) 10^3/uL 0.17 Absolute Basophils (0.0-0.2) 10^3/uL 0.05 Sodium (136-145) mmol/L 140 Potassium (3.5-5.1) mmol/L 4.0 Chloride (98-107) mmol/L 102 Carbon Dioxide (21.0-32.0) mmol/L 26.3 Anion Gap (3-11) mmol/L 11.7 H BUN (7-18) mg/dL 16 Creatinine (0.55-1.02) mg/dL 0.8 Est GFR (CKD-EPI 2020) (mL/min/1.73m2) 100.96 Glucose (74-106) mg/dL 102 Calcium (8.5-10.1) mg/dL 9.1 Total Bilirubin (0.2-1.0) mg/dL 0.4 Conjugated Bilirubin (0.0-0.2) mg/dL 0.1 AST (15-37) U/L 18 ALT (14-59) U/L 23 Alkaline Phosphatase (46-116) U/L 65 Total Protein (6.4-8.2) g/dL 8.2 Albumin (3.4-5.0) g/dL 4.3 Lipase (<78) U/L 69 Medical Decision Making This is a 29-year-old female with past medical history of depression, recent pancreatitis with admission on 09/05/2024, who was noted to have some gallstones on ultrasound, past medical history of asthma, SVT with ablation, and previous , presents today for right upper quadrant pain. Patient states that she has been having a bland diet ever since her discharge, she was supposed to follow-up outpatient to discuss potential elective cholecystectomy in the future. [facility] she had sudden severe right upper quadrant pain. Pain is stabbing in nature, it goes to the right back and flank. She denies fever or chills or vomiting. She does admit to nausea. She denies any urinary complaints. She did have a chicken wrap with some ranch dressing last night, but states that she has had this since her hospital discharge without problems. Patient denies any other complaints at this time. No other modifying factors. Exam demonstrates mildly tender abdomen in the right upper quadrant with positive Killian sign, no pain at McBurney's point. Concern for acute cholecystitis, or biliary colic. Will rehydrate, treat with antiemetics, treat the patient's pain, get CT imaging, monitor closely and reassess. Differential also includes UTI, urolithiasis, less likely recurrent pancreatitis. 6:11 AM Laboratory workup has returned, no white count bandemia or left shift. CT scan shows evidence of moderately distended gallbladder, possible pericholecystic fat stranding versus artifact, concerning for cholecystitis. Patient feels better after the morphine, but still does have reproducible right upper quadrant tenderness on palpation. Borderline positive Killian sign. Patient conveys that she would prefer to have surgery if possible. Discussed the case with surgeon Dr. Becerril, he agrees with the assessment and plan. Patient will be admitted for further surgical management and cholecystectomy. I have extensively reviewed the treatment plan with the patient. I have addressed all patient concerns at this time. I have also discussed the plan with the admitting physician and they agree with the current assessment and plan and have agreed to assume responsibility for the patient. All parties demonstrate verbal understanding and agreement with our assessment and plan at this time. The documentation in this chart was dictated using [employer] dictation software. Please excuse any dictation errors. FINDINGS: Lungs: Lung bases clear. Liver: Normal appearing liver. Gallbladder and biliary ducts: Moderate gallbladder distention. Suggestion of pericholecystic fat stranding versus artifact. No calcified gallstones. No biliary dilatation. Pancreas: Normal appearing pancreas. Spleen: Normal appearing spleen. Adrenal glands: Normal appearing adrenal glands. Kidneys and ureters: Normal appearing kidneys. No hydronephrosis. No obstructing ureteral stones. Stomach and bowel: No oral contrast. Stomach partially decompressed. No small bowel dilatation to suggest obstruction. Normal-appearing fecal material and gas in the colon and rectum. Appendix: Normal appendix. Intraperitoneal space: Small amount of free fluid in the deep pelvis. No free air. Vasculature: Normal caliber abdominal aorta. Lymph nodes: Scattered small mesenteric lymph nodes, nonspecific. No pathologically enlarged retroperitoneal or pelvic sidewall nodes. Urinary bladder: Urinary bladder partially collapsed but grossly unremarkable, as seen Reproductive: Anteverted uterus, normal in size. T-shaped intrauterine device in-situ. Normal-sized ovaries. 1.3 cm x 1.1 cm peripherally enhancing right ovarian corpus luteum, image 90 of series 8 Bones/joints: No acute fracture seen among the bones of the abdomen or pelvis. Soft tissues: Small fat containing ventral hernias at and superior to the umbilicus. IMPRESSION: 1. Gallbladder moderately distended. Possible pericholecystic fat stranding versus artifact. Clinical correlation is recommended to assess the possibility of acute cholecystitis. No calcified gallstones or biliary dilatation. 2. Peripherally enhancing 1.3 cm x 1.1 cm right ovarian corpus luteum. Small amount of free fluid in the cul-de-sac of Manuel. Thank you for allowing us to participate in the care of your patient. Dictated and Authenticated by: Reji Webb MD 09/14/2024 5:55 AM Eastern Time ([place] & [place]) [facility] [place] All Active Problems (Updated 09/14/24 @ 06:13 by Sanjay Felix DO) Acute cholecystitis (Acute) Depression (Chronic) Cholelithiasis (Chronic) Pancreatitis, acute (Acute) Stress due to marital problems (Acute ~05/2024) Snores (Acute ~2024) IUD (intrauterine device) in place (Acute) 12/2023. Mirena inserted care following delivery (Acute) Status post primary low transverse section (Acute) Primary low-transverse section 11/21/2023 at 37 weeks and 1 day due to preeclampsia with severe features, intrahepatic cholestasis, breech presentation. Male infant. 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 Valtrex for suppression. Hidradenitis suppurativa (Acute) [facility] [place]/16/22 Extensor carpi ulnaris tendinitis (Acute ~02/2022) LEFT Depo-Medrol Injection: 03/10/22 Periorbital dermatitis (Acute ~06/2021) Pain of ulnar side of wrist (Acute ~12/2021) Adjustment disorder (Chronic ~04/2021) Asthma (Chronic) Mild intermittent Medical History Skin rash Intrahepatic cholestasis of Preeclampsia Family history of congenital heart defect History of supraventricular tachycardia (~2013) Elevated TSH (~2020) 2020 & 2021 ELIZABETH II (cervical intraepithelial neoplasia II) Cold Knife Cone done 02/2021. Negative Margins. Pap q 6 months Atypical squamous cells of undetermined significance (ASCUS) on Papanicolaou smear of cervix Cannot rule out high-grade lesion Chest congestion SARS-CoV-2 positive (05/2021) Iron deficiency anemia Mirena IUD Back pain (08/01/11) Intermittent (lumbar) Insomnia (05/16/17) Trazodone; day-shift helped Heart murmur, systolic (02/20/14) s/p ablation for SVT 2013 (Patrick) GERD (gastroesophageal reflux disease) (02/20/14) SVT (supraventricular tachycardia) (~2013) s/p ablation 2013 Surgical History History of low transverse section Hx of cone biopsy of cervix Postoperative state (~02/23/21) Cold knife conization of the cervix 02/23/2021 History of cardiac radiofrequency ablation (~2013) History of tonsillectomy and adenoidectomy Family History Brother Crohn's disease Coarctation of aorta open heart surgery at 2 weeks of age at [facility] Mother Hypertension Asthma Allergies Father Hypertension Paternal Grandfather Myocardial infarct Maternal Grandfather Thyroid cancer Lung disease Paternal Grandmother Heart disease Diabetes Maternal Grandmother Autoimmune disease Diabetes Social History Smoking/Tobacco Use Status: Never Smoking risk assessment performed?: Yes Alcohol Intake: current Alcohol Intake frequency: a few times a month Drug use: Never Substance use type: does not use Adopted: No Foster care: No Housing: house current occupation: [employer] Duration: 45-60 minutes/day Frequency: 5-6 times per week Seatbelt use: always Working smoke detector in home: Yes Fire extinguisher in home: Yes Do you feel safe at home: Yes Do you feel safe in your relationship?: Yes Female Reproductive History Menstrual control method: progestin IUCD History History 1 Para 0 Hx # Term Pregnancies Multiple births Hx # Pregnancies Ectopic pregnancies AB induced Hx Number of Living Children AB spontaneous
[2024-09-14] MEDS: Normal Saline - Diluent 50 ML VIAL IJ (05:39)
[2024-09-14] MEDS: Omnipaque 350 MG/ML 100 ML BTL IJ (05:40)
--- NOTE | 2024-09-14 05:56 | DI.VRAD_ITS ---
PROCEDURE INFORMATION: Exam: CT Abdomen And Pelvis With Contrast Exam date and time: 09/14/2024 5:37 AM Age: 29 years old Clinical indication: Abdominal pain; Other: Ruq pain, gallstones TECHNIQUE: Imaging protocol: Computed tomography of the abdomen and pelvis with contrast. Contrast material: OMNI 350; Contrast volume: 100 ml; Contrast route: INTRAVENOUS (IV); COMPARISON: CT ABDOMEN PELVIS W 08/27/2024 7:28 PM FINDINGS: Lungs: Lung bases clear. Liver: Normal appearing liver. Gallbladder and biliary ducts: Moderate gallbladder distention. Suggestion of pericholecystic fat stranding versus artifact. No calcified gallstones. No biliary dilatation. Pancreas: Normal appearing pancreas. Spleen: Normal appearing spleen. Adrenal glands: Normal appearing adrenal glands. Kidneys and ureters: Normal appearing kidneys. No hydronephrosis. No obstructing ureteral stones. Stomach and bowel: No oral contrast. Stomach partially decompressed. No small bowel dilatation to suggest obstruction. Normal-appearing fecal material and gas in the colon and rectum. Appendix: Normal appendix. Intraperitoneal space: Small amount of free fluid in the deep pelvis. No free air. Vasculature: Normal caliber abdominal aorta. Lymph nodes: Scattered small mesenteric lymph nodes, nonspecific. No pathologically enlarged retroperitoneal or pelvic sidewall nodes. Urinary bladder: Urinary bladder partially collapsed but grossly unremarkable, as seen. Reproductive: Anteverted uterus, normal in size. T-shaped intrauterine device in-situ. Normal-sized ovaries. 1.3 cm x 1.1 cm peripherally enhancing right ovarian corpus luteum, image 90 of series 8 Bones/joints: No acute fracture seen among the bones of the abdomen or pelvis. Soft tissues: Small fat containing ventral hernias at and superior to the umbilicus. IMPRESSION: 1. Gallbladder moderately distended. Possible pericholecystic fat stranding versus artifact. Clinical correlation is recommended to assess the possibility of acute cholecystitis. No calcified gallstones or biliary dilatation. 2. Peripherally enhancing 1.3 cm x 1.1 cm right ovarian corpus luteum. Small amount of free fluid in the cul-de-sac of Manuel. Dictated and Authenticated by: Reji Webb MD. Orderin Elvira Grace MD
--- NOTE | 2024-09-14 07:22 | HPE_ITS ---
Assessment and Plan Assessment and plan (1) Acute cholecystitis: Status: Acute Assessment and plan: I do think that the history, exam, and imaging are consistent with acute cholecystitis. Furthermore, with an episode of previous pancreatitis, I think cholecystectomy is certainly indicated at this time. We talked about the nature of the operation, what to expect in terms of the risks, and the recovery. I think Gerri has a very good understanding of this. I have called the operating room team, will proceed to soon as possible History of Present Illness History of Present Illness Chief Complaint: Abdominal pain Narrative: Gerri is 29 years old. She comes to the emergency department with abdominal pain. Actually started more towards her back, but radiated to the right upper quadrant over the course of the night. It reminded her of an episode of pancreatitis that she experienced earlier this month. The pain is sharp, and a bit gnawing. She has had some nausea, without any vomiting. With regards to the pancreatitis, she was seen and treated here around August 27. Character of the pain at that time, was similar, perhaps a little more sharp, and more in the mid epigastrium. She had an elevated lipase, and CT findings consistent with acute pancreatitis. There was some uncertainty whether or not this was ruled of gallstone pancreatitis, or perhaps a side effect of medications. Symptoms improved fairly rapidly, and she did undergo an ultrasound that confirmed the presence of small cholelithiasis she was discharged home, with a plan for outpatient elective cholecystectomy. Unfortunately, her symptoms have returned. Liver function tests are normal at this time, and lipase is normal as well. CT scan earlier this morning shows a dilated gallbladder, with some evidence of pericholecystic fluid. Review of Systems Constitutional Constitutional: Denies fever(s) and Reports poor appetite Eyes Eyes: Reports system reviewed and no additional complaints, except as documented ENT Ears, Nose, Mouth, and Throat: Reports system reviewed and no additional complaints, except as documented Cardiovascular Cardiovascular: Denies chest pain and Denies dyspnea Respiratory Respiratory: Denies chest congestion, Denies cough and Denies dyspnea Gastrointestinal Gastrointestinal: Reports abdominal pain, Reports nausea and Denies vomiting Genitourinary Genitourinary: Reports system reviewed and no additional complaints, except as documented Musculoskeletal Musculoskeletal: Reports system reviewed and no additional complaints, except as documented Hematologic/Lymphatic Hematologic/Lymphatic: Denies easy bleeding and Denies easy bruising [facility] All Active Problems (Updated 09/14/24 @ 06:13 by Sanjay Felix DO) Acute cholecystitis (Acute) Depression (Chronic) Cholelithiasis (Chronic) Pancreatitis, acute (Acute) Stress due to marital problems (Acute ~05/2024) Snores (Acute ~2024) IUD (intrauterine device) in place (Acute) 12/2023. Mirena inserted care following delivery (Acute) Status post primary low transverse section (Acute) Primary low-transverse section 11/21/2023 at 37 weeks and 1 day due to preeclampsia with severe features, intrahepatic cholestasis, breech presentation. Male . 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 Valtrex for suppression. Hidradenitis suppurativa (Acute) [facility] [place] Note 10/16/22 Extensor carpi ulnaris tendinitis (Acute ~02/2022) LEFT Depo-Medrol Injection: 03/10/22 Periorbital dermatitis (Acute ~06/2021) Pain of ulnar side of wrist (Acute ~12/2021) Adjustment disorder (Chronic ~04/2021) Asthma (Chronic) Mild intermittent Medical History Skin rash Intrahepatic cholestasis of Preeclampsia Family history of congenital heart defect History of supraventricular tachycardia (~2013) Elevated TSH (~2020) 2020 & 2021 ELIZABETH II (cervical intraepithelial neoplasia II) Cold Knife Cone done 02/2021. Negative Margins. Pap q 6 months Atypical squamous cells of undetermined significance (ASCUS) on Papanicolaou smear of cervix Cannot rule out high-grade lesion Chest congestion SARS-CoV-2 positive (05/2021) Iron deficiency anemia Mirena IUD Back pain (08/01/11) Intermittent (lumbar) Insomnia (05/16/17) Trazodone; day-shift helped Heart murmur, systolic (02/20/14) s/p ablation for SVT 2013 (Patrick) GERD (gastroesophageal reflux disease) (02/20/14) SVT (supraventricular tachycardia) (~2013) s/p ablation 2013 Surgical History History of low transverse section Hx of cone biopsy of cervix Postoperative state (~02/23/21) Cold knife conization of the cervix 02/23/2021 History of cardiac radiofrequency ablation (~2013) History of tonsillectomy and adenoidectomy Family History Brother Crohn's disease Coarctation of aorta open heart surgery at 2 weeks of age at [facility] Mother Hypertension Asthma Allergies Father Hypertension Paternal Grandfather Myocardial infarct Maternal Grandfather Thyroid cancer Lung disease Paternal Grandmother Heart disease Diabetes Maternal Grandmother Autoimmune disease Diabetes Social History Smoking/Tobacco Use Status: Never Smoking risk assessment performed?: Yes Alcohol Intake: current Alcohol Intake frequency: a few times a month Drug use: Never Substance use type: does not use Adopted: No Foster care: No Housing: house current occupation: [employer] Duration: 45-60 minutes/day Frequency: 5-6 times per week Seatbelt use: always Working smoke detector in home: Yes Fire extinguisher in home: Yes Do you feel safe at home: Yes Do you feel safe in your relationship?: Yes Female Reproductive History Menstrual control method: progestin IUCD History History 2 1 Para 0 Hx # Term Pregnancies Multiple births Hx # Pregnancies Ectopic pregnancies AB induced Hx Number of Living Children AB spontaneous Meds Allergies and Home Medications Allergies Allergy/AdvReac Type Severity Reaction Status Date / Time shellfish derived Allergy Intermediate vomiting Verified 09/14/24 04:43 codeine phosphate (From AdvReac Severe vomiting Verified 09/14/24 04:43 Tylenol-Codeine #3) trazodone AdvReac Intermediate Night Verified 09/14/24 04:43 terrors Home Medications ?Medication ?Instructions ?Recorded ?Confirmed ?Type loratadine 10 mg capsule 10 mg PO DAILY PRN 06/29/21 09/14/24 History hydrocortisone 2.5 % topical cream 1 applic topical TI D PRN skin 08/15/21 09/14/24 Rx irritation #20 grams tacrolimus 0.1 % topical ointment 1 applic topical BID PRN 10/18/22 09/14/24 History vitamins no.121-iron 28 1 tab PO DAILY 09/14/24 History mg-folic acid 800 mcg tablet clindamycin phosphate 1 % lotion 1 applic topical QHS PRN axillary 08/27/23 09/14/24 Rx rash (?BULLOCK) #60 mL valacyclovir 1 gram tablet 1,000 mg PO DAILY #90 tabs 11/14/23 09/14/24 Rx (Valtrex) nystatin 100,000 unit/gram topical 1 applic topical QI D #15 grams 02/08/24 09/14/24 Rx powder levonorgestrel (Mirena) 1 device intrauterine ONCE # 1 ea 03/03/24 09/14/24 Rx albuterol 90 mcg-budesonide 80 2 inh inhalation ONCE # 10.7 grams 03/20/24 09/14/24 Rx mcg/actuation HFA aerosol inhaler (Airsupra) albuterol sulfate 2.5 mg/3 mL 2.5 mg (3 mL) inhalation QID PRN 03/27/24 09/14/24 Rx (0.083 %) solution for nebulization shortness of breat h or wheezing #180 mL sertraline 50 mg tablet 50 mg PO DAILY #90 tabs 05/2009/14/24 Rx fluticasone propionate 230 2 puff inhalation BID #12 g adis 07/21/24 09/14/24 Rx mcg-salmeterol 21 mcg/actuation HFA inhaler (Advair HFA) montelukast 10 mg tablet 10 mg PO QHS #90 tabs 09/14/24 Rx tiotropium bromide 2.5 2 puff inhalation DAILY #4 g adis 07/21/24 09/14/24 Rx mcg/actuation mist for inhalation (Spiriva Respimat) ondansetron 4 mg disintegrating 4 mg PO Q8H PRN #14 ta bs 08/27/24 09/14/24 Rx tablet ondansetron 4 mg disintegrating 4 mg PO TID PRN PRN na usea and 09/07/24 09/14/24 Rx tablet vomiting #7 tabs Exam Const General: cooperative and comfortable Orientation: alert, awake and oriented x3 HENMT Head: normal to inspection Eyes General: appearance normal, both eyes and all related structures Neck Neck: normal visual inspection, full ROM and no lymphadenopathy Resp Effort & Inspection: normal respiratory effort and able to speak in complete sentences Auscultation: clear to auscultation bilaterally Cardio Rate: regular rate Rhythm: regular rhythm Heart Sounds: S1 normal and S2 normal GI Inspection: normal to inspection and non-distended Palpation: soft and tender (Right upper quadrant) Percussion: normal to percussion Auscultation: hypoactive bowel sounds Results Imaging Abdomen CT scan report/results: report reviewed and image reviewed CT scan - pelvis: report reviewed and image reviewed Labs 09/14/24 04:50 09/14/24 04:50 Labs: Laboratory Results - last 24 hr 09/14/24 04:50 WBC 7.81 RBC 4.24 Hgb 12.9 Hct 39.9 MCV 94 MCH 30.4 MCHC 32.3 RDW 14.6 Plt Count 301 MPV 11.0 Immature Gran % 0.3 Neutrophils % 65.6 Lymphocytes % 26.4 Monocytes % 4.9 Eosinophils % 2.2 Basophils % 0.6 Nucleated RBC % 0.0 Absolute Neutrophils 5.13 Absolute Lymphocytes 2.06 Absolute Monocytes 0.38 Absolute Eosinophils 0.17 Absolute Basophils 0.05 Sodium 140 Potassium 4.0 Chloride 102 Carbon Dioxide 26.3 Anion Gap 11.7 H BUN 16 Creatinine 0.8 Est GFR (CKD-EPI 2020) 100.96 Glucose 102 Calcium 9.1 Total Bilirubin 0.4 Conjugated Bilirubin 0.1 AST 18 ALT 23 Alkaline Phosphatase 65 Total Protein 8.2 Albumin 4.3 Lipase 69 Last Vital Signs Temp 98.1 F 09/14/24 04:40 Pulse 80 09/14/24 04:40 Resp 18 09/14/24 04:40 BP 177/93 H 09/14/24 04:40 Pulse Ox 100 09/14/24 04:40
[2024-09-14 08:00] LABS: Glucose Negative (Negative)
--- NOTE | 2024-09-14 08:03 | ANES.PREOP_ITS ---
General Info Date of Service Date Performed: 09/14/24 Height: 5 ft 9 in Weight: 131 kg Body Mass Index (BMI): 42.6 Surgical Procedure: Operation Date: 09/14/24 07:55 Proposed Procedure Side Surgeon p Cholecystectomy Laparoscopic Dave Becerril MD Meds Allergies and Home Medications Allergies Allergy/AdvReac Type Severity Reaction Status Date / Time shellfish derived Allergy Intermediate vomiting Verified 09/14/24 04:43 codeine phosphate (From AdvReac Severe vomiting Verified 09/14/24 04:43 Tylenol-Codeine #3) trazodone AdvReac Intermediate Night Verified 09/14/24 04:43 terrors Home Medication ?Medication ?Instructions ?Recorded loratadine 10 mg capsule 10 mg PO DAILY PRN 06/29/21 hydrocortisone 2.5 % topical cream 1 applic topical TI D PRN skin 08/15/21 irritation #20 grams tacrolimus 0.1 % topical ointment 1 applic topical BID PRN 10/18/22 vitamins no.121-iron 28 1 tab PO DAILY mg-folic acid 800 mcg tablet clindamycin phosphate 1 % lotion 1 applic topical QHS PRN axillary 08/27/23 rash (?BULLOCK) #60 mL valacyclovir 1 gram tablet 1,000 mg PO DAILY #90 tabs 11/14/23 (Valtrex) nystatin 100,000 unit/gram topical 1 applic topical QI D #15 grams 02/08/24 powder levonorgestrel (Mirena) 1 device intrauterine ONCE # 1 ea 03/03/24 albuterol 90 mcg-budesonide 80 2 inh inhalation ONCE # 10.7 grams 03/20/24 mcg/actuation HFA aerosol inhaler (Airsupra) albuterol sulfate 2.5 mg/3 mL 2.5 mg (3 mL) inhalation QID PRN 03/27/24 (0.083 %) solution for nebulization shortness of breat h or wheezing #180 mL sertraline 50 mg tablet 50 mg PO DAILY #90 tabs 05/20 08/13 fluticasone propionate 230 2 puff inhalation BID #12 g adis 07/21/24 mcg-salmeterol 21 mcg/actuation HFA inhaler (Advair HFA) montelukast 10 mg tablet 10 mg PO QHS #90 tabs tiotropium bromide 2.5 2 puff inhalation DAILY #4 g adis 07/21/24 mcg/actuation mist for inhalation (Spiriva Respimat) ondansetron 4 mg disintegrating 4 mg PO Q8H PRN #14 ta bs 08/27/24 tablet ondansetron 4 mg disintegrating 4 mg PO TID PRN PRN na usea and 09/07/24 tablet vomiting #7 tabs Current Visit Medications: Current Medications Generic Name Dose Route Start Last Admin Trade Name Freq PRN Reason Stop Dose Admin IV Miscellaneous Supplies 1 each 09/14/24 04:45 Iv Access-Emergency Dept IV DIRECTED ANDIE Iohexol 100 ml 09/14/24 05:45 09/14/24 05:40 Omnipaque 350 Mg/Ml 100 Ml Btl IJ 10/14/24 23:59 100 ml DIRECTED ANDIE Administration Sodium Chloride 0 ml 09/14/24 04:44 Normal Saline Flush 10 Ml Syr IVP PRN PRN Sodium Chloride 0 ml 09/14/24 08:30 Normal Saline Flush 10 Ml Syr IVP BID ANDIE Sodium Chloride 0 ml 09/14/24 04:44 Normal Saline 10 Ml Vial IJ DIRECTED PRN Sodium Chloride 50 ml 09/14/24 05:45 09/14/24 05:39 Normal Saline - Diluent 50 Ml Vial IJ 50 ml .FOR DI USE ANDIE Administration PFSH Active Problems Active Problems: Problem Status Onset Code Acute cholecystitis Acute K81.0 Depression Chronic F32.A Cholelithiasis Chronic K80.20 Pancreatitis, acute Acute K85.90 Stress due to marital problems Acute ~05/2024 Z63.0 Snores Acute ~2024 R06.83 IUD (intrauterine device) in place Acute Z97.5 care following delivery Acute Z39.2 Status post primary low transverse section Acute Z98.891 Obesity, morbid, BMI 40.0-49.9 Chronic E66.01 Elevated BP without diagnosis of hypertension Acute R03.0 HSV-2 (herpes simplex virus 2) infection Chronic B00.9 Hidradenitis suppurativa Acute L73.2 Extensor carpi ulnaris tendinitis Acute ~02/2022 M77.8 Periorbital dermatitis Acute ~06/2021 L30.9 Pain of ulnar side of wrist Acute ~12/2021 M25.539 Adjustment disorder Chronic ~04/2021 F43.20 Asthma Chronic Medical History Medical History Skin rash Intrahepatic cholestasis of Preeclampsia Family history of congenital heart defect History of supraventricular tachycardia (~2013) Elevated TSH (~2020) 2020 & 2021 ELIZABETH II (cervical intraepithelial neoplasia II) Cold Knife Cone done 02/2021. Negative Margins. Pap q 6 months Atypical squamous cells of undetermined significance (ASCUS) on Papanicolaou smear of cervix Cannot rule out high-grade lesion Chest congestion SARS-CoV-2 positive (05/2021) Iron deficiency anemia Mirena IUD Back pain (08/01/11) Intermittent (lumbar) Insomnia (05/16/17) Trazodone; day-shift helped Heart murmur, systolic (02/20/14) s/p ablation for SVT 2013 (Patrick) GERD (gastroesophageal reflux disease) (02/20/14) SVT (supraventricular tachycardia) (~2013) s/p ablation 2013 Surgical History Surgical History History of low transverse section Hx of cone biopsy of cervix Postoperative state (~02/23/21) Cold knife conization of the cervix 02/23/2021 History of cardiac radiofrequency ablation (~2013) History of tonsillectomy and adenoidectomy Tobacco Smoking/Tobacco Use Status: Never Passive smoking exposure: No Alcohol Alcohol Intake: current Alcohol intake frequency: a few times a month Substance Use Substance use: Never Substance use type: does not use Prental History History 2 1 Para 0 Hx # Term Pregnancies Multiple births Hx # Pregnancies Ectopic pregnancies AB induced Hx Number of Living Children AB spontaneous Vital Signs and Lab Results Vital Signs Most Recent Vital Signs in EMR: Most Recent Vital Signs Temp Pulse Resp BP Pulse Ox 36.7 C 63 18 159/84 H 93 09/14/24 04:40 09/14/24 07:10 09/14/24 04:40 09/14/24 05:31 09/14/24 07:10 Lab Results 09/14/24 04:50 09/14/24 04:50 Complete Blood Count: 2 WBC, (4.4-10.8) 7.81 10^3/uL Today, 04:50 RBC, (3.93-5.22) 4.24 10^6/uL Today, 04:50 Hgb, (11.2-15.7) 12.9 g/dL Today, 04:50 Hct, (36.0-46.0) 39.9 % Today, 04:50 Plt Count, (130-400) 301 10^3/uL Today, 04:50 VBG Lactate, (<or=2.0) 0.8 mmol/L 08/27/24, 20:40 Complete Metabolic Panel: 2 Sodium, (136-145) 140 mmol/L Today, 04:50 Potassium, (3.5-5.1) 4.0 mmol/L Today, 04:50 Chloride, (98-107) 102 mmol/L Today, 04:50 Carbon Dioxide, (21.0-32.0) 26.3 mmol/L Today, 04:50 BUN, (7-18) 16 mg/dL Today, 04:50 Creatinine, (0.55-1.02) 0.8 mg/dL Today, 04:50 Est GFR (CKD-EPI 2020), (mL/min/1.73m2) 100.96 Today, 04:50 Magnesium, (1.8-2.4) 1.9 mg/dL 09/07/24, 06:05 Calcium, (8.5-10.1) 9.1 mg/dL Today, 04:50 Albumin, (3.4-5.0) 4.3 g/dL Today, 04:50 Glucose, (74-106) 102 mg/dL Today, 04:50 C-Reactive Protein, (<or=0.5) 0.91 mg/dL H 08/27/24, 20:40 Liver Function Panel: 2 ALT, (14-59) 23 U/L Today, 04:50 AST, (15-37) 18 U/L Today, 04:50 Coagulation Panel: 2 INR, (0.9-1.1) 1.0 08/28/24, 07:30 PT, (9.1-11.1) 10.4 sec 08/28/24, 07:30 Cardiac Panel: 2 Troponin I, (<or=51) 5 ng/L 08/27/24 Venous Blood Gas: 2 VBG pH, (7.31-7.41) 7.38 08/27/24, 20:40 VBG pO2 29 mmHg 08/27/24, 20:40 VBG pCO2, (41-51) 47 mmHg 08/27/24, 20:40 VBG O2 Saturation 52 % 08/27/24, 20:40 VBG HCO3, (23-28) 28 mmol/L 08/27/24, 20:40 VBG Base Excess, (-2-3) 3 mmol/L 08/27/24, 20:40 VBG Total CO2, (24-29) 26 mmol/L 08/27/24, 20:40 Pancreas Panel: 2 Lipase, (<78) 69 U/L Today, 04:50 Infectious Disease: 2 SARS-CoV-2 (PCR), (Negative) Negative 08/28/24, 0 9:04 COVID-19 Source Nasopharynx 08/28/24, 09:04 Influenza Type A (PCR), (Negative) Negative 08/28, 09:04 Influenza Type B (PCR), (Negative) Negative 08/28, 09:04 RSV (PCR), (Negative) Negative 08/28/24, 09:04 Imaging and Studies Imaging and Studies Study information below may be from another EMR and interpreted by another provider. Please see original notes in EMR for more complete details. EKG Summary: 08/13/21 Sinus rhythm...normal P axis, V-rate 60- 99 I have reviewed and I agree with the emergency room physician's ECG interpretation. Echocardiogram Summary: Summary: 1. Left ventricle: The cavity size was normal. Wall thickness was at the upper limits of normal. Systolic function was normal. The estimated ejection fraction was 55-60%. Wall motion was normal; there were no regional wall motion abnormalities. 2. Aortic valve: There was trivial regurgitation. 3. Right ventricle: The cavity size was normal. Wall thickness was normal. Systolic function was normal. 11/22/17 Anesthesia Assessment and Plan Anesthesia History Personal History: No History of Anesthesia Complications Family History: No Family History of Anesthesia Complications Exercise Tolerance Exercise Tolerance: Metabolic Equivalents>4 Pertinent Negatives Pertinent Negatives: No Symptoms of GERD, No Major Cardiovascular Symptoms or Complaints (Hx of SVT - ablation 2013, HTN diastolic > 100 on DOS ), No Major Pulmonary Symptoms or Complaints (Asthma, well controlled - last used rescue inhaler years ago ) and No History of CVA/TIA Cardiac & Pulmonary Exam Cardiac Exam: Normal S1/S2 Heart Sounds Pulmonary Exam: Clear Bilateral Breath Sounds Implantable Cardiac Device Does patient have a Pacemaker or an ICD?: No Airway Exam Known Difficult Airway: No Mallampati Class: 2 Mouth Opening: Normal (> 3cm) Thyromental Distance: Less than 3 cm Neck Range of Motion: Full ROM Neck Circumference: Thick Teeth Condition: Normal Dentition ASA Classification ASA Score: ASA 3 Emergency Case?: No NPO Status NPO Status: NPO Clears >2 hours, Solids >8 hours Status Status: Negative HCG Anesthesia Plan Resuscitation Status: Full Code Anesthesia Technique: General Anesthesia Airway Planned: Endotracheal Tube Monitors Used: Standard Monitors Preoperative Comments:: Recently stopped Tirzepatide due to pancreatitis (last dose three weeks ago). All questions answered
[2024-09-14] MEDS: Lactated Ringers 1,000 ML 30 ML IV ×2 (08:53→12:00)
[2024-09-14] MEDS: Indocyanine green 25 MG VIAL (09:04)
[2024-09-14] MEDS: ceFAZolin 2,000 MG in Normal Saline 100 ML 200 MG IVPB (09:10)
[2024-09-14] MEDS: Bupivacaine 0.25% Pres-Free W/EPI 30 ML VIAL (09:27)
--- NOTE | 2024-09-14 10:50 | GB_PTH ---
PATIENT: Gerri Talley LOC: [facility] Araya#:[id number] AGE/SX: 29/F ROOM: RE09/14/[address]: Dave Becerril MD : 1995 BED: A DIS: 09/15/2024 SPEC #: [id number] RECD: 09/15/24 12:46 STATUS: BALAJI REQ #: [id number] ETHAN: 09/14/24 10:[address]: Dave Becerril DEPT: Surgical Specimen RECD BY: Katarzyna Garcia ENTERED: 09/15/24 12:46 SP TYPE: GB OTHR DR: Radha Etienne APRN Tissues: 1 - GALLBLADDER Procedures: GROSS AND MICRO LEVEL 3 Comments: [id number]
--- NOTE | 2024-09-14 11:10 | W.PM.OP ---
Operative Note Operative Note PRE-OP DIAGNOSIS: Acute on chronic cholecystitis POST-OP DIAGNOSIS: same PROCEDURE: Laparoscopic cholecystectomy SURGEON: Dave Becerril EAR MACHINE OPERATOR: Aurelia Barnes ANESTHESIA TYPE: Local By Surgeon and General LMA/ETT Refer to Anesthesia Record ESTIMATED BLOOD LOSS: 25 PATHOLOGY: other (Gallbladder) COMPLICATIONS: None Patient was transported to: PACU Patient's condition: stable Indications: Gerri is a 29-year-old woman with recrudescence of right upper quadrant pain in the setting of known cholelithiasis. She underwent a CAT scan that suggested pericholecystic fluid consistent with acute on chronic cholecystitis. Findings: Acute on chronic cholecystitis Procedure Description: After satisfactory induction of general anesthesia, I prepped and draped the abdomen in usual fashion. Next, I began with a periumbilical incision. I dissected down into the subcutaneous space to the level of the fascia. Next, using a 5 mm optical viewing port, I gained entry into the peritoneum. There was some disruption of the mesentery with the port, but no bleeding, no evidence of any hollow visceral injury. Pneumoperitoneum was established. 5 mm 30 degree scope was reintroduced. Again, there was no evidence of any type of mesenteric bleeding or significant trauma. Gerri was then placed in some left-sided reverse Trendelenburg positioning. Another 5 mm port was placed in the right anterior axillary line, and the camera was moved to this position. The umbilical port was then upsized to 12 mm under the view of the laparoscope. The camera was moved back to the umbilical position, and 2 more 5 mm ports were established in the mid epigastrium in the right mid abdomen. I then grasped the gallbladder fundus and elevated cephalad. There were omental adhesions all along the gallbladder. Using combination of blunt dissection as well as electrocautery, these were mobilized from the gallbladder dome down towards the infundibulum. With the assistance of indocyanine green, I worked in a lateral to medial fashion to dissect to the cystic neck duct. Given what I suspect is longstanding chronic inflammation, this was a tedious dissection. There was a very diminutive cystic artery nearly adherent to the duct. Again, great care was taken to dissect this appropriately. I stay quite high on the cystic duct in an effort to avoid the tamy hepatis and common bile duct. With the artery and duct completely dissected, and the critical view of safety obtained, they were doubly clipped and divided. I then used electrocautery to dissect the gallbladder off the gallbladder fossa. I passed the gallbladder into an Endo Catch bag and removed it by way of the umbilical site. I examined the surgical field. It was hemostatic. The umbilical port site was closed with a Betito Crawley wound closure device. The remaining 5 mm ports were removed, and the skin and subcutaneous tissues were irrigated and closed with subcuticular stitches. Bandages were applied as Gerri was awoken from the anesthetic, extubated, and transferred to the recovery unit. Date of Procedure: 09/14/24
[2024-09-14] MEDS: Droperidol 5 MG/2 ML VIAL 0.625 MG IVP (11:34)
--- NOTE | 2024-09-14 11:41 | W.ANESPOSTOP ---
Postoperative Evaluation Date, Time and Location Date Performed: 09/14/24 Time Performed: 11:41 Patient Location: PACU Vital Signs Most Recent Imported Vital Signs: Most Recent Vital Signs Temp Pulse Resp BP Pulse Ox 36.3 C L 73 18 117/60 96 09/14/24 11:36 09/14/24 11:36 09/14/24 11:36 09/14/24 11:36 09/14/24 11:36 Pain Score Most Recent Pain Score: Most Recent Pain Score Pain Level 5 09/14/24 11:36 Assessment Mental Status: Arousable with meaningful communication Airway and Respiratory Function: Patent airway with normal (patient baseline) respiratory exam Cardiovascular Function: Hemodynamically Stable Hydration Status: Adequately Hydrated Nausea & Vomiting: Active Nausea or Vomiting Present Nausea and Vomiting Management: Nausea present without vomiting, patient wishes to be discharged (Patient received droperidol with some relief. Plan is to head upstairs to Med/Surg once a little better. ) Pain: Pain is tolerable per patient Peripheral Nerve Block: Patient did not receive a nerve block
[2024-09-14] MEDS: fentaNYL 100 MCG/2 ML VIAL IVP (11:48)
[2024-09-14] MEDS: traMADol 50 MG TAB PO ×2 (15:08→20:43)
[2024-09-14] MEDS: Acetaminophen 500 MG TAB 1000 MG PO (16:34)
--- NOTE | 2024-09-14 17:04 | W.PC.ACHO ---
Registration Status: ADM TERRANCE Primary Language: Preferred Language: Spanish ED Information & Data Chief Complaint Abd Prob 09/14/24 05:33 Triage Note severe upper abd pain, been 09/14/24 04:40 here in the lst two weeks wih the same pain. gallstones and pancreatitis Medical / Surgical History (Last Reviewed 09/08/24 @ 09:42 by Radha Etienne NP) Skin rash Intrahepatic cholestasis of Preeclampsia Family history of congenital heart defect History of supraventricular tachycardia (~2013) Elevated TSH (~2020) ELIZABETH II (cervical intraepithelial neoplasia II) Atypical squamous cells of undetermined significance (ASCUS) on Papanicolaou smear of cervix Chest congestion SARS-CoV-2 positive (05/2021) Iron deficiency anemia Back pain (08/01/11) Insomnia (05/16/17) Heart murmur, systolic (02/20/14) GERD (gastroesophageal reflux disease) (02/20/14) SVT (supraventricular tachycardia) (~2013) (Last Reviewed 09/08/24 @ 09:42 by Radha Etienne NP) History of low transverse section Hx of cone biopsy of cervix Postoperative state (~02/23/21) History of cardiac radiofrequency ablation (~2013) History of tonsillectomy and adenoidectomy Most Recent Vital Signs Temperature 36.9 C 09/14/24 16:20 Temperature Source Temporal Artery Scan 09/14/24 16:20 Pulse 64 09/14/24 16:20 Pulse Rhythm Regular 09/14/24 13:05 Respiratory Rate 17 09/14/24 16:20 Respiratory Effort Normal 09/14/24 13:05 Respiratory Depth Normal 09/14/24 13:05 Respiratory Pattern Normal 09/14/24 13:05 Blood Pressure 125/75 09/14/24 16:20 Blood Pressure Mean 91 09/14/24 16:20 Blood Pressure Position Sitting 09/14/24 04:40 Pulse Oximetry 96 09/14/24 16:20 Respiratory End-tidal CO2 42 09/14/24 11:21 Oxygen Delivery Method Room Air 09/14/24 16:20 Oxygen Flow Rate 0 09/14/24 16:20 Pain Level 3 09/14/24 16:20 Allergies shellfish derived Allergy (Intermediate, Verified 09/14/24 04:43) vomiting codeine phosphate (From Tylenol-Codeine #3) Adverse Reaction (Severe, Verified 09/14/24 04:43) vomiting trazodone Adverse Reaction (Intermediate, Verified 09/14/24 04:43) Night terrors Precautions Isolation Standard precaution 09/14/24 04:42 Active Medications Generic Name Dose Route Start Last Admin Trade Name Freq PRN Reason Stop Dose Admin Acetaminophen 1,000 mg 09/14/24 12:00 09/14/24 15:35 Acetaminophen 500 Mg Tab PO 10/14/24 11:59 Not Given Q6H ANDIE Nystatin 0 gm 09/14/24 12:32 09/14/24 15:36 Nystatin Powder 15 Gm Jar TP 10/14/24 11:59 Not Given QID ANDIE Tramadol HCl 50 mg 09/14/24 14:27 09/14/24 15:08 Tramadol 50 Mg Tab PO 50 mg Q6H PRN PRN Administration IV IV Catheter Type [Left Peripheral IV Antecubital] IV Catheter Gauge [Left 20 Antecubital] Diet Orders Category Date Time Status Regular/Normal [DIET] Nutrition 09/14/24 Lunch Active Diagnostics 09/14/24 09/14/24 Range/Units 07:43 04:50 WBC 7.81 (4.4-10.8) 10^3/uL RBC 4.24 (3.93-5.22) 10^6/uL Hgb 12.9 (11.2-15.7) g/dL Hct 39.9 (36.0-46.0) % MCV 94 (80-95) fL MCH 30.4 (27.0-33.0) pg MCHC 32.3 (32.0-36.0) % RDW 14.6 (11.7-14.6) % Plt Count 301 (130-400) 10^3/uL MPV 11.0 (8.0-11.0) fL Immature Gran % 0.3 % Neutrophils % 65.6 % Lymphocytes % 26.4 % Monocytes % 4.9 % Eosinophils % 2.2 % Basophils % 0.6 % Nucleated RBC % 0.0 (0.0-0.3) % Absolute Neutrophils 5.13 (1.2-6.7) 10^3/uL Absolute Lymphocytes 2.06 (1.2-3.4) 10^3/uL Absolute Monocytes 0.38 (0.1-0.8) 10^3/uL Absolute Eosinophils 0.17 (0.0-0.7) 10^3/uL Absolute Basophils 0.05 (0.0-0.2) 10^3/uL Sodium 140 (136-145) mmol/L Potassium 4.0 (3.5-5.1) mmol/L Chloride 102 (98-107) mmol/L Carbon Dioxide 26.3 (21.0-32.0) mmol/L Anion Gap 11.7 H (3-11) mmol/L BUN 16 (7-18) mg/dL Creatinine 0.8 (0.55-1.02) mg/dL Est GFR (CKD-EPI 2020) 100.96 (mL/min/1.73m2) Glucose 102 (74-106) mg/dL Calcium 9.1 (8.5-10.1) mg/dL Total Bilirubin 0.4 (0.2-1.0) mg/dL Conjugated Bilirubin 0.1 (0.0-0.2) mg/dL AST 18 (15-37) U/L ALT 23 (14-59) U/L Alkaline Phosphatase 65 (46-116) U/L Total Protein 8.2 (6.4-8.2) g/dL Albumin 4.3 (3.4-5.0) g/dL Lipase 69 (<78) U/L Urine Color Yellow (Yellow) Urine Clarity Clear (Clear) Urine pH 6.5 (5-8) Ur Specific [place] 1.010 (1.005-1.025) Urine Protein Negative (Neg-Trace) mg/dL Urine Ketones Negative (Negative) mg/dL Urine Blood Negative (Negative) Urine Nitrite Negative (Negative) Urine Bilirubin Negative (Negative) Urine Urobilinogen 0.2 (Up to 0.2) mg/dL Ur Leukocyte Esterase Negative (Negative) Urine Glucose Negative (Negative) mg/dL [id number] Documentation POC Urine Test Start: 09/14/24 08:28 Freq: .Urine Test Status: Active Protocol: Activity Type Activity Date Activity User E-sign Co-sign Detail Recorded Client Recorded Date Recorded By Document 09/14/24 08:28 KH [id number] 09/14/24 08:28 KH Intake and Output - 24 Hour Total 09/14/24 04:29 thru 09/14/24 13:05 Intake Total 2100 Balance 2100 Weight 131 kg Intake: IV 2100 Other: Urine Appearance Clear Emesis Description None Falls Risk Assessment History of Falls No History 09/14/24 13:05 Contributing Factors No Factors 09/14/24 13:05 Ambulatory Aids Independent 09/14/24 13:05 Tubes/Lines None 09/14/24 13:05 Gait Evaluation No gait disturbance 09/14/24 13:05 Cognition No cognitive impairment 09/14/24 04:44 Fall Total Score 0 09/14/24 13:05 Level of Risk Standard/Low Risk 09/14/24 13:05 Problems (Last Reviewed 09/08/24 @ 09:42 by Radha Etienne NP) Acute cholecystitis (Acute) v v v v v v v v v Sending and/or Receiving Nurses: Please use comment section below to note any information pertinent to the patient hand-off not included above. Information / Comments: Report received from: C/O back pain time two weeks that radiated to RUQ, c/o nausea and poor intake and appetite. VS WNL, morphine and zofran given with good effect. Pt seen by Dr. Becerril and being taken to OR. REFUGIO Peguero
[2024-09-14] MEDS: HYDROmorphone 2 MG/ML SYR 1 MG IVP (17:31)
[2024-09-14] MEDS: Budesonide/Formoterol 160/4.5 6 GM 60 PUFF INH IH (20:29)
[2024-09-14] MEDS: Lactated Ringers 1,000 ML 75 ML IV (20:43)
[2024-09-14] MEDS: Montelukast 10 MG TAB PO (21:00)
[2024-09-15] MEDS: Acetaminophen 500 MG TAB 1000 MG PO ×2 (00:43→05:59)
[2024-09-15] MEDS: HYDROmorphone 2 MG/ML SYR 1 MG IVP (01:40)
[2024-09-15] MEDS: traMADol 50 MG TAB PO (05:59)
--- NOTE | 2024-09-15 07:11 | W.PM.DS.N ---
Date of service: 09/15/24 Time of Service: 07:11 DS: Diagnosis Discharge Diagnosis (1) Acute cholecystitis: Status: Acute Asessment and Plan: Outpatient postoperative follow-up Discharge Plan Disposition Patient Disposition: Home Condition: Good Discharge Details Reason For Visit: Acute Cholecystitis Admit Date/Time: 09/14/24 11:31 Admit Provider: Dave Becerril Attending Provider: Dave Becerril Primary Care Provider: Radha Etienne Hospital Course Hospital Course: Gerri is 69 years old. She has known cholelithiasis, and complications from cholelithiasis. She comes to the emergency department with increasing abdominal pain on the right upper quadrant, and underwent a CT scan that raise possibility of acute cholecystitis. She underwent laparoscopic cholecystectomy that confirmed the diagnosis. Pain was controlled after surgery, she was discharged home the next day with follow-up as an outpatient. Home Meds and New Rx's Prescriptions: New tramadol 50 mg tablet 50 mg PO Q8H PRNQty: 12 0RF Rx Instructions: Take 1 tablet by mouth up to every 8 hours if needed for severe pain Continued clindamycin phosphate 1 % lotion 1 applic topical QHS PRN (Reason: axillary rash (?BULLOCK)) Qty: 60 0RF Rx Instructions: Apply to skin bilateral armpits bedtime PRN outbreaks Mirena 21 mcg/24hr (up to 8 yrs) 52 mg intrauterine device 1 device intrauterine ONCE Qty: 1 0RF Rx Instructions: as a single dose albuterol sulfate 2.5 mg /3 mL (0.083 %) solution for nebulization 2.5 mg inhalation QID PRN (Reason: shortness of breath or wheezing) Qty: 180 12RF loratadine 10 mg capsule 10 mg PO DAILY PRN hydrocortisone 2.5 % cream 1 applic topical TID PRN (Reason: skin irritation) Qty: 20 1RF Rx Instructions: Apply thin layer to keon-orbital skin irritation up to 3x/d PRN for no more than 2 consecutive weeks. PNV [id number] acid 28 mg iron- 800 mcg tablet 1 tab PO DAILY sertraline 50 mg tablet 50 mg PO DAILY Qty: 90 3RF tacrolimus 0.1 % ointment 1 applic topical BID PRN Rx Instructions: Apply twice daily to the affected areas on the eyelids as needed when flaring[place] [place] 10/16/22 valacyclovir [Valtrex] 1 gram tablet 1,000 mg PO DAILY Qty: 90 4RF nystatin 100,000 unit/gram powder 1 applic topical QID Qty: 15 1RF Airsupra 90-80 mcg/actuation HFA aerosol inhaler 2 inh inhalation ONCE Qty: 10.7 0RF Rx Instructions: as a single dose; may repeat up to 6 doses per day (12 inhalations) fluticasone propion-salmeterol [Advair HFA] 230-21 mcg/actuation HFA aerosol inhaler 2 puff inhalation BID Qty: 12 12RF Spiriva Respimat 2.5 mcg/actuation mist 2 puff inhalation DAILY Qty: 4 12RF montelukast 10 mg tablet 10 mg PO QHS Qty: 90 3RF ondansetron 4 mg tablet,disintegrating 4 mg PO Q8H PRNQty: 14 0RF ondansetron 4 mg tablet,disintegrating 4 mg PO TID PRN PRN (Reason: nausea and vomiting) Qty: 7 0RF Discharge Instructions Instructions: Cholecystectomy, Laparoscopic Surgery Additional Instructions: Gerri was good seeing you, and I hope you make an uneventful transition home. Things went very smoothly. As we discussed, we removed your gallbladder with the laparoscope just as we planned. Expect to get some bruising over the incisions over the next few days. That is extremely common and nothing to worry about. As we discussed this morning, you should remove all of the bandages as early as this evening, and wash all of the incisions with warm soapy water. Make sure to rinse them clean, and feel free to replace Band-Aids if you find that more comfortable. Incision should be washed at least once daily. Be careful with your lifting, restricting it to less than 10 pounds. You should be up and moving around to getting a little bit of exercise every day however. I did put in a prescription for some tramadol if you need it for pain. Ice pads will also be very helpful with swelling after surgery as well as pain at the incision sites. If you need anything or have any questions at all, please do not hesitate to call at any time 1. Resume all of your regular medications. 2. Use ice packs over the incisions to help with pain and swelling 3. Alternate [id number] Tylenol and ibuprofen every 6 hours for the first 2 days. Then use them as needed. Use a prescription for tramadol if you need that for more severe pain 4. Shower with warm soapy water. Pat dry. Use a bandaid if needed to protect your clothing. 5. No soaking or tub baths until I see you in the office. 6. No heavy lifting until I see you in the office. 7. Call the office (or go directly to the emergency room after hours) if you notice any of the following: Develop chills (warm to touch), or if you have a thermometer and your temperature is above 101 Difficulty breathing or difficultly swallowing Persistent vomiting Any bleeding ? exceeding one tablespoon 8. Call your physician if the site where your intravenous was started becomes red, swollen, painful, and warm to touch. Referrals: Mirian Ewing MD [ [facility] STAFF PHYSICIAN, Surgery] - 10/08/24 1:30 pm Activity:: No heavy lifting Equipment/Supplies:: No Equipment Needed Diet:: As Tolerated DS: Summary Time Spent with Patient providing and/or coordinating discharge services: Less than 30 minutes Status at Discharge Functional status at discharge: independent ambulation Overall status at discharge: patient is back to baseline Mental Status: mental status grossly normal Speech and Movement: speech and movement normal Mood: congruent mood Affect: normal affect Exam Psych Mental Status: mental status grossly normal Speech and Movement: speech and movement normal Mood: congruent mood Affect: normal affect DS: Data Vitals/I&O Vitals and I&O: Vital Signs Temperature 97.0 F L 09/14/24 19:23 Temperature Source Temporal Artery Scan 09/14/24 19:23 Pulse 72 09/14/24 19:23 Pulse Rhythm Regular 09/14/24 13:05 Respiratory Rate 16 09/14/24 19:23 Respiratory Effort Normal 09/14/24 13:05 Respiratory Depth Normal 09/14/24 13:05 Respiratory Pattern Normal 09/14/24 13:05 Blood Pressure 136/84 09/14/24 19:23 Blood Pressure Mean 101 09/14/24 19:23 Blood Pressure Position Sitting 09/14/24 04:40 Pulse Oximetry 94 09/14/24 19:23 Respiratory End-tidal CO2 42 09/14/24 11:21 Oxygen Delivery Method Room Air 09/14/24 19:23 Oxygen Flow Rate 0 09/14/24 19:23 Pain Level 3 09/15/24 00:43 Intake & Output 09/14/24 09/14/24 09/15/24 11:59 23:59 11:59 Intake Total 800 / 2590 1790 / 2590 Balance 800 / 2590 1790 / 2590 Weight 288 lb 12.889 oz Intake: IV 800 / 2110 1310 / 2110 Oral 480 / 480 Other: Urine Appearance Clear Comment Unmeasured amount Emesis Description None Data Completed and Pending Labs on day of discharge: Labs from last 24 hours 09/14/24 07:43 Urine Color Yellow Urine Clarity Clear Urine pH 6.5 Ur Specific Sun 1.010 Urine Protein Negative Urine Ketones Negative Urine Blood Negative Urine Nitrite Negative Urine Bilirubin Negative Urine Urobilinogen 0.2 Ur Leukocyte Esterase Negative Urine Glucose Negative PFSH All Active Problems (Updated 09/14/24 @ 06:13 by Sanjay Felix DO) Acute cholecystitis (Acute) Depression (Chronic) Cholelithiasis (Chronic) Pancreatitis, acute (Acute) Stress due to marital problems (Acute ~05/2024) Snores (Acute ~2024) IUD (intrauterine device) in place (Acute) 12/2023. Mirena inserted care following delivery (Acute) Status post primary low transverse section (Acute) Primary low-transverse section 11/21/2023 at 37 weeks and 1 day due to preeclampsia with severe features, intrahepatic cholestasis, breech presentation. Male . 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 Valtrex for suppression. Hidradenitis suppurativa (Acute) [facility] [place] [place] 10/16/22 Extensor carpi ulnaris tendinitis (Acute ~02/2022) LEFT Depo-Medrol Injection: 03/10/22 Periorbital dermatitis (Acute ~06/2021) Pain of ulnar side of wrist (Acute ~12/2021) Adjustment disorder (Chronic ~04/2021) Asthma (Chronic) Mild intermittent Medical History Skin rash Intrahepatic cholestasis of Preeclampsia Family history of congenital heart defect History of supraventricular tachycardia (~2013) Elevated TSH (~2020) 2020 & 2021 ELIZABETH II (cervical intraepithelial neoplasia II) Cold Knife Cone done 02/2021. Negative Margins. Pap q 6 months Atypical squamous cells of undetermined significance (ASCUS) on Papanicolaou smear of cervix Cannot rule out high-grade lesion Chest congestion SARS-CoV-2 positive (05/2021) Iron deficiency anemia Mirena IUD Back pain (08/01/11) Intermittent (lumbar) Insomnia (05/16/17) Trazodone; day-shift helped Heart murmur, systolic (02/20/14) s/p ablation for SVT 2013 (Patrick) GERD (gastroesophageal reflux disease) (02/20/14) SVT (supraventricular tachycardia) (~2013) s/p ablation 2013 Surgical History History of low transverse section Hx of cone biopsy of cervix Postoperative state (~02/23/21) Cold knife conization of the cervix 02/23/2021 History of cardiac radiofrequency ablation (~2013) History of tonsillectomy and adenoidectomy Family History Brother Crohn's disease Coarctation of aorta open heart surgery at 2 weeks of age at [facility] Mother Hypertension Asthma Allergies Father Hypertension Paternal Grandfather Myocardial infarct Maternal Grandfather Thyroid cancer Lung disease Paternal Grandmother Heart disease Diabetes Maternal Grandmother Autoimmune disease Diabetes Social History Smoking/Tobacco Use Status: Never Smoking risk assessment performed?: Yes Alcohol Intake: current Alcohol Intake frequency: a few times a month Drug use: Never Substance use type: does not use Adopted: No Foster care: No Housing: house current occupation: [employer] Duration: 45-60 minutes/day Frequency: 5-6 times per week Seatbelt use: always Working smoke detector in home: Yes Fire extinguisher in home: Yes Do you feel safe at home: Yes Do you feel safe in your relationship?: Yes Female Reproductive History Menstrual control method: progestin IUCD History History 1 Para 0 Hx # Term Pregnancies Multiple births Hx # Pregnancies Ectopic pregnancies AB induced Hx Number of Living Children AB spontaneous Time Spent with Patient Time Spent with Patient: <45 minutes Time was spent: preparing to see the patient(eg.review tests), indepentently interpreting results, counseling the patient and care coordination
[2024-09-15 07:16] VITALS: BP 124/73; PULSE 61; RESP 17; TEMP 36.4; O2SAT 96
[2024-09-15] MEDS: Tiotropium Bromide-Respimat 10 PUFF INH 2 PUFF IH (08:06)
[2024-09-15] MEDS: valACYclovir 1,000 MG TAB 1000 MG PO (08:19)
[2024-09-15] MEDS: Prenatal Multivitamin w/CA,FE TAB 1 TAB PO (08:19)
[2024-09-15] MEDS: Sertraline 50 MG TAB PO (08:19)
--- NOTE | 2024-09-15 09:12 | PDOC.CMDIS ---
Date of service: 09/15/24 Time of Service: 10:30 LACE Index Scoring Tool Questions: Length of Stay (in days): 1 Was the patient admitted via the E.D.?: Yes E.D. Visits: 5 Answers: Total Score: 8 Risk of Readmission: Low Risk Care Management Discharge Plan Reason for Hospitalization: Acute Cholecystitis Discharge Plan: Gerri will return home today with no new services. She will transport home via private vehicle by family. She will follow up with her PCP and discharge plan of care. Patient/Family Education Needs: Review discharge instructions and limitations, discussion of self care needs including ask me three.
== END 2024-09-15 09:24 | disposition home or self-care (01) ==
LOC: ER 07:49 → MS 17:26 → ER 09-15 08:38 → SUR 09-15 08:38 → MS 09-15 08:39
PROVIDERS: Admitting Provider Surgery; Emergency Provider Student in an Organized Health Care Education/Training Program; PCP Nurse Practitioner Adult Health; Visit Provider Surgery
PROC: 0FT44ZZ Resection of Gallbladder, Percutaneous Endoscopic Approach (ICD-10-PCS; CPT 47562; principal; 2024-09-14 07:55)
DX: K80.12 Calculus of gallbladder with acute and chronic cholecystitis without obstruction (principal); F32.A Depression, unspecified; E66.01 Morbid (severe) obesity due to excess calories; L73.2 Hidradenitis suppurativa; R03.0 Elevated blood-pressure reading, without diagnosis of hypertension; J45.909 Unspecified asthma, uncomplicated; Z79.899 Other long term (current) drug therapy
CPT/HCPCS: 47562; 80053; 81025; 83690; 94640; 96361; 96374; 96375; 96376; 99222; 99285; 74177; 81003; 82248; 85025; 88304; 94664; G0378; J0131; J0690; J1100; J1171; J1790; J2250; J2270; J2405; J2704; J3010; J3475; J3490

== ENCOUNTER 2025-01-01 13:51 | Outpatient (CLI) | payer OTHER, SELFPAY ==
[2025-01-01 15:42] LABS: Hemoglobin A1C 5.3 % (<5.7)
[2025-01-01 16:39] LABS: Ferritin 31 ng/mL (7-271); TSH 1.74 uIU/mL (0.55-4.78); Vitamin D 25 Total 11 ng/mL (30-100)
[2025-01-01 17:24] LABS: Folate 11.2 ng/mL (>5.38); Iron 44 ug/dL (50-170); Vitamin B12 574 pg/mL (211-911)
== END 2025-01-01 13:52 | disposition home or self-care (01) ==
LOC: LBO 13:51
PROVIDERS: PCP Nurse Practitioner Adult Health; Visit Provider Registered Nurse
DX: F50.819 Binge eating disorder, unspecified (principal); F51.04 Psychophysiologic insomnia; F41.1 Generalized anxiety disorder; F33.1 Major depressive disorder, recurrent, moderate; Z51.81 Encounter for therapeutic drug level monitoring
CPT/HCPCS: 36415; 82306; 82607; 82728; 82746; 83036; 83540; 84439; 84443